=== PATIENT | male | born 1940 | race Caucasian/White ===

== ENCOUNTER 2023-11-12 11:15 | Emergency (ER) | payer OTHER, SELFPAY ==
[2023-11-12 11:17] VITALS: BMI 48.7
[2023-11-12 11:18] VITALS: BP 133/67
--- NOTE | 2023-11-12 11:45 | ED.GENMED ---
History of Present Illness
General
Chief Complaint: Fall
Source: patient
Exam Limitations: none
Time Seen by Provider: 11/12/23 11:21
Nursing documentation reviewed up to this point in time: agreed with
Travel History
Have you had any contact with someone who has COVID-19?: No
Do you have any symptoms of coronavirus? Fever > 100 degrees, chills, cough, shortness of breath, sore throat, loss of taste or smell, muscle aches, or headache?: No
History of Present Illness
History of Present Illness:
83-year-old male with past medical history of A-fib currently on Coumadin hypertension hyperlipidemia, chronic lung disease currently on chronic oxygen presenting to the emergency department after ground-level fall at home he claims that he was
dragging his air compressor around due to a longer walk than usual today tripped over this fell to the side denies any discomfort but was told to go to the ER due to him being on Coumadin. Denies any headache neck pain numbness weakness or
additional concerns. Otherwise feels normal at this point.
Past History
Past History
ED Past Medical History: Arrthythmia (Atrial fibrillation), HTN, Hypercholesterolemia, NIDDM, Renal failure, Valvular disease and Other (Morbid obesity)
ED Past Surgical History: Cardiac (Bioprosthetic aortic valve replacement) and Orthopedic
Social History
Tobacco: Non-smoker
Alcohol: None
Drug: None
Personal:
Living: with family
Employment: Retired
Review of Systems
Review of Systems
Allergies reviewed?: Yes
All Other Systems: ROS reviewed and negative except as documented in HPI and ROS
Phy Exam
Physical Exam
Physical Exam:
GENERAL: Alert , in no apparent distress
EYE: pupils equal and reactive
NECK: Supple, no significant adenopathy.
ENT: o/p clr, mmm.
CARDIAC: Regular rate and rhythm .
LUNGS: Clear breath sounds bilaterally, no acute respiratory distress, no wheezes/rales/rhonchi
ABDOMEN: Soft, without focal tenderness, no r/g, no cvat
NEUROLOGICAL: Alert and oriented, no focal neuro deficits
SKIN: Warm and dry, skin intact.
MUSCULOSKELETAL: No edema, well perfused.
PSYCH: Normal and appropriate interaction.
Course
Orders/Labs/Results
Orders:
Orders
11/12/23 11:24
CT Head W/o Iv Contrast Urgent
Comment:
Reason For Exam: dandy on coumadin
11/12/23 11:36
INR [Prothrombin Time] Urgent
Abnormal Lab Results
11/12/23
11:36
PT 27.2 H Sec
(11.4-14.6)
Vital Signs
Initial and Last Documented VS:
Initial Vital Signs
Temp Pulse Resp BP Pulse Ox
97.9 F 77 18 133/67 97
11/12/23 11:18 11/12/23 11:18 11/12/23 11:18 11/12/23 11:18 11/12/23 11:18
Last Documented Vital Signs
Temp Pulse Resp BP Pulse Ox
97.9 F 77 18 133/67 97
11/12/23 11:18 11/12/23 11:18 11/12/23 11:18 11/12/23 11:18 11/12/23 11:18
MDM/Problems Addressed
MDM/Problems Addressed:
83-year-old male presenting to the emergency department after mechanical fall occurring breast prior to arrival. Denies any significant but he does claim that he is on Coumadin and he was told to come in after any falls considering he is on a blood
thinner. No signs of head trauma no evidence of trauma from head to toe normal neurologic evaluation no neck pain. CT scan without emergent findings INR in the expected range. Stable for discharge return precautions given.
*Critical Care Note
Total Time (30-74mins, 75-104mins- exclusive of procedures): Not Applicable
ED Attending Note
-
Portions of this chart may have been created with voice recognition software.� Occasional wrong word or��sound alike� substitutions may have occurred due to the inherent limitations of voice recognition software.
Discharge Plan
Departure
Patient Disposition: Home (Routine Discharge)
Date of Disposition: 11/12/23
Time of Disposition: 13:16
Patient with high blood pressure during this ER visit?: No
Condition: Good
Covid-19: Not Applicable
Discharge Problem:
Fall
Instructions: Preventing falls in adults
Prescriptions:
No Action
ezetimibe 10 MG tablet
10 mg PO HS
furosemide 40 MG tablet
20 mg PO DAILY
amiodarone [Pacerone] 100 MG tablet
100 mg PO DAILY
cyanocobalamin (vitamin B-12) 2,500 MCG tablet
2,500 mcg PO WEEKLY
albuterol sulfate [Ventolin HFA] 90 MCG/PUFF HFA aerosol inhaler
2 puff inhalation R Q4 PRN (Reason: sob/wheezing)
coenzyme Q10 [Co Q-10] 200 MG capsule
200 mg PO DAILY
carvedilol 3.125 MG tablet
3.125 mg PO BID
warfarin [Jantoven] 2 MG tablet
4.5 mg PO HS
ascorbic acid (vitamin C) [Vitamin C] 500 MG tablet
500 mg PO DAILY
cholecalciferol (vitamin D3) 2,000 UNITS tablet
2,000 units PO DAILY
aspirin 81 MG tablet,delayed release (DR/EC)
81 mg PO DAILY Qty: 0 0RF
Rx Instructions:
Resume after Lovenox/Coumadin Bridge is complete
guaifenesin [Mucinex] 600 mg Tablet Extended Release 12hr
600 mg PO Q12 30 Days Qty: 60 0RF
atorvastatin 20 mg tablet
20 mg PO DAILY
benzonatate 200 mg capsule
200 mg PO TID PRN (Reason: cough)
insulin lispro [Humalog KwikPen Insulin] 100 unit/mL insulin pen
32 unit SC TID
Patient Comments:
10/27/2022: When asking pt if he takes humalog before meals or with meals he states 'whenever i remember'
insulin glargine [Lantus Solostar U-100 Insulin] 100 unit/mL (3 mL) insulin pen
33 unit SC HS
Trulicity 0.75 mg/0.5 mL pen injector
0.75 mg SC WEEKLY
Lagevrio (EUA) 200 mg capsule
800 mg PO Q12H
Referrals:
Ruperto Jade, DO [Family Provider] -
Activity Restrictions/Additional Instructions:
You came to the emergency department today with concerns of a fall. Here you had a normal CT scan. Return to the emergency department for any worsening, new or concerning symptoms.
Interventions
Interventions:
*Risk Screen - Suicide Last Done: 11/12/23 11:20
*General Assessment Last Done: 11/12/23 11:20
*Neglect/Abuse Screening Last Done: 11/12/23 11:20
ED- Fall Risk Assessment Last Done: 11/12/23 11:41
*ED COVID-19 Vaccine History Last Done: 11/12/23 11:20
ED-Musculoskeletal Assessment Last Done: 11/12/23 11:21
ED- Neurological Assessment Last Done: 11/12/23 11:21
ED-Skin Assessment Last Done: 11/12/23 11:21
[2023-11-12 11:55] LABS: INR 2.49; PT 27.2 Sec (11.4-14.6)
[2023-11-12 13:22] VITALS: BP 136/67
[2023-11-12 13:41] LABS: % Basophils 0.6 % (0-2); % Eosinophils 1.5 % (0-6); % Immature Granulocytes 0.5 % (0-0.5); % Lymphocytes 13.9 % (20.5-51.1); % Monocytes 8.9 % (1.7-9.3); % Neutrophils 74.6 % (42.2-75.2); Absolute Basophils 0.1 10^3/uL (0-0.2); Absolute Eosinophils 0.1 10^3/uL (0-0.7); Absolute Lymphocytes 1.1 10^3/uL (1.2-3.4); Absolute Monocytes 0.7 10^3/uL (0.1-0.6); Hematocrit 32.7 % (39.0-52.0); Hemoglobin 10.5 g/dL (13.0-18.0); Mean Corp Hgb Conc. 32.1 g/dL (33.0-37.0); Mean Corpuscular Hgb 30.3 pg (27.0-31.0); Mean Corpuscular Volume 94.2 fL (80.0-94.0); Mean Platelet Volume 11.2 fL (7.4-10.4); Nucleated Red Blood Cells % 0 % (-); Platelet Count 207 10^3/uL (130-400); Red Blood Cell Count 3.47 10^6/uL (4.70-6.10); Red Cell Dist. Width 13.4 % (11.5-14.5); White Blood Cell Count 8.1 10^3/uL (4.8-10.8)
[2023-11-12 14:10] LABS: ALT (SGPT) 14 U/L (0-50); AST (SGOT) 22 U/L (17-59); Albumin 3.3 g/dl (3.5-5.0); Alkaline Phosphatase 107 U/L (38-126); Blood Urea Nitrogen 23 mg/dl (9-20); Calcium 8.5 mg/dl (8.4-10.2); Carbon Dioxide 32 mmol/L (22-30); Chloride 100 mmol/L (98-107); Estimated Creatinine Clearance 76 ml/min; Glucose 340 mg/dl (70-99); Potassium 4.8 mmol/L (3.5-5.1); Sodium 136 mmol/L (135-145); eGFR > 60.00
[2023-11-12 15:04] VITALS: BP 135/74
== END 2023-11-12 15:14 | disposition home or self-care (01) ==
LOC: EMR 11:15
PROVIDERS: Physician Assistant; EMERGENCY PHYSICIAN Emergency Medicine; FAMILY PHYSICIAN Family Medicine
DX: Z04.3 Encounter for examination and observation following other accident (principal); W18.09XA Striking against other object with subsequent fall, initial encounter; I48.91 Unspecified atrial fibrillation; Z79.01 Long term (current) use of anticoagulants; I10 Essential (primary) hypertension; E78.00 Pure hypercholesterolemia, unspecified
CPT/HCPCS: 99284; 70450; 80053; 85025; 85610

== ENCOUNTER 2023-12-07 22:35 | Inpatient (IN) | payer OTHER, SELFPAY ==
[2023-12-07] VITALS (31 sets, daily range): BP systolic 106–195; BP diastolic 58–127; PULSE 2–80; BMI 48.9
--- NOTE | 2023-12-07 20:19 | ED.GENMED ---
History of Present Illness
General
Chief Complaint: Breathing Problem
Source: patient, records and ambulance crew
Exam Limitations: none
Time Seen by Provider: 12/07/23 20:11
Nursing documentation reviewed up to this point in time: agreed with
History of Present Illness
History of Present Illness:
83-year-old male with a past medical history of atrial fibrillation on Coumadin, hypertension, hyperlipidemia, aortic stenosis status post bioprosthetic aortic valve replacement, diabetes, CKD, chronic hypoxic respiratory failure on currently on
3.5L home oxygen who presents to the emergency room via EMS in respiratory distress. Of note patient had a recent admission 10/27 until 10/28 for acute on chronic respiratory failure with hypoxia thought to be related to COVID and viral bronchitis.
Patient reports for the past week he has had increasing shortness of breath tonight felt like 'I just could not breathe.' EMS was called by patient's . On EMS arrival per their report patient was cyanotic and severely hypoxic; placed on
additional oxygen via nasal cannula and transported to the emergency room. He did receive a DuoNeb on the way to the hospital. Here in the emergency room he continues to complain of shortness of breath. He denies any chest pain. He says he has
not had any increased edema in his legs. He denies any GI symptoms. Denies any recent fevers or chills. He says he has not been coughing very much. He denies any other complaints.
Past History
Past History
ED Past Medical History: Arrthythmia (Atrial fibrillation), HTN, Hypercholesterolemia, NIDDM, Renal failure, Valvular disease and Other (Morbid obesity)
ED Past Surgical History: Cardiac (Bioprosthetic aortic valve replacement) and Orthopedic
Social History
Tobacco: Non-smoker
Alcohol: None
Drug: None
Personal:
Living: with family
Employment: Retired
Review of Systems
Review of Systems
All Other Systems: ROS reviewed and negative except as documented in HPI and ROS
Constitutional: Denies fever or chills
Respiratory: Reports trouble breathing; Denies cough
Cardiac: Denies chest pain or palpitations
ABD/GI: Denies abdominal pain, nausea or vomiting
: Denies flank pain
Musculoskeletal: Denies edema, neck pain or back pain
Neurological: Denies headache
Phy Exam
Physical Exam
Physical Exam:
General: Awake, alert, cyanotic and patel and is in acute respiratory distress
Head: Normocephalic, atraumatic
Eyes: Conjunctiva normal
Throat: Airway intact, handling secretions
Neck: Trachea midline, supple without meningismus
Lungs: Patient is cyanotic and patel, tachypneic with rates in the 30s, hypoxic to 40% on room air, has bilateral scattered wheezing
Heart: Regular rate and rhythm, no murmurs, gallops, or rubs
Abd: Obese but soft, non distended, nontender
Neuro: No gross deficits
Skin: Cyanotic and red; chronic venous stasis changes in the lower extremities
Extremities: Trace edema in the lower extremities bilaterally; extremities are cool to touch
Scores
Heart Failure Risk
Heart Failure Risk Score: Not Applicable
Heart Score for Chest Pain Patients
STEMI patient?: Not applicable
Withdrawal Assessment of Alcohol
Withdrawal Assessment Completed?: Not applicable
Course
Orders/Labs/Results
Orders:
Orders
12/07/23 20:14
Ipratropium/Albuterol Sulfate [Duoneb] 3 ml .ROUTE .STK-MED ONE
MethylPREDNISolone PF [Solu-Medrol Pf] 125 mg .ROUTE .STK-MED ONE
12/07/23 20:18
Electrocardiogram (*1) Urgent
Reason for Study: Shortness of Breath
EKG- Treatment ONCE
CR Chest Portable - 1 View Urgent
Comment:
Reason For Exam: sob
Reason Study Needs to be Portable: Unable to Transport
Portable Chest Xray [CR Chest Portable - 1 View] Stat
Comment:
Reason For Exam: Dyspnea
Reason Study Needs to be Portable: Unable to Transport
12/07/23 20:34
ABG [Arterial Blood Gas] Urgent
%Oxygen/Room Air: 40
COVID-19 Antigen Urgent
Source: Nasal Swab
Complete Blood Count/With Diff Urgent
Comprehensive Metabolic Panel Urgent
NT-proBNP Urgent
PTT Urgent
Prothrombin Time Urgent
Troponin I Urgent
12/07/23 20:47
Ipratropium/Albuterol Sulfate [Duoneb] 3 ml INH R NOW ONE
12/07/23 20:48
MethylPREDNISolone PF [Solu-Medrol Pf] 125 mg IV NOW STA
12/07/23 21:22
Furosemide [Lasix] 40 mg IV NOW STA
Nitroglycerin 100 mg/250 ml [Nitroglycerin Premix] 100 mg in 250 ml IV NOW
Initial dose in mcg/min, then titrate:: 5
Titrate to keep:: SBP < 160 mmHg
Titrate by mcg/min:: 5 mcg/min, may increase by 10 mcg/min if dose > 20 mcg/min
Frequency of titrations (minutes):: every 3-5 minutes
Maximum dose in mcg/min:: 200
Begin to taper infusion when:: Remained at goal for 2hrs
Taper by mcg/min:: 5 mcg/min
Frequency of taper (minutes) if patient maintains goal:: 30
Taper to off?: Yes
If infusion off & no longer maintaining goal:: Contact Provider
Abnormal Lab Results
12/07/23 12/07/23
20:25 20:34
RBC 3.37 L 10^6/uL
(4.70-6.10)
Hgb 10.1 L g/dL
(13.0-18.0)
Hct 32.9 L %
(39.0-52.0)
MCV 97.6 H fL
(80.0-94.0)
MCHC 30.7 L g/dL
(33.0-37.0)
RDW 14.6 H %
(11.5-14.5)
MPV 10.8 H fL
(7.4-10.4)
Absolute Neuts (auto) 8.3 H 10^3/uL
(1.4-6.5)
Absolute Lymphs (auto) 1.1 L 10^3/uL
(1.2-3.4)
Absolute Monos (auto) 1.1 H 10^3/uL
(0.1-0.6)
Neutrophils % 77.8 H %
(42.2-75.2)
Lymphocytes % 10.7 L %
(20.5-51.1)
Monocytes % 10.1 H %
(1.7-9.3)
PT 38.0 H Sec
(11.4-14.6)
APTT 52.6 H Sec
(23.4-35.0)
pH 7.31 L
(7.35-7.45)
pCO2 82 H* mmHg
(35-48)
pO2 82 L mmHg
(83-108)
HCO3 41.3 H* mmol/L
(21-28)
ABG O2 Sat (Measured) 98.3 H %
(94-98)
POC Glucose 256 H mg/dl
(70-99)
12/07/23 20:34
Vital Signs
Initial and Last Documented VS:
Initial Vital Signs
Pulse Resp BP Pulse Ox
81 24 185/89 37
12/07/23 20:10 12/07/23 20:10 12/07/23 20:10 12/07/23 20:10
Last Documented Vital Signs
Temp Pulse Resp BP Pulse Ox
37.4 C 78 35 181/65 94
12/07/23 20:35 12/07/23 20:35 12/07/23 20:35 12/07/23 20:30 12/07/23 20:35
MDM/Problems Addressed
Differential Diagnosis Includes:
Pneumonia, bronchitis, asthma/COPD, CHF, pulmonary embolism somewhat less likely as patient is on Coumadin
MDM/Problems Addressed:
83-year-old male presents to the emergency room with acute respiratory distress that she has a history of chronic respiratory failure with hypoxia and had recent admission for COVID related pneumonia/bronchitis. He arrives in respiratory distress
speaking in one-word sentences, tachypneic, hypoxic, patel and cyanotic. He was placed on a nonrebreather with improvement in his oxygenation, given his bilateral wheezing given IV steroid and additional DuoNeb treatment. IV placed labs sent off
including a CBC and a CMP, BNP, troponin. Swab for COVID and flu. Call for stat portable chest x-ray and EKG. Will check an ABG. Monitor closely reassess after the above�anticipate admission
Chest x-ray reviewed shows significant bilateral pulmonary edema. CBC shows stable anemia, no leukocytosis. His proBNP is elevated 2740. Troponin undetectable. Plan to control blood pressure with nitroglycerin. She with IV Lasix. Patient was
transition from nonrebreather to BiPAP. His respiratory status has stabilized. Will admit for continued management of acute on chronic respiratory failure secondary to acute CHF. Discussed with hospitalist for admission.
Chronic conditions affecting care:
Chronic respiratory failure, morbid obesity
Acute Exacerbation and/or Progression of Chronic Illness:
Acute on chronic respiratory failure
*Radiology
Radiology exam reviewed: preliminary read by ED provider and radiology read reviewed
*Pulse Oximetry
Patient hypoxic: yes
*EKG
Interpreted by ED Provider?: Yes
Comparison EKG: no changes
Heart Rate: 81
Rate: normal
Rhythm: sinus
[place]: normal axis
Interval: first degree heart block
QRS Pattern: normal QRS
Ischemia: other (Inferior infarct age undetermined)
*Critical Care Note
Total Time (30-74mins, 75-104mins- exclusive of procedures): 37
comment:
Critical care statement: A total of 37 minutes of critical care time was provided for this patient. This includes management of unstable vital signs, evaluation of the patient at bedside, frequent reassessment, discussion with
consultants/hospitalist, and review of pertinent medical records. This time was separate from time utilized to perform any aforementioned documented procedures
Data Reviewed
Review of Other/Old Records Reveals: Labs, Records and Discharge Summary
Source: patient, family and ambulance crew
Patient Management
Discussion with other providers: Hospitalist (Discussed with hospitalist)
Escalation/DeEscalation of care consider admission/obs:
Admission indicated
ED Attending Note
-
Portions of this chart may have been created with voice recognition software.� Occasional wrong word or��sound alike� substitutions may have occurred due to the inherent limitations of voice recognition software.
Discharge Plan
Departure
Patient Disposition: Admit
Date of Disposition: 12/07/23
Time of Disposition: 21:29
Admit to doctor: Daphne
Presentation/result/management discussed w/ accepting MD/DO: Hospitalist
Discharge Problem:
Acute CHF, Acute on chronic hypoxic respiratory failure
Prescriptions:
No Action
ezetimibe 10 MG tablet
10 mg PO HS
amiodarone [Pacerone] 100 MG tablet
100 mg PO DAILY
cyanocobalamin (vitamin B-12) 2,500 MCG tablet
2,500 mcg PO MOTH
albuterol sulfate [Ventolin HFA] 90 MCG/PUFF HFA aerosol inhaler
2 puff inhalation R Q4 PRN (Reason: sob/wheezing)
coenzyme Q10 [Co Q-10] 200 MG capsule
200 mg PO DAILY
carvedilol 3.125 MG tablet
3.125 mg PO BID
cholecalciferol (vitamin D3) 2,000 UNITS tablet
2,000 units PO DAILY
aspirin 81 MG tablet,delayed release (DR/EC)
81 mg PO DAILY Qty: 0 0RF
Rx Instructions:
Resume after Lovenox/Coumadin Bridge is complete
atorvastatin 20 mg tablet
20 mg PO DAILY
insulin lispro [Humalog KwikPen Insulin] 100 unit/mL insulin pen
0 sliding scale dose SC MEALS
Patient Comments:
10/27/2022: When asking pt if he takes humalog before meals or with meals he states 'whenever i remember'
insulin glargine [Lantus Solostar U-100 Insulin] 100 unit/mL (3 mL) insulin pen
20 unit SC HS
zinc acetate 50 mg (zinc) Capsule
50 mg PO DAILY
magnesium 250 mg Tablet
500 mg PO DAILY
furosemide 20 mg tablet
20 mg PO DAILY
warfarin 1 mg tablet
1 mg PO QPM
Patient Comments:
12/07/2023: taken w/ 2.5mg = 3.5mg
Mounjaro 5 mg/0.5 mL pen injector
5 mg SC MOORE
warfarin 2.5 mg tablet
2.5 mg PO QPM
Patient Comments:
12/07/2023: taken w/ 1mg= 3.5mg
Referrals:
Ruperto Jade, [Family Provider] -
Interventions
Interventions:
*Risk Screen - Suicide Last Done: 12/07/23 20:10
*General Assessment Last Done: 12/07/23 20:38
*Neglect/Abuse Screening Last Done: 12/07/23 20:38
ED- Cardiac Assessment Last Done: 12/07/23 20:38
ED- Pulmonary Assessment Last Done: 12/07/23 20:38
Discharge Date and Time
Print Language: [place]
[2023-12-07 20:26] LABS: Glucose - Point of Care 256 mg/dl (70-99)
[2023-12-07 20:39] LABS: % Basophils 0.5 % (0-2); % Eosinophils 0.5 % (0-6); % Immature Granulocytes 0.4 % (0-0.5); % Lymphocytes 10.7 % (20.5-51.1); % Monocytes 10.1 % (1.7-9.3); % Neutrophils 77.8 % (42.2-75.2); Absolute Basophils 0.1 10^3/uL (0-0.2); Absolute Eosinophils 0.1 10^3/uL (0-0.7); Absolute Lymphocytes 1.1 10^3/uL (1.2-3.4); Absolute Monocytes 1.1 10^3/uL (0.1-0.6); Absolute Neutrophils 8.3 10^3/uL (1.4-6.5); Hematocrit 32.9 % (39.0-52.0); Hemoglobin 10.1 g/dL (13.0-18.0); Mean Corp Hgb Conc. 30.7 g/dL (33.0-37.0); Mean Corpuscular Volume 97.6 fL (80.0-94.0); Mean Platelet Volume 10.8 fL (7.4-10.4); Nucleated Red Blood Cells % 0 % (-); Platelet Count 279 10^3/uL (130-400); Red Blood Cell Count 3.37 10^6/uL (4.70-6.10); Red Cell Dist. Width 14.6 % (11.5-14.5); White Blood Cell Count 10.6 10^3/uL (4.8-10.8)
[2023-12-07] MEDS: DUONEB 3 ML INH (20:48)
[2023-12-07 20:49] LABS: INR 3.87
[2023-12-07] MEDS: SOLU-MEDROL PF 125 MG IV (20:49)
[2023-12-07 20:50] LABS: APTT 52.6 Sec (23.4-35.0)
[2023-12-07 20:52] LABS: B.E. 12.5 mmol/L; O2 Saturation % 98.3 % (94-98); PO2 82 mmHg (83-108); pH 7.31 (7.35-7.45)
[2023-12-07 20:54] LABS: HCO3 41.3 mmol/L (21-28); PCO2 82 mmHg (35-48)
[2023-12-07 21:02] LABS: NT-proBNP 2740 pg/ml; Troponin I < 0.012 ng/ml
--- NOTE | 2023-12-07 21:53 | HPS.HSE ---
Family Physician
-
Family Physician: Ruperto Jade
Chief Complaint
-
shortness of breath
History of Present Illness
83-year-old male past medical history of atrial fibrillation on Coumadin, aortic stenosis status post bioprosthetic aortic valve replacement, coronary artery disease, chronic hypoxic respiratory failure on 3.5 L at home, hypertension,
hyperlipidemia, diabetes, CKD, obesity, presenting for respiratory distress over the past few days. No chest pain or significant cough. No fevers or chills. No weight gain but he has been having increased lower extremity edema.
Patient states that he has been having creasing shortness of breath for the past week. Upon arrival of EMS he was noted to be cyanotic and severely hypoxic. He denies any chest pain. He denies any nausea vomiting or diarrhea. He denies any fevers
or chills. He denies a significant amount of cough.
Patient was initially placed on nonrebreather with improvement in his oxygenation and was given IV steroids and DuoNebs for wheezing on examination. He was eventually transitioned over to BiPAP after labs and chest review showed evidence of heart
failure.
No smoking or alcohol use
Medical History
Past Medical History
Past Medical History: Reports Other (atrial fibrillation on Coumadin, aortic stenosis status post bioprosthetic aortic valve replacement, coronary artery disease, chronic hypoxic respiratory failure on 3.5 L at home, hypertension, hyperlipidemia,
diabetes, CKD, obesity, )
Past Surgical History: Reports Other ( Cardiac (Bioprosthetic aortic valve replacement) and Orthopedic)
Social History
Tobacco: Non-smoker
Alcohol: None
Drug: None
Family History
Family History: Not pertinent
Allergies / Home Medications
Allergies reflects when Allergies were last updated in [employer].
Home Medications with original date entered in [employer]
Allergy/Medication List:
Allergies
Allergy/AdvReac Type Severity Reaction Status Date / Time
No Known Allergies Allergy Verified 10/27/22 12:58
Home Medications
ezetimibe 10 mg tablet 10 mg PO HS High cholesterol 03/13/11
amiodarone 100 mg tablet (Pacerone) 100 mg PO DAILY Heart disease/condition 03/18/17
albuterol sulfate 90 mcg/actuation aerosol inhaler (Ventolin HFA) 2 puff inhalation R Q4 PRN sob/wheezing 03/29/20
coenzyme Q10 200 mg capsule (Co Q-10) 200 mg PO DAILY Supplement 03/29/20
cyanocobalamin (vitamin B-12) 2,500 mcg tablet 2,500 mcg PO MOTH Supplement 03/29/20
carvedilol 3.125 mg tablet 3.125 mg PO BID Blood pressure 06/05/20
cholecalciferol (vitamin D3) 50 mcg (2,000 unit) tablet 2,000 units PO DAILY Supplement 06/05/20
aspirin 81 mg tablet,delayed release 81 mg PO DAILY Blood clot prevention/tx ##0 06/07/20
atorvastatin 20 mg tablet 20 mg PO DAILY High cholesterol 10/27/22
insulin glargine 100 unit/mL (3 mL) subcutaneous pen (Lantus Solostar U-100 Insulin) 20 unit SC HS Diabetes 10/27/22
insulin lispro 100 unit/mL subcutaneous pen (Humalog KwikPen (U-100) Insulin) 0 sliding scale dose SC MEALS Diabetes 10/27/22
furosemide 20 mg tablet 20 mg PO DAILY 12/07/23
magnesium 250 mg tablet 500 mg PO DAILY 12/07/23
tirzepatide 5 mg/0.5 mL subcutaneous pen injector (Mounjaro) 5 mg SC MOORE 12/07/23
warfarin 1 mg tablet 1 mg PO QPM 12/07/23
warfarin 2.5 mg tablet 2.5 mg PO QPM 12/07/23
zinc acetate 50 mg (zinc) capsule 50 mg PO DAILY 12/07/23
Review of Systems
-
History Source: Patient
A 12 point ROS was completed and negative except as noted: Yes
Constitutional: Reports No Symptoms
EENT: Reports No Symptoms
Respiratory: Reports See HPI
Cardiac: Reports No Symptoms
Abdomen/GI: Reports No Symptoms
: Reports No Symptoms
Musculoskeletal: Reports No Symptoms
Skin: Reports No Symptoms
Neurological: Reports No Symptoms
Endocrine: Reports No Symptoms
Hematologic/Lymphatic: Reports No Symptoms
Psych: Reports No Symptoms
Physical Exam
Vital Signs
Vital Signs
Temp Pulse Resp BP Pulse Ox
99.3 F 78 35 181/65 94
12/07/23 20:35 12/07/23 20:35 12/07/23 20:35 12/07/23 20:30 12/07/23 20:35
Physical Exam
General: Well Developed, Well Nourished and No Apparent Distress
HEENT: NormoCephalic, Moist mucous membranes and Atraumatic
Respiratory: Rales
Cardiac: S1/S2 and Regular Rhythm; No Murmur or Rub
GI: Soft, Non Tender, Non Distended and Normal Bowel Sounds; No Organomegaly
Rectal: Deferred by Provider
Musculoskeletal: No Clubbing, No Cyanosis, Edema, Left Lower Extremity, Edema, Right Lower Extremity and No Edema
Skin: No Rash
Neuro: Nonfocal/grossly intact
Laboratory Results
-
12/07/23 20:34
Laboratory Results
PT 38.0 Sec (11.4-14.6) H 12/07/23 20:34
INR 3.87 12/07/23 20:34
APTT 52.6 Sec (23.4-35.0) H 12/07/23 20:34
pH 7.31 (7.35-7.45) L 12/07/23 20:34
pCO2 82 mmHg (35-48) H* 12/07/23 20:34
pO2 82 mmHg (83-108) L 12/07/23 20:34
HCO3 41.3 mmol/L (21-28) H* 12/07/23 20:34
Troponin I < 0.012 ng/ml 12/07/23 20:34
Data Reviewed
-
Lab Data: Labs Reviewed by me
Old Records: Reviewed
Impression/Plan
-
IMPRESSION:
PLAN:
# Acute hypercarbic respiratory failure secondary to acute on chronic HFpEF exacerbation
#Chronic hypoxic respiratory failure on 3.5 L at baseline
-ABG shows pH of 7.31, pCO2 of 82
-Chest x-ray shows severe acute alveolar cardiogenic pulmonary edema, moderate cardiomegaly
-Cardiac BNP of 2700
-40 IV Lasix BID
-Nitroglycerin drip ordered
-Check I's and O's, daily weights
-Check echo
-N.p.o. while on BiPAP
-Cardiology consulted
Paroxysmal atrial fibrillation
-Continue amiodarone
-Continue Coreg
-Continue Coumadin
Aortic stenosis status post bioprosthetic aortic valve replacement
-Echo
Coronary artery disease
-Continue aspirin, statin
Essential hypertension
Hyperlipidemia
-Continue Zetia
Type 2 diabetes
-Continue Lantus 20 units
-Insulin sliding scale
CKD
-BMP pending
Obesity
DNR/DNI
DVT prophylaxis�Coumadin
N.p.o.
[2023-12-07] MEDS: LASIX 40 MG IV (21:55)
[2023-12-07] MEDS: NITROGLYCERIN PREMIX 250 IV (21:55)
[2023-12-07 21:57] LABS: ALT (SGPT) 13 U/L (0-50); AST (SGOT) 22 U/L (17-59); Albumin 3.8 g/dl (3.5-5.0); Alkaline Phosphatase 112 U/L (38-126); Blood Urea Nitrogen 30 mg/dl (9-20); Chloride 94 mmol/L (98-107); Estimated Creatinine Clearance 76 ml/min; Glucose 247 mg/dl (70-99); Potassium 5.3 mmol/L (3.5-5.1); Sodium 136 mmol/L (135-145); Total Bilirubin 1.3 mg/dl (0.2-1.3); eGFR > 60.00
[2023-12-07 22:15] LABS: Carbon Dioxide 35 mmol/L (22-30)
[2023-12-07 23:25] LABS: COVID-19 Antigen Negative (Negative)
[2023-12-08] VITALS (51 sets, daily range): BP systolic 96–173; BP diastolic 55–81; PULSE 2–80; BMI 48.1
[2023-12-08] MEDS: ZETIA PO ×2 (01:33→23:39)
--- NOTE | 2023-12-08 06:34 | W.PN.HOSP.TC ---
Addendum entered and electronically signed by Zoya Stevens MD 12/08/23 09:41:
Addendum
Hyperkalemia
recheck BMP after Lasix
Will follow
# hypercoagulopathy
Hold Coumadin tonight
INR in AM
End
Original Note:
Today's Communication/Plan
-
Give AM medications
wean off Bi pap
Assessment / Plan
Assessment / Plan
Physical Exam
General: Obese, chronically ill looking
HEENT: Normocephalic, Moist mucous membranes and Atraumatic. C pap was on
Respiratory: limited with rales
Cardiac: S1/S2
GI: Soft, Non Tender,
Rectal: No rectal bleeding
Musculoskeletal: mild edema in lower legs with thickened skin
Psych: no agitation
Neuro: awake, answered questions and followed commands.
# Acute hypoxic and hypercarbic respiratory failure secondary to acute on chronic HFpEF exacerbation
#Hx of Chronic hypoxic respiratory failure on 3.5 L at baseline
-ABG shows pH of 7.31, pCO2 of 82. PO2 81
-Chest x-ray shows severe acute alveolar cardiogenic pulmonary edema, moderate cardiomegaly
-Cardiac BNP of 2700
- Negative COVID
-40 IV Lasix BID
-Nitroglycerin drip ordered
- Daily weights
-Check echo
- wean off Bipap to nasal O2
- Appreciate cardiology input
# Paroxysmal atrial fibrillation
Rate is controlled
-Continue amiodarone
-Continue Coreg
-Continue Coumadin
#Aortic stenosis status post bioprosthetic aortic valve replacement
#AMIE (severe) on CPAP 10 cwp s O2, / Pulmonary hypertension
# Morbid obesity BMI 48
Impacting negatively his health.
#Coronary artery disease
No chest pain
Negative troponin on arrival
-Continue aspirin, statin
# Essential hypertension
No headache
Hyperlipidemia
-Continue Zetia
Type 2 diabetes
-Continue Lantus 20 units
-Insulin sliding scale
Obesity
DNR/DNI
DVT prophylaxis�Coumadin
oral diet
Total time spent to see patient, examine the patient on the floor, review data and lab results, discuss treatment plan with patient, nursing staff around 55 minutes
Anticipated Discharge: > 48 hours
Subjective/Interval History
-
Date of Service: December 08, 2023
He denies chest pain\\He feels better
AM Medications were not given yet
Objective Data
-
Labs:
Laboratory Results
12/07/23 12/08/23
20:34 06:32
WBC 10.6
Hgb 10.1 L
Hct 32.9 L
Plt Count 279
PT 38.0 H Pending
INR 3.87 Pending
APTT 52.6 H
HCO3 41.3 H*
Sodium 136
Potassium 5.3 H
Chloride 94 L
Carbon Dioxide 35 H
BUN 30 H
Creatinine 1.0
Glucose 247 H
Calcium 9.0
Total Bilirubin 1.3
AST 22
ALT 13
Alkaline Phosphatase 112
Vital Signs:
Vital Signs
Temp Pulse Resp BP Pulse Ox
99.3 F 64 21 168/77 95
12/07/23 20:35 12/08/23 06:00 12/08/23 06:00 12/08/23 06:00 12/08/23 06:00
[2023-12-08 07:17] LABS: PT 36.7 Sec (11.4-14.6)
--- NOTE | 2023-12-08 08:48 | CARDSERVLU ---
Echocardiogram with [facility] completed after protocol screening completed. Allergies verified.
Patent IV site: _RAC____
IV site flushed with 0.9% NaCl pre and post administration.
Diluted bolus method utilized to enhance visualization of ventricular wu.
Total volume given: ___6_ mL
Patient tolerated all procedures well without complications.
--- NOTE | 2023-12-08 10:23 | VNURNOTE ---
Patient is current with [facility] since 12/05 w/SN/PT/[employer], will monitor progress and plan at discharge.
[2023-12-08] MEDS: ASPIR LOW (ENTERIC COATED) 81 MG PO (11:03)
[2023-12-08] MEDS: COREG 3.125 MG PO ×2 (11:04→20:49)
[2023-12-08] MEDS: LIPITOR 20 MG PO (11:04)
[2023-12-08] MEDS: LASIX 40 MG IV ×2 (11:04→18:15)
[2023-12-08] MEDS: PACERONE 100 MG PO (11:05)
[2023-12-08] MEDS: MAGNESIUM OXIDE 500 MG PO (11:05)
[2023-12-08 11:27] LABS: Blood Urea Nitrogen 35 mg/dl (9-20); Calcium 8.6 mg/dl (8.4-10.2); Carbon Dioxide 34 mmol/L (22-30); Chloride 97 mmol/L (98-107); Estimated Creatinine Clearance 76 ml/min; Glucose 306 mg/dl (70-99); Potassium 5.1 mmol/L (3.5-5.1); Sodium 136 mmol/L (135-145); eGFR > 60.00
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
[2023-12-08] MEDS: NOVOLOG FLEXPEN-LOW RESISTANCE SC (12:02)
[2023-12-08 13:33] LABS: Glucose - Point of Care 366 mg/dl (70-99)
[2023-12-08] MEDS: NOVOLOG FLEXPEN-LOW RESISTANCE 5 UNITS SC ×2 (13:56→18:53)
--- NOTE | 2023-12-08 18:50 | PTCARENOTE ---
Received patient from ED with nitro drip infusing via right hand. Nitro drip discontinued. Patient arrived with 6L o2 via n/c. Sp02 96%. Patient short of breath with exertion and talking. VS 97.7,96/78,70,28. Blood sugar 383. Covered patient
with 5 units novolog as per sliding scale. SR with first degree block on monitor. Oriented patient to room. Call barker in reach.
[2023-12-08 19:03] LABS: Glucose - Point of Care 383 mg/dl (70-99)
[2023-12-08 22:10] LABS: Glucose - Point of Care 427 mg/dl (70-99)
[2023-12-08] MEDS: LANTUS 0.200000000000000011 UNITS SC (22:20)
[2023-12-08 22:41] LABS: Glucose 373 mg/dl (70-99)
[2023-12-09] VITALS (18 sets, daily range): BP systolic 122–169; BP diastolic 55–92; PULSE 2–67; O2SAT 90; BMI 47.9
--- NOTE | 2023-12-09 00:49 | PTCARENOTE ---
Pt's O2 sat was 88% on 6 liters NC so TT respiratory therapy to provide midflow tubing to increase o2 to 7 liters with humidification. Pt placed on Bipap and tolerated it for 3 hours and O2 sats were variable 86-99% on Bipap at 15 liters O2 Resp
therapist removed Bipap and placed pt on Midflow as pt could not wear the bipap any more. Tolerating the Midflow at 15 L, O2 sat is00%.
[2023-12-09 05:42] LABS: INR 4.16; PT 40.3 Sec (11.4-14.6)
[2023-12-09 05:58] LABS: Blood Urea Nitrogen 48 mg/dl (9-20); Calcium 8.6 mg/dl (8.4-10.2); Chloride 93 mmol/L (98-107); Estimated Creatinine Clearance 63 ml/min; Glucose 294 mg/dl (70-99); Potassium 5.3 mmol/L (3.5-5.1); Sodium 135 mmol/L (135-145); eGFR > 60.00
[2023-12-09 06:12] LABS: Carbon Dioxide 38 mmol/L (22-30)
--- NOTE | 2023-12-09 06:20 | W.PN.HOSP.TC ---
Addendum entered and electronically signed by Zoya Stevens MD 12/09/23 16:41:
Addendum
Restart Bi pap due to change in mental status
Known to Dr Romeo with non compliance, AMIE/ pulmonary HTN
End
Original Note:
Today's Communication/Plan
-
.
Assessment / Plan
Assessment / Plan
Physical Exam
General: Obese, chronically ill looking
HEENT: Normocephalic, Moist mucous membranes and Atraumatic. C pap was on
Respiratory: better than yesterday, limited with rales
Cardiac: S1/S2
GI: Soft, Non Tender,
Rectal: No rectal bleeding
Musculoskeletal: mild edema in lower legs with thickened skin
Psych: no agitation
Neuro: awake, answered questions and followed commands.
# Acute hypoxic and hypercarbic respiratory failure secondary to acute on chronic HFpEF exacerbation
#Hx of Chronic hypoxic respiratory failure on 3.5 L at baseline
-ABG shows pH of 7.31, pCO2 of 82. PO2 81
-Chest x-ray shows severe acute alveolar cardiogenic pulmonary edema, moderate cardiomegaly
-Cardiac BNP of 2700
- Negative COVID
-40 IV Lasix BID
- off Nitroglycerin drip.
- Daily weights
-Check echo
- weaned off Bipap to nasal O2 , change to Cpap at night
- Appreciate cardiology input
# Hypercoagulopathy secondary to Coumadin. Hold Coumadin. INR 4.16
# Hyperkalemia
c/w Lasix
Give one time Lokelma.
Creatinine at 1.2
# Paroxysmal atrial fibrillation
Rate is controlled
-Continue amiodarone
-Continue Coreg
-Holding Coumadin
#Aortic stenosis status post bioprosthetic aortic valve replacement
#AMIE (severe) on CPAP 10 cwp s O2, / Pulmonary hypertension
# Morbid obesity BMI 48
Impacting negatively his health.
#Coronary artery disease
No chest pain
Negative troponin on arrival
-Continue aspirin, statin
# Essential hypertension
No headache
Hyperlipidemia
-Continue Zetia
Type 2 diabetes
Uncontrolled. Upgrade insulin/scale to high-dose. Increased Lantus dose and monitor. No hypoglycemia
Appreciate pharmacy help
Obesity
DNR/DNI
DVT prophylaxis�Coumadin
oral diet
Total time spent to see patient, examine the patient on the floor, review data and lab results, discuss treatment plan with patient, nursing staff around 57 minutes
Anticipated Discharge: > 48 hours
Subjective/Interval History
-
Date of Service: December 09, 2023
he is more alert
Night team, could not keep Bipap for long time
Objective Data
-
Labs:
Laboratory Results
12/08/23 12/09/23
22:22 04:59
PT 40.3 H
INR 4.16
Sodium 135
Potassium 5.3 H
Chloride 93 L
Carbon Dioxide 38 H
BUN 48 H
Creatinine 1.2
Glucose 373 H 294 H
Calcium 8.6
Vital Signs:
Vital Signs
Temp Pulse Resp BP Pulse Ox
98.5 F 62 21 145/78 99
12/09/23 03:00 12/08/23 23:30 12/08/23 23:30 12/08/23 22:00 12/09/23 00:54
I&O
12/07/23 12/08/23 12/09/23
06:59 06:59 06:59
Intake Total 220 / 220
Output Total 1050 / 1050
Balance -830 / -830
[2023-12-09 08:13] LABS: Glucose - Point of Care 279 mg/dl (70-99)
[2023-12-09] MEDS: COREG 3.125 MG PO ×2 (08:14→19:58)
[2023-12-09] MEDS: DESENEX/MITRAZOL/ZEASORB 1 APPLIC TOPICAL ×2 (08:14→19:57)
[2023-12-09] MEDS: LIPITOR 20 MG PO (08:14)
[2023-12-09] MEDS: MAGNESIUM OXIDE 500 MG PO (08:14)
[2023-12-09] MEDS: NOVOLOG FLEXPEN-LOW RESISTANCE 3 UNITS SC (08:14)
[2023-12-09] MEDS: ASPIR LOW (ENTERIC COATED) 81 MG PO (08:14)
[2023-12-09] MEDS: LASIX 40 MG IV ×2 (08:15→16:43)
--- NOTE | 2023-12-09 08:54 | W.PN.CARDCBS ---
Today's Communication / Plan
-
Cont IV diuresis 40 mg IV BID (was on 20 mg daily as outpt). Monitor daily wts Is and Os and cr.
Discussed compliance. HF teaching. He was drinking a lot of fluid at home.
Echo noted and valvular heart disease is stable with stable EF and no change compared to prior echo.
Consider pulm eval for multifactorial dyspnea and chronic amiodarone therapy.
Coumadin held for elevated INR. INR goal is 2-3 managed by [facility]
Remains in sinus with stable QTc on amiodarone.
Impression / Plan
-
.
PCP: Dr. Jade
Cardiology: Dr. Arce
Pulmonary: Dr. Marilin Verde (initial new patient evaluation 05/21/2022)
Impression:
Acute on chronic hypoxic respiratory failure
Chronic hypoxic respiratory failure using 3.5 L NC at home
Supratherapeutic INR
Acute on chronic HF with preserved EF
Dietary noncompliance
Restrictive lung disease
Paroxysmal Afib on chronic amiodarone therapy and chronic warfarin OAC
s/p AVR bioprosthetic mean gradient 10 mmHg by echo 04/2023
Mild mitral stenosis
DM 2
Obesity, BMI 48.8
Echo 05/06/23: EF 55-60%, stage II diastolic dysfunction, mod MS with peak/mean 13/7 mmHg, well seated bioprosthetic AVR with peak/mean 16/10 mmHg and no aortic regurgitation
Echo December 08 2023: EF 55% with mild LVH, mild MS, mean grad 5 mmHg, bioAVR with mean grad 10 mmHg, mild TR with PASP 45 mmHg and no change from Apr 2023.
05/27/2023: PFT: FEV1: 1.35 (59%), FVC: 2.19 (67%), FEV1/FVC: 62%, T.45 (55%), DLCO: 48%
12/07/2023 at 20:34: ABG pH 7.3, pCO2 82, pO2 82 on room air
Plan:
Cont IV diuresis 40 mg IV BID (was on 20 mg daily as outpt). Monitor daily wts Is and Os and cr.
Discussed compliance. HF teaching. He was drinking a lot of fluid at home.
Echo noted and valvular heart disease is stable with stable EF and no change compared to prior echo.
Consider pulm eval for multifactorial dyspnea and chronic amiodarone therapy.
Coumadin held for elevated INR. INR goal is 2-3 managed by [facility]
Remains in sinus with stable QTc on amiodarone.
He has been on Mounjaro and had stated that it had caused constipation.
Discussed with nursing and family at bedside.
HPI: Patient came to [facility] last night with increased SOB and was admitted with acute on chronic hypoxic respiratory failure and acute HF so cardiology has been consulted. Patient says he has been drinking more water and eating lots of watermelon
lately because he feels like his throat is dry. He has had more bloating and GLOVER for the last week and then last night he was profoundly SOB when he tried to go to bed and his says he looked cyanotic so she called 911. Patient has a h/o chronic
hypoxic respiratory failure and uses oxygen at 3.5 L NC at home, but paramedics reported a pulse ox in the 70s and NRB was started. Upon arrival to [facility] patient was placed on BiPAP. Patient appeared to be in pulmonary edema and was started on Nitro
gtt and given Lasix 40 mg IV x1. Patient takes Lasix 20 mg PO daily as an outpatient. Patient feels dramatically symptomatically improved this AM and is using oxygen by NC again albeit at 6 L. No chest pain.
Attending addendum HPI: This is an 83-year-old gentleman with a past medical history notable for underlying restrictive lung disease and O2 dependent respiratory insufficiency for which she is chronically maintained on 3.5 L of oxygen via nasal
cannula. He was last seen by pulmonary in May 2023 and oxygen saturations were reportedly in the 90s. He has a history of paroxysmal atrial fibrillation and is chronically maintained on oral anticoagulation with warfarin. He is chronically
treated with amiodarone 100 mg tablet daily. 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 His last echocardiogram was notable for mean aortic valve gradient
of 10 mmHg. He was also noted to have moderate mitral stenosis. He now presents with hypoxia and increased shortness of breath. O2 sats were noted to be in the 70s by home pulse oximeter on multiple occasions. Upon arrival to the emergency
department he was placed on a nonrebreather and then BiPAP. The family reported that he had been drinking a lot of water because his oxygen was making his mouth dry. His proBNP was modestly elevated at 2740.
Progress Note - [employer] Consultant
Subjective
Date of Service: December 09, 2023
Pt seen and examined. He feels improved. No cp
Objective
Labs:
12/07/23 20:34
12/09/23 04:59
Labs
Hgb 10.1 g/dL (13.0-18.0) L 12/07/23 20:34
Hct 32.9 % (39.0-52.0) L 12/07/23 20:34
Plt Count 279 10^3/uL (130-400) 12/07/23 20:34
PT 40.3 Sec (11.4-14.6) H 12/09/23 04:59
INR 4.16 12/09/23 04:59
APTT 52.6 Sec (23.4-35.0) H 12/07/23 20:34
Sodium 135 mmol/L (135-145) 12/09/23 04:59
Potassium 5.3 mmol/L (3.5-5.1) H 12/09/23 04:59
BUN 48 mg/dl (9-20) H 12/09/23 04:59
Creatinine 1.2 mg/dL (0.7-1.3) 12/09/23 04:59
Glucose 294 mg/dl (70-99) H 12/09/23 04:59
Troponins
12/07/23
20:34
Troponin I < 0.012
Vital Signs and I&O:
Vital Signs
Temp Pulse Resp BP Pulse Ox
97.9 F 74 27 159/66 98
12/09/23 07:00 12/09/23 08:15 12/09/23 07:00 12/09/23 08:15 12/09/23 07:00
Vital Signs
Temp Pulse Resp BP Pulse Ox
97.9 F 74 27 159/66 98
12/09/23 07:00 12/09/23 08:15 12/09/23 07:00 12/09/23 08:15 12/09/23 07:00
Intake & Output
12/07/23 12/08/23 12/09/23 12/10/23
06:59 06:59 06:59 06:59
Intake Total 220 / 220
Output Total 1050 / 1050
Balance -830 / -830
Physical Exam
Physical Exam
General: No acute distress, AAOX3
Neck: Negative JVD
Heart: Regular, Negative S3 positive S1/S2, Negative S4, No murmur
Lungs: CTA b/l, negative wheezes/rales/rhonchi
Abd: Morbid obesity Positive BS, NT/ND, neg rebound/rigidity/guarding
Ext: Negative cyanosis/clubbing/edema
Neuro: nonfocal
[2023-12-09] MEDS: PACERONE 100 MG PO (08:59)
[2023-12-09] MEDS: LOKELMA 5 GRAM PO (11:31)
[2023-12-09 11:45] LABS: Glucose - Point of Care 331 mg/dl (70-99)
[2023-12-09] MEDS: NOVOLOG FLEXPEN-HIGH RESISTANCE 10 UNITS SC (12:15)
--- NOTE | 2023-12-09 13:23 | PN.CDI ---
Addendum entered and electronically signed by Zoya Stevens MD 12/09/23 13:29:
CKD 2 was ruled out
Original Note:
CDI
- -
CDI:
Physician Documentation Request
Admit Date: 12/07/23 22:35
Dear Doctor Hilda,
Please review the following and provide your response in the progress notes.
Clinical Indicators:
The diagnosis of CKD was documented on 12/06 H&P but is not consistently noted in subsequent documentation.
- 12/06 H&P indicates CKD
Laboratory Tests
12/07/23 12/08/23 12/09/23
20:34 10:28 04:59
Creatinine 1.0 1.0 1.2
eGFR > 60.00 > 60.00 > 60.00
Please clarify the following:
____ - CKD 2 was present on admission and is now resolved.
____ - CKD 2 was present on admission and is still being monitored, evaluated or treated
____ - CKD 2 was ruled out
____ - CKD 2 is still a likely, suspected, probable diagnosis
____ - Other
Use of terms such as suspected, likely, concern for, or probable (associated with a specific diagnosis that is being evaluated, monitored, or treated as if it exists) are acceptable and can be coded in the inpatient setting, when documented at the
time of discharge.
Thank you,
Latrell Moody RN
CDI Specialist
Please use your independent medical judgment in providing your response.
--- NOTE | 2023-12-09 16:01 | CM ---
Patient with Dx Acute hypoxic and hypercarbic respiratory failure, HF, PAF, morbid obesity. O2 6L. Receiving IV Lasix. PT & OT recommend skilled rehab.
Met with patient, Karine & grand-daughter Debbie;
the patient resides with his in a 2 story house with first floor bedroom/bath and 1 + 1 PETAR.
The patient has been assisted with ADLs by his .
He is only able to ambulate short distances using his RW to the bathroom due to weakness & SOB.
The patient sleeps in a recliner.
DME - RW, SPC, CPAP, O2 concentrator/portables through [employer]. Clarified does not have hospital bed as per CM notes from prior admissions - he has a 'sleep number bed' with some controls to raise HOB.
[facility]N - current with [facility] for SN & PT
SNF - prior [facility]
PCP - Ruperto Jade
Pharmacy - [facility]
Secondary contact: Daughter Sola [place] ph [phone].
Patient/ said that if SNF is needed for rehab that they would agree to this - left message for to call CM about SNF preferences.
Plan follow up with for SNF preferences.
--- NOTE | 2023-12-09 16:18 | WOUNDNOTE ---
WOC RN NOTE: Visited patient for sacral wound consult. Patient was lethargic/mental status change. Will follow up with patient at a later time.
[2023-12-09 16:23] LABS: Glucose - Point of Care 299 mg/dl (70-99)
--- NOTE | 2023-12-09 16:48 | PTCARENOTE ---
Patient woken up from sleep and patient slow to respond. He is very drowsy and falls back to sleep quickly if not kept engaged. Pt able to answer some questions, however, not as quickly as he did this morning. Pt's vital signs stable. Blood sugar
299. TT to . Advised to put patient on BiPAP. TT to Resp and patient placed on BiPAP. No other orders at this time.
[2023-12-09] MEDS: NOVOLOG FLEXPEN-HIGH RESISTANCE 7 UNITS SC (18:05)
[2023-12-09 18:08] LABS: Glucose - Point of Care 281 mg/dl (70-99)
--- NOTE | 2023-12-09 18:18 | PTCARENOTE ---
Patient wore BiPAP for approx 2 hours. Pt back to baseline. Pt aaox3, alert, was able to ring call barker and ask for urinal. Pt was incontinent a small amount before urinal was provided. Full linen change and pericare performed.
[2023-12-09] MEDS: COSOPT EYE DROPS 1 DROP OPHTH (19:58)
[2023-12-09] MEDS: ZETIA 10 MG PO (20:36)
--- NOTE | 2023-12-09 21:39 | PTCARENOTE ---
Received pt at change of shift awake and oriented. worried about how he was so sleepy earlier today, given reassurance. Voiding clear yellow urine since receiving his lasix earlier. Bladder scanned for 0 cc after he voided. At approx 2100 pt
complained of feeling like he could not breathe. O2 sat was 98% nd his RR was 28 and his lips wer pink. encouraged him to take deep breaths. After a few minutes his O2 sat dropped to 75and his lips wer dusky and noted that the O2 had come off the
Oxygen humidifier. So, O2 reconnected and turned up to 15 liters and a NR mask brought into his room and Pulse Ox saturation improved to 100%. Pt's lips pink and feeling better. O2 tubing connected well and will continue to monitor pt. Presently
he is asleep with music on in the room and appears comfortable.
[2023-12-09 21:51] LABS: Glucose - Point of Care 231 mg/dl (70-99)
[2023-12-09] MEDS: LANTUS 0.25 UNITS SC (22:32)
[2023-12-10] VITALS (16 sets, daily range): BP systolic 112–151; BP diastolic 57–99; PULSE 2–64; O2SAT 96–97; BMI 47.8
--- NOTE | 2023-12-10 06:03 | W.PN.HOSP.TC ---
Today's Communication/Plan
-
.
Assessment / Plan
Assessment / Plan
Physical Exam
General: Obese, chronically ill looking
HEENT: Normocephalic, Moist mucous membranes and Atraumatic. C pap was on
Respiratory: better than yesterday, limited with rales
Cardiac: S1/S2
GI: Soft, Non Tender,
Rectal: No rectal bleeding
Musculoskeletal: mild edema in lower legs with thickened skin
Psych: no agitation
Neuro: awake, answered questions and followed commands.
# Acute hypoxic and hypercarbic respiratory failure secondary to acute on chronic HFpEF exacerbation
#Hx of Chronic hypoxic respiratory failure on 3.5 L at baseline
-ABG shows pH of 7.31, pCO2 of 82. PO2 81
-Chest x-ray shows severe acute alveolar cardiogenic pulmonary edema, moderate cardiomegaly
-Cardiac BNP of 2700
- Negative COVID
-40 IV Lasix BID
- off Nitroglycerin drip.
- Daily weights
-Echocardiogram showed LVEF 55%, stage II diastolic dysfunction, mild mitral stenosis, trace mitral regurgitation, bioprosthetic aortic valve with no regurgitation, mild tricuspid regurgitation. No significant changes than echogram in April 2023
-Continue with BiPAP treatment
- Appreciate cardiology input
#AMIE (severe) on CPAP 10 cwp s O2, / Pulmonary hypertension
Primary pulmonary doctor is Dr. Walters
Continue with BiPAP therapy, continue diuretic treatment
Order chest x-ray
Appreciate pulmonary input
# Hypercoagulopathy secondary to Coumadin. Hold Coumadin. INR 4.16
# Hyperkalemia
c/w Lasix
Give one time Lokelma.
Creatinine at 1.2
# Paroxysmal atrial fibrillation
Rate is controlled
-Continue amiodarone
-Continue Coreg
-Holding Coumadin
#Aortic stenosis status post bioprosthetic aortic valve replacement
# Morbid obesity BMI 48
Impacting negatively his health.
#Coronary artery disease
No chest pain
Negative troponin on arrival
-Continue aspirin, statin
# Essential hypertension
No headache
Hyperlipidemia
-Continue Zetia
Type 2 diabetes
AM BS 152, better controlled. Upgrade insulin/scale to high-dose. Increased Lantus dose and monitor. No hypoglycemia
Obesity
DNR/DNI
DVT prophylaxis�Coumadin
oral diet
Total time spent to see patient, examine the patient on the floor, review data and lab results, discuss treatment plan with patient, nursing staff around 57 minutes
Anticipated Discharge: > 48 hours
Subjective/Interval History
-
Date of Service: December 10, 2023
No chest pain or sob
Night team, no events, kept BI pap on most of the night
Objective Data
-
Labs:
Laboratory Results
12/10/23
05:58
WBC Pending
Hgb Pending
Hct Pending
Plt Count Pending
Sodium Pending
Potassium Pending
Chloride Pending
Carbon Dioxide Pending
BUN Pending
Creatinine Pending
Glucose Pending
Calcium Pending
Vital Signs:
Vital Signs
Temp Pulse Resp BP Pulse Ox
98.6 F 65 23 122/63 97
12/10/23 03:00 12/09/23 19:58 12/09/23 18:00 12/09/23 18:00 12/09/23 18:00
I&O
12/08/23 12/09/23 12/10/23
06:59 06:59 06:59
Intake Total 220 / 220 600 / 600
Output Total 1050 / 1050 1330 / 1330
Balance -830 / -830 -730 / -730
[2023-12-10 06:12] LABS: Hematocrit 28.8 % (39.0-52.0); Hemoglobin 8.7 g/dL (13.0-18.0); Mean Corp Hgb Conc. 30.2 g/dL (33.0-37.0); Mean Corpuscular Hgb 29.8 pg (27.0-31.0); Mean Corpuscular Volume 98.6 fL (80.0-94.0); Mean Platelet Volume 11.2 fL (7.4-10.4); Platelet Count 215 10^3/uL (130-400); Red Blood Cell Count 2.92 10^6/uL (4.70-6.10); Red Cell Dist. Width 14.4 % (11.5-14.5)
--- NOTE | 2023-12-10 06:13 | PTCARENOTE ---
Pt has tolerated his bipap all night and has slept. Continues to urinate frequently and has no complaints. Had difficulty drawing his blood work this morning needing 3 people to try. Blood work was obtained. POx is 99% on bipap this morning and
has been stable all morning.
[2023-12-10 06:37] LABS: Blood Urea Nitrogen 49 mg/dl (9-20); Calcium 8.8 mg/dl (8.4-10.2); Chloride 90 mmol/L (98-107); Estimated Creatinine Clearance 68 ml/min; Glucose 141 mg/dl (70-99); Potassium 4.5 mmol/L (3.5-5.1); Sodium 139 mmol/L (135-145); eGFR > 60.00
[2023-12-10 06:57] LABS: Carbon Dioxide 43 mmol/L (22-30)
[2023-12-10 07:39] LABS: Glucose - Point of Care 152 mg/dl (70-99)
--- NOTE | 2023-12-10 08:34 | W.PN.CARDCBS ---
Today's Communication / Plan
-
Wt continues to come down. Cont IV diuresis 40 mg IV BID (was on 20 mg daily as outpt). Monitor daily wts Is and Os and cr.
Cr stable. BUN rising.
Again discussed compliance. HF teaching. He was drinking a lot of fluid at home.
Recent echo showed stable EF and bioAVR and MS and no change compared to prior echo.
Coumadin held for elevated INR. INR goal is 2-3 managed by DCA. Check INR
Remains in sinus with stable QTc by last EKG on amiodarone.
Impression / Plan
-
.
PCP: Dr. Jade
Cardiology: Dr. Arce
Pulmonary: Dr. Marilin Verde (initial new patient evaluation 05/21/2022)
Impression:
Acute on chronic hypoxic respiratory failure
Chronic hypoxic respiratory failure using 3.5 L NC at home
Supratherapeutic INR
Acute on chronic HF with preserved EF
Dietary noncompliance
Restrictive lung disease
Paroxysmal Afib on chronic amiodarone therapy and chronic warfarin OAC
s/p AVR bioprosthetic mean gradient 10 mmHg by echo 04/2023
Mild mitral stenosis
DM 2
Obesity, BMI 48.8
Echo 05/06/23: EF 55-60%, stage II diastolic dysfunction, mod MS with peak/mean 13/7 mmHg, well seated bioprosthetic AVR with peak/mean 16/10 mmHg and no aortic regurgitation
Echo December 08 2023: EF 55% with mild LVH, mild MS, mean grad 5 mmHg, bioAVR with mean grad 10 mmHg, mild TR with PASP 45 mmHg and no change from Apr 2023.
05/27/2023: PFT: FEV1: 1.35 (59%), FVC: 2.19 (67%), FEV1/FVC: 62%, T.45 (55%), DLCO: 48%
12/07/2023 at 20:34: ABG pH 7.3, pCO2 82, pO2 82 on room air
Plan:
Wt continues to come down. Cont IV diuresis 40 mg IV BID (was on 20 mg daily as outpt). Monitor daily wts Is and Os and cr.
Cr stable. BUN rising.
Again discussed compliance. HF teaching. He was drinking a lot of fluid at home.
Recent echo showed stable EF and bioAVR and MS and no change compared to prior echo.
Consider pulm eval for multifactorial dyspnea and chronic amiodarone therapy.
Coumadin held for elevated INR. INR goal is 2-3 managed by DCA. Check INR
Remains in sinus with stable QTc by last EKG on amiodarone.
HPI: Patient came to [facility] last night with increased SOB and was admitted with acute on chronic hypoxic respiratory failure and acute HF so cardiology has been consulted. Patient says he has been drinking more water and eating lots of watermelon
lately because he feels like his throat is dry. He has had more bloating and GLOVER for the last week and then last night he was profoundly SOB when he tried to go to bed and his says he looked cyanotic so she called 911. Patient has a h/o chronic
hypoxic respiratory failure and uses oxygen at 3.5 L NC at home, but paramedics reported a pulse ox in the 70s and NRB was started. Upon arrival to [facility] patient was placed on BiPAP. Patient appeared to be in pulmonary edema and was started on Nitro
gtt and given Lasix 40 mg IV x1. Patient takes Lasix 20 mg PO daily as an outpatient. Patient feels dramatically symptomatically improved this AM and is using oxygen by NC again albeit at 6 L. No chest pain.
Attending addendum HPI: This is an 83-year-old gentleman with a past medical history notable for underlying restrictive lung disease and O2 dependent respiratory insufficiency for which she is chronically maintained on 3.5 L of oxygen via nasal
cannula. He was last seen by pulmonary in May 2023 and oxygen saturations were reportedly in the 90s. He has a history of paroxysmal atrial fibrillation and is chronically maintained on oral anticoagulation with warfarin. He is chronically
treated with amiodarone 100 mg tablet daily. 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 His last echocardiogram was notable for mean aortic valve gradient
of 10 mmHg. He was also noted to have moderate mitral stenosis. He now presents with hypoxia and increased shortness of breath. O2 sats were noted to be in the 70s by home pulse oximeter on multiple occasions. Upon arrival to the emergency
department he was placed on a nonrebreather and then BiPAP. The family reported that he had been drinking a lot of water because his oxygen was making his mouth dry. His proBNP was modestly elevated at 2740.
Progress Note - [facility]
Subjective
Date of Service: December 10, 2023
Pt seen and examined. No complaints. No chest pain.
Objective
Labs:
12/10/23 05:58
12/10/23 05:58
Labs
Hgb 8.7 g/dL (13.0-18.0) L 12/10/23 05:58
Hct 28.8 % (39.0-52.0) L 12/10/23 05:58
Plt Count 215 10^3/uL (130-400) D 12/10/23 05:58
PT 40.3 Sec (11.4-14.6) H 12/09/23 04:59
INR 4.16 12/09/23 04:59
APTT 52.6 Sec (23.4-35.0) H 12/07/23 20:34
Sodium 139 mmol/L (135-145) 12/10/23 05:58
Potassium 4.5 mmol/L (3.5-5.1) 12/10/23 05:58
BUN 49 mg/dl (9-20) H 12/10/23 05:58
Creatinine 1.1 mg/dL (0.7-1.3) 12/10/23 05:58
Glucose 141 mg/dl (70-99) H 12/10/23 05:58
Troponins
12/07/23
20:34
Troponin I < 0.012
Vital Signs and I&O:
Vital Signs
Temp Pulse Resp BP Pulse Ox
98.6 F 61 20 121/63 99
12/10/23 03:00 12/10/23 06:00 12/10/23 06:00 12/10/23 06:00 12/10/23 06:00
Vital Signs
Temp Pulse Resp BP Pulse Ox
98.6 F 61 20 121/63 99
12/10/23 03:00 12/10/23 06:00 12/10/23 06:00 12/10/23 06:00 12/10/23 06:00
Intake & Output
12/08/23 12/09/23 12/10/23 12/11/23
06:59 06:59 06:59 06:59
Intake Total 220 / 220 720 / 720
Output Total 1050 / 1050 2380 / 2380 100 / 100
Balance -830 / -830 -1660 / -1660 -100 / -100
Physical Exam
Physical Exam
General: No acute distress, AAOX3
Neck: Negative JVD
Heart: Regular, Negative S3 positive S1/S2, Negative S4, No murmur
Lungs: CTA b/l, negative wheezes/rales/rhonchi
Abd: Morbid obesity Positive BS, NT/ND, neg rebound/rigidity/guarding
Ext: Negative cyanosis/clubbing/edema
Neuro: nonfocal
--- NOTE | 2023-12-10 08:49 | CON.PUL ---
Consultation
Consultation Request
Date/Time Consultation Requested: 12/09/2023 - 164
Date/Time Consultation Performed: 12/10/2023841
Requesting Provider: Dr. Stevens
Performing Provider: Dr. Kate
Reason for Consultation: Hypoxic/hypercapnic respiratory failure
Medical History
-
Chief Complaint: SOB
History of Present Illness:
83-year-old male with a past medical history of s/p AVR, A-fib on Coumadin, chronic respiratory failure on home oxygen at 3.5 L/min nasal cannula, hypertension, DM type II, AMIE on CPAP and CKD who presents with SOB for few days. Patient was
cyanotic when EMS arrived to the scene and when patient arrived to the ER here at , pulse ox was 37% while on 3 L/min nasal cannula. Patient was A&O x 4 with wheezing at the bases. Initial vitals in the ER were BP 185/89, heart rate 81,
breathing at 24 breaths/min and patient was started on BiPAP with improvement of saturation to 94%. Initial labs showed anemia to 10.1, INR 3.87, acute on chronic hypercapnic respiratory failure with pH 7.31, pCO2 82, potassium 5.3, BUN 30, serum
bicarbonate 35, glucose 247, proBNP 2740, troponin negative at <0.012, and COVID antigen was negative. CXR showed bilateral interstitial edema. Patient given Solu-Medrol, DuoNebs, Lasix and briefly required nitroglycerin infusion. Patient was
admitted to the IMU where he has been continued to be managed. He is continued on diuresis with IV Lasix, and has been wearing his BiPAP with sleep 20/10, and midflow during the day. He has been requiring the BiPAP occasionally during the day due
to acute desaturations. Pulmonary now consulted for additional recommendations/management.
When I saw the patient he was in bed on 10 L/min mid flow nasal cannula breathing comfortably. and daughter at bedside. According to , patient has been increasingly more confused for the days leading up to his current hospitalization. He
also was not using his CPAP for the last several days�weeks because he had moved to a different area to sleep and his CPAP was still at his bedside in a different room. Patient also has not been using his inhalers but is supposed to be using Breo
with prn albuterol. The last 24 hours he is net -510 cc. Currently he is saturating 97% with heart rate 62. He currently denies chest pain, headache, abdominal pain, fevers or chills.
Of note patient follows with us in the [facility] office, last seen on 05/27/2024 with KAVYA Hernandez. Patient has severe persistent asthma and he is on Breo with prn albuterol. He does have a mobility issues and this caused him to be sedentary.
At that office visit he had a 6-minute walk test which confirmed no need for oxygen. It was suggested that his dyspnea at that time was multifactorial due to obesity, restrictive lung disease, deconditioning and cardiac disease. Patient does have
a history of AMIE and was using CPAP at that time. His last full PFT was in May 2023 showing a moderate obstructive lung defect with a moderate�severe restrictive lung defect (T%/VC: 67%) and a severe gas exchange capacity defect which
corrected to normal when accounting for alveolar volume involving gas exchange (typical for asthmatics - DLco: 48%/DLco/VA: 85%).
PMHx: DM type II, s/p bioprosthetic aortic valve placement, paroxysmal A-fib on warfarin, morbid obesity, CAD, chronic respiratory failure on home oxygen (3.5 L/min), hypertension, hyperlipidemia, CKD, AMIE on CPAP
PSHx: Bioprosthetic aortic valve replacement
Past Medical History
Past Medical History: Other (Above as per HPI)
Past Surgical History: Other (Above as per HPI)
Social History
Tobacco: Non-smoker
Alcohol: None
Drug: None
Family History
Family History: Reviewed & Not Pertinent
Allergies / Home Medications
Allergies
Allergy/AdvReac Type Severity Reaction Status Date / Time
No Known Allergies Allergy Verified 10/27/22 12:58
Home Medications
�Medication �Instructions �Recorded �Confirmed �Last Taken �Type
ezetimibe 10 mg tablet 10 mg PO HS High cholesterol 03/13/11 12/07/23 12/06/23 History
amiodarone 100 mg tablet (Pacerone) 100 mg PO DAILY Heart 03/18/17 12/07/23 12/07/23 History
disease/condition
albuterol sulfate 90 mcg/actuation 2 puff inhalation R Q4 PRN 03/29/20 12/07/23 03/28/20 18:00 History
aerosol inhaler (Ventolin HFA) sob/wheezing 2 puffs
coenzyme Q10 200 mg capsule (Co 200 mg PO DAILY Supplement 03/29/20 12/07/23 06/04/20 History
Q-10)
cyanocobalamin (vitamin B-12) 2,500 mcg PO MOTH Supplement 03/29/20 12/07/23 12/07/23 History
2,500 mcg tablet
carvedilol 3.125 mg tablet 3.125 mg PO BID Blood pressure 06/05/20 12/07/23 12/07/23 History
cholecalciferol (vitamin D3) 50 2,000 units PO DAILY Supplement 06/05/20 12/07/23 12/07/23 History
mcg (2,000 unit) tablet
aspirin 81 mg tablet,delayed 81 mg PO DAILY Blood clot 06/07/20 12/07/23 12/07/23 Rx
release prevention/tx ##0
atorvastatin 20 mg tablet 20 mg PO DAILY High cholesterol 10/27/22 12/07/23 12/07/23 History
insulin glargine 100 unit/mL (3 20 unit SC HS Diabetes 10/27/22 12/07/23 12/06/23 History
mL) subcutaneous pen (Lantus
Solostar U-100 Insulin)
insulin lispro 100 unit/mL 0 sliding scale dose SC MEALS 10/27/22 12/07/23 Unknown History
subcutaneous pen (Humalog KwikPen Diabetes
(U-100) Insulin)
furosemide 20 mg tablet 20 mg PO DAILY 12/07/23 12/07/2312/06/24 History
magnesium 250 mg tablet 500 mg PO DAILY Supplement 12/07/23 12/07/23 12/07/23 History
tirzepatide 5 mg/0.5 mL 5 mg SC MOORE Diabetes 12/07/23 12/07/23 12/06/23 History
subcutaneous pen injector
(Mounjaro)
warfarin 1 mg tablet 1 mg PO QPM Blood Clot 12/07/23 12/07/23 12/06/23 History
Prevention/Tx
warfarin 2.5 mg tablet 2.5 mg PO QPM Blood Clot 12/07/23 12/07/23 12/06/23 History
Prevention/Tx
zinc acetate 50 mg (zinc) capsule 50 mg PO DAILY Supplement 12/07/23 12/07/23 Unknown History
dorzolamide 22.3 mg-timolol 6.8 1 drp BOTH EYES BID 12/09/23 12/09/23 12/09/23 History
mg/mL eye drops
Review of Systems
-
History Source: Patient
All other systems: Negative unless noted
Vitals / Labs / Diagnostic Testing
Vital Signs
Temp Pulse Resp BP Pulse Ox
98.5 F 66 25 135/64 97
12/10/23 11:52 12/10/23 09:02 12/10/23 09:00 12/10/23 09:02 12/10/23 09:45
Lab Data
12/10/23 05:58
12/10/23 09:15
Laboratory Results
12/10/23
11:59
PT 36.1 H
INR 3.55
Diagnostic Testing:
Physical Exam
-
HEENT: Normocephalic and Anicteric
Cardiovascular: S1/S2 and Peripheral Edema (+1 LE edema (R>L))
Respiratory: Wheeze (negative), Rales (bilaterally) and Non-Labored Respirations
GI: Soft, Non Tender, Normal Bowel Sounds and Other (abdominal obesity)
Neurology: Awake and Alert
Skin: Warm, Dry and Other (area of hyperpigmentation seen on medial RLE)
General: Comfortable, Chills (negative) and Sweats (negative)
Assessment
-
Assessment: 83-year-old male with a past medical history of s/p AVR, A-fib on Coumadin, chronic respiratory failure on home oxygen at 3.5 L/min nasal cannula, hypertension, DM type II and CKD who presents with SOB for few days. Patient was
cyanotic when EMS arrived to the scene and when patient arrived to the ER here at , pulse ox was 37% while on 3 L/min nasal cannula. Patient was A&O x 4 with wheezing at the bases. Initial vitals in the ER were BP 185/89, heart rate 81,
breathing at 24 breaths/min and patient was started on BiPAP with improvement of saturation to 94%. Initial labs showed anemia to 10.1, INR 3.87, acute on chronic hypercapnic respiratory failure with pH 7.31, pCO2 82, potassium 5.3, BUN 30, serum
bicarbonate 35, glucose 247, proBNP 2740, troponin negative at <0.012, and COVID antigen was negative. CXR showed bilateral interstitial edema. Patient given Solu-Medrol, DuoNebs, Lasix and briefly required nitroglycerin infusion. Patient was
admitted to the IMU where he has been continued to be managed. He is continued on diuresis with IV Lasix, and has been wearing his BiPAP with sleep 20/10, and midflow during the day. He has been requiring the BiPAP occasionally during the day due
to acute desaturations. Pulmonary now consulted for additional recommendations/management.
Chronic conditions [employer]: DM type II, s/p bioprosthetic aortic valve placement, paroxysmal A-fib on warfarin, morbid obesity, CAD, chronic respiratory failure on home oxygen (3.5 L/min), hypertension, hyperlipidemia, CKD, AMIE on CPAP
Impression:
#Acute on chronic hypercapnic and hypoxic respiratory failure likely due to ADHF in setting of CPAP non-compliance at home ; doubtful there is PNA given absent leukocytosis and pt afebrile
#Acute HFpEF exacerbation with stage II diastolic dysfunction
#History of severe persistent asthma on Breo and prn albuterol @ home
#Hyperglycemia
#AMIE non-compliant to CPAP
#Morbid obesity with suspected OHS
#Acute on chronic anemia (baseline Hb 10-13.5)
#Hypochloremia
#Hyperglycemia
Plan:
- Continue BiPAP during sleep and prn during the day
- Check VBG tomorrow AM to ensure pH and pCO2 are stable
- I reemphasized to the patient today in front of his family that he needs to resume using his CPAP again once he is discharged back home
- Titrate O2 flow rate to maintain SpO2 >90-94%
- Diurese with lasix 40mg IV BID --> would aim to make net negative 1-1.5L per day for next 24-48 hrs, then re-assess
- Considering his history of asthma and supposed to be taking Breo at home, I will start him on scheduled DuoNebs with budesonide and consider starting systemic steroids
- Incentive spirometer encouraged
- Replete electrolytes with K>4, Mg>2
- Maintain euglycemia with goal BG >100 and <180
- prn nebulized bronchodilators
- Transfuse blood products as needed to keep Hb>7g/dL
- DVT ppx
Pulmonary service will continue to follow along.
Total time spent today was 75 minutes for this encounter. Time includes reviewing laboratory test/imaging results, reviewing pertinent medical records, obtaining and reviewing medical history, performing an appropriate exam, ordering medications,
tests and procedures. Time also includes documentation of this encounter, coordinating patient care and communicating with other healthcare professionals. Total time does not include separately billed tests performed on this date of service.
Data:
CXR 12-10-2023:
Stable findings concerning for bilateral pneumonia. CHF not excluded. Clinical and laboratory correlation recommended.
Moderate cardiomegaly. Stable
CXR 12-07-2023:
1. Severe airspace disease throughout both lungs which appears new from 10/27/2022. Diagnostic possibilities are (1) SEVERE ACUTE ALVEOLAR CARDIOGENIC PULMONARY EDEMA (probably most likely given the symmetry of the airspace disease) or (2) severe
bilateral pneumonia if there are signs/symptoms of pulmonary infection.
2. Moderate cardiomegaly.
3. Previous surgical aortic valve replacement.
TTE 12-08-2023:
Normal left ventricular chamber size. Normal left ventricular systolic
function. Left ventricular ejection fraction is 55% by Hedrick's Method of
Disc. Normal regional wall motion. Mild concentric left ventricular
hypertrophy. Stage II diastolic dysfunction suggestive of abnormal relaxation
and increased filling pressures.
Thickened mitral valve leaflets. Dense Mitral annular calcification. Mild
mitral stenosis. Peak gradient 17 mmHg/Mean gradient 5 mmHg - trace mitral
regurgitation.
Bioprosthetic aortic valve with Peak gradient 15 mmHg/Mean gradient 10 mmHg -
no aortic regurgitation is seen.
Tricuspid valve opens normally. Mild tricuspid regurgitation. Estimated
pulmonary artery pressure of 45 mmHg assuming a right atrial pressure of 3
mmHg.
Since echocardiogram April 2023, there is no significant change.
Outpatient [facility] data:
6 MWT:
������ COMMENTS:�
��������6MWT 12/09/22: At rest, O2 98% on room air, HR 83. With ambulation, O2 aishwarya 96%, max HR 119. 4/10 on dyspnea scale. Ambulated 450 ft.
��������6MWT 11/12/22: Total distance ambulated 450ft. O2 baseline 98% on room air. �Baseline HR 73. O2 aishwarya 95% on room air.� No O2 was needed to maintain saturations >90%. �Dyspnea score 0.5/10. Max HR 112. Testing was terminated early due to knee
pain.
��������6mw 05/21/22- RA 98%, HR 76 bpm. ambulated 576 feet and maintained 98-100% on RA. HR increased to 128 bpm..�
PFT:
������ COMMENTS:�PFTs 12/25/22: FEV1 1.92L 83%, FVC 2.35L 71%, ratio 82.� TLC 3.41L 54%, DLCO 53% (moderately severe restriction, moderate diffusion impairment)
��������Spirometry 11/12/22: FEV1 0.98L 41%, FVC 1.85L 54%, ratio 0.53, post FEV1 0.70L 29%, no BD response (severe obstruction)
��������PFT� 05/21/22- FVC 2.43L 70%, FEV1 2.02L 83%, Ratio 83. TLC 3.78L 58%, DLCO 11.90 58% (moderately severe restriction, moderate diffusion impairment)
��������PFT 2018- FVC 2.79 or 78%, FEV1 2.34 or 91%, TLC 62, DLCO 64%. (moderate restriction, mild diffusion impairment)
��������-
��������PFT 05/27/23- FVC 2.19 or 67%, FEV1 1.35 or 59%, Ratio 62. TLC 3.45 or 55%. DLCO 10.22 or 48%.�
[2023-12-10] MEDS: NOVOLOG FLEXPEN-HIGH RESISTANCE 2 UNITS SC (09:00)
[2023-12-10] MEDS: COREG 3.125 MG PO ×2 (09:01→21:05)
[2023-12-10] MEDS: LIPITOR 20 MG PO (09:01)
[2023-12-10] MEDS: PACERONE 100 MG PO (09:01)
[2023-12-10] MEDS: MAGNESIUM OXIDE 500 MG PO (09:01)
[2023-12-10] MEDS: ASPIR LOW (ENTERIC COATED) 81 MG PO (09:01)
[2023-12-10] MEDS: DESENEX/MITRAZOL/ZEASORB 1 APPLIC TOPICAL ×2 (09:02→21:09)
[2023-12-10] MEDS: LASIX 40 MG IV ×2 (09:02→18:11)
[2023-12-10] MEDS: COSOPT EYE DROPS 1 DROP OPHTH ×2 (09:03→21:09)
[2023-12-10 11:51] LABS: Glucose - Point of Care 249 mg/dl (70-99)
[2023-12-10] MEDS: NOVOLOG FLEXPEN-HIGH RESISTANCE 4 UNITS SC (11:52)
[2023-12-10 12:22] LABS: INR 3.55; PT 36.1 Sec (11.4-14.6)
--- NOTE | 2023-12-10 14:51 | PTCARENOTE ---
Pt presents as assessed. Aox3, [place] and very pleasant. NSR on tele monitor Sating mid to high 90's on 6L NC. OOB to chair with PT. Voiding in urinal. Family at bedside, updated on plan of care. Able to make needs known, call barker within reach.
[2023-12-10] MEDS: DUONEB 3 ML INH ×2 (15:46→19:59)
--- NOTE | 2023-12-10 16:04 | WOUNDNOTE ---
WO RN note: Patient admitted with hypoxia
See H&P for complete history.
PMH: Aortic stenosis, TAVR, CAD, Chronic hypoxic respiratory failure on 3.5 L at home, HTN, diabetes, obesity
Wound Location and type/assessment: Patient admitted with: Stage 2 of right buttock, likely cause from a combination of pressure and frictions and shearing. Patient and family report that patient slides self up in chair and bed due to hypoxia.
reports they have been using Zinc ointment at home. The wound feels and appears dry, mostly scabbed with small area of pink in wound bed. Patient reports soreness at site. Staff is using air cushion in chair and repositioning for additional
off-loading. Heels intact.
Appetite: Per patient, good at home.
Pressure redistribution devices in place: Centrella Max air, heels off-loaded with pillows under calves.
Plan: Foam dressing maintained. Reviewed wound care and PI with and daughter. Recommended use of gel or air cushion in chair, reduce sliding in chair, ensure adequate protein and keep skin clean and dry. Will confirm orders with hospitalist
and update nurse.
Updated care plan and will follow as needed.
Note to case management of equipment requested for discharge:
Recommend follow up at wound care center upon discharge.
--- NOTE | 2023-12-10 16:39 | CM ---
Patient with Dx Acute hypoxic and hypercarbic respiratory failure, HF, PAF, morbid obesity. O2 8L midflow. Receiving IV Lasix. Seen by wound care nurse. PT & OT; requires assist of 2, recommend skilled rehab.
Met with patient, Karine & daughter;
the chooses [facility] as her SNF preference as he has been there previously. Other SNF choices would be [facility], [facility] or [facility].
SNF referrals placed.
Spoke with Jin Erickson Abelardo Chaudhari; she will review the referral.
The & daughter were asking how to sign up for the patient portal- provided them with phone # [phone] to call for assistance with the portal.
Plan follow up SNF referrals.
[2023-12-10] MEDS: NOVOLOG FLEXPEN-HIGH RESISTANCE 7 UNITS SC (18:20)
[2023-12-10 18:31] LABS: Glucose - Point of Care 275 mg/dl (70-99)
[2023-12-10] MEDS: PULMICORT 0.5 MG INH (19:59)
[2023-12-10 21:57] LABS: Glucose - Point of Care 213 mg/dl (70-99)
[2023-12-10] MEDS: LANTUS 0.25 UNITS SC (22:24)
[2023-12-10] MEDS: ZETIA 10 MG PO (22:25)
[2023-12-11] VITALS (17 sets, daily range): BP systolic 95–172; BP diastolic 40–104; PULSE 2–61; BMI 47.3
--- NOTE | 2023-12-11 06:34 | W.PN.HOSP.TC ---
Today's Communication/Plan
-
likely dc in 24-48 hours, possible will need BI pap
Assessment / Plan
Assessment / Plan
Physical Exam
General: Obese, chronically ill looking
HEENT: Normocephalic, Moist mucous membranes and Atraumatic. C pap was on
Respiratory: limited with rales
Cardiac: S1/S2
GI: Soft, Non Tender,
Rectal: No rectal bleeding
Musculoskeletal: mild edema in lower legs with thickened skin
Psych: no agitation
Neuro: awake, answered questions and followed commands.
# Acute hypoxic and hypercarbic respiratory failure secondary to acute on chronic HFpEF exacerbation
#Hx of Chronic hypoxic respiratory failure on 3.5 L at baseline
-ABG showed pH of 7.31, pCO2 of 82. PO2 81
He feels better, used BI pap over night with no issues
-Chest x-ray showed severe acute alveolar cardiogenic pulmonary edema, moderate cardiomegaly. repeat chest x ray concerning for PNA but clinically pt is c/w CHF and no PNA.
- Negative COVID
-40 IV Lasix BID
- off Nitroglycerin drip.
- Daily weights, he seems to loose weigth
-Echocardiogram showed LVEF 55%, stage II diastolic dysfunction, mild mitral stenosis, trace mitral regurgitation, bioprosthetic aortic valve with no regurgitation, mild tricuspid regurgitation. No significant changes than echogram in April 2023
-Continue with BiPAP treatment
- Appreciate cardiology input
#AMIE (severe) on CPAP 10 cwp s O2, / Pulmonary hypertension
Primary pulmonary doctor is Dr. Walters
Continue with BiPAP therapy, continue diuretic treatment, Nebulizer
Order chest x-ray
Appreciate pulmonary input
# Hypercoagulopathy secondary to Coumadin. Hold Coumadin. Await INR today
# Hyperkalemia
c/w Lasix
Give one time Lokelma.
Await BMP today
# Paroxysmal atrial fibrillation
Rate is controlled
-Continue amiodarone
-Continue Coreg
-Holding Coumadin, await INR today
#Aortic stenosis status post bioprosthetic aortic valve replacement
# Morbid obesity BMI 48
Impacting negatively his health.
#Coronary artery disease
No chest pain
Negative troponin on arrival
-Continue aspirin, statin
# Essential hypertension
No headache
Hyperlipidemia
-Continue Zetia
Type 2 diabetes
AM BS 152, better controlled. Upgrade insulin/scale to high-dose. Increased Lantus dose and monitor. No hypoglycemia
Obesity
DNR/DNI
DVT prophylaxis�Coumadin
oral diet
Total time spent to see patient, examine the patient on the floor, review data and lab results, discuss treatment plan with patient, nursing staff around 55 minutes
Anticipated Discharge: 24 - 48 hours
Subjective/Interval History
-
Date of Service: December 11, 2023
No chest pain
No sob
Used Bipap last night
Objective Data
-
Labs:
Laboratory Results
12/11/23
06:00
WBC Pending
Hgb Pending
Hct Pending
Plt Count Pending
PT Pending
INR Pending
Sodium Pending
Potassium Pending
Chloride Pending
Carbon Dioxide Pending
BUN Pending
Creatinine Pending
Glucose Pending
Calcium Pending
Total Bilirubin Pending
AST Pending
ALT Pending
Alkaline Phosphatase Pending
Vital Signs:
Vital Signs
Temp Pulse Resp BP Pulse Ox
98.9 F 57 19 151/99 100
12/11/23 03:48 12/10/23 23:00 12/10/23 23:00 12/10/23 22:14 12/10/23 23:40
I&O
12/09/23 12/10/23 12/11/23
06:59 06:59 06:59
Intake Total 220 / 220 720 / 720 360 / 360
Output Total 1050 / 1050 2380 / 2380 2400 / 2400
Balance -830 / -830 -1660 / -1660 -2039 / -2039
[2023-12-11] MEDS: PULMICORT 0.5 MG INH ×2 (08:00→19:53)
[2023-12-11] MEDS: DUONEB 3 ML INH ×4 (08:00→19:53)
[2023-12-11 09:38] LABS: Glucose - Point of Care 216 mg/dl (70-99)
[2023-12-11] MEDS: NOVOLOG FLEXPEN-HIGH RESISTANCE 4 UNITS SC ×2 (09:58→11:59)
[2023-12-11] MEDS: COREG 3.125 MG PO ×2 (10:01→19:51)
[2023-12-11] MEDS: ASPIR LOW (ENTERIC COATED) 81 MG PO (10:01)
[2023-12-11] MEDS: MAGNESIUM OXIDE 500 MG PO (10:01)
[2023-12-11] MEDS: LASIX 40 MG IV ×2 (10:02→16:50)
[2023-12-11] MEDS: DESENEX/MITRAZOL/ZEASORB 1 APPLIC TOPICAL ×2 (10:02→19:51)
[2023-12-11] MEDS: PACERONE 100 MG PO (10:05)
[2023-12-11] MEDS: LIPITOR 20 MG PO (10:05)
[2023-12-11] MEDS: FLUSH (NSS) 1 FLUSH IV ×2 (10:06→16:52)
--- NOTE | 2023-12-11 11:03 | W.PN.PUL3 ---
Today's Communication / Plan
-
Start systemic steroids
Check CXR given worsening cough and hypoxia today
Maintain net negative fluid balance as tolerated
BiPAP during sleep and as needed during the day
Trend blood gas
Aspiration precautions
Low threshold to start antibiotics
Assessment
-
Assessment: 83-year-old male with a past medical history of s/p AVR, A-fib on Coumadin, chronic respiratory failure on home oxygen at 3.5 L/min nasal cannula, hypertension, DM type II and CKD who presents with SOB for few days. Patient was
cyanotic when EMS arrived to the scene and when patient arrived to the ER here at , pulse ox was 37% while on 3 L/min nasal cannula. Patient was A&O x 4 with wheezing at the bases. Initial vitals in the ER were BP 185/89, heart rate 81,
breathing at 24 breaths/min and patient was started on BiPAP with improvement of saturation to 94%. Initial labs showed anemia to 10.1, INR 3.87, acute on chronic hypercapnic respiratory failure with pH 7.31, pCO2 82, potassium 5.3, BUN 30, serum
bicarbonate 35, glucose 247, proBNP 2740, troponin negative at <0.012, and COVID antigen was negative. CXR showed bilateral interstitial edema. Patient given Solu-Medrol, DuoNebs, Lasix and briefly required nitroglycerin infusion. Patient was
admitted to the IMU where he has been continued to be managed. He is continued on diuresis with IV Lasix, and has been wearing his BiPAP with sleep 20/10, and midflow during the day. He has been requiring the BiPAP occasionally during the day due
to acute desaturations. Pulmonary now consulted for additional recommendations/management.
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
Impression:
#Acute on chronic hypercapnic and hypoxic respiratory failure likely due to ADHF in setting of CPAP non-compliance at home ; doubtful there is PNA given absent leukocytosis and pt afebrile
#Acute HFpEF exacerbation with stage II diastolic dysfunction
#History of severe persistent asthma on Breo and prn albuterol @ home
#Hyperglycemia
#AMIE non-compliant to CPAP
#Morbid obesity with suspected OHS
#Acute on chronic anemia (baseline Hb 10-13.5)
#Hypochloremia
#Hyperglycemia
Plan:
- Continue BiPAP during sleep and prn during the day
- Considering patient is coughing more today with AMS and worsening hypoxia, I will recheck CXR to reassess lung parenchyma. If CXR is unrevealing, would consider CT chest
- Check VBG again tomorrow AM to ensure pH and pCO2 are stable
- I reemphasized to the patient on 12/09 in front of his family that he needs to resume using his CPAP again once he is discharged back home
- Titrate O2 flow rate to maintain SpO2 >90-94%
- Diurese with lasix 40mg IV BID --> would aim to make net negative 1-1.5L per day for next 24-48 hrs, then re-assess
- Considering his history of asthma and supposed to be taking Breo at home, continue scheduled DuoNebs with budesonide and since pt now having worsening hypoxia, I will start starting systemic steroids with Solumedrol 40mg IV q12hr --> wean as
tolerated
- Incentive spirometer encouraged
- Replete electrolytes with K>4, Mg>2
- Maintain euglycemia with goal BG >100 and <180
- prn nebulized bronchodilators
- Transfuse blood products as needed to keep Hb>7g/dL
- DVT ppx
Pulmonary service will continue to follow along.
Total time spent today was 50 minutes for this encounter. Time includes reviewing laboratory test/imaging results, reviewing pertinent medical records, obtaining and reviewing medical history, performing an appropriate exam, ordering medications,
tests and procedures. Time also includes documentation of this encounter, coordinating patient care and communicating with other healthcare professionals. Total time does not include separately billed tests performed on this date of service.
Data:
CXR 12-10-2023:
Stable findings concerning for bilateral pneumonia. CHF not excluded. Clinical and laboratory correlation recommended.
Moderate cardiomegaly. Stable
CXR 12-07-2023:
1. Severe airspace disease throughout both lungs which appears new from 10/27/2022. Diagnostic possibilities are (1) SEVERE ACUTE ALVEOLAR CARDIOGENIC PULMONARY EDEMA (probably most likely given the symmetry of the airspace disease) or (2) severe
bilateral pneumonia if there are signs/symptoms of pulmonary infection.
2. Moderate cardiomegaly.
3. Previous surgical aortic valve replacement.
TTE 12-08-2023:
Normal left ventricular chamber size. Normal left ventricular systolic
function. Left ventricular ejection fraction is 55% by Hedrick's Method of
Disc. Normal regional wall motion. Mild concentric left ventricular
hypertrophy. Stage II diastolic dysfunction suggestive of abnormal relaxation
and increased filling pressures.
Thickened mitral valve leaflets. Dense Mitral annular calcification. Mild
mitral stenosis. Peak gradient 17 mmHg/Mean gradient 5 mmHg - trace mitral
regurgitation.
Bioprosthetic aortic valve with Peak gradient 15 mmHg/Mean gradient 10 mmHg -
no aortic regurgitation is seen.
Tricuspid valve opens normally. Mild tricuspid regurgitation. Estimated
pulmonary artery pressure of 45 mmHg assuming a right atrial pressure of 3
mmHg.
Since echocardiogram April 2023, there is no significant change.
Outpatient [facility] data:
6 MWT:
������ COMMENTS:�
��������6MWT 12/09/22: At rest, O2 98% on room air, HR 83. With ambulation, O2 aishwarya 96%, max HR 119. 4/10 on dyspnea scale. Ambulated 450 ft.
��������6MWT 11/12/22: Total distance ambulated 450ft. O2 baseline 98% on room air. �Baseline HR 73. O2 aishwarya 95% on room air.� No O2 was needed to maintain saturations >90%. �Dyspnea score 0.5/10. Max HR 112. Testing was terminated early due to knee
pain.
��������6mw 05/21/22- RA 98%, HR 76 bpm. ambulated 576 feet and maintained 98-100% on RA. HR increased to 128 bpm..�
PFT:
������ COMMENTS:�PFTs 12/25/22: FEV1 1.92L 83%, FVC 2.35L 71%, ratio 82.� TLC 3.41L 54%, DLCO 53% (moderately severe restriction, moderate diffusion impairment)
��������Spirometry 11/12/22: FEV1 0.98L 41%, FVC 1.85L 54%, ratio 0.53, post FEV1 0.70L 29%, no BD response (severe obstruction)
��������PFT� 05/21/22- FVC 2.43L 70%, FEV1 2.02L 83%, Ratio 83. TLC 3.78L 58%, DLCO 11.90 58% (moderately severe restriction, moderate diffusion impairment)
��������PFT 2018- FVC 2.79 or 78%, FEV1 2.34 or 91%, TLC 62, DLCO 64%. (moderate restriction, mild diffusion impairment)
��������-
��������PFT 05/27/23- FVC 2.19 or 67%, FEV1 1.35 or 59%, Ratio 62. TLC 3.45 or 55%. DLCO 10.22 or 48%.�
Subjective Data
-
Date of Service:
Date of Service: December 11, 2023
Chief Complaint: Pulmonary Follow Up
Subjective:
Patient seen this morning. Per family, patient is more confused this morning and was placed back onto BiPAP. When I saw him he was on BiPAP 20/30jdG1S bled with 15 L/min. PIP is 20 cmH2O. He is saturating 98%, heart rate 61 and BP 129/59. He
does follow commands but he is not awakening. He is in no acute distress. Family at bedside and I answered all the questions. Pt is net (-) 1L last 24 hrs.
Review of Systems
General: Other (Negative unless mentioned above)
Objective Data
Data Reviewed
Vital Signs / I&O / Oxygen:
Vital Signs
Temp Pulse Resp BP Pulse Ox
98.9 F 63 24 151/99 97
12/11/23 03:48 12/11/23 08:01 12/11/23 08:01 12/10/23 22:14 12/11/23 08:01
Intake and Output
12/10/23 12/11/23 12/12/23
06:59 06:59 06:59
Intake Total 720 / 720 360 / 360
Output Total 2380 / 2380 2400 / 2400
Balance -1660 / -1660 -0 / -0
SaO2 97
Nasal Cannula flow liters per 10
minute
Physical Exam
General: Comfortable
HEENT: Normocephalic and Anicteric
Cardiovascular: S1-S2 and Peripheral Edema (+1 LE edema (pitting) b/l)
Respiratory: Wheeze (negative), Crackles (bilaterally), Rhonchi (negative) and Non-Labored Respirations
GI: Soft, Non Distended and Non Tender
Neurology: Lethargic
Skin: Warm and Dry
Labs/Micro/Reports
Laboratory Results
12/10/23
11:59
PT 36.1 H
INR 3.55
[2023-12-11 11:12] LABS: Hematocrit 28.2 % (39.0-52.0); Hemoglobin 8.6 g/dL (13.0-18.0); Mean Corp Hgb Conc. 30.5 g/dL (33.0-37.0); Mean Corpuscular Hgb 29.7 pg (27.0-31.0); Mean Corpuscular Volume 97.2 fL (80.0-94.0); Mean Platelet Volume 11.2 fL (7.4-10.4); Platelet Count 203 10^3/uL (130-400); Red Cell Dist. Width 14.1 % (11.5-14.5); White Blood Cell Count 7.3 10^3/uL (4.8-10.8)
[2023-12-11 11:13] LABS: Venous Blood Gas B.E. 21.1 mmol/L (-4 to +4); Venous Blood Gas HCO3 48.8 mmol/L (22-27); Venous Blood Gas O2 Sat % 87.9 %; Venous Blood Gas pH 7.41 (7.32-7.43); Venous Blood Gas pO2 51 mmHg (30-50)
[2023-12-11 11:22] LABS: Venous Blood Gas pCO2 77 mmHg (35-48)
[2023-12-11 11:23] LABS: INR 3.41; PT 34.4 Sec (11.4-14.6)
[2023-12-11] MEDS: COSOPT EYE DROPS 1 DROP OPHTH ×2 (11:58→19:52)
[2023-12-11 12:10] LABS: Glucose - Point of Care 201 mg/dl (70-99)
[2023-12-11 12:47] LABS: ALT (SGPT) 14 U/L (0-50); AST (SGOT) 23 U/L (17-59); Albumin 3.2 g/dl (3.5-5.0); Alkaline Phosphatase 86 U/L (38-126); Blood Urea Nitrogen 41 mg/dl (9-20); Calcium 8.5 mg/dl (8.4-10.2); Chloride 89 mmol/L (98-107); Estimated Creatinine Clearance 68 ml/min; Glucose 197 mg/dl (70-99); Potassium 4.2 mmol/L (3.5-5.1); Sodium 137 mmol/L (135-145); Total Bilirubin 1.5 mg/dl (0.2-1.3); Total Protein 6.1 g/dl (6.3-8.2); eGFR > 60.00
[2023-12-11 12:53] LABS: Carbon Dioxide 45 mmol/L (22-30)
--- NOTE | 2023-12-11 13:32 | W.HF.CON ---
Heart Failure
- LV Function
Left ventricular function study result: LV Ejection fraction >40%
Ejection Fraction Percentage: 55
- ARNI
Patient already on ARNI: No
Heart Failure ARNI Not Indicated: LV Ejection Fraction >/= 40%
- ACEI/ARB
Patient already on ACEI/ARB: No
Heart Failure ACEI/ARB Not Indicated: LV Ejection Fraction > 40%
- Beta Tony
Patient already on Evidence Based Beta Tony: Yes
- Mineralocorticord Receptor Antagonist
Patient already on MRA: No
Heart Failure MRA Not Indicated: LV Ejection Fraction > 40%
- SGLT-2 Inhibitor
Patient already on SGLT-2 Inhibitor: No
Heart Failure SGLT-2 Inhibitor Not Indicated: LV Ejection Fraction >40%
- Afib Anticoagulation
Patient already on Anticoagulation for Afib: Yes
- NYHA CHF Classification
NYHA CHF Classification Level: Class III - Symptoms w/ min exertion, interferes w/ nml daily activity
- ACC/AHA Stage
ACC/AHA Stage: Stage C: Symptomatic Heart Failure
[2023-12-11] MEDS: NOVOLOG FLEXPEN-HIGH RESISTANCE 2 UNITS SC (17:05)
--- NOTE | 2023-12-11 17:11 | CM ---
Patient with Dx Acute hypoxic and hypercarbic respiratory failure, HF, PAF, morbid obesity. O2 15L with BiPAP. Receiving IV Lasix. Seen by wound care nurse. PT & OT; requires assist of 2, recommend skilled rehab.
SNF referral reviewed;
S/w [facility]; can discuss bed availability 12/13
Spoke with [facility]; she will know her bed availability on 12/13
[facility]; no male beds at present, unlikely bed available Mon
declined by [facility] due to insurance.
No response [facility].
Spoke with who says she spoke with MD and is aware of patient's current status. Informed her that [facility] & [facility] may possibly have a SNF bed next week for rehab.
Plan SNF when medically ready and accepting facility found.
--- NOTE | 2023-12-11 17:17 | PTCARENOTE ---
Patient confused this afternoon. Patient on BIPAP all afternoon 20/10 with 15L
[2023-12-11 17:20] LABS: Glucose - Point of Care 186 mg/dl (70-99)
--- NOTE | 2023-12-11 17:22 | W.PN.CARDCBS ---
Addendum entered and electronically signed by Eloisa Mccord DO 12/11/23 18:37:
I saw and examined the patient.
The Tower Director's note was reviewed and I agree with the note.
Comment: Seen and examined. Chart reviewed.
GEN: No distress, awake, Ox3, obese sitting in bed eating
HEENT: supple, anicteric, mmm
LUNGS: Decreased breath sounds with crackles at bases and diffuse expiratory wheezes; on high flow oxygen
CV: Distant heart tones, reg, S1/S2, no murmur
ABD: soft, BS+, NT/ND
EXT: +2 lower extremity edema, right leg with skin discoloration from prior trauma
Plan:
Acute on chronic heart failure with preserved ejection fraction, proBNP 2740
-Continue IV diuresis
-HF teaching.
-echo this admission showed stable EF and bioAVR and MS and no change compared to prior echo.
Multifactorial dyspnea with acute on chronic hypercapnic and hypoxic respiratory failure with severe persistent asthma
-CPAP noncompliance at home
-Pulmonary consulted
-Encouraged use of BiPAP and ongoing efforts for weight loss.
-Treatment of asthma per pulmonary with scheduled DuoNebs/inhalers and IV steroids
History of paroxysmal atrial fibrillation
-Maintained on low-dose amiodarone and Coreg as outpatient
-Currently in sinus rhythm with stable QTc by last EKG on amiodarone.
-Coumadin being held for elevated INR. 3.41. INR goal is 2-3 managed by DCA.
-Repeat INR tomorrow
-Hemoglobin 8.6, was as high as 10.1 on admission. Continue to monitor and trend
Original Note:
Today's Communication / Plan
-
Coumadin remains on hold for supratherapeutic INR
Continue Amio and carvedilol
Continue IV diuresis with Lasix
Follow renal function and electrolytes closely
Consider repeat chest x-ray in morning
Impression / Plan
-
.
PCP: Dr. Jade
Cardiology: Dr. Arce
Pulmonary: Dr. Marilin Verde (initial new patient evaluation 05/21/2022)
Impression:
Presented 12/07/2023 with SOB
Acute on chronic hypoxic respiratory failure
Chronic hypoxic respiratory failure using 3.5 L NC at home
Supratherapeutic INR
Acute on chronic HF with preserved EF, proBNP 2740
Dietary noncompliance
Restrictive lung disease
Paroxysmal Afib on chronic amiodarone therapy and chronic warfarin OAC
s/p AVR bioprosthetic mean gradient 10 mmHg by echo 04/2023
Mild mitral stenosis
DM 2
Obesity, BMI 48.8
Echo 05/06/23: EF 55-60%, stage II diastolic dysfunction, mod MS with peak/mean 13/7 mmHg, well seated bioprosthetic AVR with peak/mean 16/10 mmHg and no aortic regurgitation
Echo December 08 2023: EF 55% with mild LVH, mild MS, mean grad 5 mmHg, bioAVR with mean grad 10 mmHg, mild TR with PASP 45 mmHg and no change from Apr 2023.
05/27/2023: PFT: FEV1: 1.35 (59%), FVC: 2.19 (67%), FEV1/FVC: 62%, T.45 (55%), DLCO: 48%
12/07/2023 at 20:34: ABG pH 7.3, pCO2 82, pO2 82 on room air
Plan:
Acute on chronic heart failure with preserved ejection fraction, proBNP 2740
-Wt continues to come down, he has diuresed 10 pounds since admission, current weight 301.
-Cont IV diuresis 40 mg IV BID (was on 20 mg daily as outpt). Monitor daily wts Is and Os and cr.
-Cr stable 1.1, potassium 4.2. Check mag level in am
-Reiterated compliance with taking medications, adhering to low-sodium diet and fluid restriction
-HF teaching.
-echo this admission showed stable EF and bioAVR and MS and no change compared to prior echo.
Pulm shayy reviewed and appreciated for multifactorial dyspnea and chronic amiodarone therapy
-Still requiring BiPAP after O2 stats dropped into the 80s in the early afternoon but now have improved 92 to 96%. Patient currently on high flow oxygen while eating dinner. Oxygen saturations staying in upper 80s to low 90s
-Continue nebs
-Family reports patient has been coughing, consider repeat chest x-ray in a.m.
-stressed importance of resuming CPAP upon discharge
History of paroxysmal atrial fibrillation
-Maintained on low-dose amiodarone and Coreg as outpatient
-Currently in sinus rhythm with stable QTc by last EKG on amiodarone.
-Coumadin being held for elevated INR. 3.41. INR goal is 2-3 managed by DCA.
-Hemoglobin 8.6, was as high as 10.1 on admission. Continue to monitor and trend
Family at bedside reviewed above.
HPI: Patient came to [facility] last night with increased SOB and was admitted with acute on chronic hypoxic respiratory failure and acute HF so cardiology has been consulted. Patient says he has been drinking more water and eating lots of watermelon
lately because he feels like his throat is dry. He has had more bloating and [place] for the last week and then last night he was profoundly SOB when he tried to go to bed and his says he looked cyanotic so she called 911. Patient has a h/o chronic
hypoxic respiratory failure and uses oxygen at 3.5 L NC at home, but paramedics reported a pulse ox in the 70s and NRB was started. Upon arrival to [facility] patient was placed on BiPAP. Patient appeared to be in pulmonary edema and was started on Nitro
gtt and given Lasix 40 mg IV x1. Patient takes Lasix 20 mg PO daily as an outpatient. Patient feels dramatically symptomatically improved this AM and is using oxygen by NC again albeit at 6 L. No chest pain.
Attending addendum HPI: This is an 83-year-old gentleman with a past medical history notable for underlying restrictive lung disease and O2 dependent respiratory insufficiency for which she is chronically maintained on 3.5 L of oxygen via nasal
cannula. He was last seen by pulmonary in May 2023 and oxygen saturations were reportedly in the 90s. He has a history of paroxysmal atrial fibrillation and is chronically maintained on oral anticoagulation with warfarin. He is chronically
treated with amiodarone 100 mg tablet daily. 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 His last echocardiogram was notable for mean aortic valve gradient
of 10 mmHg. He was also noted to have moderate mitral stenosis. He now presents with hypoxia and increased shortness of breath. O2 sats were noted to be in the 70s by home pulse oximeter on multiple occasions. Upon arrival to the emergency
department he was placed on a nonrebreather and then BiPAP. The family reported that he had been drinking a lot of water because his oxygen was making his mouth dry. His proBNP was modestly elevated at 2740.
Progress Note - Cutter Finisher
Subjective
Date of Service: December 11, 2023
Patient seen and examined. Family at bedside. Patient eating dinner. Family reports he is more awake now than earlier today. Patient laughing and joking but still on high flow oxygen
Objective
Labs:
12/11/23 10:58
12/11/23 10:58
Labs
Hgb 8.6 g/dL (13.0-18.0) L 12/11/23 10:58
Hct 28.2 % (39.0-52.0) L 12/11/23 10:58
Plt Count 203 10^3/uL (130-400) 12/11/23 10:58
PT 34.4 Sec (11.4-14.6) H 12/11/23 10:58
INR 3.41 12/11/23 10:58
APTT 52.6 Sec (23.4-35.0) H 12/07/23 20:34
Sodium 137 mmol/L (135-145) 12/11/23 10:58
Potassium 4.2 mmol/L (3.5-5.1) 12/11/23 10:58
BUN 41 mg/dl (9-20) H 12/11/23 10:58
Creatinine 1.1 mg/dL (0.7-1.3) 12/11/23 10:58
Glucose 197 mg/dl (70-99) H 12/11/23 10:58
Vital Signs and I&O:
Vital Signs
Temp Pulse Resp BP Pulse Ox
98.3 F 60 20 129/59 96
12/11/23 11:35 12/11/23 16:00 12/11/23 16:00 12/11/23 16:00 12/11/23 16:00
Vital Signs
Temp Pulse Resp BP Pulse Ox
98.3 F 60 20 129/59 96
12/11/23 11:35 12/11/23 16:00 12/11/23 16:00 12/11/23 16:00 12/11/23 16:00
Intake & Output
12/09/23 12/10/23 12/11/23 12/12/23
06:59 06:59 06:59 06:59
Intake Total 220 / 220 720 / 720 360 / 360
Output Total 1050 / 1050 2380 / 2380 2400 / 2400 650 / 650
Balance -830 / -830 -1660 / -1660 -2040 / -2040 -650 / -650
Physical Exam
Physical Exam
GEN: No distress, awake, Ox3, obese sitting in bed eating
HEENT: supple, anicteric, mmm
LUNGS: Decreased breath sounds with crackles at bases and diffuse expiratory wheezes; on high flow oxygen
CV: Distant heart tones, reg, S1/S2, no murmur
ABD: soft, BS+, NT/ND
EXT: +2 lower extremity edema, right leg with skin discoloration from prior trauma
NEURO: Gross non-focal, joking
SKIN: No rash, warm, dry, pink
[2023-12-11] MEDS: SOLU-MEDROL PF 40 MG IV (19:53)
[2023-12-11] MEDS: LANTUS 0.25 UNITS SC (21:41)
[2023-12-11] MEDS: ZETIA 10 MG PO (21:41)
[2023-12-11 21:45] LABS: Glucose - Point of Care 226 mg/dl (70-99)
[2023-12-12] VITALS (15 sets, daily range): BP systolic 126–157; BP diastolic 64–96; PULSE 2–72; O2SAT 94; BMI 46.4
--- NOTE | 2023-12-12 04:36 | PTCARENOTE ---
Assume care from AM RN. VSS. afebrile. AAOX3 and anxious at times, [place]. and drowsy at times. NSR w/ 1st degree block. +2 pedal and +1 BLLE edema. Lung sounds are diminished and crackles at the bases. SaO2 94% 6L MF and BIPAP 20/10 with 12L HS. Abd
round, obese. Pt uses urinal with assistance Q 2turn. Pt appears comfortable in bed and call barker within reach. .
[2023-12-12 05:11] LABS: Venous Blood Gas B.E. 22.7 mmol/L (-4 to +4); Venous Blood Gas O2 Sat % 99.7 %; Venous Blood Gas pH 7.45 (7.32-7.43); Venous Blood Gas pO2 179 mmHg (30-50)
[2023-12-12 05:13] LABS: Venous Blood Gas pCO2 72 mmHg (35-48)
[2023-12-12 05:22] LABS: INR 2.87
[2023-12-12 05:38] LABS: Blood Urea Nitrogen 44 mg/dl (9-20); Calcium 8.6 mg/dl (8.4-10.2); Chloride 89 mmol/L (98-107); Estimated Creatinine Clearance 68 ml/min; Glucose 235 mg/dl (70-99); Magnesium 2.7 mg/dl (1.6-2.3); Sodium 137 mmol/L (135-145); eGFR > 60.00
[2023-12-12 05:49] LABS: Carbon Dioxide 43 mmol/L (22-30)
--- NOTE | 2023-12-12 06:24 | W.PN.HOSP.TC ---
Today's Communication/Plan
-
.
Assessment / Plan
Assessment / Plan
Physical Exam
General: Obese, chronically ill looking
HEENT: Normocephalic, Moist mucous membranes and Atraumatic. C pap was on
Respiratory: limited with rales
Cardiac: S1/S2
GI: Soft, Non Tender,
Rectal: No rectal bleeding
Musculoskeletal: mild edema in lower legs with thickened skin
Psych: no agitation
Neuro: awake, answered questions and followed commands.
# Acute hypoxic and hypercarbic respiratory failure secondary to acute on chronic HFpEF exacerbation
#Hx of Chronic hypoxic respiratory failure on 3.5 L at baseline
-ABG showed pH of 7.31, pCO2 of 82. PO2 81
He feels better, used BI pap over night with no issues
-Chest x-ray showed severe acute alveolar cardiogenic pulmonary edema, moderate cardiomegaly. repeat chest x ray concerning for PNA but clinically pt is c/w CHF and no PNA.
- Negative COVID
-40 IV Lasix BID
- off Nitroglycerin drip.
- Daily weights, he seems to loose weight
-Echocardiogram showed LVEF 55%, stage II diastolic dysfunction, mild mitral stenosis, trace mitral regurgitation, bioprosthetic aortic valve with no regurgitation, mild tricuspid regurgitation. No significant changes than echogram in April 2023
-Continue with BiPAP treatment
- Appreciate cardiology input
#AMIE (severe) on CPAP 10 cwp s O2, / Pulmonary hypertension with acute asthma exacerbation
Primary pulmonary doctor is Dr. Walters
Continue with BiPAP therapy, continue diuretic treatment, Nebulizer
Started Steroid therapy but reduced dose due to high blood sugar.
12/10 chest x-ray: Cardiomegaly with moderate pulmonary edema and small bilateral pleural effusions
Appreciate pulmonary input
# Hypercoagulopathy secondary to Coumadin. Hold Coumadin. Await INR today
# Hyperkalemia
c/w Lasix
Give one time Lokelma.
K at 5.0
# Paroxysmal atrial fibrillation
Rate is controlled
-Continue amiodarone
-Continue Coreg
-Holding Coumadin, await INR today
#Aortic stenosis status post bioprosthetic aortic valve replacement
# Morbid obesity BMI 48
Compulsive eating habits. d/w pt, he is aware but can not control his food addiction.
d/w family.
Impacting negatively his health.
#Coronary artery disease
No chest pain
Negative troponin on arrival
-Continue aspirin, statin
# Essential hypertension
No headache
Hyperlipidemia
-Continue Zetia
Type 2 diabetes
AM BS 272
Expect uncontrolled due to steroid. Increased Lantus dose and monitor. No hypoglycemia
Obesity
DNR/DNI
DVT prophylaxis�Coumadin
oral diet
Total time spent to see patient, examine the patient on the floor, review data and lab results, discuss treatment plan with patient, family, nursing staff around 63 minutes
Anticipated Discharge: > 48 hours
Subjective/Interval History
-
Date of Service: December 12, 2023
No chest pain
Used Bipap over night
Objective Data
-
Labs:
Laboratory Results
12/12/23
05:04
PT 30.0 H
INR 2.87
Sodium 137
Potassium 5.0
Chloride 89 L
Carbon Dioxide 43 H
BUN 44 H
Creatinine 1.1
Glucose 235 H
Calcium 8.6
Vital Signs:
Vital Signs
Temp Pulse Resp BP Pulse Ox
98.0 F 60 22 157/96 95
12/12/23 02:47 12/12/23 04:00 12/12/23 04:00 12/12/23 04:00 12/12/23 04:00
I&O
12/10/23 12/11/23 12/12/23
06:59 06:59 06:59
Intake Total 720 / 720 360 / 360 1280 / 1280
Output Total 2380 / 2380 2400 / 2400 1670 / 1670
Balance -1660 / -1660 -2040 / -2040 -390 / -390
[2023-12-12 07:56] LABS: Glucose - Point of Care 272 mg/dl (70-99)
[2023-12-12] MEDS: NOVOLOG FLEXPEN-HIGH RESISTANCE 7 UNITS SC ×2 (08:09→11:05)
[2023-12-12] MEDS: DUONEB 3 ML INH ×4 (08:16→20:19)
[2023-12-12] MEDS: PULMICORT 0.5 MG INH ×2 (08:16→20:19)
[2023-12-12] MEDS: COREG 3.125 MG PO ×2 (08:44→20:15)
[2023-12-12] MEDS: COSOPT EYE DROPS 1 DROP OPHTH ×2 (08:45→20:14)
[2023-12-12] MEDS: ASPIR LOW (ENTERIC COATED) 81 MG PO (08:45)
[2023-12-12] MEDS: MAGNESIUM OXIDE 500 MG PO (08:45)
[2023-12-12] MEDS: LIPITOR 20 MG PO (08:45)
[2023-12-12] MEDS: PACERONE 100 MG PO (08:45)
[2023-12-12] MEDS: LASIX 40 MG IV ×2 (08:45→16:17)
[2023-12-12] MEDS: SOLU-MEDROL PF IV (08:46)
[2023-12-12] MEDS: DESENEX/MITRAZOL/ZEASORB 1 APPLIC TOPICAL ×2 (08:46→20:15)
[2023-12-12] MEDS: SOLU-MEDROL PF 40 MG IV (08:50)
--- NOTE | 2023-12-12 09:10 | PTCARENOTE ---
Patient received from front end loader driver. Patient resting comfortably in bed. AAO, VSS. No events noted overnight. Taken off BiPAP and placed on 6L N/C, breakfast at bedside. Able to use urinal with assistance. Call barker in reach.
[2023-12-12] MEDS: LANTUS 0.299999999999999989 UNITS SC (09:15)
[2023-12-12 11:12] LABS: Glucose - Point of Care 293 mg/dl (70-99)
--- NOTE | 2023-12-12 12:37 | W.PN.PUL3 ---
Today's Communication / Plan
-
O2
BPAP/O2 at night
Nocturnal oximetry
Diuresis
MP
BDs
Assessment
-
Assessment: 83-year-old male with a past medical history of s/p AVR, A-fib on Coumadin, chronic respiratory failure on home oxygen at 3.5 L/min nasal cannula, hypertension, DM type II and CKD who presents with SOB for few days. Patient was
cyanotic when EMS arrived to the scene and when patient arrived to the ER here at , pulse ox was 37% while on 3 L/min nasal cannula. Patient was A&O x 4 with wheezing at the bases. Initial vitals in the ER were BP 185/89, heart rate 81,
breathing at 24 breaths/min and patient was started on BiPAP with improvement of saturation to 94%. Initial labs showed anemia to 10.1, INR 3.87, acute on chronic hypercapnic respiratory failure with pH 7.31, pCO2 82, potassium 5.3, BUN 30, serum
bicarbonate 35, glucose 247, proBNP 2740, troponin negative at <0.012, and COVID antigen was negative. CXR showed bilateral interstitial edema. Patient given Solu-Medrol, DuoNebs, Lasix and briefly required nitroglycerin infusion. Patient was
admitted to the IMU where he has been continued to be managed. He is continued on diuresis with IV Lasix, and has been wearing his BiPAP with sleep 20/10, and midflow during the day. He has been requiring the BiPAP occasionally during the day due
to acute desaturations. Pulmonary now consulted for additional recommendations/management.
Chronic conditions PRESS FEEDER: DM type II, s/p bioprosthetic aortic valve placement, paroxysmal A-fib on warfarin, morbid obesity, CAD, chronic respiratory failure on home oxygen (3.5 L/min), hypertension, hyperlipidemia, CKD, AMIE on CPAP
Impression:
#Acute on chronic hypercapnic and hypoxic respiratory failure likely due to ADHF in setting of CPAP non-compliance at home ; doubtful there is PNA given absent leukocytosis and pt afebrile
#Acute HFpEF exacerbation with stage II diastolic dysfunction
#History of severe persistent asthma on Breo and prn albuterol @ home
#Hyperglycemia
#AMIE non-compliant to auto-PAP
#Morbid obesity with suspected OHS
#Acute on chronic anemia (baseline Hgb 10-13.5)
#Hypochloremia
#Hyperglycemia
Plan:
Continue BiPAP during sleep and prn during the day: 12/06 with supplemental O2 at 10LPM
Check nocturnal oximetry on above settings tonight
VBG again with some improvement in pCO2 and mildly alkalotic pH (^bicarbonate)
Needs to resume using auto-PAP again once he is discharged back home, will need to reeavalute use of APAP at office (per office records previously he was compliant to APAP with average pressure of 10.8 and AHI 1.1 back in May 2023)
- Titrate O2 flow rate to maintain SpO2 >90-94%. On home O2 at 3.5L for last 1 m
- Diuresing: lasix 40mg IV BID --> would aim to make net negative 1-1.5L
CXR 12-10, portable, underpenetrated, suspected persistent fluid overload
- Considering his history of asthma and supposed to be taking Breo at home, continue scheduled DuoNebs with budesonide and since pt now having worsening hypoxia, started systemic steroids with Solumedrol 40mg IV q12hr --> wean as tolerated
- Incentive spirometer encouraged
- Replete electrolytes with K>4, Mg>2
- Maintain euglycemia with goal BG >100 and <180
- prn nebulized bronchodilators
- Transfuse blood products as needed to keep Hb>7g/dL
PAFib, on chronic coumadin
- DVT ppx
D/w Mr and Mrs Walsh
Data:
CXR 12-10-2023:
Stable findings concerning for bilateral pneumonia. CHF not excluded. Clinical and laboratory correlation recommended.
Moderate cardiomegaly. Stable
CXR 12-07-2023:
1. Severe airspace disease throughout both lungs which appears new from 10/27/2022. Diagnostic possibilities are (1) SEVERE ACUTE ALVEOLAR CARDIOGENIC PULMONARY EDEMA (probably most likely given the symmetry of the airspace disease) or (2) severe
bilateral pneumonia if there are signs/symptoms of pulmonary infection.
2. Moderate cardiomegaly.
3. Previous surgical aortic valve replacement.
TTE 12-08-2023:
Normal left ventricular chamber size. Normal left ventricular systolic
function. Left ventricular ejection fraction is 55% by Hedrick's Method of
Disc. Normal regional wall motion. Mild concentric left ventricular
hypertrophy. Stage II diastolic dysfunction suggestive of abnormal relaxation
and increased filling pressures.
Thickened mitral valve leaflets. Dense Mitral annular calcification. Mild
mitral stenosis. Peak gradient 17 mmHg/Mean gradient 5 mmHg - trace mitral
regurgitation.
Bioprosthetic aortic valve with Peak gradient 15 mmHg/Mean gradient 10 mmHg -
no aortic regurgitation is seen.
Tricuspid valve opens normally. Mild tricuspid regurgitation. Estimated
pulmonary artery pressure of 45 mmHg assuming a right atrial pressure of 3
mmHg.
Since echocardiogram April 2023, there is no significant change.
Outpatient [facility] data:
6 MWT:
������ COMMENTS:�
��������6MWT 12/09/22: At rest, O2 98% on room air, HR 83. With ambulation, O2 aishwarya 96%, max HR 119. 4/10 on dyspnea scale. Ambulated 450 ft.
��������6MWT 11/12/22: Total distance ambulated 450ft. O2 baseline 98% on room air. �Baseline HR 73. O2 aishwarya 95% on room air.� No O2 was needed to maintain saturations >90%. �Dyspnea score 0.5/10. Max HR 112. Testing was terminated early due to knee
pain.
��������6mw 05/21/22- RA 98%, HR 76 bpm. ambulated 576 feet and maintained 98-100% on RA. HR increased to 128 bpm..�
PFT:
������ COMMENTS:�PFTs 12/25/22: FEV1 1.92L 83%, FVC 2.35L 71%, ratio 82.� TLC 3.41L 54%, DLCO 53% (moderately severe restriction, moderate diffusion impairment)
��������Spirometry 11/12/22: FEV1 0.98L 41%, FVC 1.85L 54%, ratio 0.53, post FEV1 0.70L 29%, no BD response (severe obstruction)
��������PFT� 05/21/22- FVC 2.43L 70%, FEV1 2.02L 83%, Ratio 83. TLC 3.78L 58%, DLCO 11.90 58% (moderately severe restriction, moderate diffusion impairment)
��������PFT 2018- FVC 2.79 or 78%, FEV1 2.34 or 91%, TLC 62, DLCO 64%. (moderate restriction, mild diffusion impairment)
��������-
��������PFT 05/27/23- FVC 2.19 or 67%, FEV1 1.35 or 59%, Ratio 62. TLC 3.45 or 55%. DLCO 10.22 or 48%.�
Subjective Data
-
Date of Service:
Date of Service: December 12, 2023
Chief Complaint: Pulmonary Follow Up
Subjective:
No major events reported
Respiratory hinds comfortable on O2 NC 8L, POx 92%
Tolerating BPAP well
at bedside
Review of Systems
General: Fever (n), Sweats (n), Chills (n) and Satisfactory Appetite
HEENT: Epistaxis (n)
Cardiopulmonary: Dyspnea (n at rest), Cough (n) and Wheezing (n)
GI: Abdominal Pain (n), Nausea (n) and Vomiting (n)
Neuro: Weakness
Objective Data
Data Reviewed
Vital Signs / I&O / Oxygen:
Vital Signs
Temp Pulse Resp BP Pulse Ox
98.6 F 65 18 138/67 93
12/12/23 11:44 12/12/23 11:30 12/12/23 11:30 12/12/23 08:45 12/12/23 11:30
Intake and Output
12/11/23 12/12/23 12/13/23
06:59 06:59 06:59
Intake Total 360 / 360 1400 / 1400
Output Total 2400 / 2400 1820 / 1820 800 / 800
Balance -2040 / -2040 -420 / -420 -800 / -800
SaO2 93
Nasal Cannula flow liters per 6
minute
Physical Exam
General: Comfortable
HEENT: Normocephalic, Anicteric and Moist Mucous Membranes
Cardiovascular: S1-S2, Regular Rhythm and Peripheral Edema (+1 LE edema (pitting) b/l)
Respiratory: Wheeze (negative), Crackles (bilaterally), Rhonchi (negative), Non-Labored Respirations and Stridor (n)
GI: Soft, Non Distended and Non Tender
Neurology: Awake, Oriented and No Motor Deficits
Skin: Warm and Dry
Labs/Micro/Reports
Lab Data
12/11/23 10:58
12/12/23 05:04
Laboratory Results
12/12/23
05:04
PT 30.0 H
INR 2.87
[2023-12-12] MEDS: NOVOLOG FLEXPEN-HIGH RESISTANCE 10 UNITS SC (16:18)
[2023-12-12 16:28] LABS: Glucose - Point of Care 305 mg/dl (70-99)
[2023-12-12 16:44] LABS: Hemoglobin 9.5 g/dL (13.0-18.0)
--- NOTE | 2023-12-12 17:03 | W.PN.CARDCBS ---
Today's Communication / Plan
-
Diurese
Coumadin 2 mg tonight and monitor INR
Impression / Plan
-
PCP: Dr. Jade
Cardiology: Dr. Arce
Pulmonary: Dr. Marilin Verde (initial new patient evaluation 05/21/2022)
Impression:
Presented 12/07/2023 with SOB
Acute on chronic hypoxic respiratory failure
Chronic hypoxic respiratory failure using 3.5 L NC at home
Supratherapeutic INR
Acute on chronic HF with preserved EF, proBNP 2740
Dietary noncompliance
Restrictive lung disease
Paroxysmal Afib on chronic amiodarone therapy and chronic warfarin OAC
s/p AVR bioprosthetic mean gradient 10 mmHg by echo 04/2023
Mild mitral stenosis
DM 2
Obesity, BMI 48.8
Echo 05/06/23: EF 55-60%, stage II diastolic dysfunction, mod MS with peak/mean 13/7 mmHg, well seated bioprosthetic AVR with peak/mean 16/10 mmHg and no aortic regurgitation
Echo December 08 2023: EF 55% with mild LVH, mild MS, mean grad 5 mmHg, bioAVR with mean grad 10 mmHg, mild TR with PASP 45 mmHg and no change from Apr 2023.
05/27/2023: PFT: FEV1: 1.35 (59%), FVC: 2.19 (67%), FEV1/FVC: 62%, T.45 (55%), DLCO: 48%
12/07/2023 at 20:34: ABG pH 7.3, pCO2 82, pO2 82 on room air
Plan:
Acute on chronic heart failure with preserved ejection fraction, proBNP 2740
-Slow improvement in volume status although exam is difficult; weight today is under 300 pounds at 295 pounds
-Cont IV diuresis 40 mg IV BID
-Continue I's and O's and daily weights
-Cr stable 1.1, potassium 4.2.
-Reiterated compliance with taking medications, adhering to low-sodium diet and fluid restriction, weight loss efforts and use of BiPAP
-HF teaching.
-echo this admission showed stable EF and bioAVR and MS and no change compared to prior echo.
Acute on chronic hypercapnic and hypoxic respiratory failure likely due to ADHF in setting of CPAP non-compliance at home; BMI 46
-Pulmonary consulted
-Continue BiPAP during sleep and as needed during the day with supplemental oxygen
-Continue diuretic efforts
History of paroxysmal atrial fibrillation
-Maintained on low-dose amiodarone and Coreg as outpatient
-Currently in sinus rhythm with stable QTc by last EKG on amiodarone.
-Coumadin resumed today for goal INR 2�3. Managed by DCA
Chronic normocytic anemia�hemoglobin relatively stable at 9.5
Family at bedside reviewed above.
HPI: Patient came to [facility] last night with increased SOB and was admitted with acute on chronic hypoxic respiratory failure and acute HF so cardiology has been consulted. Patient says he has been drinking more water and eating lots of watermelon
lately because he feels like his throat is dry. He has had more bloating and GLOVER for the last week and then last night he was profoundly SOB when he tried to go to bed and his says he looked cyanotic so she called 911. Patient has a h/o chronic
hypoxic respiratory failure and uses oxygen at 3.5 L NC at home, but paramedics reported a pulse ox in the 70s and NRB was started. Upon arrival to [facility] patient was placed on BiPAP. Patient appeared to be in pulmonary edema and was started on Nitro
gtt and given Lasix 40 mg IV x1. Patient takes Lasix 20 mg PO daily as an outpatient. Patient feels dramatically symptomatically improved this AM and is using oxygen by NC again albeit at 6 L. No chest pain.
Attending addendum HPI: This is an 83-year-old gentleman with a past medical history notable for underlying restrictive lung disease and O2 dependent respiratory insufficiency for which she is chronically maintained on 3.5 L of oxygen via nasal
cannula. He was last seen by pulmonary in May 2023 and oxygen saturations were reportedly in the 90s. He has a history of paroxysmal atrial fibrillation and is chronically maintained on oral anticoagulation with warfarin. He is chronically
treated with amiodarone 100 mg tablet daily. 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 His last echocardiogram was notable for mean aortic valve gradient
of 10 mmHg. He was also noted to have moderate mitral stenosis. He now presents with hypoxia and increased shortness of breath. O2 sats were noted to be in the 70s by home pulse oximeter on multiple occasions. Upon arrival to the emergency
department he was placed on a nonrebreather and then BiPAP. The family reported that he had been drinking a lot of water because his oxygen was making his mouth dry. His proBNP was modestly elevated at 2740.
Progress Note - Manager Net
Subjective
Date of Service: December 12, 2023
Seen and examined with at bedside. Out of bed to chair and reports improved shortness of breath at rest. Denies chest pain or pressure. Denies palpitations or dizziness.
Objective
Labs:
12/12/23 16:40
12/12/23 05:04
Labs
Hgb 9.5 g/dL (13.0-18.0) L 12/12/23 16:40
Hct 28.2 % (39.0-52.0) L 12/11/23 10:58
Plt Count 203 10^3/uL (130-400) 12/11/23 10:58
PT 30.0 Sec (11.4-14.6) H 12/12/23 05:04
INR 2.87 12/12/23 05:04
APTT 52.6 Sec (23.4-35.0) H 12/07/23 20:34
Sodium 137 mmol/L (135-145) 12/12/23 05:04
Potassium 5.0 mmol/L (3.5-5.1) 12/12/23 05:04
BUN 44 mg/dl (9-20) H 12/12/23 05:04
Creatinine 1.1 mg/dL (0.7-1.3) 12/12/23 05:04
Glucose 235 mg/dl (70-99) H 12/12/23 05:04
Vital Signs and I&O:
Vital Signs
Temp Pulse Resp BP Pulse Ox
98.6 F 61 18 144/70 95
12/12/23 11:44 12/12/23 16:17 12/12/23 15:18 12/12/23 16:17 12/12/23 15:18
Vital Signs
Temp Pulse Resp BP Pulse Ox
98.6 F 61 18 144/70 95
12/12/23 11:44 12/12/23 16:17 12/12/23 15:18 12/12/23 16:17 12/12/23 15:18
Intake & Output
12/10/23 12/11/23 12/12/23 12/13/23
06:59 06:59 06:59 06:59
Intake Total 720 / 720 360 / 360 1400 / 1400
Output Total 2380 / 2380 2400 / 2400 1820 / 1820 800 / 800
Balance -1660 / -1660 -2040 / -2040 -420 / -420 -800 / -800
Physical Exam
Physical Exam
GEN: No distress, awake, Ox3, obese sitting out of bed to chair
HEENT: supple, anicteric, mmm
LUNGS: Decreased breath sounds with crackles at bases and diffuse expiratory wheezes; on high flow oxygen
CV: Distant heart tones, reg, S1/S2, no murmur
ABD: soft, obese, BS+, NT/ND
EXT: +2 lower extremity edema, right leg with skin discoloration from prior trauma
--- NOTE | 2023-12-12 20:11 | PTCARENOTE ---
Received pt from brian HERNANDEZ. Pt is AAOx3, KNIK, forgetful @ times, drowsy. NSR on the monitor, generalized edema. On 5L NC O2 sat 99%, lungs diminished/crackles, GLOVER/shallow/orthopneic. Nocturnal pulse ox HS. Abd round/obese, uses the urinal with
assistance. Mouth care and hygiene provided. Pt is laying comfortable in bed with call barker in reach.
[2023-12-12] MEDS: ZETIA 10 MG PO (20:15)
[2023-12-12] MEDS: COUMADIN 2 MG PO (20:15)
[2023-12-12 21:14] LABS: Glucose - Point of Care 320 mg/dl (70-99)
[2023-12-12] MEDS: NOVOLOG FLEXPEN 10 UNITS SC (22:18)
[2023-12-13] VITALS (14 sets, daily range): BP systolic 95–150; BP diastolic 31–113; PULSE 2–53; BMI 46.2
[2023-12-13 00:52] LABS: Glucose - Point of Care 252 mg/dl (70-99)
[2023-12-13 04:46] LABS: Hematocrit 26.6 % (39.0-52.0); Hemoglobin 8.3 g/dL (13.0-18.0); Mean Corp Hgb Conc. 31.2 g/dL (33.0-37.0); Mean Corpuscular Hgb 30.1 pg (27.0-31.0); Mean Corpuscular Volume 96.4 fL (80.0-94.0); Mean Platelet Volume 11.8 fL (7.4-10.4); Platelet Count 202 10^3/uL (130-400); Red Blood Cell Count 2.76 10^6/uL (4.70-6.10); White Blood Cell Count 12.5 10^3/uL (4.8-10.8)
[2023-12-13 04:58] LABS: INR 2.27; PT 24.9 Sec (11.4-14.6)
[2023-12-13 05:13] LABS: Blood Urea Nitrogen 55 mg/dl (9-20); Calcium 8.9 mg/dl (8.4-10.2); Estimated Creatinine Clearance 67 ml/min; Glucose 193 mg/dl (70-99); eGFR > 60.00
[2023-12-13 05:22] LABS: Chloride 89 mmol/L (98-107); Potassium 5.2 mmol/L (3.5-5.1); Sodium 136 mmol/L (135-145)
[2023-12-13 05:33] LABS: Carbon Dioxide 44 mmol/L (22-30)
--- NOTE | 2023-12-13 06:11 | W.PN.HOSP.TC ---
Today's Communication/Plan
-
.
Assessment / Plan
Assessment / Plan
Physical Exam
General: Obese, chronically ill looking
HEENT: Normocephalic, Moist mucous membranes and Atraumatic. C pap was on
Respiratory: limited with rales
Cardiac: S1/S2
GI: Soft, Non Tender,
Rectal: No rectal bleeding
Musculoskeletal: mild edema in lower legs with thickened skin
Psych: no agitation
Neuro: awake, answered questions and followed commands.
# Acute hypoxic and hypercarbic respiratory failure secondary to acute on chronic HFpEF exacerbation
#Hx of Chronic hypoxic respiratory failure on 3.5 L at baseline/ morbid obesity
-ABG showed pH of 7.31, pCO2 of 82. PO2 81 on admission
He feels better, used BI pap over night with no issues
-Chest x-ray showed severe acute alveolar cardiogenic pulmonary edema, moderate cardiomegaly. repeat chest x ray concerning for PNA but clinically pt is c/w CHF and no PNA.
- Negative COVID
-40 IV Lasix BID
- off Nitroglycerin drip.
- Daily weights, he seems to loose weight
-Echocardiogram showed LVEF 55%, stage II diastolic dysfunction, mild mitral stenosis, trace mitral regurgitation, bioprosthetic aortic valve with no regurgitation, mild tricuspid regurgitation. No significant changes than echogram in April 2023
-Continue with BiPAP treatment
- Appreciate cardiology input
#AMIE (severe) on CPAP 10 cwp s O2, / Pulmonary hypertension with acute asthma exacerbation
Primary pulmonary doctor is Dr. Walters
Continue with BiPAP therapy, continue diuretic treatment, Nebulizer
Started Steroid therapy but reduced dose due to high blood sugar.
12/10 chest x-ray: Cardiomegaly with moderate pulmonary edema and small bilateral pleural effusions
Appreciate pulmonary input
# Hypercoagulopathy secondary to Coumadin. Held Coumadin. INR 2.27
# Hyperkalemia
c/w Lasix
Give one time Lokelma.
K at 5.0
# Paroxysmal atrial fibrillation
Rate is controlled
-Continue amiodarone
-Continue Coreg
- Resumed Coumadin
#Aortic stenosis status post bioprosthetic aortic valve replacement
# Anemia
His baseline HGB around 10
Now 9-8 . No rectal bleeding. Stool is non bloody. Monitor HGB since he is on Coumadin
# Morbid obesity BMI 48
Compulsive eating habits. d/w pt, he is aware but can not control his food addiction.
d/w family.
Impacting negatively his health.
#Coronary artery disease
No chest pain
Negative troponin on arrival
-Continue aspirin, statin
# Essential hypertension
No headache
Hyperlipidemia
-Continue Zetia
Type 2 diabetes
High BS
Expect uncontrolled due to steroid. Increased Lantus dose and monitor. No hypoglycemia
Obesity
DNR/DNI
DVT prophylaxis�Coumadin
oral diet
Total time spent to see patient, examine the patient on the floor, review data and lab results, discuss treatment plan with patient, family, nursing staff around 63 minutes
Anticipated Discharge: 24 - 48 hours
Subjective/Interval History
-
Date of Service: December 13, 2023
No events over night
No pain issues
No rectal bleeding
Objective Data
-
Labs:
Laboratory Results
12/13/23
04:27
WBC 12.5 H
Hgb 8.3 L
Hct 26.6 L
Plt Count 202
PT 24.9 H
INR 2.27
Sodium 136
Potassium 5.2 H
Chloride 89 L
Carbon Dioxide 44 H
BUN 55 H
Creatinine 1.1
Glucose 193 H
Calcium 8.9
Vital Signs:
Vital Signs
Temp Pulse Resp BP Pulse Ox
98.3 F 52 13 112/48 98
12/13/23 03:14 12/13/23 04:00 12/13/23 04:00 12/13/23 04:00 12/13/23 04:00
I&O
12/11/23 12/12/23 12/13/23
06:59 06:59 06:59
Intake Total 360 / 360 1400 / 1400 810 / 810
Output Total 2400 / 2400 1820 / 1820 1720 / 1720
Balance -2040 / -2040 -420 / -420 -910 / -910
[2023-12-13] MEDS: DUONEB 3 ML INH ×4 (07:17→19:55)
[2023-12-13] MEDS: PULMICORT 0.5 MG INH ×2 (07:18→19:55)
[2023-12-13] MEDS: LANTUS 0.299999999999999989 UNITS SC (09:30)
[2023-12-13] MEDS: NOVOLOG FLEXPEN-HIGH RESISTANCE 4 UNITS SC (09:30)
[2023-12-13] MEDS: ASPIR LOW (ENTERIC COATED) 81 MG PO (09:30)
[2023-12-13] MEDS: COREG 3.125 MG PO ×2 (09:30→20:23)
[2023-12-13] MEDS: SOLU-MEDROL PF 40 MG IV (09:31)
[2023-12-13] MEDS: MAGNESIUM OXIDE 500 MG PO (09:31)
[2023-12-13] MEDS: LASIX 40 MG IV ×2 (09:31→17:36)
[2023-12-13] MEDS: LIPITOR 20 MG PO (09:31)
[2023-12-13] MEDS: DESENEX/MITRAZOL/ZEASORB 1 APPLIC TOPICAL ×2 (09:31→20:23)
[2023-12-13] MEDS: PACERONE 100 MG PO (09:31)
[2023-12-13] MEDS: COSOPT EYE DROPS 1 DROP OPHTH ×2 (09:32→20:23)
[2023-12-13 09:36] LABS: Glucose - Point of Care 224 mg/dl (70-99)
[2023-12-13] MEDS: NON-FORMULARY ITEM 5 MG SC (11:28)
[2023-12-13] MEDS: NOVOLOG FLEXPEN-HIGH RESISTANCE 7 UNITS SC (11:28)
[2023-12-13 11:38] LABS: Glucose - Point of Care 289 mg/dl (70-99)
--- NOTE | 2023-12-13 13:26 | W.PN.PUL3 ---
Today's Communication / Plan
-
O2
BPAP
BDs
CS taper
Diuresis
Assessment
-
Assessment: 83-year-old male with a past medical history of s/p AVR, A-fib on Coumadin, chronic respiratory failure on home oxygen at 3.5 L/min nasal cannula, hypertension, DM type II and CKD who presents with SOB for few days. Patient was
cyanotic when EMS arrived to the scene and when patient arrived to the ER here at , pulse ox was 37% while on 3 L/min nasal cannula. Patient was A&O x 4 with wheezing at the bases. Initial vitals in the ER were BP 185/89, heart rate 81,
breathing at 24 breaths/min and patient was started on BiPAP with improvement of saturation to 94%. Initial labs showed anemia to 10.1, INR 3.87, acute on chronic hypercapnic respiratory failure with pH 7.31, pCO2 82, potassium 5.3, BUN 30, serum
bicarbonate 35, glucose 247, proBNP 2740, troponin negative at <0.012, and COVID antigen was negative. CXR showed bilateral interstitial edema. Patient given Solu-Medrol, DuoNebs, Lasix and briefly required nitroglycerin infusion. Patient was
admitted to the IMU where he has been continued to be managed. He is continued on diuresis with IV Lasix, and has been wearing his BiPAP with sleep 20/10, and midflow during the day. He has been requiring the BiPAP occasionally during the day due
to acute desaturations. Pulmonary now consulted for additional recommendations/management.
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
Impression:
#Acute on chronic hypercapnic and hypoxic respiratory failure likely due to ADHF in setting of CPAP non-compliance at home ; doubtful there is PNA given absent leukocytosis and pt afebrile
#Acute HFpEF exacerbation with stage II diastolic dysfunction
#History of severe persistent asthma on Breo and prn albuterol @ home
#Hyperglycemia
#AIME non-compliant to auto-PAP
#Morbid obesity with suspected OHS
#Acute on chronic anemia (baseline Hgb 10-13.5)
#Hypochloremia
#Hyperglycemia
Plan:
Continue BiPAP during sleep and prn during the day: 20 with supplemental O2 at 10LPM
Checked nocturnal oximetry on above settings last night: T89 44 sec
VBG again with some improvement in pCO2 and mildly alkalotic pH (^bicarbonate)
Needs to resume using auto-PAP again once he is discharged back home, will need to reevaluate use of APAP at office (per office records previously he was compliant to APAP with average pressure of 10.8 and AHI 1.1 back in May 2023). Currently
requiring BPAP due to acute exacerbation of HF and asthma, there is no evidence of pneumonia or ACS
- Titrate O2 flow rate to maintain SpO2 >90-94%. On home O2 at 3.5L for last 1 m
- Diuresing: lasix 40mg IV BID --> would aim to make net negative 1-1.5L
CXR 12-10, portable, underpenetrated, suspected persistent fluid overload
- Considering his history of asthma and supposed to be taking Breo at home, continue scheduled DuoNebs with budesonide and since pt now having worsening hypoxia, started systemic steroids with Solumedrol 40mg IV q12hr, now weaned to once daily, can
transition to prednisone taper at 40 mg qd tomorrow and further taper by 10 mg q3d to off
- Incentive spirometer encouraged
- Replete electrolytes with K>4, Mg>2
- Maintain euglycemia with goal BG >100 and <180
- prn nebulized bronchodilators
- Transfuse blood products as needed to keep Hb>7g/dL
PAFib, on chronic coumadin
- DVT ppx
D/w Mr and Mrs Walsh
Data:
CXR 12-10-2023:
Stable findings concerning for bilateral pneumonia. CHF not excluded. Clinical and laboratory correlation recommended.
Moderate cardiomegaly. Stable
CXR 12-07-2023:
1. Severe airspace disease throughout both lungs which appears new from 10/27/2022. Diagnostic possibilities are (1) SEVERE ACUTE ALVEOLAR CARDIOGENIC PULMONARY EDEMA (probably most likely given the symmetry of the airspace disease) or (2) severe
bilateral pneumonia if there are signs/symptoms of pulmonary infection.
2. Moderate cardiomegaly.
3. Previous surgical aortic valve replacement.
TTE 12-08-2023:
Normal left ventricular chamber size. Normal left ventricular systolic
function. Left ventricular ejection fraction is 55% by Hedrick's Method of
Disc. Normal regional wall motion. Mild concentric left ventricular
hypertrophy. Stage II diastolic dysfunction suggestive of abnormal relaxation
and increased filling pressures.
Thickened mitral valve leaflets. Dense Mitral annular calcification. Mild
mitral stenosis. Peak gradient 17 mmHg/Mean gradient 5 mmHg - trace mitral
regurgitation.
Bioprosthetic aortic valve with Peak gradient 15 mmHg/Mean gradient 10 mmHg -
no aortic regurgitation is seen.
Tricuspid valve opens normally. Mild tricuspid regurgitation. Estimated
pulmonary artery pressure of 45 mmHg assuming a right atrial pressure of 3
mmHg.
Since echocardiogram April 2023, there is no significant change.
Outpatient [facility] data:
6 MWT:
������ COMMENTS:�
��������6MWT 12/09/22: At rest, O2 98% on room air, HR 83. With ambulation, O2 aishwarya 96%, max HR 119. 4/10 on dyspnea scale. Ambulated 450 ft.
��������6MWT 11/12/22: Total distance ambulated 450ft. O2 baseline 98% on room air. �Baseline HR 73. O2 aishwarya 95% on room air.� No O2 was needed to maintain saturations >90%. �Dyspnea score 0.5/10. Max HR 112. Testing was terminated early due to knee
pain.
��������6mw 05/21/22- RA 98%, HR 76 bpm. ambulated 576 feet and maintained 98-100% on RA. HR increased to 128 bpm..�
PFT:
������ COMMENTS:�PFTs 12/25/22: FEV1 1.92L 83%, FVC 2.35L 71%, ratio 82.� TLC 3.41L 54%, DLCO 53% (moderately severe restriction, moderate diffusion impairment)
��������Spirometry 11/12/22: FEV1 0.98L 41%, FVC 1.85L 54%, ratio 0.53, post FEV1 0.70L 29%, no BD response (severe obstruction)
��������PFT� 05/21/22- FVC 2.43L 70%, FEV1 2.02L 83%, Ratio 83. TLC 3.78L 58%, DLCO 11.90 58% (moderately severe restriction, moderate diffusion impairment)
��������PFT 2018- FVC 2.79 or 78%, FEV1 2.34 or 91%, TLC 62, DLCO 64%. (moderate restriction, mild diffusion impairment)
��������-
��������PFT 05/27/23- FVC 2.19 or 67%, FEV1 1.35 or 59%, Ratio 62. TLC 3.45 or 55%. DLCO 10.22 or 48%.�
Subjective Data
-
Date of Service:
Date of Service: December 13, 2023
Chief Complaint: Pulmonary Follow Up
Subjective:
Compliance to nighttime BiPAP
Received overnight pulse oximetry BiPAP last night
Review of Systems
General: Fever (n)
Cardiopulmonary: Dyspnea (n), Cough (n), Wheezing and Chest Pain
GI: Abdominal Pain (n), Nausea (n) and Vomiting
Neuro: Weakness
Objective Data
Data Reviewed
Vital Signs / I&O / Oxygen:
Vital Signs
Temp Pulse Resp BP Pulse Ox
98.1 F 68 23 96/31 91
12/13/23 07:55 12/13/23 12:00 12/13/23 12:00 12/13/23 12:00 12/13/23 12:00
Intake and Output
12/12/23 12/13/2324
06:59 06:59 06:59
Intake Total 1400 / 1400 810 / 810
Output Total 1820 / 1820 1720 / 1720 200 / 200
Balance -420 / -420 -910 / -910 -200 / -200
SaO2 91
Nasal Cannula flow liters per 4
minute
Physical Exam
General: Comfortable
HEENT: Normocephalic, Anicteric and Moist Mucous Membranes
Cardiovascular: S1-S2, Regular Rhythm and Peripheral Edema (+1 LE edema (pitting) b/l)
Respiratory: Wheeze (negative), Crackles (bilaterally), Rhonchi (negative), Non-Labored Respirations and Stridor (n)
GI: Soft, Non Distended and Non Tender
Neurology: Awake, Oriented and No Motor Deficits
Skin: Warm and Dry
Labs/Micro/Reports
Lab Data
12/13/23 04:27
12/13/23 04:27
Laboratory Results
12/13/23
04:27
PT 24.9 H
INR 2.27
--- NOTE | 2023-12-13 16:56 | W.PN.CARDCBS ---
Today's Communication / Plan
-
Continue diuretic efforts
Coumadin dosed 3 mg; repeat INR in the morning
Impression / Plan
-
PCP: Dr. Jade
Cardiology: Dr. Arce
Pulmonary: Dr. Marilin Verde (initial new patient evaluation 05/21/2022)
Impression:
Presented 12/07/2023 with SOB
Acute on chronic hypoxic respiratory failure
Chronic hypoxic respiratory failure using 3.5 L NC at home
Supratherapeutic INR
Acute on chronic HF with preserved EF, proBNP 2740
Dietary noncompliance
Restrictive lung disease
Paroxysmal Afib on chronic amiodarone therapy and chronic warfarin OAC
s/p AVR bioprosthetic mean gradient 10 mmHg by echo 04/2023
Mild mitral stenosis
DM 2
Obesity, BMI 48.8
Echo 05/06/23: EF 55-60%, stage II diastolic dysfunction, mod MS with peak/mean 13/7 mmHg, well seated bioprosthetic AVR with peak/mean 16/10 mmHg and no aortic regurgitation
Echo December 08 2023: EF 55% with mild LVH, mild MS, mean grad 5 mmHg, bioAVR with mean grad 10 mmHg, mild TR with PASP 45 mmHg and no change from Apr 2023.
05/27/2023: PFT: FEV1: 1.35 (59%), FVC: 2.19 (67%), FEV1/FVC: 62%, T.45 (55%), DLCO: 48%
12/07/2023 at 20:34: ABG pH 7.3, pCO2 82, pO2 82 on room air
Plan:
Acute on chronic heart failure with preserved ejection fraction, proBNP 2740
-Slow improvement in volume status although exam is difficult; weight today is under 300 pounds at 294 pounds
-Cont IV diuresis 40 mg IV BID
-Continue I's and O's and daily weights
-Cr stable 1.1
-Reiterated compliance with taking medications, adhering to low-sodium diet and fluid restriction, weight loss efforts and use of BiPAP
-HF teaching.
-echo this admission showed stable EF and bioAVR and MS and no change compared to prior echo.
Acute on chronic hypercapnic and hypoxic respiratory failure likely due to ADHF in setting of CPAP non-compliance at home; BMI 46
-Pulmonary consulted
-Continue BiPAP during sleep and as needed during the day with supplemental oxygen
-Continue diuretic efforts
History of paroxysmal atrial fibrillation
-Maintained on low-dose amiodarone and Coreg as outpatient
-Currently in sinus rhythm with stable QTc by last EKG on amiodarone.
-Coumadin resumed 12/12/2023 for goal INR 2�3. Managed by DCA
Chronic normocytic anemia�hemoglobin relatively stable at 9.5
Family at bedside reviewed above.
HPI: Patient came to [facility] last night with increased SOB and was admitted with acute on chronic hypoxic respiratory failure and acute HF so cardiology has been consulted. Patient says he has been drinking more water and eating lots of watermelon
lately because he feels like his throat is dry. He has had more bloating and GLOVER for the last week and then last night he was profoundly SOB when he tried to go to bed and his says he looked cyanotic so she called 911. Patient has a h/o chronic
hypoxic respiratory failure and uses oxygen at 3.5 L NC at home, but paramedics reported a pulse ox in the 70s and NRB was started. Upon arrival to [facility] patient was placed on BiPAP. Patient appeared to be in pulmonary edema and was started on Nitro
gtt and given Lasix 40 mg IV x1. Patient takes Lasix 20 mg PO daily as an outpatient. Patient feels dramatically symptomatically improved this AM and is using oxygen by NC again albeit at 6 L. No chest pain.
Attending addendum HPI: This is an 83-year-old gentleman with a past medical history notable for underlying restrictive lung disease and O2 dependent respiratory insufficiency for which she is chronically maintained on 3.5 L of oxygen via nasal
cannula. He was last seen by pulmonary in May 2023 and oxygen saturations were reportedly in the 90s. He has a history of paroxysmal atrial fibrillation and is chronically maintained on oral anticoagulation with warfarin. He is chronically
treated with amiodarone 100 mg tablet daily. 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 His last echocardiogram was notable for mean aortic valve gradient
of 10 mmHg. He was also noted to have moderate mitral stenosis. He now presents with hypoxia and increased shortness of breath. O2 sats were noted to be in the 70s by home pulse oximeter on multiple occasions. Upon arrival to the emergency
department he was placed on a nonrebreather and then BiPAP. The family reported that he had been drinking a lot of water because his oxygen was making his mouth dry. His proBNP was modestly elevated at 2740.
Progress Note - Customer Success Associate
Subjective
Date of Service: December 13, 2023
Seen and examined. Out of bed to chair and offers no new complaints
Objective
Labs:
12/13/23 04:27
12/13/23 04:27
Labs
Hgb 8.3 g/dL (13.0-18.0) L 12/13/23 04:27
Hct 26.6 % (39.0-52.0) L 12/13/23 04:27
Plt Count 202 10^3/uL (130-400) 12/13/23 04:27
PT 24.9 Sec (11.4-14.6) H 12/13/23 04:27
INR 2.27 12/13/23 04:27
APTT 52.6 Sec (23.4-35.0) H 12/07/23 20:34
Sodium 136 mmol/L (135-145) 12/13/23 04:27
Potassium 5.2 mmol/L (3.5-5.1) H 12/13/23 04:27
BUN 55 mg/dl (9-20) H 12/13/23 04:27
Creatinine 1.1 mg/dL (0.7-1.3) 12/13/23 04:27
Glucose 193 mg/dl (70-99) H 12/13/23 04:27
Vital Signs and I&O:
Vital Signs
Temp Pulse Resp BP Pulse Ox
97.5 F 58 20 143/75 95
12/13/23 11:39 12/13/23 15:28 12/13/23 15:28 12/13/23 14:00 12/13/23 15:28
Vital Signs
Temp Pulse Resp BP Pulse Ox
97.5 F 58 20 143/75 95
12/13/23 11:39 12/13/23 15:28 12/13/23 15:28 12/13/23 14:00 12/13/23 15:28
Intake & Output
12/11/23 12/12/23 12/13/23 12/14/23
06:59 06:59 06:59 06:59
Intake Total 360 / 360 1400 / 1400 810 / 810
Output Total 2400 / 2400 1820 / 1820 1720 / 1720 550 / 550
Balance -2040 / -2040 -420 / -420 -910 / -910 -550 / -550
Physical Exam
Physical Exam
GEN: No distress, awake, Ox3, obese sitting out of bed to chair
HEENT: supple, anicteric, mmm
LUNGS: Decreased breath sounds with crackles at bases and diffuse expiratory wheezes; on 4 L nasal cannula
CV: Distant heart tones, reg, S1/S2, no murmur
ABD: soft, obese, BS+, NT/ND
EXT: +1 lower extremity edema, right leg with skin discoloration from prior trauma
[2023-12-13] MEDS: COUMADIN 3 MG PO (17:35)
[2023-12-13] MEDS: NOVOLOG FLEXPEN-HIGH RESISTANCE 12 UNITS SC (17:35)
[2023-12-13 17:45] LABS: Glucose - Point of Care 378 mg/dl (70-99)
[2023-12-13] MEDS: ZETIA 10 MG PO (20:22)
[2023-12-13 20:47] LABS: Glucose - Point of Care 387 mg/dl (70-99)
[2023-12-13] MEDS: NOVOLOG FLEXPEN 15 UNITS SC ×2 (20:52→23:23)
--- NOTE | 2023-12-13 22:51 | PTCARENOTE ---
Received pt at start of shift. aaox3, pleasant. NSR & afib on monitor, on 5LNC GLOVER. Bipap applied at night. Night sugar checked 387, JUNIOR HIGH SCHOOL PRINCIPAL aware ordered 15U. Will follow protocol & recheck blood sugar. VSS, Bp's running soft. No c/o pain. BA on. Will
monitor.
[2023-12-13 23:13] LABS: Glucose - Point of Care 329 mg/dl (70-99)
--- NOTE | 2023-12-13 23:27 | PTCARENOTE ---
Recheck BS 329, FERMENTATION SCIENTIST aware. ANother 15U given.
[2023-12-14] VITALS (16 sets, daily range): BP systolic 105–147; BP diastolic 51–97; PULSE 2–71; O2SAT 92; BMI 46.6
[2023-12-14 01:44] LABS: Glucose - Point of Care 260 mg/dl (70-99)
[2023-12-14 04:54] LABS: INR 1.86; PT 21.2 Sec (11.4-14.6)
[2023-12-14 07:29] LABS: Glucose - Point of Care 161 mg/dl (70-99)
[2023-12-14] MEDS: PULMICORT 0.5 MG INH ×2 (07:41→20:10)
[2023-12-14] MEDS: DUONEB 3 ML INH ×4 (07:41→20:10)
--- NOTE | 2023-12-14 08:31 | W.PN.HOSP.TC ---
Today's Communication/Plan
-
see bold
Assessment / Plan
Assessment / Plan
# Acute hypoxic and hypercarbic respiratory failure secondary to acute on chronic HFpEF exacerbation
#Hx of Chronic hypoxic respiratory failure on 3.5 L at baseline/ morbid obesity
ABG showed pH of 7.31, pCO2 of 82. PO2 81 on admission
Currently satting 98% on 3.5 L, recommend weaning down oxygen to avoid hypercapnia
Appreciate pulmonology input, continue BiPAP in the hospital, resume CPAP when at home
#Acute on chronic heart failure with preserved ejection fraction
Chest x-ray showed severe acute alveolar cardiogenic pulmonary edema, moderate cardiomegaly
Appreciate cardiology input, Echo showed LVEF 55%, stage II diastolic dysfunction, mild mitral stenosis, trace mitral regurgitation, bioprosthetic aortic valve with no regurgitation, mild tricuspid regurgitation. No significant changes than
echogram in April 2023
Status post nitroglycerin drip, continue Lasix 40 mg IV twice daily
Trend creatinine, trend daily weights
#AMIE (severe) on CPAP 10 cwp s O2, / Pulmonary hypertension with acute asthma exacerbation
Primary pulmonary doctor is Dr. Walters
Currently satting 98% on 3.5 L, recommend weaning down oxygen to avoid hypercapnia
Appreciate pulmonology input, continue BiPAP in the hospital, resume CPAP when at home
Continue prednisone taper
# Hypercoagulopathy secondary to Coumadin.
INR 1.86 today, resume Coumadin
# Hyperkalemia
c/w Lasix
Give one time Lokelma.
K at 5.0
# Paroxysmal atrial fibrillation
Rate is controlled
-Continue amiodarone
-Continue Coreg
-Resumed Coumadin
#Aortic stenosis status post bioprosthetic aortic valve replacement
# Anemia
His baseline HGB around 10
Now 8-9, suspect now diluted from CHF
Monitor hemoglobin
# Morbid obesity BMI 48
Compulsive eating habits. d/w pt, he is aware but can not control his food addiction.
D/w family. Impacting negatively his health.
#Coronary artery disease
No chest pain
Negative troponin on arrival
-Continue aspirin, statin
# Essential hypertension
No headache
#Hyperlipidemia
Continue Zetia
#Type 2 diabetes
Hyperglycemia secondary to steroids, continue Lantus, add NovoLog 5 units AC 3 times daily
SSI
DVT prophylaxis�Coumadin
DNR/DNI
Updated daughter at bedside 12/13
Total time spent to see the patient on the floor, examine the patient, review data and lab results, discuss treatment plan with patient, nursing staff around 51 minutes.
Physical Exam
General: Morbidly obese, obese, chronically ill looking
HEENT: Normocephalic, Moist mucous membranes and Atraumatic. C pap was on
Respiratory: Limited with rales
Cardiac: S1/S2
GI: Soft, Non Tender
Rectal: No rectal bleeding
Musculoskeletal: Bilateral lower extremity edema noted
Psych: no agitation
Neuro: no focal deficits
Anticipated Discharge: > 48 hours
Subjective/Interval History
-
Date of Service: December 14, 2023
Patient reports that his breathing waxes and wanes. He denies shortness of breath at this very moment. He feels better overall. No fever, no vomiting.
Objective Data
-
Labs:
Laboratory Results
12/14/23 12/14/23
04:30 06:00
WBC Pending
Hgb Pending
Hct Pending
Plt Count Pending
PT 21.2 H
INR 1.86
Sodium Pending
Potassium Pending
Chloride Pending
Carbon Dioxide Pending
BUN Pending
Creatinine Pending
Glucose Pending
Calcium Pending
Vital Signs:
Vital Signs
Temp Pulse Resp BP Pulse Ox
98.2 F 59 20 121/58 98
12/14/23 07:00 12/14/23 07:42 12/14/23 07:42 12/14/23 06:00 12/14/23 07:42
I&O
12/13/23 12/14/23 12/15/23
06:59 06:59 06:59
Intake Total 810 / 810
Output Total 1720 / 1720 1700 / 1700
Balance -910 / -910 -1700 / -1700
[2023-12-14] MEDS: LASIX 40 MG IV ×2 (08:38→16:36)
[2023-12-14] MEDS: LIPITOR 20 MG PO (08:39)
[2023-12-14] MEDS: MAGNESIUM OXIDE 500 MG PO (08:39)
[2023-12-14] MEDS: COREG 3.125 MG PO ×2 (08:39→19:50)
[2023-12-14] MEDS: COSOPT EYE DROPS 1 DROP OPHTH ×2 (08:39→19:50)
[2023-12-14] MEDS: ASPIR LOW (ENTERIC COATED) 81 MG PO (08:39)
[2023-12-14] MEDS: DELTASONE 40 MG PO (08:39)
[2023-12-14] MEDS: DESENEX/MITRAZOL/ZEASORB 1 APPLIC TOPICAL ×2 (08:39→19:50)
[2023-12-14] MEDS: PACERONE 100 MG PO (08:39)
[2023-12-14] MEDS: NOVOLOG FLEXPEN-HIGH RESISTANCE 1 UNITS SC (08:40)
[2023-12-14] MEDS: LANTUS 0.299999999999999989 UNITS SC (08:45)
--- NOTE | 2023-12-14 08:57 | W.PN.CARDCBS ---
Today's Communication / Plan
-
Cont IV diuresis.
Coumadin 4 mg PO today
Monitor INRs closely.
Impression / Plan
-
PCP: Dr. Jade
Cardiology: Dr. Arce
Pulmonary: Dr. Marilin Verde (initial new patient evaluation 05/21/2022)
Impression:
Presented 12/07/2023 with SOB
Acute on chronic hypoxic respiratory failure
Chronic hypoxic respiratory failure using 3.5 L NC at home
Supratherapeutic INR
Acute on chronic HF with preserved EF, proBNP 2740
Dietary noncompliance
Restrictive lung disease
Paroxysmal Afib on chronic amiodarone therapy and chronic warfarin OAC
s/p AVR bioprosthetic mean gradient 10 mmHg by echo 04/2023
Mild mitral stenosis
DM 2
Obesity, BMI 48.8
Echo 05/06/23: EF 55-60%, stage II diastolic dysfunction, mod MS with peak/mean 13/7 mmHg, well seated bioprosthetic AVR with peak/mean 16/10 mmHg and no aortic regurgitation
Echo December 08 2023: EF 55% with mild LVH, mild MS, mean grad 5 mmHg, bioAVR with mean grad 10 mmHg, mild TR with PASP 45 mmHg and no change from Apr 2023.
05/27/2023: PFT: FEV1: 1.35 (59%), FVC: 2.19 (67%), FEV1/FVC: 62%, T.45 (55%), DLCO: 48%
12/07/2023 at 20:34: ABG pH 7.3, pCO2 82, pO2 82 on room air
Plan:
-Acute on chronic heart failure with preserved ejection fraction, proBNP 2740
Another 1700 negative Is and Os last 24 hrs. His wt is down 15 lbs from admit.
Cont IV diuresis Lasix 40 mg IV BID
Cont to monitor daily wts Is and Os and cr
Discussed compliance given significant dietary noncompliance.
HF teaching
Echo showed stable bioAVR and preserved EF and no change from prior echo.
-Acute on chronic hypercapnic and hypoxic respiratory failure likely due to ADHF in setting of CPAP non-compliance at home; BMI 46
Cont pulm work up and eval. Cont BiPAP during sleep and as needed during the day with supplemental oxygen
-History of paroxysmal atrial fibrillation
Cont low dose Amiodarone and Coreg as outpt
QTc has been stable.
Cont Coumadin resumed 12/12/2023 for goal INR 2�3. Managed by DCA
INR 1.86 on 12/13.
Chronic normocytic anemia�hemoglobin 8.3 12/13 and primary evaluating.
Discussed with daughter at bedside
HPI: Patient came to [facility] last night with increased SOB and was admitted with acute on chronic hypoxic respiratory failure and acute HF so cardiology has been consulted. Patient says he has been drinking more water and eating lots of watermelon
lately because he feels like his throat is dry. He has had more bloating and GLOVER for the last week and then last night he was profoundly SOB when he tried to go to bed and his says he looked cyanotic so she called 911. Patient has a h/o chronic
hypoxic respiratory failure and uses oxygen at 3.5 L NC at home, but paramedics reported a pulse ox in the 70s and NRB was started. Upon arrival to [facility] patient was placed on BiPAP. Patient appeared to be in pulmonary edema and was started on Nitro
gtt and given Lasix 40 mg IV x1. Patient takes Lasix 20 mg PO daily as an outpatient. Patient feels dramatically symptomatically improved this AM and is using oxygen by NC again albeit at 6 L. No chest pain.
Attending addendum HPI: This is an 83-year-old gentleman with a past medical history notable for underlying restrictive lung disease and O2 dependent respiratory insufficiency for which she is chronically maintained on 3.5 L of oxygen via nasal
cannula. He was last seen by pulmonary in May 2023 and oxygen saturations were reportedly in the 90s. He has a history of paroxysmal atrial fibrillation and is chronically maintained on oral anticoagulation with warfarin. He is chronically
treated with amiodarone 100 mg tablet daily. 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 His last echocardiogram was notable for mean aortic valve gradient
of 10 mmHg. He was also noted to have moderate mitral stenosis. He now presents with hypoxia and increased shortness of breath. O2 sats were noted to be in the 70s by home pulse oximeter on multiple occasions. Upon arrival to the emergency
department he was placed on a nonrebreather and then BiPAP. The family reported that he had been drinking a lot of water because his oxygen was making his mouth dry. His proBNP was modestly elevated at 2740.
Progress Note - Lithographer Apprentice
Subjective
Date of Service: December 14, 2023
Pt seen and examined. No complaints. No chest pain or shortness of breath.
Objective
Labs:
Labs
Hgb 8.3 g/dL (13.0-18.0) L 12/13/23 04:27
Hct 26.6 % (39.0-52.0) L 12/13/23 04:27
Plt Count 202 10^3/uL (130-400) 12/13/23 04:27
PT 21.2 Sec (11.4-14.6) H 12/14/23 04:30
INR 1.86 12/14/23 04:30
APTT 52.6 Sec (23.4-35.0) H 12/07/23 20:34
Sodium 136 mmol/L (135-145) 12/13/23 04:27
Potassium 5.2 mmol/L (3.5-5.1) H 12/13/23 04:27
BUN 55 mg/dl (9-20) H 12/13/23 04:27
Creatinine 1.1 mg/dL (0.7-1.3) 12/13/23 04:27
Glucose 193 mg/dl (70-99) H 12/13/23 04:27
Vital Signs and I&O:
Vital Signs
Temp Pulse Resp BP Pulse Ox
98.2 F 64 20 131/55 98
12/14/23 07:00 12/14/23 08:38 12/14/23 07:42 12/14/23 08:38 12/14/23 07:42
Vital Signs
Temp Pulse Resp BP Pulse Ox
98.2 F 64 20 131/55 98
12/14/23 07:00 12/14/23 08:38 12/14/23 07:42 12/14/23 08:38 12/14/23 07:42
Intake & Output
12/12/23 12/13/23 12/14/23 12/15/23
06:59 06:59 06:59 06:59
Intake Total 1400 / 1400 810 / 810
Output Total 1820 / 1820 1720 / 1720 1700 / 1700
Balance -420 / -420 -910 / -910 -1700 / -1700
Physical Exam
Physical Exam
General: No acute distress, AAOX3
Neck: Negative JVD
Heart: Regular, Negative S3 positive S1/S2, Negative S4, No murmur
Lungs: CTA b/l, negative wheezes/rales/rhonchi
Abd: Morbid obesity. Positive BS, NT/ND, neg rebound/rigidity/guarding
Ext: Negative cyanosis/clubbing/edema
Neuro: nonfocal
--- NOTE | 2023-12-14 09:05 | PTCARENOTE ---
Patient received from mill beam fitter. Patient resting comfortably in bed, wore BiPAP overnight. AAO, VSS. No events noted overnight. No complaints of pain. Continuing to wean O2 as tolerated. Will attempt to get to chair again this afternoon.
Call barker in reach.
--- NOTE | 2023-12-14 10:29 | W.PN.PUL3 ---
Today's Communication / Plan
-
Continue nebulizers while in the hospital-upon discharge transition to inhalers.
Prednisone taper
Continue BiPAP while in the hospital. Transition to CPAP upon discharge
Continue diuresis
Wean down oxygen
Assessment
-
Assessment: 83-year-old male with a past medical history of s/p AVR, A-fib on Coumadin, chronic respiratory failure on home oxygen at 3.5 L/min nasal cannula, hypertension, DM type II and CKD who presents with SOB for few days. Patient was
cyanotic when EMS arrived to the scene and when patient arrived to the ER here at , pulse ox was 37% while on 3 L/min nasal cannula. Patient was A&O x 4 with wheezing at the bases. Initial vitals in the ER were BP 185/89, heart rate 81,
breathing at 24 breaths/min and patient was started on BiPAP with improvement of saturation to 94%. Initial labs showed anemia to 10.1, INR 3.87, acute on chronic hypercapnic respiratory failure with pH 7.31, pCO2 82, potassium 5.3, BUN 30, serum
bicarbonate 35, glucose 247, proBNP 2740, troponin negative at <0.012, and COVID antigen was negative. CXR showed bilateral interstitial edema. Patient given Solu-Medrol, DuoNebs, Lasix and briefly required nitroglycerin infusion. Patient was
admitted to the IMU where he has been continued to be managed. He is continued on diuresis with IV Lasix, and has been wearing his BiPAP with sleep 20/10, and midflow during the day. He has been requiring the BiPAP occasionally during the day due
to acute desaturations. Pulmonary now consulted for additional recommendations/management.
Chronic conditions [employer]: DM type II, s/p bioprosthetic aortic valve placement, paroxysmal A-fib on warfarin, morbid obesity, CAD, chronic respiratory failure on home oxygen (3.5 L/min), hypertension, hyperlipidemia, CKD, AMIE on CPAP
Impression:
#Acute on chronic hypercapnic and hypoxic respiratory failure likely due to ADHF in setting of CPAP non-compliance at home ; doubtful there is PNA given absent leukocytosis and pt afebrile
#Acute HFpEF exacerbation with stage II diastolic dysfunction
#History of severe persistent asthma on Breo and prn albuterol @ home
#Hyperglycemia
#AMIE non-compliant to auto-PAP
#Morbid obesity with suspected OHS
#Acute on chronic anemia (baseline Hgb 10-13.5)
#Hypochloremia
#Hyperglycemia
Plan:
Continue BiPAP during sleep and prn during the day: 12/06 with supplemental O2 at 10LPM
Needs to resume using auto-PAP again once he is discharged back home, will need to reevaluate use of APAP at office (per office records previously he was compliant to APAP with average pressure of 10.8 and AHI 1.1 back in May 2023).
Currently requiring BPAP due to acute exacerbation of HF and asthma, there is no evidence of pneumonia or ACS
CXR 12-10, portable, underpenetrated, suspected persistent fluid overload
-
Continue oxygen supplementation currently at 3.5 L. Likely baseline, patient does have oxygen at home.
Titrate O2 flow rate to maintain SpO2 >90-94%. On home O2 at 3.5L for last 1 m
-
Continue diuresis per cardiology. Weight has been trending lower since admission.
-
- Considering his history of asthma and supposed to be taking Breo at home,
continue scheduled DuoNebs with budesonide and
Prednisone taper, decrease by 10 mg every 48 hours to off.
- Incentive spirometer encouraged
- Maintain euglycemia with goal BG >100 and <180
-
PAFib, on chronic coumadin, follow INR. Monitor for bleeding.
- DVT ppx
-
Follow-up with Dr. Verde after DC.

Data:
CXR 12-10-2023:
Stable findings concerning for bilateral pneumonia. CHF not excluded. Clinical and laboratory correlation recommended.
Moderate cardiomegaly. Stable
CXR 12-07-2023:
1. Severe airspace disease throughout both lungs which appears new from 10/27/2022. Diagnostic possibilities are (1) SEVERE ACUTE ALVEOLAR CARDIOGENIC PULMONARY EDEMA (probably most likely given the symmetry of the airspace disease) or (2) severe
bilateral pneumonia if there are signs/symptoms of pulmonary infection.
2. Moderate cardiomegaly.
3. Previous surgical aortic valve replacement.
TTE 12-08-2023:
Normal left ventricular chamber size. Normal left ventricular systolic
function. Left ventricular ejection fraction is 55% by Hedrick's Method of
Disc. Normal regional wall motion. Mild concentric left ventricular
hypertrophy. Stage II diastolic dysfunction suggestive of abnormal relaxation
and increased filling pressures.
Thickened mitral valve leaflets. Dense Mitral annular calcification. Mild
mitral stenosis. Peak gradient 17 mmHg/Mean gradient 5 mmHg - trace mitral
regurgitation.
Bioprosthetic aortic valve with Peak gradient 15 mmHg/Mean gradient 10 mmHg -
no aortic regurgitation is seen.
Tricuspid valve opens normally. Mild tricuspid regurgitation. Estimated
pulmonary artery pressure of 45 mmHg assuming a right atrial pressure of 3
mmHg.
Since echocardiogram April 2023, there is no significant change.
Outpatient [facility] data:
6 MWT:
������ COMMENTS:�
��������6MWT 12/09/22: At rest, O2 98% on room air, HR 83. With ambulation, O2 aishwarya 96%, max HR 119. 4/10 on dyspnea scale. Ambulated 450 ft.
��������6MWT 11/12/22: Total distance ambulated 450ft. O2 baseline 98% on room air. �Baseline HR 73. O2 aishwarya 95% on room air.� No O2 was needed to maintain saturations >90%. �Dyspnea score 0.5/10. Max HR 112. Testing was terminated early due to knee
pain.
��������6mw 05/21/22- RA 98%, HR 76 bpm. ambulated 576 feet and maintained 98-100% on RA. HR increased to 128 bpm..�
PFT:
������ COMMENTS:�PFTs 12/25/22: FEV1 1.92L 83%, FVC 2.35L 71%, ratio 82.� TLC 3.41L 54%, DLCO 53% (moderately severe restriction, moderate diffusion impairment)
��������Spirometry 11/12/22: FEV1 0.98L 41%, FVC 1.85L 54%, ratio 0.53, post FEV1 0.70L 29%, no BD response (severe obstruction)
��������PFT� 05/21/22- FVC 2.43L 70%, FEV1 2.02L 83%, Ratio 83. TLC 3.78L 58%, DLCO 11.90 58% (moderately severe restriction, moderate diffusion impairment)
��������PFT 2018- FVC 2.79 or 78%, FEV1 2.34 or 91%, TLC 62, DLCO 64%. (moderate restriction, mild diffusion impairment)
��������-
��������PFT 05/27/23- FVC 2.19 or 67%, FEV1 1.35 or 59%, Ratio 62. TLC 3.45 or 55%. DLCO 10.22 or 48%.�
Subjective Data
-
Date of Service:
Date of Service: December 14, 2023
Chief Complaint: Pulmonary Follow Up
Objective Data
Data Reviewed
Vital Signs / I&O / Oxygen:
Vital Signs
Temp Pulse Resp BP Pulse Ox
98.2 F 64 20 131/55 98
12/14/23 07:00 12/14/23 08:38 12/14/23 07:42 12/14/23 08:38 12/14/23 07:42
Intake and Output
12/13/23 12/14/23 12/15/23
06:59 06:59 06:59
Intake Total 810 / 810
Output Total 1720 / 1720 1700 / 1700 240 / 240
Balance -910 / -910 -1700 / -1700 -240 / -240
SaO2 98
Nasal Cannula flow liters per 5
minute
Physical Exam
General: Comfortable
HEENT: Normocephalic, Anicteric and Moist Mucous Membranes
Cardiovascular: S1-S2, Regular Rhythm and Peripheral Edema (+1 LE edema (pitting) b/l)
Respiratory: Wheeze (negative), Crackles (bilaterally), Rhonchi (negative), Non-Labored Respirations and Stridor (n)
GI: Soft, Non Distended and Non Tender
Neurology: Awake, Oriented and No Motor Deficits
Skin: Warm and Dry
Labs/Micro/Reports
Laboratory Results
12/14/23
04:30
PT 21.2 H
INR 1.86
[2023-12-14 11:02] LABS: Hematocrit 27.7 % (39.0-52.0); Hemoglobin 8.8 g/dL (13.0-18.0); Mean Corp Hgb Conc. 31.8 g/dL (33.0-37.0); Mean Corpuscular Hgb 30.1 pg (27.0-31.0); Mean Corpuscular Volume 94.9 fL (80.0-94.0); Mean Platelet Volume 11.7 fL (7.4-10.4); Platelet Count 215 10^3/uL (130-400); Red Blood Cell Count 2.92 10^6/uL (4.70-6.10); Red Cell Dist. Width 14.2 % (11.5-14.5); White Blood Cell Count 13.6 10^3/uL (4.8-10.8)
[2023-12-14 11:31] LABS: Glucose - Point of Care 260 mg/dl (70-99)
[2023-12-14] MEDS: NOVOLOG FLEXPEN-HIGH RESISTANCE 7 UNITS SC ×2 (11:43→16:35)
[2023-12-14 13:24] LABS: Blood Urea Nitrogen 56 mg/dl (9-20); Calcium 8.8 mg/dl (8.4-10.2); Chloride 86 mmol/L (98-107); Estimated Creatinine Clearance 57 ml/min; Glucose 224 mg/dl (70-99); Potassium 4.5 mmol/L (3.5-5.1); Sodium 133 mmol/L (135-145); eGFR 54.51
[2023-12-14 13:33] LABS: Carbon Dioxide 43 mmol/L (22-30)
[2023-12-14 16:23] LABS: Glucose - Point of Care 284 mg/dl (70-99)
--- NOTE | 2023-12-14 16:30 | CM ---
Patient with Dx Acute hypoxic and hypercarbic respiratory failure, HF, AMIE, PAF, morbid obesity. O2 3L midflow. Seen by wound care nurse. PT & OT; requires assist of 2, recommend skilled rehab.
SNF referrals reviewed. [facility] expressed interest.
Spoke with Jin Erickson; confirmed patient is not on a bariatric bed. She will let CM know if able to accept.
Phone call to Jin Mccormick [facility]; left message requesting response to referral.
Plan continued SNF placement for rehab efforts.
[2023-12-14] MEDS: NOVOLOG FLEXPEN 5 UNITS SC (16:35)
[2023-12-14] MEDS: COUMADIN 4 MG PO (17:52)
[2023-12-14] MEDS: ZETIA 10 MG PO (19:50)
[2023-12-14 21:50] LABS: Glucose - Point of Care 341 mg/dl (70-99)
[2023-12-14] MEDS: NOVOLOG FLEXPEN 15 UNITS SC (21:50)
[2023-12-15] VITALS (18 sets, daily range): BP systolic 106–149; BP diastolic 56–97; PULSE 2–68; O2SAT 95; BMI 46.6
[2023-12-15 00:06] LABS: Glucose - Point of Care 289 mg/dl (70-99)
--- NOTE | 2023-12-15 00:41 | PTCARENOTE ---
blood sugar HS was 341- notified covering [employer]- orders entered for extra 15 units of novolog. blood sugar rechecked after 2 hours per protocol- now 289. care ongoing.
[2023-12-15 07:20] LABS: Hematocrit 29.6 % (39.0-52.0); Hemoglobin 9.2 g/dL (13.0-18.0); Mean Corp Hgb Conc. 31.1 g/dL (33.0-37.0); Mean Corpuscular Hgb 29.6 pg (27.0-31.0); Mean Corpuscular Volume 95.2 fL (80.0-94.0); Mean Platelet Volume 11.5 fL (7.4-10.4); Platelet Count 217 10^3/uL (130-400); Red Blood Cell Count 3.11 10^6/uL (4.70-6.10); Red Cell Dist. Width 14.1 % (11.5-14.5); White Blood Cell Count 10.8 10^3/uL (4.8-10.8)
[2023-12-15] MEDS: DUONEB 3 ML INH ×4 (07:21→19:47)
[2023-12-15] MEDS: PULMICORT 0.5 MG INH ×2 (07:21→19:47)
[2023-12-15 07:31] LABS: INR 2.24; PT 24.6 Sec (11.4-14.6)
[2023-12-15 07:56] LABS: Blood Urea Nitrogen 58 mg/dl (9-20); Calcium 8.9 mg/dl (8.4-10.2); Chloride 89 mmol/L (98-107); Estimated Creatinine Clearance 62 ml/min; Glucose 157 mg/dl (70-99); Potassium 4.3 mmol/L (3.5-5.1); Sodium 135 mmol/L (135-145); eGFR > 60.00
[2023-12-15] MEDS: LASIX 40 MG IV (08:14)
[2023-12-15] MEDS: MAGNESIUM OXIDE 500 MG PO (08:15)
[2023-12-15] MEDS: COREG 3.125 MG PO ×2 (08:15→21:52)
[2023-12-15] MEDS: NOVOLOG FLEXPEN 5 UNITS SC ×2 (08:15→11:35)
[2023-12-15] MEDS: NOVOLOG FLEXPEN-HIGH RESISTANCE 2 UNITS SC ×2 (08:15→11:35)
[2023-12-15] MEDS: DELTASONE 40 MG PO (08:15)
[2023-12-15] MEDS: LIPITOR 20 MG PO (08:15)
[2023-12-15] MEDS: PACERONE 100 MG PO (08:16)
[2023-12-15] MEDS: COSOPT EYE DROPS 1 DROP OPHTH ×2 (08:16→21:53)
[2023-12-15] MEDS: ASPIR LOW (ENTERIC COATED) 81 MG PO (08:16)
[2023-12-15] MEDS: DESENEX/MITRAZOL/ZEASORB 1 APPLIC TOPICAL ×2 (08:16→21:55)
[2023-12-15 08:25] LABS: Carbon Dioxide 41 mmol/L (22-30)
[2023-12-15 08:25] LABS: Glucose - Point of Care 172 mg/dl (70-99)
--- NOTE | 2023-12-15 08:34 | W.PN.HOSP.TC ---
Today's Communication/Plan
-
see bold
Assessment / Plan
Assessment / Plan
#Acute hypoxic and hypercarbic respiratory failure secondary to acute on chronic HFpEF exacerbation
#Hx of Chronic hypoxic respiratory failure on 3.5 L at baseline/ morbid obesity
ABG showed pH of 7.31, pCO2 of 82. PO2 81 on admission
Currently satting 96% on 2.5 L, continue weaning as tolerated to avoid hypercapnia. He wears 3.5 L at home
Appreciate pulmonology input, continue BiPAP in the hospital, resume CPAP when at home
Stable for telemetry
#Acute on chronic heart failure with preserved ejection fraction
Chest x-ray showed severe acute alveolar cardiogenic pulmonary edema, moderate cardiomegaly
Appreciate cardiology input, Echo showed LVEF 55%, stage II diastolic dysfunction, mild mitral stenosis, trace mitral regurgitation, bioprosthetic aortic valve with no regurgitation, mild tricuspid regurgitation. No significant changes than
echogram in April 2023
Status post nitroglycerin drip, increase Lasix to 60 mg IV twice daily
Check lower extremity Dopplers for completeness sake
Trend creatinine, trend daily weights
#AMIE (severe) on CPAP 10 cwp s O2, / Pulmonary hypertension with acute asthma exacerbation
Primary pulmonary doctor is Dr. Walters
Currently satting 96% on 2.5 L, continue weaning as tolerated to avoid hypercapnia. He wears 3.5 L at home
Appreciate pulmonology input, continue BiPAP in the hospital, resume CPAP when at home
Continue prednisone taper
# Hypercoagulopathy secondary to Coumadin.
INR therapeutic today, continue Coumadin
# Hyperkalemia
c/w Lasix
Give one time Lokelma.
K at 5.0
# Paroxysmal atrial fibrillation
Rate is controlled
-Continue amiodarone
-Continue Coreg
-Resumed Coumadin
#Aortic stenosis status post bioprosthetic aortic valve replacement
# Anemia
His baseline HGB around 10
Now 8-9, suspect now diluted from CHF
Monitor hemoglobin
# Morbid obesity BMI 48
Compulsive eating habits. d/w pt, he is aware but can not control his food addiction.
D/w family. Impacting negatively his health.
#Coronary artery disease
No chest pain
Negative troponin on arrival
-Continue aspirin, statin
# Essential hypertension
No headache
#Hyperlipidemia
Continue Zetia
#Type 2 diabetes
Hyperglycemia secondary to steroids, continue Lantus, increase NovoLog 10 units AC 3 times daily
SSI
DVT prophylaxis�Coumadin
DNR/DNI
Updated daughter at bedside 12/14
Total time spent to see the patient on the floor, examine the patient, review data and lab results, discuss treatment plan with patient, nursing staff around 51 minutes.
Physical Exam
General: Morbidly obese, obese, chronically ill looking
HEENT: Normocephalic, Moist mucous membranes and Atraumatic. C pap was on
Respiratory: Limited with rales
Cardiac: S1/S2
GI: Soft, Non Tender
Rectal: No rectal bleeding
Musculoskeletal: Bilateral lower extremity edema noted
Psych: no agitation
Neuro: no focal deficits
Anticipated Discharge: 24 - 48 hours
Subjective/Interval History
-
Date of Service: December 15, 2023
Patient has intermittent abdominal spasms with urination and getting the IV Lasix. It last for few minutes, resolves. No fever, no vomiting.
Objective Data
-
Labs:
Laboratory Results
12/15/23 12/15/23
06:57 06:58
WBC 10.8
Hgb 9.2 L
Hct 29.6 L
Plt Count 217
PT 24.6 H
INR 2.24
Sodium 135
Potassium 4.3
Chloride 89 L
Carbon Dioxide 41 H
BUN 58 H
Creatinine 1.2
Glucose 157 H
Calcium 8.9
Vital Signs:
Vital Signs
Temp Pulse Resp BP Pulse Ox
97.7 F 61 20 133/75 99
12/15/23 03:10 12/15/23 08:14 12/15/23 07:24 12/15/23 08:14 12/15/23 07:24
I&O
12/14/23 12/15/23 12/16/23
06:59 06:59 06:59
Output Total 1700 / 1700 1290 / 1290 200 / 200
Balance -1700 / -1700 -1290 / -1290 -200 / -200
[2023-12-15] MEDS: LANTUS 0.299999999999999989 UNITS SC (08:38)
--- NOTE | 2023-12-15 09:43 | W.PN.CARDCBS ---
Addendum entered and electronically signed by Paul Elmore MD 12/15/23 10:15:
Patient comfortable at rest, daughter says he is still dyspneic.
Allergies: None
Outpatient medications: Albuterol, amiodarone, aspirin 81 mg a day atorvastatin 20 mg a day, carvedilol 3.125 twice daily, ezetimibe, furosemide 20 daily, Lantus, magnesium, tirzepatide, warfarin
Current meds: Albuterol, Pulmicort, amiodarone 100 mg a day, aspirin 81 mg a day, atorvastatin 20 mg a day, carvedilol 3.125 twice daily, ezetimibe 10 mg a day magnesium, furosemide 40 IV twice daily, Cosopt eyedrops, tirzepatide, Lantus, prednisone
40 mg a day, and warfarin
PMH/PSH/SH/FH: Reviewed
ROS: Negative except as above
133/75, pulse 61, respiratory 20, sats 99%, weight is 134.8 kg, on admit was 141.4 kg, yesterday was 134.7 kg, intake and output incomplete
No distress but unable to sit up in bed, rolls over, and and neck exam unremarkable, still with some crackles lung bases, regular rate and rhythm, no obvious murmurs JVD difficult to assess, abdomen morbidly obese 1+ edema neuro nonfocal
Hemoglobin 9.2 BUN and creatinine 58 and 1.2, potassium 4.3, magnesium is 3
Impression:
Acute on chronic HF with preserved EF, proBNP 2740
Dietary noncompliance
Restrictive lung disease
Paroxysmal Afib on chronic amiodarone therapy and chronic warfarin OAC
s/p AVR bioprosthetic mean gradient 10 mmHg by echo 04/2023
Mild mitral stenosis
DM 2
Obesity, BMI 48.8
Echo 05/06/23: EF 55-60%, stage II diastolic dysfunction, mod MS with peak/mean 13/7 mmHg, well seated bioprosthetic AVR with peak/mean 16/10 mmHg and no aortic regurgitation
Echo December 08 2023: EF 55% with mild LVH, mild MS, mean grad 5 mmHg, bioAVR with mean grad 10 mmHg, mild TR with PASP 45 mmHg and no change from Apr 2023.
Plan:
He is improving, but still with evidence of volume overload. Continue IV furosemide. He could easily be 10 to 20 pounds above dry weight.
We will ask case management to fortune SGLT2 antagonist and add if affordable.
Potassium has been high, so we will hold off on spironolactone at present.
Original Note:
Today's Communication / Plan
-
Continue IV Lasix
Case management to assess cost of Jardiance
Wean supplemental oxygen as able
Check orthostatic vital signs
PT
Nutrition consult
decrease coumadin back to 3.5mg HS
Impression / Plan
-
PCP: Dr. Jade
Cardiology: Dr. Arce
Pulmonary: Dr. Marilin Verde (initial new patient evaluation 05/21/2022)
Impression:
Presented 12/07/2023 with SOB
Acute on chronic hypoxic respiratory failure, had been using 2L NC however prior to admission up to 4 L NC at home
Supratherapeutic INR
Acute on chronic HF with preserved EF, proBNP 2740
Dietary noncompliance
Restrictive lung disease
Paroxysmal Afib on chronic amiodarone therapy and chronic warfarin OAC
s/p AVR bioprosthetic mean gradient 10 mmHg by echo 04/2023
Mild mitral stenosis
DM 2
Obesity, BMI 48.8
Echo 05/06/23: EF 55-60%, stage II diastolic dysfunction, mod MS with peak/mean 13/7 mmHg, well seated bioprosthetic AVR with peak/mean 16/10 mmHg and no aortic regurgitation
Echo December 08 2023: EF 55% with mild LVH, mild MS, mean grad 5 mmHg, bioAVR with mean grad 10 mmHg, mild TR with PASP 45 mmHg and no change from Apr 2023.
05/27/2023: PFT: FEV1: 1.35 (59%), FVC: 2.19 (67%), FEV1/FVC: 62%, T.45 (55%), DLCO: 48%
12/07/2023 at 20:34: ABG pH 7.3, pCO2 82, pO2 82 on room air
Plan:
-Patient presented with acute on chronic hypoxic respiratory failure with acute on chronic diastolic heart failure exacerbation
-volume status difficult to determine by exam. Weight trending down if accurate. Continue IV Lasix 40 mg twice daily. Creatinine stable at 1.2.
-Wean supplemental oxygen as able. Pulmonary also following. Plan for BiPAP to continue while in the hospital with transition to CPAP at bedtime upon discharge
-Patient's daughter at bedside reports poorly controlled diet at home from both heart failure and diabetic standpoint. Will place nutrition/dietary consult.
-CHF education.
-Echo from 12/08/2023 reviewed with patient and daughter at bedside 12/14
-medication compliance encouraged. Was supposed to be taking Lasix 20 mg daily prior to admission
-will assess cost to patient of jardiance with CHF and suboptimally controlled diabetes. hgbA1c 8.0%
-He remains in rate controlled atrial fibrillation on review of telemetry overnight. Continue low-dose amiodarone and Coreg.
-INR therapeutic on 12/14. Received 4 mg Coumadin last night. Reportedly on 3.5 mg HS prior to admission. INRs managed by [facility] Coumadin clinic, discussed with coumadin nurse 12/14. will decrease dose back to 3.5mg HS as INRs as OP have been mostly
in range on this dose
-Noted to have drop in hemoglobin this admission. Stools were heme-negative. Hemoglobin improved to 9.2 on 12/14. Continue to follow
-He reports some dizziness with changing position at home. Possibly multifactorial from deconditioning, hypoxia, possible orthostasis. Will check orthostatic vital signs
-Encouraged PT
-Discussed with daughter at bedside
-Discussed with nursing at bedside
HPI: Patient came to [facility] last night with increased SOB and was admitted with acute on chronic hypoxic respiratory failure and acute HF so cardiology has been consulted. Patient says he has been drinking more water and eating lots of watermelon
lately because he feels like his throat is dry. He has had more bloating and GLOVER for the last week and then last night he was profoundly SOB when he tried to go to bed and his says he looked cyanotic so she called 911. Patient has a h/o chronic
hypoxic respiratory failure and uses oxygen at 3.5 L NC at home, but paramedics reported a pulse ox in the 70s and NRB was started. Upon arrival to [facility] patient was placed on BiPAP. Patient appeared to be in pulmonary edema and was started on Nitro
gtt and given Lasix 40 mg IV x1. Patient takes Lasix 20 mg PO daily as an outpatient. Patient feels dramatically symptomatically improved this AM and is using oxygen by MT again albeit at 6 L. No chest pain.
Attending addendum HPI: This is an 83-year-old gentleman with a past medical history notable for underlying restrictive lung disease and O2 dependent respiratory insufficiency for which she is chronically maintained on 3.5 L of oxygen via nasal
cannula. He was last seen by pulmonary in May 2023 and oxygen saturations were reportedly in the 90s. He has a history of paroxysmal atrial fibrillation and is chronically maintained on oral anticoagulation with warfarin. He is chronically
treated with amiodarone 100 mg tablet daily. 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 His last echocardiogram was notable for mean aortic valve gradient
of 10 mmHg. He was also noted to have moderate mitral stenosis. He now presents with hypoxia and increased shortness of breath. O2 sats were noted to be in the 70s by home pulse oximeter on multiple occasions. Upon arrival to the emergency
department he was placed on a nonrebreather and then BiPAP. The family reported that he had been drinking a lot of water because his oxygen was making his mouth dry. His proBNP was modestly elevated at 2740.
Progress Note - [employer]st
Subjective
Date of Service: December 15, 2023
Reports improvement in breathing. No chest pain
Objective
Labs:
12/15/23 06:57
12/15/23 06:57
Labs
Hgb 9.2 g/dL (13.0-18.0) L 12/15/23 06:57
Hct 29.6 % (39.0-52.0) L 12/15/23 06:57
Plt Count 217 10^3/uL (130-400) 12/15/23 06:57
PT 24.6 Sec (11.4-14.6) H 12/15/23 06:58
INR 2.24 12/15/23 06:58
APTT 52.6 Sec (23.4-35.0) H 12/07/23 20:34
Sodium 135 mmol/L (135-145) 12/15/23 06:57
Potassium 4.3 mmol/L (3.5-5.1) 12/15/23 06:57
BUN 58 mg/dl (9-20) H 12/15/23 06:57
Creatinine 1.2 mg/dL (0.7-1.3) 12/15/23 06:57
Glucose 157 mg/dl (70-99) H 12/15/23 06:57
Vital Signs and I&O:
Vital Signs
Temp Pulse Resp BP Pulse Ox
97.7 F 61 20 133/75 99
12/15/23 03:10 12/15/23 08:14 12/15/23 07:24 12/15/23 08:14 12/15/23 07:24
Vital Signs
Temp Pulse Resp BP Pulse Ox
97.7 F 61 20 133/75 99
12/15/23 03:10 12/15/23 08:14 12/15/23 07:24 12/15/23 08:14 12/15/23 07:24
Intake & Output
12/13/23 12/14/23 12/15/23 12/16/23
07:59 07:59 07:59 07:59
Intake Total 810 / 810
Output Total 1720 / 1720 1700 / 1700 1490 / 1490
Balance -910 / -910 -1700 / -1700 -1490 / -1490
Physical Exam
Physical Exam
GEN: No distress, awake, alert, oriented x3. On supplemental O2. Obese
HEENT: supple, anicteric, mmm, EOMI
LUNGS: Crackles bilateral bases, no wheezes
CV: Irreg, S1/S2, no murmur
ABD: soft, BS+, NT/ND
EXT: No cyanosis, clubbing. 1-2+ edema of bilateral lower extremity
NEURO: Gross non-focal
SKIN: Warm, pink, dry. No rash
--- NOTE | 2023-12-15 09:55 | W.PN.PUL3 ---
Today's Communication / Plan
-
Decrease prednisone
Continue nebulizer therapy
Incentive spirometry
BiPAP therapy
Diuretics
Outpatient pulmonary follow-up
Assessment
-
Assessment: 83-year-old male with a past medical history of s/p AVR, A-fib on Coumadin, chronic respiratory failure on home oxygen at 3.5 L/min nasal cannula, hypertension, DM type II and CKD who presents with SOB for few days. Patient was
cyanotic when EMS arrived to the scene and when patient arrived to the ER here at , pulse ox was 37% while on 3 L/min nasal cannula. Patient was A&O x 4 with wheezing at the bases. Initial vitals in the ER were BP 185/89, heart rate 81,
breathing at 24 breaths/min and patient was started on BiPAP with improvement of saturation to 94%. Initial labs showed anemia to 10.1, INR 3.87, acute on chronic hypercapnic respiratory failure with pH 7.31, pCO2 82, potassium 5.3, BUN 30, serum
bicarbonate 35, glucose 247, proBNP 2740, troponin negative at <0.012, and COVID antigen was negative. CXR showed bilateral interstitial edema. Patient given Solu-Medrol, DuoNebs, Lasix and briefly required nitroglycerin infusion. Patient was
admitted to the IMU where he has been continued to be managed. He is continued on diuresis with IV Lasix, and has been wearing his BiPAP with sleep 20/10, and midflow during the day. He has been requiring the BiPAP occasionally during the day due
to acute desaturations. Pulmonary now consulted for additional recommendations/management.
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
Impression:
#Acute on chronic hypercapnic and hypoxic respiratory failure likely due to ADHF in setting of CPAP non-compliance at home ; doubtful there is PNA given absent leukocytosis and pt afebrile
#Acute HFpEF exacerbation with stage II diastolic dysfunction
#History of severe persistent asthma on Breo and prn albuterol @ home
#Hyperglycemia
#AMIE non-compliant to auto-PAP
#Morbid obesity with suspected OHS
#Acute on chronic anemia (baseline Hgb 10-13.5)
#Hypochloremia
#Hyperglycemia
Plan:
Respiratory status is slowly improving.
Not bronchospastic on exam.
Currently requiring BPAP due to acute exacerbation of HF and asthma, there is no evidence of pneumonia or ACS
Tolerating BiPAP, continue settings without change.
Oxygen requirements at liters nasal cannula-baseline. Maintain pulse ox above 90%.
-
Transition to auto-PAP again once he is discharged back home, will need to reevaluate use of APAP at office (per office records previously he was compliant to APAP with average pressure of 10.8 and AHI 1.1 back in May 2023).
-
Continue diuresis per cardiology. Weight has been trending lower since admission.
Continue to monitor electrolytes and creatinine.
-
- Considering his history of asthma and supposed to be taking Breo at home,
continue scheduled DuoNebs with budesonide and transition to inhalers upon discharge.
Reduce prednisone to 30 mg 12/15/2023. Continue to reduce by 10 mg every 48 hours to off. Not significantly bronchospastic on exam.
- Incentive spirometer encouraged
- Maintain euglycemia with goal BG >100 and <180
-
PAFib, on chronic coumadin, follow INR. Monitor for bleeding.
- DVT ppx
-
Dr. Schafer updated daughter at the bedside 12/14/2023 and 12/15/2023.
-
Follow-up with Dr. Verde after DC.

Data:
CXR 12-10-2023:
Stable findings concerning for bilateral pneumonia. CHF not excluded. Clinical and laboratory correlation recommended.
Moderate cardiomegaly. Stable
CXR 12-07-2023:
1. Severe airspace disease throughout both lungs which appears new from 10/27/2022. Diagnostic possibilities are (1) SEVERE ACUTE ALVEOLAR CARDIOGENIC PULMONARY EDEMA (probably most likely given the symmetry of the airspace disease) or (2) severe
bilateral pneumonia if there are signs/symptoms of pulmonary infection.
2. Moderate cardiomegaly.
3. Previous surgical aortic valve replacement.
TTE 12-08-2023:
Normal left ventricular chamber size. Normal left ventricular systolic
function. Left ventricular ejection fraction is 55% by Hedrick's Method of
Disc. Normal regional wall motion. Mild concentric left ventricular
hypertrophy. Stage II diastolic dysfunction suggestive of abnormal relaxation
and increased filling pressures.
Thickened mitral valve leaflets. Dense Mitral annular calcification. Mild
mitral stenosis. Peak gradient 17 mmHg/Mean gradient 5 mmHg - trace mitral
regurgitation.
Bioprosthetic aortic valve with Peak gradient 15 mmHg/Mean gradient 10 mmHg -
no aortic regurgitation is seen.
Tricuspid valve opens normally. Mild tricuspid regurgitation. Estimated
pulmonary artery pressure of 45 mmHg assuming a right atrial pressure of 3
mmHg.
Since echocardiogram April 2023, there is no significant change.
Outpatient [facility] data:
6 MWT:
������ COMMENTS:�
��������6MWT 12/09/22: At rest, O2 98% on room air, HR 83. With ambulation, O2 aishwarya 96%, max HR 119. 4/10 on dyspnea scale. Ambulated 450 ft.
��������6MWT 11/12/22: Total distance ambulated 450ft. O2 baseline 98% on room air. �Baseline HR 73. O2 aishwarya 95% on room air.� No O2 was needed to maintain saturations >90%. �Dyspnea score 0.5/10. Max HR 112. Testing was terminated early due to knee
pain.
��������6mw 05/21/22- RA 98%, HR 76 bpm. ambulated 576 feet and maintained 98-100% on RA. HR increased to 128 bpm..�
PFT:
������ COMMENTS:�PFTs 12/25/22: FEV1 1.92L 83%, FVC 2.35L 71%, ratio 82.� TLC 3.41L 54%, DLCO 53% (moderately severe restriction, moderate diffusion impairment)
��������Spirometry 11/12/22: FEV1 0.98L 41%, FVC 1.85L 54%, ratio 0.53, post FEV1 0.70L 29%, no BD response (severe obstruction)
��������PFT� 05/21/22- FVC 2.43L 70%, FEV1 2.02L 83%, Ratio 83. TLC 3.78L 58%, DLCO 11.90 58% (moderately severe restriction, moderate diffusion impairment)
��������PFT 2018- FVC 2.79 or 78%, FEV1 2.34 or 91%, TLC 62, DLCO 64%. (moderate restriction, mild diffusion impairment)
��������-
��������PFT 05/27/23- FVC 2.19 or 67%, FEV1 1.35 or 59%, Ratio 62. TLC 3.45 or 55%. DLCO 10.22 or 48%.�
Subjective Data
-
Date of Service:
Date of Service: December 15, 2023
Chief Complaint: Pulmonary Follow Up
Subjective:
Denies significant coughing or phlegm production.
Tolerating BiPAP overnight
No significant wheezing.
Review of Systems
General: Fever (n)
Cardiopulmonary: Dyspnea (none at rest), Cough (n) and Edema (improved)
GI: Abdominal Pain (n) and Nausea (n)
Objective Data
Data Reviewed
Vital Signs / I&O / Oxygen:
Vital Signs
Temp Pulse Resp BP Pulse Ox
97.7 F 61 20 133/75 99
12/15/23 03:10 12/15/23 08:14 12/15/23 07:24 12/15/23 08:14 12/15/23 07:24
Intake and Output
12/14/23 12/15/2312/15/24
06:59 06:59 06:59
Output Total 1700 / 1700 1290 / 1290 200 / 200
Balance -1700 / -1700 -1290 / -1290 -200 / -200
SaO2 99
Nasal Cannula flow liters per 3
minute
Physical Exam
General: Comfortable
HEENT: Normocephalic, Anicteric and Moist Mucous Membranes
Cardiovascular: S1-S2, Regular Rhythm and Peripheral Edema (+1 LE edema (pitting) b/l)
Respiratory: Wheeze (negative), Crackles (bilaterally), Rhonchi (negative), Non-Labored Respirations and Stridor (n)
GI: Soft, Non Distended and Non Tender
Neurology: Awake, Oriented and No Motor Deficits
Skin: Warm and Dry
Labs/Micro/Reports
Lab Data
12/15/23 06:57
12/15/23 06:57
Laboratory Results
12/15/23
06:58
PT 24.6 H
INR 2.24
[2023-12-15 11:44] LABS: Glucose - Point of Care 198 mg/dl (70-99)
--- NOTE | 2023-12-15 12:43 | PTCARENOTE ---
Patient received from shift coordinator. Patient resting comfortably in bed, wore BiPAP overnight. AAO, VSS. No events noted overnight. No complaints of pain. Continuing to wean O2 as tolerated, down to 2.5L N/C. Will attempt to get to chair again
this afternoon, has been doing increasingly better each day. Possible downgrade today? Call barker in reach.
[2023-12-15] MEDS: JARDIANCE 10 MG PO (14:47)
--- NOTE | 2023-12-15 15:02 | PTCARENOTE ---
Report called to [facility]. Patient left via transport on a stretcher. All known belongings with patient. Patients accompanying patient.
--- NOTE | 2023-12-15 15:13 | CM ---
Addendum entered by Tanya Sullivan RN 12/15/23 16:33:
Met with patient and provided/explained Jardiance Free Month card.
Plan SNF auth once d/c date known.
Plan [facility] possibly Thurs - Thu once insurance approves.
Original Note:
Patient with Dx Acute hypoxic and hypercarbic respiratory failure, HF, AMIE, PAF, morbid obesity. O2 2.5L. Seen by wound care nurse. PT & OT; requires assist of 2, recommend skilled rehab.
Message from Georgina, [facility]; they are able to accept the patient on 12/16 when he is medically ready for d/c. Dr. Brewer and [facility] . Georgina is aware that the patient's will bring in his supply of
Mounjaro and his CPAP from home.
CM Consult: [facility] check Jardiance; $50/month from [facility], $125/month from [facility].
Spoke with patient's Karine; she agrees to cost of Jardiance---> Dr Hinson made aware. Informed CM can provide Jardiance coupon prior to d/c.
had concerns patient needs more diet education and worries he is eating too many carbs---> message to comedian.
Informed that patient was accepted by [facility] for , once insurance approves. will bring in his supply of Mounjaro and his CPAP from home.
Message from Dr Hinson- patient may be ready for SNF Thurs or Fri.
Plan issue Jardiance Free Month card to patient.
Plan SNF auth once d/c date known.
Plan [facility] possibly Thurs - Fri once insurance approves.
[2023-12-15 16:22] LABS: Glucose - Point of Care 235 mg/dl (70-99)
[2023-12-15] MEDS: NOVOLOG FLEXPEN-HIGH RESISTANCE 4 UNITS SC (16:47)
[2023-12-15] MEDS: NOVOLOG FLEXPEN 10 UNITS SC (16:48)
[2023-12-15] MEDS: LASIX 60 MG IV (16:49)
[2023-12-15] MEDS: COUMADIN 4 MG PO (16:50)
[2023-12-15 21:26] LABS: Glucose - Point of Care 218 mg/dl (70-99)
[2023-12-15] MEDS: ZETIA 10 MG PO (21:53)
[2023-12-16] VITALS (8 sets, daily range): BP systolic 112–124; BP diastolic 52–61; PULSE 4–72; BMI 45.8
[2023-12-16 07:04] LABS: Hematocrit 31.5 % (39.0-52.0); Hemoglobin 9.9 g/dL (13.0-18.0); Mean Corp Hgb Conc. 31.4 g/dL (33.0-37.0); Mean Corpuscular Hgb 29.5 pg (27.0-31.0); Mean Corpuscular Volume 93.8 fL (80.0-94.0); Platelet Count 249 10^3/uL (130-400); Red Blood Cell Count 3.36 10^6/uL (4.70-6.10); Red Cell Dist. Width 14.2 % (11.5-14.5); White Blood Cell Count 10.1 10^3/uL (4.8-10.8)
[2023-12-16 07:12] LABS: INR 2.39; PT 25.9 Sec (11.4-14.6)
[2023-12-16 07:36] LABS: Blood Urea Nitrogen 58 mg/dl (9-20); Calcium 8.9 mg/dl (8.4-10.2); Chloride 91 mmol/L (98-107); Estimated Creatinine Clearance 61 ml/min; Glucose 136 mg/dl (70-99); Magnesium 2.9 mg/dl (1.6-2.3); Potassium 4.4 mmol/L (3.5-5.1); Sodium 137 mmol/L (135-145); eGFR > 60.00
[2023-12-16] MEDS: PULMICORT 0.5 MG INH ×2 (07:43→20:25)
[2023-12-16] MEDS: DUONEB 3 ML INH ×4 (07:43→20:25)
[2023-12-16 07:57] LABS: Carbon Dioxide 40 mmol/L (22-30)
[2023-12-16 08:13] LABS: Glucose - Point of Care 144 mg/dl (70-99)
--- NOTE | 2023-12-16 08:15 | W.PN.HOSP.TC ---
Today's Communication/Plan
-
see bold
Assessment / Plan
Assessment / Plan
#Acute hypoxic and hypercarbic respiratory failure secondary to acute on chronic HFpEF exacerbation
#Hx of Chronic hypoxic respiratory failure on 3.5 L at baseline/ morbid obesity
ABG showed pH of 7.31, pCO2 of 82. PO2 81 on admission
Currently satting 96% on 3 L, continue weaning as tolerated to avoid hypercapnia. He wears 3.5 L at home
Appreciate pulmonology input, continue BiPAP in the hospital, resume CPAP when at home
Plan for discharge to short-term rehab on 12/17
#Acute on chronic heart failure with preserved ejection fraction
Chest x-ray showed severe acute alveolar cardiogenic pulmonary edema, moderate cardiomegaly
Appreciate cardiology input, Echo showed LVEF 55%, stage II diastolic dysfunction, mild mitral stenosis, trace mitral regurgitation, bioprosthetic aortic valve with no regurgitation, mild tricuspid regurgitation. No significant changes than
echogram in April 2023
Status post nitroglycerin drip, increase Lasix to 80 mg IV twice daily 12/15
B/l lower extremity Dopplers negative
Trend creatinine, trend daily weights
#AMIE (severe) on CPAP 10 cwp s O2, / Pulmonary hypertension with acute asthma exacerbation
Primary pulmonary doctor is Dr. Walters
Currently satting 96% on 3 L, continue weaning as tolerated to avoid hypercapnia. He wears 3.5 L at home
Appreciate pulmonology input, continue BiPAP in the hospital, resume CPAP when at home
Continue prednisone taper as per pulm
#Type 2 diabetes
Hyperglycemia secondary to steroids, currently on Lantus, NovoLog 10 units AC 3 times daily
Hyperglycemia improved, will need to wean insulin today
# Hypercoagulopathy secondary to Coumadin.
Resolved, INR therapeutic, continue Coumadin
# Hyperkalemia
Resolved status post Lokelma
# Paroxysmal atrial fibrillation
Rate is controlled
-Continue amiodarone, Coreg, Coumadin
# Aortic stenosis status post bioprosthetic aortic valve replacement
# Anemia
Hemoglobin at baseline
# Morbid obesity BMI 48
Compulsive eating habits. d/w pt, he is aware but can not control his food addiction.
D/w family. Impacting negatively his health.
#Coronary artery disease
No chest pain
Negative troponin on arrival
-Continue aspirin, statin
# Essential hypertension
No headache
#Hyperlipidemia
Continue Zetia
DVT prophylaxis�Coumadin
DNR/DNI
Updated daughter at bedside 12/14
Total time spent to see the patient on the floor, examine the patient, review data and lab results, discuss treatment plan with patient, nursing staff around 50 minutes.
Physical Exam
General: Morbidly obese, obese, chronically ill looking
HEENT: Normocephalic, Moist mucous membranes and Atraumatic. C pap was on
Respiratory: Limited with rales
Cardiac: S1/S2
GI: Soft, Non Tender
Rectal: No rectal bleeding
Musculoskeletal: Bilateral lower extremity edema noted
Psych: no agitation
Neuro: no focal deficits
Anticipated Discharge: 24 - 48 hours
Subjective/Interval History
-
Date of Service: December 16, 2023
Patient continues to improve. Breathing continues to improve. No fever, no vomiting. No chest pain.
Objective Data
-
Labs:
Laboratory Results
12/16/23
06:34
WBC 10.1
Hgb 9.9 L
Hct 31.5 L
Plt Count 249
PT 25.9 H
INR 2.39
Sodium 137
Potassium 4.4
Chloride 91 L
Carbon Dioxide 40 H
BUN 58 H
Creatinine 1.2
Glucose 136 H
Calcium 8.9
Vital Signs:
Vital Signs
Temp Pulse Resp BP Pulse Ox
98.3 F 80 18 117/53 97
12/16/23 03:00 12/16/23 07:48 12/16/23 07:48 12/16/23 03:00 12/16/23 07:48
I&O
12/15/23 12/16/23 12/17/23
06:59 06:59 06:59
Intake Total 240 / 240
Output Total 1290 / 1290 3025 / 3025
Balance -1290 / -1290 -2785 / -2785
[2023-12-16] MEDS: ASPIR LOW (ENTERIC COATED) 81 MG PO (08:30)
[2023-12-16] MEDS: JARDIANCE 10 MG PO (08:30)
[2023-12-16] MEDS: COREG 3.125 MG PO ×2 (08:30→20:46)
[2023-12-16] MEDS: LIPITOR 20 MG PO (08:30)
[2023-12-16] MEDS: PACERONE 100 MG PO (08:30)
[2023-12-16] MEDS: DELTASONE 30 MG PO (08:31)
[2023-12-16] MEDS: LANTUS 0.299999999999999989 UNITS SC (08:31)
[2023-12-16] MEDS: NOVOLOG FLEXPEN-HIGH RESISTANCE 1 UNITS SC (08:31)
[2023-12-16] MEDS: NOVOLOG FLEXPEN 10 UNITS SC ×3 (08:32→16:15)
[2023-12-16] MEDS: DESENEX/MITRAZOL/ZEASORB 1 APPLIC TOPICAL ×2 (08:33→20:45)
[2023-12-16] MEDS: COSOPT EYE DROPS 1 DROP OPHTH ×2 (08:33→20:43)
[2023-12-16] MEDS: LASIX 80 MG IV ×2 (08:36→16:20)
[2023-12-16] MEDS: LASIX IV (09:08)
[2023-12-16 11:15] LABS: Glucose - Point of Care 162 mg/dl (70-99)
[2023-12-16] MEDS: NOVOLOG FLEXPEN-HIGH RESISTANCE 2 UNITS SC ×2 (11:22→16:16)
--- NOTE | 2023-12-16 11:40 | W.PN.CARDCBS ---
Addendum entered and electronically signed by Lebron Arce MD 12/16/23 14:52:
I saw and examined the patient.
The Tobacco Shaker's note was reviewed and I agree with the note.
Comment:
GEN: No distress, awake, Ox3
HEENT: Bilateral rhonchi
CV: Reg, S1/S2, 1/6 syst LSB, no gallop
ABD: soft, BS+, NT/ND
EXT: +1 edema
NEURO: Gross non-focal
SKIN: No rash
Plan:
He continues to slowly improve. His dyspnea is multifactorial. Will continue IV Lasix and continue as much diuresis as possible. He has lost about 20 pounds.
Creatinine overall stable at 1.2. Wean oxygen if possible.
Continue prednisone, Pulmicort, and DuoNebs. Continue CPAP treatment for sleep apnea.
Aortic valve is overall stable on echo. Mean gradient is 5.
I agree with the plan for Dylan to help with weight loss.
Continue aspirin, atorvastatin and Coreg, and Zetia.
Continue amiodarone. He remains in sinus rhythm. Continue Coumadin
Original Note:
Today's Communication / Plan
-
continue IV lasix
wean supp O2
PT/OT as able
INR therapeutic
Impression / Plan
-
PCP: Dr. Jade
Cardiology: Dr. Arce
Pulmonary: Dr. Marilin Verde (initial new patient evaluation 05/21/2022)
Impression:
Presented 12/07/2023 with SOB
Acute on chronic hypoxic respiratory failure, had been using 2L NC however prior to admission up to 4 L NC at home
Supratherapeutic INR
Acute on chronic HF with preserved EF, proBNP 2740
Dietary noncompliance
Restrictive lung disease
Paroxysmal Afib on chronic amiodarone therapy and chronic warfarin OAC
s/p AVR bioprosthetic mean gradient 10 mmHg by echo 04/2023
Mild mitral stenosis
DM 2
Obesity, BMI 48.8
Echo 05/06/23: EF 55-60%, stage II diastolic dysfunction, mod MS with peak/mean 13/7 mmHg, well seated bioprosthetic AVR with peak/mean 16/10 mmHg and no aortic regurgitation
Echo December 08 2023: EF 55% with mild LVH, mild MS, mean grad 5 mmHg, bioAVR with mean grad 10 mmHg, mild TR with PASP 45 mmHg and no change from Apr 2023.
05/27/2023: PFT: FEV1: 1.35 (59%), FVC: 2.19 (67%), FEV1/FVC: 62%, T.45 (55%), DLCO: 48%
12/07/2023 at 20:34: ABG pH 7.3, pCO2 82, pO2 82 on room air
Plan:
-Patient presented with acute on chronic hypoxic respiratory failure with acute on chronic diastolic heart failure exacerbation
-volume status difficult to determine by exam. Weight trending down if accurate. Continue IV Lasix 40 mg twice daily. Creatinine stable at 1.2.
-Wean supplemental oxygen as able. Pulmonary also following. Plan for BiPAP to continue while in the hospital with transition to CPAP at bedtime upon discharge
-appreciate dietary input and CHF education.
-Echo from 12/08/2023 reviewed with patient and daughter at bedside 12/14
-medication compliance encouraged. Was supposed to be taking Lasix 20 mg daily prior to admission
-jardiance added this admission. hgbA1c 8.0%
-He remains in rate controlled atrial fibrillation with PVCs, occasional nocturnal pauses all <2.5 seconds on review of telemetry overnight. Continue low-dose amiodarone and Coreg.
-INR therapeutic on 12/15. Reportedly on 3.5 mg HS prior to admission, continue. INRs managed by [facility] Coumadin clinic, discussed with coumadin nurse 12/14.
-Noted to have drop in hemoglobin this admission. Stools were heme-negative. Hemoglobin improving to 9.9 on 12/15. Continue to follow
-He reports some dizziness with changing position at home. Possibly multifactorial from deconditioning, hypoxia, possible orthostasis. full orthos not completed however patient did have drop from lying to sitting. will follow.
-Encouraged PT
HPI: Patient came to [facility] last night with increased SOB and was admitted with acute on chronic hypoxic respiratory failure and acute HF so cardiology has been consulted. Patient says he has been drinking more water and eating lots of watermelon
lately because he feels like his throat is dry. He has had more bloating and GLOVER for the last week and then last night he was profoundly SOB when he tried to go to bed and his says he looked cyanotic so she called 911. Patient has a h/o chronic
hypoxic respiratory failure and uses oxygen at 3.5 L NC at home, but paramedics reported a pulse ox in the 70s and NRB was started. Upon arrival to [facility] patient was placed on BiPAP. Patient appeared to be in pulmonary edema and was started on Nitro
gtt and given Lasix 40 mg IV x1. Patient takes Lasix 20 mg PO daily as an outpatient. Patient feels dramatically symptomatically improved this AM and is using oxygen by NC again albeit at 6 L. No chest pain.
Attending addendum HPI: This is an 83-year-old gentleman with a past medical history notable for underlying restrictive lung disease and O2 dependent respiratory insufficiency for which she is chronically maintained on 3.5 L of oxygen via nasal
cannula. He was last seen by pulmonary in May 2023 and oxygen saturations were reportedly in the 90s. He has a history of paroxysmal atrial fibrillation and is chronically maintained on oral anticoagulation with warfarin. He is chronically
treated with amiodarone 100 mg tablet daily. 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 His last echocardiogram was notable for mean aortic valve gradient
of 10 mmHg. He was also noted to have moderate mitral stenosis. He now presents with hypoxia and increased shortness of breath. O2 sats were noted to be in the 70s by home pulse oximeter on multiple occasions. Upon arrival to the emergency
department he was placed on a nonrebreather and then BiPAP. The family reported that he had been drinking a lot of water because his oxygen was making his mouth dry. His proBNP was modestly elevated at 2740.
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
Subjective
Date of Service: December 16, 2023
No issues noted overnight. Patient with continued improvement in breathing
Objective
Labs:
12/16/23 06:34
12/16/23 06:34
Labs
Hgb 9.9 g/dL (13.0-18.0) L 12/16/23 06:34
Hct 31.5 % (39.0-52.0) L 12/16/23 06:34
Plt Count 249 10^3/uL (130-400) 12/16/23 06:34
PT 25.9 Sec (11.4-14.6) H 12/16/23 06:34
INR 2.39 12/16/23 06:34
APTT 52.6 Sec (23.4-35.0) H 12/07/23 20:34
Sodium 137 mmol/L (135-145) 12/16/23 06:34
Potassium 4.4 mmol/L (3.5-5.1) 12/16/23 06:34
BUN 58 mg/dl (9-20) H 12/16/23 06:34
Creatinine 1.2 mg/dL (0.7-1.3) 12/16/23 06:34
Glucose 136 mg/dl (70-99) H 12/16/23 06:34
Vital Signs and I&O:
Vital Signs
Temp Pulse Resp BP Pulse Ox
98.1 F 65 18 112/57 99
12/16/23 07:00 12/16/23 10:56 12/16/23 10:56 12/16/23 08:36 12/16/23 10:56
Vital Signs
Temp Pulse Resp BP Pulse Ox
98.1 F 65 18 112/57 99
12/16/23 07:00 12/16/23 10:56 12/16/23 10:56 12/16/23 08:36 12/16/23 10:56
Intake & Output
12/14/23 12/15/23 12/16/23 12/17/23
07:59 07:59 07:59 07:59
Intake Total 240 / 240
Output Total 1700 / 1700 1490 / 1490 2825 / 2825
Balance -1700 / -1700 -1490 / -1490 -2585 / -2585
--- NOTE | 2023-12-16 14:29 | W.PN.PUL3 ---
Today's Communication / Plan
-
Continue diuresis
Nebulizers while in the hospital
BiPAP while in the hospital
Weight loss recommended, discussed with the daughter in detail
Prednisone taper
Resume inhalers upon discharge
Discharge planning for 12/18/2023
Sign off
Assessment
-
Assessment: 83-year-old male with a past medical history of s/p AVR, A-fib on Coumadin, chronic respiratory failure on home oxygen at 3.5 L/min nasal cannula, hypertension, DM type II and CKD who presents with SOB for few days. Patient was
cyanotic when EMS arrived to the scene and when patient arrived to the ER here at , pulse ox was 37% while on 3 L/min nasal cannula. Patient was A&O x 4 with wheezing at the bases. Initial vitals in the ER were BP 185/89, heart rate 81,
breathing at 24 breaths/min and patient was started on BiPAP with improvement of saturation to 94%. Initial labs showed anemia to 10.1, INR 3.87, acute on chronic hypercapnic respiratory failure with pH 7.31, pCO2 82, potassium 5.3, BUN 30, serum
bicarbonate 35, glucose 247, proBNP 2740, troponin negative at <0.012, and COVID antigen was negative. CXR showed bilateral interstitial edema. Patient given Solu-Medrol, DuoNebs, Lasix and briefly required nitroglycerin infusion. Patient was
admitted to the IMU where he has been continued to be managed. He is continued on diuresis with IV Lasix, and has been wearing his BiPAP with sleep 20/10, and midflow during the day. He has been requiring the BiPAP occasionally during the day due
to acute desaturations. Pulmonary now consulted for additional recommendations/management.
Chronic conditions REVENUE LIAISON: DM type II, s/p bioprosthetic aortic valve placement, paroxysmal A-fib on warfarin, morbid obesity, CAD, chronic respiratory failure on home oxygen (3.5 L/min), hypertension, hyperlipidemia, CKD, AMIE on CPAP
Impression:
#Acute on chronic hypercapnic and hypoxic respiratory failure likely due to ADHF in setting of CPAP non-compliance at home ; doubtful there is PNA given absent leukocytosis and pt afebrile
#Acute HFpEF exacerbation with stage II diastolic dysfunction
#History of severe persistent asthma on Breo and prn albuterol @ home
#Hyperglycemia
#AMIE non-compliant to auto-PAP
#Morbid obesity with suspected OHS
#Acute on chronic anemia (baseline Hgb 10-13.5)
#Hypochloremia
#Hyperglycemia
Plan:
Continues to slowly improve on current therapy.
Oxygen supplementation close to his baseline.
Not bronchospastic on exam.
Currently requiring BPAP due to acute exacerbation of HF and asthma, there is no evidence of pneumonia or ACS
Tolerating BiPAP, continue settings without change.
-
Transition to auto-PAP again once he is discharged back home, will need to reevaluate use of APAP at office (per office records previously he was compliant to APAP with average pressure of 10.8 and AHI 1.1 back in May 2023).
-
Continue diuresis per cardiology. Weight has been trending lower since admission.
Continue to monitor electrolytes and creatinine.
-
History of asthma and supposed to be taking Breo at home,
continue scheduled DuoNebs with budesonide and transition to inhalers upon discharge.
Continue prednisone to 30 mg 12/15/2023. Continue to reduce by 10 mg every 48 hours to off. Not significantly bronchospastic on exam.
- Incentive spirometer encouraged
- Maintain euglycemia with goal BG >100 and <180
-
PAFib, on chronic coumadin, follow INR. Monitor for bleeding.
- DVT ppx
-
Dr. Schafer updated daughter at the bedside 12/14/2023 and 12/15/2023.
-
Follow-up with Dr. Verde after DC.
-
I agree with discharge planning 12/18/2023.
No additional recommendation from the pulmonary perspective
Sign off

Data:
CXR 12-10-2023:
Stable findings concerning for bilateral pneumonia. CHF not excluded. Clinical and laboratory correlation recommended.
Moderate cardiomegaly. Stable
CXR 12-07-2023:
1. Severe airspace disease throughout both lungs which appears new from 10/27/2022. Diagnostic possibilities are (1) SEVERE ACUTE ALVEOLAR CARDIOGENIC PULMONARY EDEMA (probably most likely given the symmetry of the airspace disease) or (2) severe
bilateral pneumonia if there are signs/symptoms of pulmonary infection.
2. Moderate cardiomegaly.
3. Previous surgical aortic valve replacement.
TTE 12-08-2023:
Normal left ventricular chamber size. Normal left ventricular systolic
function. Left ventricular ejection fraction is 55% by Hedrick's Method of
Disc. Normal regional wall motion. Mild concentric left ventricular
hypertrophy. Stage II diastolic dysfunction suggestive of abnormal relaxation
and increased filling pressures.
Thickened mitral valve leaflets. Dense Mitral annular calcification. Mild
mitral stenosis. Peak gradient 17 mmHg/Mean gradient 5 mmHg - trace mitral
regurgitation.
Bioprosthetic aortic valve with Peak gradient 15 mmHg/Mean gradient 10 mmHg -
no aortic regurgitation is seen.
Tricuspid valve opens normally. Mild tricuspid regurgitation. Estimated
pulmonary artery pressure of 45 mmHg assuming a right atrial pressure of 3
mmHg.
Since echocardiogram April 2023, there is no significant change.
Outpatient [facility] data:
6 MWT:
������ COMMENTS:�
��������6MWT 12/09/22: At rest, O2 98% on room air, HR 83. With ambulation, O2 aishwarya 96%, max HR 119. 4/10 on dyspnea scale. Ambulated 450 ft.
��������6MWT 11/12/22: Total distance ambulated 450ft. O2 baseline 98% on room air. �Baseline HR 73. O2 aishwarya 95% on room air.� No O2 was needed to maintain saturations >90%. �Dyspnea score 0.5/10. Max HR 112. Testing was terminated early due to knee
pain.
��������6mw 05/21/22- RA 98%, HR 76 bpm. ambulated 576 feet and maintained 98-100% on RA. HR increased to 128 bpm..�
PFT:
������ COMMENTS:�PFTs 12/25/22: FEV1 1.92L 83%, FVC 2.35L 71%, ratio 82.� TLC 3.41L 54%, DLCO 53% (moderately severe restriction, moderate diffusion impairment)
��������Spirometry 11/12/22: FEV1 0.98L 41%, FVC 1.85L 54%, ratio 0.53, post FEV1 0.70L 29%, no BD response (severe obstruction)
��������PFT� 05/21/22- FVC 2.43L 70%, FEV1 2.02L 83%, Ratio 83. TLC 3.78L 58%, DLCO 11.90 58% (moderately severe restriction, moderate diffusion impairment)
��������PFT 2018- FVC 2.79 or 78%, FEV1 2.34 or 91%, TLC 62, DLCO 64%. (moderate restriction, mild diffusion impairment)
��������-
��������PFT 05/27/23- FVC 2.19 or 67%, FEV1 1.35 or 59%, Ratio 62. TLC 3.45 or 55%. DLCO 10.22 or 48%.�
Subjective Data
-
Date of Service:
Date of Service: December 16, 2023
Chief Complaint: Pulmonary Follow Up
Subjective:
Slowly improving
Denies significant phlegm production
Tolerating BiPAP
Weight trending slower
Denies significant phlegm production or wheezing
Review of Systems
General: Fever (n)
Cardiopulmonary: Dyspnea (improved)
GI: Abdominal Pain (n), Nausea (n) and Vomiting (n)
Objective Data
Data Reviewed
Vital Signs / I&O / Oxygen:
Vital Signs
Temp Pulse Resp BP Pulse Ox
98.2 F 66 18 123/58 95
12/16/23 11:00 12/16/23 11:00 12/16/23 11:00 12/16/23 11:00 12/16/23 11:00
Intake and Output
12/15/23 12/16/23 12/17/23
06:59 06:59 06:59
Intake Total 240 / 240
Output Total 1290 / 1290 3025 / 3025
Balance -1290 / -1290 -2785 / -2785
SaO2 95
Nasal Cannula flow liters per 2
minute
Physical Exam
General: Comfortable
HEENT: Normocephalic, Anicteric and Moist Mucous Membranes
Cardiovascular: S1-S2, Regular Rhythm and Peripheral Edema (+1 LE edema (pitting) b/l)
Respiratory: Wheeze (negative), Crackles (bilaterally), Rhonchi (negative), Non-Labored Respirations and Stridor (n)
GI: Soft, Non Distended and Non Tender
Neurology: Awake, Oriented and No Motor Deficits
Skin: Warm and Dry
Labs/Micro/Reports
Lab Data
12/16/23 06:34
12/16/23 06:34
Laboratory Results
12/16/23
06:34
PT 25.9 H
INR 2.39
[2023-12-16 16:17] LABS: Glucose - Point of Care 156 mg/dl (70-99)
--- NOTE | 2023-12-16 16:55 | CM ---
Discharge Plan of Care: Accepted to [facility] for custodial and rehab services. AUTH to be initiated.
[2023-12-16] MEDS: COUMADIN 2.5 MG PO (17:17)
[2023-12-16] MEDS: COUMADIN 1 MG PO (17:17)
[2023-12-16 21:24] LABS: Glucose - Point of Care 193 mg/dl (70-99)
[2023-12-16] MEDS: ZETIA 10 MG PO (21:25)
[2023-12-17] VITALS (10 sets, daily range): BP systolic 104–130; BP diastolic 47–73; PULSE 4–71; O2SAT 97; BMI 45.4
[2023-12-17] MEDS: DUONEB 3 ML INH ×4 (07:30→20:25)
[2023-12-17] MEDS: PULMICORT 0.5 MG INH ×2 (07:30→20:30)
[2023-12-17 07:45] LABS: Hematocrit 32.8 % (39.0-52.0); Hemoglobin 10.3 g/dL (13.0-18.0); Mean Corp Hgb Conc. 31.4 g/dL (33.0-37.0); Mean Corpuscular Hgb 29.9 pg (27.0-31.0); Mean Corpuscular Volume 95.1 fL (80.0-94.0); Platelet Count 238 10^3/uL (130-400); Red Blood Cell Count 3.45 10^6/uL (4.70-6.10); Red Cell Dist. Width 14.1 % (11.5-14.5); White Blood Cell Count 10.6 10^3/uL (4.8-10.8)
[2023-12-17 07:53] LABS: Glucose - Point of Care 125 mg/dl (70-99)
[2023-12-17 07:56] LABS: INR 2.63; PT 28.5 Sec (11.4-14.6)
[2023-12-17 08:04] LABS: Blood Urea Nitrogen 54 mg/dl (9-20); Calcium 8.7 mg/dl (8.4-10.2); Chloride 90 mmol/L (98-107); Estimated Creatinine Clearance 52 ml/min; Glucose 124 mg/dl (70-99); Potassium 4.1 mmol/L (3.5-5.1); Sodium 136 mmol/L (135-145); eGFR 49.87
[2023-12-17 08:28] LABS: Carbon Dioxide 40 mmol/L (22-30)
--- NOTE | 2023-12-17 08:28 | W.PN.HOSP.TC ---
Today's Communication/Plan
-
Plan for discharge to short-term rehab tomorrow
Assessment / Plan
Assessment / Plan
#Acute hypoxic and hypercarbic respiratory failure secondary to acute on chronic HFpEF exacerbation
#Hx of Chronic hypoxic respiratory failure on 3.5 L at baseline/ morbid obesity
ABG showed pH of 7.31, pCO2 of 82. PO2 81 on admission
Currently satting 98% on 3 L, continue weaning as tolerated to avoid hypercapnia. He wears 3.5 L at home
Appreciate pulmonology input, continue BiPAP in the hospital, resume CPAP when at home
Plan for discharge to short-term rehab tomorrow on 12/17
#Acute on chronic heart failure with preserved ejection fraction
Chest x-ray showed severe acute alveolar cardiogenic pulmonary edema, moderate cardiomegaly
Appreciate cardiology input, Echo showed LVEF 55%, stage II diastolic dysfunction, mild mitral stenosis, trace mitral regurgitation, bioprosthetic aortic valve with no regurgitation, mild tricuspid regurgitation. No significant changes than
echogram in April 2023
B/l lower extremity Dopplers negative
Status post nitroglycerin drip, s/p Lasix to 80 mg IV twice daily 12/15
Changed to Lasix 80 mg p.o. daily today by cardiology
Trend creatinine, trend daily weights
#AMIE (severe) on CPAP 10 cwp s O2, / Pulmonary hypertension with acute asthma exacerbation
Primary pulmonary doctor is Dr. Walters
Currently satting 98% on 3 L, continue weaning as tolerated to avoid hypercapnia. He wears 3.5 L at home
Appreciate pulmonology input, continue BiPAP in the hospital, resume CPAP when at home
Continue prednisone taper as per pulm
#Type 2 diabetes
Hyperglycemia secondary to steroids, currently on Lantus, NovoLog 10 units AC 3 times daily
Hyperglycemia improved, will need to wean insulin today
# Hypercoagulopathy secondary to Coumadin.
Resolved, INR therapeutic, continue Coumadin
# Hyperkalemia
Resolved status post Lokelma
# Paroxysmal atrial fibrillation
Rate is controlled
-Continue amiodarone, Coreg, Coumadin
# Aortic stenosis status post bioprosthetic aortic valve replacement
# Anemia
Hemoglobin at baseline
# Morbid obesity BMI 48
Compulsive eating habits. d/w pt, he is aware but can not control his food addiction.
D/w family. Impacting negatively his health.
#Coronary artery disease
No chest pain
Negative troponin on arrival
-Continue aspirin, statin
# Essential hypertension
No headache
#Hyperlipidemia
Continue Zetia
DVT prophylaxis�Coumadin
DNR/DNI
Updated daughter at bedside 12/16
Total time spent to see the patient on the floor, examine the patient, review data and lab results, discuss treatment plan with patient, nursing staff around 51 minutes.
Physical Exam
General: Morbidly obese, obese, chronically ill looking
HEENT: Normocephalic, Moist mucous membranes and Atraumatic. C pap was on
Respiratory: Limited with rales
Cardiac: S1/S2
GI: Soft, Non Tender
Rectal: No rectal bleeding
Musculoskeletal: Bilateral lower extremity edema noted
Psych: no agitation
Neuro: no focal deficits
Anticipated Discharge: Within 24 hours
Subjective/Interval History
-
Date of Service: December 17, 2023
Patient's breathing continues to improve. No chest pain, no shortness of breath at rest. No nausea, no vomiting. No fever.
Objective Data
-
Labs:
Laboratory Results
12/17/23
06:49
WBC 10.6
Hgb 10.3 L
Hct 32.8 L
Plt Count 238
PT 28.5 H
INR 2.63
Sodium 136
Potassium 4.1
Chloride 90 L
Carbon Dioxide Pending
BUN 54 H
Creatinine 1.4 H
Glucose 124 H
Calcium 8.7
Vital Signs:
Vital Signs
Temp Pulse Resp BP Pulse Ox
97.8 F 61 20 104/47 99
12/17/23 03:00 12/17/23 07:48 12/17/23 07:48 12/17/23 07:48 12/17/23 07:48
I&O
12/16/23 12/17/23 12/18/23
06:59 06:59 06:59
Intake Total 240 / 240 1635 / 1635
Output Total 3025 / 3025 3320 / 3320
Balance -2785 / -2785 -1685 / -1685
[2023-12-17] MEDS: JARDIANCE 10 MG PO (09:04)
[2023-12-17] MEDS: LASIX 80 MG PO (09:04)
[2023-12-17] MEDS: LIPITOR 20 MG PO (09:04)
[2023-12-17] MEDS: COREG 3.125 MG PO ×2 (09:04→20:59)
[2023-12-17] MEDS: DELTASONE 30 MG PO (09:04)
[2023-12-17] MEDS: ASPIR LOW (ENTERIC COATED) 81 MG PO (09:05)
[2023-12-17] MEDS: NOVOLOG FLEXPEN-HIGH RESISTANCE 1 UNITS SC ×3 (09:06→16:53)
[2023-12-17] MEDS: NOVOLOG FLEXPEN 10 UNITS SC ×3 (09:07→16:53)
[2023-12-17] MEDS: LANTUS 0.280000000000000027 UNITS SC (09:08)
[2023-12-17] MEDS: PACERONE 100 MG PO (09:08)
[2023-12-17] MEDS: COSOPT EYE DROPS 1 DROP OPHTH ×2 (09:08→21:00)
[2023-12-17] MEDS: LASIX IV (09:09)
[2023-12-17] MEDS: DESENEX/MITRAZOL/ZEASORB 1 APPLIC TOPICAL ×2 (10:02→21:00)
--- NOTE | 2023-12-17 10:43 | W.PN.CARDCBS ---
Addendum entered and electronically signed by Eloisa Mccord DO 12/17/23 15:01:
I saw and examined the patient.
The Embossing Machine Operator Helper's note was reviewed and I agree with the note.
Comment: Patient seen and examined with daughter at bedside. Overall feels better although still reporting lightheadedness with upright position/standing. No chest pain or pressure. Per daughter, plan for discharge to rehab
GEN: AAOx3
HEENT: MMM, missing teeth
LUNGS: Wearing oxygen at 3 L NC. Coarse BS throughout without wheeze
CV: Reg, 1/6 syst LSB
ABD: soft, BS+, NT, ND
EXT: +1-2 left greater than right LE edema. No clubbing, cyanosis or lesions B/L
Plan:
Acute on chronic heart failure with preserved ejection fraction, proBNP 2740
-Weight is down 17 pounds this admission with IV Lasix. Will transition patient to Lasix 80 mg daily in anticipation for discharge tomorrow
-Follow basic metabolic profile
-Heart failure monitoring and diet
-Cont IV diuresis 40 mg IV BID
-Reiterated compliance with taking medications, adhering to low-sodium diet and fluid restriction, weight loss efforts and use of BiPAP
-HF teaching.
-echo this admission showed stable EF and bioAVR and MS and no change compared to prior echo.
Acute on chronic hypercapnic and hypoxic respiratory failure likely due to ADHF in setting of CPAP non-compliance at home; BMI 46
-Pulmonary consulted
-Continue BiPAP during sleep and as needed during the day with supplemental oxygen
-Continue weight loss efforts: Patient was recently started on Mounjaro as an outpatient and seems motivated.
Acute renal insufficiency�creatinine up to 1.4 with diuresis. Hold further IV Lasix and transition to oral Lasix tomorrow. Repeat basic metabolic profile as an outpatient
History of paroxysmal atrial fibrillation
-Maintained on low-dose amiodarone and Coreg as outpatient
-Currently in sinus rhythm with stable QTc by last EKG on amiodarone.
-Coumadin resumed today for goal INR 2�3. Managed by DCA
Chronic normocytic anemia�hemoglobin relatively stable at 10.3g/dL
Family at bedside reviewed above.
Will sign off, recall if needed
Outpatient cardiac follow-up to be arranged
Original Note:
Today's Communication / Plan
-
MARGIE today so Lasix IV stopped and patient transitioned to 80 mg PO daily
Cont warfarin 3.5 mg daily
Stable for transfer to rehab from a cardiac standpoint
Impression / Plan
-
PCP: Dr. Jade
Cardiology: Dr. Arce
Pulmonary: Dr. Marilin Verde (initial new patient evaluation 05/21/2022)
Impression:
Presented 12/07/2023 with SOB
Acute on chronic hypoxic respiratory failure, had been using 2L NC however prior to admission up to 4 L NC at home
Supratherapeutic INR
Acute on chronic HF with preserved EF, proBNP 2740
Dietary noncompliance
Restrictive lung disease
Paroxysmal Afib on chronic amiodarone therapy and chronic warfarin OAC
s/p AVR bioprosthetic mean gradient 10 mmHg by echo 04/2023
Mild mitral stenosis
DM 2
Obesity, BMI 48.8
MARGIE
Echo 05/06/23: EF 55-60%, stage II diastolic dysfunction, mod MS with peak/mean 13/7 mmHg, well seated bioprosthetic AVR with peak/mean 16/10 mmHg and no aortic regurgitation
Echo 12/08/23: EF 55% with mild LVH, mild MS, mean grad 5 mmHg, bioAVR with mean grad 10 mmHg, mild TR with PASP 45 mmHg and no change from Apr 2023.
05/27/2023: PFT: FEV1: 1.35 (59%), FVC: 2.19 (67%), FEV1/FVC: 62%, T.45 (55%), DLCO: 48%
12/07/2023 at 20:34: ABG pH 7.3, pCO2 82, pO2 82 on room air
Plan:
-Weight is down 17 lbs this admission with Lasix 40 mg IV BID diuresis. Patient was taking Lasix 20 mg PO daily prior to admission. Patient has been transitioned to Lasix 80 mg PO daily in anticipation of discharge 12/18/23
-Cre up to 1.4 on 12/17/23. Recheck BMP in AM. Lasix changed to PO as noted above.
-Pulmonology following patient as well this admission. Outpatient CPAP was changed to BiPAP this admission. Prednisone started and being weaned.
-EF preserved by echo this admission
-New to Jardiance 10 mg daily this admission
-Outpatient dose of Coreg 3.125 mg BID
-He remains in rate controlled atrial fibrillation with PVCs vs aberrancy and occasional nocturnal pauses all <2.5 seconds on review of telemetry overnight. Continue low-dose amiodarone and Coreg.
-INRs managed by [facility] and INR goal is 2-3. INRs drawn at [facility]. Cont usual dose of warfarin 3.5 mg daily.
-Hgb up and down this admission, but currently stable at 10.3 on 12/17/23.
-He says Dylan is making constipated and that he has not lost much weight, but along with diuresis he is down 20+ lbs in the last month.
HPI: Patient came to [facility] last night with increased SOB and was admitted with acute on chronic hypoxic respiratory failure and acute HF so cardiology has been consulted. Patient says he has been drinking more water and eating lots of watermelon
lately because he feels like his throat is dry. He has had more bloating and GLOVER for the last week and then last night he was profoundly SOB when he tried to go to bed and his says he looked cyanotic so she called 911. Patient has a h/o chronic
hypoxic respiratory failure and uses oxygen at 3.5 L NC at home, but paramedics reported a pulse ox in the 70s and NRB was started. Upon arrival to [facility] patient was placed on BiPAP. Patient appeared to be in pulmonary edema and was started on Nitro
gtt and given Lasix 40 mg IV x1. Patient takes Lasix 20 mg PO daily as an outpatient. Patient feels dramatically symptomatically improved this AM and is using oxygen by NM again albeit at 6 L. No chest pain.
Attending addendum HPI: This is an 83-year-old gentleman with a past medical history notable for underlying restrictive lung disease and O2 dependent respiratory insufficiency for which she is chronically maintained on 3.5 L of oxygen via nasal
cannula. He was last seen by pulmonary in May 2023 and oxygen saturations were reportedly in the 90s. He has a history of paroxysmal atrial fibrillation and is chronically maintained on oral anticoagulation with warfarin. He is chronically
treated with amiodarone 100 mg tablet daily. 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 His last echocardiogram was notable for mean aortic valve gradient
of 10 mmHg. He was also noted to have moderate mitral stenosis. He now presents with hypoxia and increased shortness of breath. O2 sats were noted to be in the 70s by home pulse oximeter on multiple occasions. Upon arrival to the emergency
department he was placed on a nonrebreather and then BiPAP. The family reported that he had been drinking a lot of water because his oxygen was making his mouth dry. His proBNP was modestly elevated at 2740.
Progress Note - Terrestrial Ecologist
Subjective
Date of Service: December 17, 2023
He feels well and is looking forward to rehab
Objective
Labs:
12/17/23 06:49
12/17/23 06:49
Labs
Hgb 10.3 g/dL (13.0-18.0) L 12/17/23 06:49
Hct 32.8 % (39.0-52.0) L 12/17/23 06:49
Plt Count 238 10^3/uL (130-400) 12/17/23 06:49
PT 28.5 Sec (11.4-14.6) H 12/17/23 06:49
INR 2.63 12/17/23 06:49
APTT 52.6 Sec (23.4-35.0) H 12/07/23 20:34
Sodium 136 mmol/L (135-145) 12/17/23 06:49
Potassium 4.1 mmol/L (3.5-5.1) 12/17/23 06:49
BUN 54 mg/dl (9-20) H 12/17/23 06:49
Creatinine 1.4 mg/dL (0.7-1.3) H 12/17/23 06:49
Glucose 124 mg/dl (70-99) H 12/17/23 06:49
Vital Signs and I&O:
Vital Signs
Temp Pulse Resp BP Pulse Ox
97.8 F 61 20 104/47 99
12/17/23 03:00 12/17/23 09:08 12/17/23 07:48 12/17/23 09:08 12/17/23 07:48
Vital Signs
Temp Pulse Resp BP Pulse Ox
97.8 F 61 20 104/47 99
12/17/23 03:00 12/17/23 09:08 12/17/23 07:48 12/17/23 09:08 12/17/23 07:48
Intake & Output
12/15/23 12/16/23 12/17/23 12/18/23
06:59 06:59 06:59 06:59
Intake Total 240 / 240 1635 / 1635
Output Total 1290 / 1290 3025 / 3025 3320 / 3320
Balance -1290 / -1290 -2785 / -2785 -1685 / -1685
Physical Exam
Physical Exam
GEN: AAOx3
HEENT: MMM, missing teeth
LUNGS: Wearing oxygen at 3 L NC. Coarse BS throughout without wheeze
CV: Reg, 1/6 syst LSB
ABD: soft, BS+, NT, ND
EXT: +1-2 left greater than right LE edema. No clubbing, cyanosis or lesions B/L
NEURO: Gross non-focal
SKIN: Warm, dry and pink. No rash
[2023-12-17 11:35] LABS: Glucose - Point of Care 130 mg/dl (70-99)
[2023-12-17 16:07] LABS: Glucose - Point of Care 138 mg/dl (70-99)
[2023-12-17] MEDS: COUMADIN 2.5 MG PO (16:52)
[2023-12-17] MEDS: COUMADIN 1 MG PO (16:53)
--- NOTE | 2023-12-17 17:32 | CM ---
Patient accepted to [facility] for custodial and rehab services. [employer] insurance auth required. Auth initiated through [employer] with reference # [id number]. All documentation faxed to [phone]. Awaiting determination.
[2023-12-17 21:04] LABS: Glucose - Point of Care 109 mg/dl (70-99)
[2023-12-17] MEDS: ZETIA 10 MG PO (21:04)
[2023-12-18] VITALS (7 sets, daily range): BP systolic 107–125; BP diastolic 51–63; PULSE 4; BMI 45.0
[2023-12-18 06:47] LABS: INR 2.87; PT 30.5 Sec (11.4-14.6)
[2023-12-18 07:11] LABS: Blood Urea Nitrogen 51 mg/dl (9-20); Calcium 8.8 mg/dl (8.4-10.2); Chloride 90 mmol/L (98-107); Estimated Creatinine Clearance 45 ml/min; Glucose 115 mg/dl (70-99); Potassium 4.3 mmol/L (3.5-5.1); Sodium 137 mmol/L (135-145); eGFR 42.49
[2023-12-18 07:25] LABS: Carbon Dioxide 39 mmol/L (22-30)
[2023-12-18] MEDS: DUONEB 3 ML INH ×4 (07:32→18:18)
[2023-12-18] MEDS: PULMICORT 0.5 MG INH ×2 (07:33→18:17)
[2023-12-18 07:34] LABS: Glucose - Point of Care 118 mg/dl (70-99)
[2023-12-18] MEDS: LASIX PO (08:45)
[2023-12-18] MEDS: ASPIR LOW (ENTERIC COATED) 81 MG PO (09:17)
[2023-12-18] MEDS: PACERONE 100 MG PO (09:17)
[2023-12-18] MEDS: LANTUS 0.25 UNITS SC (09:18)
[2023-12-18] MEDS: COSOPT EYE DROPS 1 DROP OPHTH ×2 (09:18→20:16)
[2023-12-18] MEDS: DELTASONE 30 MG PO (09:18)
[2023-12-18] MEDS: COREG 3.125 MG PO ×2 (09:18→20:15)
[2023-12-18] MEDS: JARDIANCE 10 MG PO (09:18)
[2023-12-18] MEDS: NOVOLOG FLEXPEN 6 UNITS SC ×3 (09:19→16:07)
[2023-12-18] MEDS: LIPITOR 20 MG PO (09:19)
[2023-12-18] MEDS: NOVOLOG FLEXPEN-HIGH RESISTANCE 1 UNITS SC (09:19)
[2023-12-18] MEDS: DESENEX/MITRAZOL/ZEASORB 1 APPLIC TOPICAL ×2 (09:20→20:16)
--- NOTE | 2023-12-18 10:28 | W.PN.HOSP.TC ---
Today's Communication/Plan
-
Discharge today
Assessment / Plan
Assessment / Plan
#Acute hypoxic and hypercarbic respiratory failure secondary to acute on chronic HFpEF exacerbation
#Hx of Chronic hypoxic respiratory failure on 3.5 L at baseline/ morbid obesity
ABG showed pH of 7.31, pCO2 of 82. PO2 81 on admission
Currently satting 98% on 3 L, continue weaning as tolerated to avoid hypercapnia. He wears 3.5 L at home
Appreciate pulmonology input, continue BiPAP in the hospital, resume CPAP when at home/ STR
Medically stable for discharge to short-term rehab today 12/17
#Acute on chronic heart failure with preserved ejection fraction
Chest x-ray showed severe acute alveolar cardiogenic pulmonary edema, moderate cardiomegaly
Appreciate cardiology input, Echo showed LVEF 55%, stage II diastolic dysfunction, mild mitral stenosis, trace mitral regurgitation, bioprosthetic aortic valve with no regurgitation, mild tricuspid regurgitation. No significant changes than
echogram in April 2023
B/l lower extremity Dopplers negative
Status post nitroglycerin drip, s/p Lasix to 80 mg IV twice daily 12/15
Changed to Lasix 80 mg p.o. daily 12/16 by cardiology
12/17 - skip Lasix dose today due to bumped Cr, can resume 12/18 tomorrow
Patient down 9 kg worth of fluid since admission
#Acute kidney injury
Creatinine 1.6 today, was 1.4 yesterday, was 1.2 the day prior
Hold today's Lasix, can repeat BMP on 12/20 at the nursing facility
No nephrotoxic drugs or NSAIDs
#AMIE (severe) on CPAP 10 cwp s O2, / Pulmonary hypertension with acute asthma exacerbation
Primary pulmonary doctor is Dr. Walters
Currently satting 98% on 3 L, continue weaning as tolerated to avoid hypercapnia. He wears 3.5 L at home
Appreciate pulmonology input, continue BiPAP in the hospital, resume CPAP when at home
Continue prednisone taper as per pulm
#Type 2 diabetes
Hyperglycemia secondary to steroids, currently on Lantus, NovoLog 10 units AC 3 times daily
Hyperglycemia improved, will need to wean insulin today
# Hypercoagulopathy secondary to Coumadin.
Resolved, INR therapeutic, continue Coumadin
# Hyperkalemia
Resolved status post Lokelma
# Paroxysmal atrial fibrillation
Rate is controlled
-Continue amiodarone, Coreg, Coumadin
# Aortic stenosis status post bioprosthetic aortic valve replacement
# Anemia
Hemoglobin at baseline
# Morbid obesity BMI 48
Compulsive eating habits. d/w pt, he is aware but can not control his food addiction.
D/w family. Impacting negatively his health.
#Coronary artery disease
No chest pain
Negative troponin on arrival
-Continue aspirin, statin
# Essential hypertension
No headache
#Hyperlipidemia
Continue Zetia
DVT prophylaxis�Coumadin
DNR/DNI
Updated daughter at bedside 12/16
Total time spent to see the patient on the floor, examine the patient, review data and lab results, discuss treatment plan with patient, nursing staff around 51 minutes.
Physical Exam
General: Morbidly obese, obese, chronically ill looking
HEENT: Normocephalic, Moist mucous membranes and Atraumatic. C pap was on
Respiratory: Limited with rales
Cardiac: S1/S2
GI: Soft, Non Tender
Rectal: No rectal bleeding
Musculoskeletal: Bilateral lower extremity edema noted
Psych: no agitation
Neuro: no focal deficits
Anticipated Discharge: Today
Subjective/Interval History
-
Date of Service: December 18, 2023
Patient reports feeling well today. No chest pain, no shortness of breath. No fever, no vomiting.
Objective Data
-
Labs:
Laboratory Results
12/18/23
05:30
PT 30.5 H
INR 2.87
Sodium 137
Potassium 4.3
Chloride 90 L
Carbon Dioxide 39 H
BUN 51 H
Creatinine 1.6 H
Glucose 115 H
Calcium 8.8
Vital Signs:
Vital Signs
Temp Pulse Resp BP Pulse Ox
97.9 F 66 18 117/56 99
12/18/23 06:52 12/18/23 09:18 12/18/23 07:33 12/18/23 09:18 12/18/23 07:33
I&O
12/17/23 12/18/23 12/19/23
06:59 06:59 06:59
Intake Total 1635 / 1635 1590 / 1590
Output Total 3320 / 3320 1555 / 1555 225 / 225
Balance -1685 / -1685 35 / 35 -225 / -225
[2023-12-18 11:47] LABS: Glucose - Point of Care 170 mg/dl (70-99)
[2023-12-18] MEDS: NOVOLOG FLEXPEN-HIGH RESISTANCE 2 UNITS SC ×2 (11:58→16:06)
--- NOTE | 2023-12-18 15:26 | CM ---
Addendum entered by Sergo Subramanian 12/18/23 16:33:
Called [employer]. Documentation was received. Review will be initiated. No determination as yet.
Original Note:
Patient has been accepted to [facility] for long-term and rehab services. Required insurance auth with [employer]. Auth initiated on 12/17/23 in [employer] and all required documentation was faxed on 12/17/23. Awaiting determination.
[2023-12-18 16:03] LABS: Glucose - Point of Care 172 mg/dl (70-99)
[2023-12-18] MEDS: COUMADIN 2.5 MG PO (17:20)
[2023-12-18] MEDS: COUMADIN 1 MG PO (17:20)
[2023-12-18 21:27] LABS: Glucose - Point of Care 200 mg/dl (70-99)
[2023-12-18] MEDS: ZETIA 10 MG PO (22:11)
[2023-12-19] VITALS (7 sets, daily range): BP systolic 106–121; BP diastolic 46–96; PULSE 77; O2SAT 98; BMI 44.6
[2023-12-19 07:04] LABS: Glucose - Point of Care 133 mg/dl (70-99)
[2023-12-19] MEDS: PULMICORT 0.5 MG INH ×2 (07:24→18:06)
[2023-12-19] MEDS: DUONEB 3 ML INH ×4 (07:24→18:06)
--- NOTE | 2023-12-19 07:49 | W.PN.HOSP.TC ---
Today's Communication/Plan
-
Start allergy eyedrops
Awaiting insurance authorization for rehab
Assessment / Plan
Assessment / Plan
#Acute hypoxic and hypercarbic respiratory failure secondary to acute on chronic HFpEF exacerbation
#Hx of Chronic hypoxic respiratory failure on 3.5 L at baseline/ morbid obesity
ABG showed pH of 7.31, pCO2 of 82. PO2 81 on admission
Currently satting 98% on 3 L, continue weaning as tolerated to avoid hypercapnia. He wears 3.5 L at home
Appreciate pulmonology input, continue BiPAP in the hospital, resume CPAP when at home/ STR
Medically stable for discharge to short-term rehab today, awaiting insurance authorization
#Acute on chronic heart failure with preserved ejection fraction
Chest x-ray showed severe acute alveolar cardiogenic pulmonary edema, moderate cardiomegaly
Appreciate cardiology input, Echo showed LVEF 55%, stage II diastolic dysfunction, mild mitral stenosis, trace mitral regurgitation, bioprosthetic aortic valve with no regurgitation, mild tricuspid regurgitation. No significant changes than
echogram in April 2023
B/l lower extremity Dopplers negative
Status post nitroglycerin drip, s/p Lasix 80 mg IV twice daily 12/15
Changed to Lasix 80 mg p.o. daily 12/16 by cardiology
12/17 - skipped Lasix dose due to bumped Cr, Resume lasix 80 mg po daily 12/18
Patient down 9 kg worth of fluid since admission
#Acute kidney injury
Creatinine 1.5 today, was 1.6, was 1.4 yesterday, was 1.2 the day prior
Repeat BMP on 12/20 at the nursing facility
No nephrotoxic drugs or NSAIDs
#AMIE (severe) on CPAP 10 cwp s O2, / Pulmonary hypertension with acute asthma exacerbation
Primary pulmonary doctor is Dr. Walters
Currently satting 98% on 3 L, continue weaning as tolerated to avoid hypercapnia. He wears 3.5 L at home
Appreciate pulmonology input, continue BiPAP in the hospital, resume CPAP when at home
Continue prednisone taper as per pulm
#Type 2 diabetes
Blood sugars improved, wean Lantus and NovoLog
# Hypercoagulopathy secondary to Coumadin.
Resolved, INR therapeutic, continue Coumadin
# Hyperkalemia
Resolved status post Lokelma
#Allergic rhinitis
Start allergy eyedrops 12/18
# Paroxysmal atrial fibrillation
Rate is controlled
-Continue amiodarone, Coreg, Coumadin
# Aortic stenosis status post bioprosthetic aortic valve replacement
# Anemia
Hemoglobin at baseline
# Morbid obesity BMI 48
Compulsive eating habits. d/w pt, he is aware but can not control his food addiction.
D/w family. Impacting negatively his health.
#Coronary artery disease
No chest pain
Negative troponin on arrival
-Continue aspirin, statin
# Essential hypertension
No headache
#Hyperlipidemia
Continue Zetia
DVT prophylaxis�Coumadin
DNR/DNI
Updated daughter at bedside 12/16
Physical Exam
General: Morbidly obese, obese, chronically ill looking
HEENT: Normocephalic, Moist mucous membranes and Atraumatic. C pap was on
Respiratory: Limited with rales
Cardiac: S1/S2
GI: Soft, Non Tender
Rectal: No rectal bleeding
Musculoskeletal: Bilateral lower extremity edema noted
Psych: no agitation
Neuro: no focal deficits
Anticipated Discharge: Within 24 hours
Subjective/Interval History
-
Date of Service: December 19, 2023
Patient complains of itchy, watery, burning eyes. No fever, no chills. Breathing continues to improve. No nausea, no vomiting.
Objective Data
-
Vital Signs:
Vital Signs
Temp Pulse Resp BP Pulse Ox
98.2 F 81 18 120/55 97
12/19/23 03:52 12/19/23 07:25 12/19/23 07:25 12/19/23 03:52 12/19/23 07:25
I&O
12/18/23 12/19/23 12/20/23
06:59 06:59 06:59
Intake Total 1590 / 1590 240 / 240
Output Total 1555 / 1555 1425 / 1425
Balance 35 / 35 -1185 / -1185
[2023-12-19] MEDS: ASPIR LOW (ENTERIC COATED) 81 MG PO (08:28)
[2023-12-19] MEDS: LIPITOR 20 MG PO (08:28)
[2023-12-19] MEDS: PACERONE 100 MG PO (08:28)
[2023-12-19] MEDS: JARDIANCE 10 MG PO (08:28)
[2023-12-19] MEDS: COREG 3.125 MG PO ×2 (08:28→20:29)
[2023-12-19] MEDS: DELTASONE 30 MG PO (08:28)
[2023-12-19] MEDS: NOVOLOG FLEXPEN 6 UNITS SC ×3 (08:29→16:39)
[2023-12-19] MEDS: COSOPT EYE DROPS 1 DROP OPHTH ×2 (08:29→20:33)
[2023-12-19] MEDS: NOVOLOG FLEXPEN-HIGH RESISTANCE 1 UNITS SC (08:29)
[2023-12-19] MEDS: LANTUS 0.25 UNITS SC (08:30)
[2023-12-19] MEDS: DESENEX/MITRAZOL/ZEASORB 1 APPLIC TOPICAL ×2 (08:33→20:33)
[2023-12-19 09:48] LABS: Hematocrit 31.5 % (39.0-52.0); Hemoglobin 9.9 g/dL (13.0-18.0); Mean Corp Hgb Conc. 31.4 g/dL (33.0-37.0); Mean Corpuscular Hgb 29.2 pg (27.0-31.0); Mean Corpuscular Volume 92.9 fL (80.0-94.0); Mean Platelet Volume 12.2 fL (7.4-10.4); Platelet Count 240 10^3/uL (130-400); Red Blood Cell Count 3.39 10^6/uL (4.70-6.10); Red Cell Dist. Width 14.5 % (11.5-14.5); White Blood Cell Count 12.5 10^3/uL (4.8-10.8)
[2023-12-19 10:00] LABS: Blood Urea Nitrogen 48 mg/dl (9-20); Calcium 8.9 mg/dl (8.4-10.2); Carbon Dioxide 38 mmol/L (22-30); Chloride 92 mmol/L (98-107); Estimated Creatinine Clearance 48 ml/min; Glucose 197 mg/dl (70-99); Potassium 4.1 mmol/L (3.5-5.1); Sodium 133 mmol/L (135-145); eGFR 45.91
[2023-12-19] MEDS: LANTUS SC (10:01)
[2023-12-19 11:57] LABS: Glucose - Point of Care 166 mg/dl (70-99)
[2023-12-19] MEDS: NOVOLOG FLEXPEN-HIGH RESISTANCE 2 UNITS SC (12:19)
[2023-12-19] MEDS: ZADITOR 1 DROP OPHTH ×2 (12:21→20:35)
[2023-12-19] MEDS: LASIX 80 MG PO (13:54)
[2023-12-19 16:19] LABS: Glucose - Point of Care 217 mg/dl (70-99)
[2023-12-19] MEDS: NOVOLOG FLEXPEN-HIGH RESISTANCE 4 UNITS SC (16:38)
[2023-12-19] MEDS: COUMADIN 2.5 MG PO (16:47)
[2023-12-19] MEDS: COUMADIN 1 MG PO (17:15)
[2023-12-19] MEDS: MELATONIN 10 MG PO (20:32)
[2023-12-19 21:29] LABS: Glucose - Point of Care 193 mg/dl (70-99)
[2023-12-19] MEDS: ZETIA 10 MG PO (22:08)
[2023-12-20 03:16] VITALS: BP 106/48
[2023-12-20 06:00] VITALS: BMI 44.1
[2023-12-20 07:00] VITALS: BP 108/52
[2023-12-20 07:10] LABS: Glucose - Point of Care 152 mg/dl (70-99)
[2023-12-20 07:12] LABS: Hematocrit 32.1 % (39.0-52.0); Mean Corp Hgb Conc. 31.2 g/dL (33.0-37.0); Mean Corpuscular Hgb 29.7 pg (27.0-31.0); Mean Corpuscular Volume 95.3 fL (80.0-94.0); Mean Platelet Volume 12.3 fL (7.4-10.4); Platelet Count 212 10^3/uL (130-400); Red Blood Cell Count 3.37 10^6/uL (4.70-6.10); Red Cell Dist. Width 14.4 % (11.5-14.5)
[2023-12-20 07:16] LABS: INR 2.92; PT 30.5 Sec (11.4-14.6)
[2023-12-20 07:20] LABS: Blood Urea Nitrogen 48 mg/dl (9-20); Calcium 8.7 mg/dl (8.4-10.2); Chloride 94 mmol/L (98-107); Estimated Creatinine Clearance 45 ml/min; Glucose 151 mg/dl (70-99); Potassium 4.3 mmol/L (3.5-5.1); Sodium 135 mmol/L (135-145); eGFR 42.49
[2023-12-20 07:30] LABS: Carbon Dioxide 37 mmol/L (22-30)
[2023-12-20] MEDS: NOVOLOG FLEXPEN 6 UNITS SC ×3 (08:25→17:02)
[2023-12-20] MEDS: LASIX 80 MG PO (08:25)
[2023-12-20] MEDS: NOVOLOG FLEXPEN-HIGH RESISTANCE 2 UNITS SC ×2 (08:25→11:49)
[2023-12-20] MEDS: PACERONE 100 MG PO (08:27)
[2023-12-20] MEDS: COREG 3.125 MG PO ×2 (08:27→20:58)
[2023-12-20] MEDS: DELTASONE 20 MG PO (08:27)
[2023-12-20] MEDS: LIPITOR 20 MG PO (08:27)
[2023-12-20] MEDS: ASPIR LOW (ENTERIC COATED) 81 MG PO (08:27)
[2023-12-20] MEDS: JARDIANCE 10 MG PO (08:27)
[2023-12-20] MEDS: ZADITOR 1 DROP OPHTH (08:28)
[2023-12-20] MEDS: LANTUS 0.220000000000000001 UNITS SC (08:28)
[2023-12-20] MEDS: DESENEX/MITRAZOL/ZEASORB 1 APPLIC TOPICAL ×2 (08:29→21:01)
[2023-12-20] MEDS: COSOPT EYE DROPS 1 DROP OPHTH (08:29)
[2023-12-20] MEDS: DUONEB 3 ML INH ×4 (08:38→20:32)
[2023-12-20] MEDS: PULMICORT 0.5 MG INH ×2 (08:38→20:32)
[2023-12-20 11:00] VITALS: BP 105/62
[2023-12-20 11:34] LABS: Glucose - Point of Care 171 mg/dl (70-99)
--- NOTE | 2023-12-20 13:51 | W.PN.HOSP.TC ---
Today's Communication/Plan
-
Awaiting insurance authorization for short-term rehab
Assessment / Plan
Assessment / Plan
#Acute hypoxic and hypercarbic respiratory failure secondary to acute on chronic HFpEF exacerbation
#Hx of Chronic hypoxic respiratory failure on 3.5 L at baseline/ morbid obesity
ABG showed pH of 7.31, pCO2 of 82. PO2 81 on admission
Currently satting 98% on 3 L, continue weaning as tolerated to avoid hypercapnia. He wears 3.5 L at home
Appreciate pulmonology input, continue BiPAP in the hospital, resume CPAP when at home/ STR
Medically stable for discharge to short-term rehab today, awaiting insurance authorization
#Acute on chronic heart failure with preserved ejection fraction
Chest x-ray showed severe acute alveolar cardiogenic pulmonary edema, moderate cardiomegaly
Appreciate cardiology input, Echo showed LVEF 55%, stage II diastolic dysfunction, mild mitral stenosis, trace mitral regurgitation, bioprosthetic aortic valve with no regurgitation, mild tricuspid regurgitation. No significant changes than
echogram in April 2023
B/l lower extremity Dopplers negative
Status post nitroglycerin drip, s/p Lasix 80 mg IV twice daily 12/15
Changed to Lasix 80 mg p.o. daily 12/16 by cardiology
Creatinine 1.6 today, was 1.5, was 1.6, was 1.4 yesterday, was 1.2 the day prior
Likely will need to except a higher creatinine so he can be adequately diuresed
Repeat BMP on 12/22 at the nursing facility
Patient down 10 kg worth of fluid since admission
#Acute kidney injury
Creatinine 1.6 today, was 1.5, was 1.6, was 1.4 yesterday, was 1.2 the day prior
Likely will need to except a higher creatinine so he can be adequately diuresed
Repeat BMP on 12/22 at the nursing facility
No nephrotoxic drugs or NSAIDs
#AMIE (severe) on CPAP 10 cwp s O2, / Pulmonary hypertension with acute asthma exacerbation
Primary pulmonary doctor is Dr. Walters
Currently satting 98% on 3 L, continue weaning as tolerated to avoid hypercapnia. He wears 3.5 L at home
Appreciate pulmonology input, continue BiPAP in the hospital, resume CPAP when at home
Continue prednisone taper as per pulm
#Type 2 diabetes
Blood sugars improved, wean Lantus and NovoLog
# Hypercoagulopathy secondary to Coumadin.
Resolved, INR therapeutic, continue Coumadin
# Hyperkalemia
Resolved status post Lokelma
#Allergic rhinitis
Started allergy eyedrops 12/18
# Paroxysmal atrial fibrillation
Rate is controlled
-Continue amiodarone, Coreg, Coumadin
# Aortic stenosis status post bioprosthetic aortic valve replacement
# Anemia
Due to CHF
Hemoglobin at baseline now with diuresis
# Morbid obesity BMI 48
Compulsive eating habits. d/w pt, he is aware but can not control his food addiction.
D/w family. Impacting negatively his health.
#Coronary artery disease
No chest pain
Negative troponin on arrival
-Continue aspirin, statin
# Essential hypertension
No headache
#Hyperlipidemia
Continue Zetia
DVT prophylaxis�Coumadin
DNR/DNI
Updated daughter at bedside 12/16
Physical Exam
General: Morbidly obese, obese, chronically ill looking
HEENT: Normocephalic, Moist mucous membranes and Atraumatic. C pap was on
Respiratory: Limited with rales
Cardiac: S1/S2
GI: Soft, Non Tender
Rectal: No rectal bleeding
Musculoskeletal: Bilateral lower extremity edema noted
Psych: no agitation
Neuro: no focal deficits
Anticipated Discharge: Within 24 hours
Subjective/Interval History
-
Date of Service: December 20, 2023
Patient reports eye itching and burning have improved. No chest pain, no shortness of breath. No fever, no vomiting.
Objective Data
-
Labs:
Laboratory Results
12/20/23
06:28
WBC 12.0 H
Hgb 10.0 L
Hct 32.1 L
Plt Count 212
PT 30.5 H
INR 2.92
Sodium 135
Potassium 4.3
Chloride 94 L
Carbon Dioxide 37 H
BUN 48 H
Creatinine 1.6 H
Glucose 151 H
Calcium 8.7
Vital Signs:
Vital Signs
Temp Pulse Resp BP Pulse Ox
97.6 F 72 16 105/62 99
12/20/23 11:00 12/20/23 12:01 12/20/23 12:01 12/20/23 11:00 12/20/23 11:00
I&O
12/19/23 12/20/23 12/21/23
06:59 06:59 06:59
Intake Total 240 / 240 960 / 960
Output Total 1425 / 1425 1520 / 1520
Balance -1185 / -1185 -560 / -560
--- NOTE | 2023-12-20 14:46 | CM ---
Called [employer] for precert follow-up and determination. Automated system reports that clinicals were received and records will be reviewed. No determination as yet.
[2023-12-20] MEDS: NON-FORMULARY ITEM 5 MG SC (15:43)
[2023-12-20 16:28] VITALS: BP 113/64
[2023-12-20 16:48] LABS: Glucose - Point of Care 216 mg/dl (70-99)
[2023-12-20] MEDS: COUMADIN 2.5 MG PO (17:01)
[2023-12-20] MEDS: NOVOLOG FLEXPEN-HIGH RESISTANCE 4 UNITS SC (17:01)
[2023-12-20] MEDS: COUMADIN 1 MG PO (17:01)
[2023-12-20 20:30] VITALS: BP 118/66
[2023-12-20] MEDS: MELATONIN 10 MG PO (20:59)
[2023-12-20] MEDS: COSOPT EYE DROPS 2 DROP OPHTH (21:00)
[2023-12-20] MEDS: ZADITOR OPHTH (21:04)
[2023-12-20] MEDS: ZETIA 10 MG PO (21:22)
[2023-12-20 21:38] LABS: Glucose - Point of Care 193 mg/dl (70-99)
[2023-12-20 23:31] VITALS: BP 116/85
[2023-12-21] VITALS (7 sets, daily range): BP systolic 100–132; BP diastolic 51–68; PULSE 61; O2SAT 98; BMI 44.1
[2023-12-21 05:38] LABS: INR 3.39; PT 34.3 Sec (11.4-14.6)
[2023-12-21 05:39] LABS: Blood Urea Nitrogen 48 mg/dl (9-20); Calcium 8.7 mg/dl (8.4-10.2); Chloride 93 mmol/L (98-107); Estimated Creatinine Clearance 45 ml/min; Glucose 128 mg/dl (70-99); Potassium 4.2 mmol/L (3.5-5.1); Sodium 137 mmol/L (135-145); eGFR 42.49
[2023-12-21 05:51] LABS: Carbon Dioxide 36 mmol/L (22-30)
[2023-12-21 05:53] LABS: Hematocrit 34.3 % (39.0-52.0); Hemoglobin 10.8 g/dL (13.0-18.0); Mean Corp Hgb Conc. 31.5 g/dL (33.0-37.0); Mean Corpuscular Hgb 30.2 pg (27.0-31.0); Mean Corpuscular Volume 95.8 fL (80.0-94.0); Mean Platelet Volume 12.1 fL (7.4-10.4); Platelet Count 244 10^3/uL (130-400); Red Blood Cell Count 3.58 10^6/uL (4.70-6.10); Red Cell Dist. Width 14.6 % (11.5-14.5)
[2023-12-21] MEDS: DUONEB 3 ML INH ×4 (07:18→20:02)
[2023-12-21] MEDS: PULMICORT 0.5 MG INH ×2 (07:19→20:02)
[2023-12-21 07:50] LABS: Glucose - Point of Care 137 mg/dl (70-99)
[2023-12-21] MEDS: LANTUS 0.220000000000000001 UNITS SC (07:51)
[2023-12-21] MEDS: COREG 3.125 MG PO ×2 (07:52→21:06)
[2023-12-21] MEDS: NOVOLOG FLEXPEN 6 UNITS SC ×3 (07:53→16:36)
[2023-12-21] MEDS: NOVOLOG FLEXPEN-HIGH RESISTANCE 1 UNITS SC ×2 (07:53→11:40)
[2023-12-21] MEDS: LIPITOR 20 MG PO (07:54)
[2023-12-21] MEDS: COSOPT EYE DROPS 1 DROP OPHTH ×2 (07:54→21:06)
[2023-12-21] MEDS: ASPIR LOW (ENTERIC COATED) 81 MG PO (07:54)
[2023-12-21] MEDS: DELTASONE 20 MG PO (07:54)
[2023-12-21] MEDS: JARDIANCE 10 MG PO (07:54)
[2023-12-21] MEDS: PACERONE 100 MG PO (07:54)
[2023-12-21] MEDS: ZADITOR 1 DROP OPHTH ×2 (07:55→21:08)
[2023-12-21] MEDS: DESENEX/MITRAZOL/ZEASORB 1 APPLIC TOPICAL ×2 (07:56→21:07)
--- NOTE | 2023-12-21 10:39 | W.PN.HOSP.TC ---
Today's Communication/Plan
-
dc
Assessment / Plan
Assessment / Plan
#Acute hypoxic and hypercarbic respiratory failure secondary to acute on chronic HFpEF exacerbation
#Hx of Chronic hypoxic respiratory failure on 3.5 L at baseline/ morbid obesity
ABG showed pH of 7.31, pCO2 of 82. PO2 81 on admission
Currently satting 98% on 3 L, continue weaning as tolerated to avoid hypercapnia. He wears 3.5 L at home
Appreciate pulmonology input, continue BiPAP in the hospital, resume CPAP when at home/ STR
Medically stable for discharge to short-term rehab today, awaiting insurance authorization
#Acute on chronic heart failure with preserved ejection fraction
Chest x-ray showed severe acute alveolar cardiogenic pulmonary edema, moderate cardiomegaly
Appreciate cardiology input, Echo showed LVEF 55%, stage II diastolic dysfunction, mild mitral stenosis, trace mitral regurgitation, bioprosthetic aortic valve with no regurgitation, mild tricuspid regurgitation. No significant changes than
echogram in April 2023
B/l lower extremity Dopplers negative
Status post nitroglycerin drip, s/p Lasix 80 mg IV twice daily 12/15
Changed to Lasix 80 mg p.o. daily 12/16 by cardiology
Patient down 10 kg worth of fluid since admission
#Acute kidney injury
Creatinine 1.6 today, was 1.5, was 1.6, was 1.4 yesterday, was 1.2 the day prior
Likely will need to except a higher creatinine so he can be adequately diuresed
No nephrotoxic drugs or NSAIDs
#AMIE (severe) on CPAP 10 cwp s O2, / Pulmonary hypertension with acute asthma exacerbation
Primary pulmonary doctor is Dr. Walters
Currently satting 98% on 3 L, continue weaning as tolerated to avoid hypercapnia. He wears 3.5 L at home
Appreciate pulmonology input, continue BiPAP in the hospital, resume CPAP when at home
Continue prednisone taper as per pulm
#Type 2 diabetes
Blood sugars improved, wean Lantus and NovoLog
# Hypercoagulopathy secondary to Coumadin.
Resolved, INR therapeutic, continue Coumadin
# Hyperkalemia
Resolved status post Lokelma
#Allergic rhinitis
Started allergy eyedrops 12/18
# Paroxysmal atrial fibrillation
Rate is controlled
-Continue amiodarone, Coreg, Coumadin
# Aortic stenosis status post bioprosthetic aortic valve replacement
# Anemia
Due to CHF
Hemoglobin at baseline now with diuresis
# Morbid obesity BMI 48
Compulsive eating habits. d/w pt, he is aware but can not control his food addiction.
D/w family. Impacting negatively his health.
#Coronary artery disease
No chest pain
Negative troponin on arrival
-Continue aspirin, statin
# Essential hypertension
No headache
#Hyperlipidemia
Continue Zetia
DVT prophylaxis�Coumadin
DNR/DNI
Updated daughter at bedside 12/16
Physical Exam
General: Morbidly obese, obese, chronically ill looking
HEENT: Normocephalic, Moist mucous membranes and Atraumatic. C pap was on
Respiratory: Limited with rales
Cardiac: S1/S2
GI: Soft, Non Tender
Rectal: No rectal bleeding
Musculoskeletal: Bilateral lower extremity edema noted
Psych: no agitation
Neuro: no focal deficits
Total discharge time spent to see the patient, examine the patient, review data and lab results, discuss discharge plan with patient, leather case finisher, nursing staff around 55 minutes
Anticipated Discharge: Today
Subjective/Interval History
-
Date of Service: December 21, 2023
He feels well
No chest pain
No fevers
No sob
Slept well
Objective Data
-
Labs:
Laboratory Results
12/21/23
04:46
WBC 13.0 H
Hgb 10.8 L
Hct 34.3 L
Plt Count 244
PT 34.3 H
INR 3.39
Sodium 137
Potassium 4.2
Chloride 93 L
Carbon Dioxide 36 H
BUN 48 H
Creatinine 1.6 H
Glucose 128 H
Calcium 8.7
Vital Signs:
Vital Signs
Temp Pulse Resp BP Pulse Ox
97.3 F 74 16 103/59 90
12/21/23 08:07 12/21/23 08:07 12/21/23 08:07 12/21/23 08:07 12/21/23 08:07
I&O
12/20/23 12/21/23 12/22/23
06:59 06:59 06:59
Intake Total 960 / 960 660 / 660
Output Total 1520 / 1520 840 / 840
Balance -560 / -560 -180 / -180
[2023-12-21 11:35] LABS: Glucose - Point of Care 142 mg/dl (70-99)
[2023-12-21] MEDS: COLACE 100 MG PO (14:50)
--- NOTE | 2023-12-21 16:08 | CM ---
Continue to await [employer] insurance auth determination. Called [employer] for determination. Automated system acknowledges receipt of request and documents. Also notes [employer] has a 2 week time frame for determination.
[2023-12-21 16:28] LABS: Glucose - Point of Care 157 mg/dl (70-99)
[2023-12-21] MEDS: NOVOLOG FLEXPEN-HIGH RESISTANCE 2 UNITS SC (16:36)
[2023-12-21] MEDS: COUMADIN 1 MG PO (17:01)
[2023-12-21] MEDS: MELATONIN 10 MG PO (21:07)
[2023-12-21] MEDS: ZETIA 10 MG PO (21:08)
[2023-12-21 21:24] LABS: Glucose - Point of Care 212 mg/dl (70-99)
[2023-12-22 03:00] VITALS: BP 116/65
[2023-12-22 06:00] VITALS: BMI 44.0
[2023-12-22 06:47] LABS: INR 3.75; PT 37.2 Sec (11.4-14.6)
[2023-12-22 07:02] LABS: Blood Urea Nitrogen 48 mg/dl (9-20); Calcium 8.9 mg/dl (8.4-10.2); Carbon Dioxide 32 mmol/L (22-30); Chloride 95 mmol/L (98-107); Estimated Creatinine Clearance 51 ml/min; Glucose 162 mg/dl (70-99); Potassium 4.7 mmol/L (3.5-5.1); Sodium 135 mmol/L (135-145); eGFR 49.87
[2023-12-22 07:19] LABS: Hematocrit 31.8 % (39.0-52.0); Hemoglobin 10.2 g/dL (13.0-18.0); Mean Corp Hgb Conc. 32.1 g/dL (33.0-37.0); Mean Corpuscular Volume 93.5 fL (80.0-94.0); Mean Platelet Volume 11.7 fL (7.4-10.4); Platelet Count 209 10^3/uL (130-400); Red Cell Dist. Width 14.8 % (11.5-14.5)
[2023-12-22] MEDS: DUONEB 3 ML INH ×3 (07:56→15:55)
[2023-12-22] MEDS: PULMICORT 0.5 MG INH (07:56)
[2023-12-22 07:59] LABS: Glucose - Point of Care 182 mg/dl (70-99)
[2023-12-22 08:00] VITALS: BP 136/72
[2023-12-22] MEDS: NOVOLOG FLEXPEN-HIGH RESISTANCE 2 UNITS SC ×2 (08:59→12:57)
[2023-12-22] MEDS: ASPIR LOW (ENTERIC COATED) 81 MG PO (09:01)
[2023-12-22] MEDS: COREG 3.125 MG PO (09:01)
[2023-12-22] MEDS: NOVOLOG FLEXPEN 6 UNITS SC ×2 (09:01→12:57)
[2023-12-22] MEDS: DESENEX/MITRAZOL/ZEASORB 1 APPLIC TOPICAL (09:03)
[2023-12-22] MEDS: COSOPT EYE DROPS 1 DROP OPHTH (09:03)
[2023-12-22] MEDS: DELTASONE 20 MG PO (09:03)
[2023-12-22] MEDS: LASIX 80 MG PO (09:04)
[2023-12-22] MEDS: LIPITOR 20 MG PO (09:04)
[2023-12-22] MEDS: PACERONE 100 MG PO (09:04)
[2023-12-22] MEDS: JARDIANCE 10 MG PO (09:04)
[2023-12-22] MEDS: ZADITOR 1 DROP OPHTH (09:05)
[2023-12-22] MEDS: LANTUS 0.220000000000000001 UNITS SC (09:09)
[2023-12-22 11:45] LABS: Glucose - Point of Care 173 mg/dl (70-99)
[2023-12-22 11:51] VITALS: BP 129/62
--- NOTE | 2023-12-22 12:55 | W.PN.HOSP.TC ---
Today's Communication/Plan
-
dc
Assessment / Plan
Assessment / Plan
#Acute hypoxic and hypercarbic respiratory failure secondary to acute on chronic HFpEF exacerbation
#Hx of Chronic hypoxic respiratory failure on 3.5 L at baseline/ morbid obesity
ABG showed pH of 7.31, pCO2 of 82. PO2 81 on admission
Currently satting 98% on 3 L, continue weaning as tolerated to avoid hypercapnia. He wears 3.5 L at home
Appreciate pulmonology input, continue BiPAP in the hospital, resume CPAP when at home/ STR
Medically stable for discharge to short-term rehab, awaiting insurance authorization
#Acute on chronic heart failure with preserved ejection fraction
Chest x-ray showed severe acute alveolar cardiogenic pulmonary edema, moderate cardiomegaly
Appreciate cardiology input, Echo showed LVEF 55%, stage II diastolic dysfunction, mild mitral stenosis, trace mitral regurgitation, bioprosthetic aortic valve with no regurgitation, mild tricuspid regurgitation. No significant changes than
echogram in April 2023
B/l lower extremity Dopplers negative
Status post nitroglycerin drip, s/p Lasix 80 mg IV twice daily 12/15
Changed to Lasix 80 mg p.o. daily 12/16 by cardiology
Patient down 10 kg worth of fluid since admission
#Acute kidney injury
Creatinine 1.6 today, was 1.5, was 1.6, was 1.4 yesterday, was 1.2 the day prior
Likely will need to except a higher creatinine so he can be adequately diuresed
No nephrotoxic drugs or NSAIDs
#AMIE (severe) on CPAP 10 cwp s O2, / Pulmonary hypertension with acute asthma exacerbation
Primary pulmonary doctor is Dr. Walters
Currently satting 98% on 3 L, continue weaning as tolerated to avoid hypercapnia. He wears 3.5 L at home
Appreciate pulmonology input, continue BiPAP in the hospital, resume CPAP when at home
Continue prednisone taper as per pulm
#Type 2 diabetes
Blood sugars improved, back on Lantus and NovoLog
# Hypercoagulopathy secondary to Coumadin.
Resolved, INR therapeutic, continue Coumadin
# Hyperkalemia
Resolved status post Lokelma
#Allergic rhinitis
Started allergy eyedrops 12/18, now resolved.
# Paroxysmal atrial fibrillation
Rate is controlled
-Continue amiodarone, Coreg, Coumadin
# Aortic stenosis status post bioprosthetic aortic valve replacement
# Anemia
Due to CHF
Hemoglobin at baseline now with diuresis
# Morbid obesity BMI 48
Compulsive eating habits. d/w pt, he is aware but can not control his food addiction.
D/w family. Impacting negatively his health.
#Coronary artery disease
No chest pain
Negative troponin on arrival
-Continue aspirin, statin
# Essential hypertension
No headache
#Hyperlipidemia
Continue Zetia
DVT prophylaxis�Coumadin
DNR/DNI
Await dc
Physical Exam
General: Morbidly obese, obese, chronically ill looking
HEENT: Normocephalic, Moist mucous membranes and Atraumatic. C pap was on
Respiratory: Limited with rales
Cardiac: S1/S2
GI: Soft, Non Tender
Rectal: No rectal bleeding
Musculoskeletal: Bilateral lower extremity edema noted
Psych: no agitation
Neuro: no focal deficits
Total discharge time spent to see the patient, examine the patient, review data and lab results, discuss discharge plan with patient, case advocate, nursing staff around 55 minutes
Anticipated Discharge: Today
Subjective/Interval History
-
Date of Service: December 22, 2023
No events
Objective Data
-
Labs:
Laboratory Results
12/22/23 12/22/23
05:23 07:03
WBC Cancelled 11.0 H
Hgb Cancelled 10.2 L
Hct Cancelled 31.8 L
Plt Count Cancelled 209
PT 37.2 H
INR 3.75
Sodium 135
Potassium 4.7
Chloride 95 L
Carbon Dioxide 32 H
BUN 48 H
Creatinine 1.4 H
Glucose 162 H
Calcium 8.9
Vital Signs:
Vital Signs
Temp Pulse Resp BP Pulse Ox
97.7 F 51 16 129/62 9
12/22/23 11:51 12/22/23 12:10 12/22/23 12:10 12/22/23 11:51 12/22/23 12:10
I&O
12/21/23 12/22/23 12/23/23
06:59 06:59 06:59
Intake Total 660 / 660 1500 / 1500
Output Total 840 / 840 725 / 725 200 / 200
Balance -180 / -180 775 / 775 -200 / -200
--- NOTE | 2023-12-22 14:08 | CM ---
Addendum entered by Talita Griffith 12/22/23 14:12:
IMM verbally reviewed with pt
Copy provided
Original Note:
CM reviewed chart and noted dc order
Clayton hutchins received
Bedside update to pt- notes his home cpap is now not working as of last night
Update to Georgina/[facility]- confirmed cpap will be available at SNF
Call with spouse to discuss transport per pt request
Plan for WC van- she will deliver portable O2 bedside at approx 1600
She is in agreement to fees
Clayton hutchins ref# [id number]
12/21-01/02 13 days
Discharge Disposition- [facility] via WC van 1700 pickup
Phone- [phone] Fax- [phone]
[2023-12-22 16:00] VITALS: BP 138/64
--- NOTE | 2023-12-23 13:30 | W.DCSUMMARY ---
Discharge Summary
Discharge Data
Date of Admission: 12/07/23
Date of Discharge: 12/22/23
-
Pending Results: No
Hospital Course
83 years old male came to the emergency room from home with shortness of breath and hypoxia. Patient was having progressive shortness of breath over the last weeks at home. Patient was noncompliant with his breathing treatments, diet and
noninvasive ventilatory machine ( CPAP) at home for several weeks. Patient had morbid obesity. Patient was diagnosed with acute on chronic hypoxic and hypercapnic respiratory failure secondary to combination of acute on chronic heart failure with
preserved ejection fraction/progression of hypertension/acute asthma exacerbation/undertreated obstructive sleep apnea(severe in type). Patient was seen by shield installer and skiving machine operator. He was started on BiPAP therapy and aggressive diuretic
therapy. He was started on prednisone therapy with the breathing treatments. He was noted to have high blood pressure and was started on nitroglycerin drip initially but weaned off. He had echocardiogram that showed left ventricular ejection
fraction of 55%, stage II diastolic dysfunction, mild mitral stenosis, trace mitral regurgitation, bioprosthetic aortic valve with no regurgitation, mild tricuspid regurgitation. Bilateral lower extremity Doppler did not show thrombosis. He had
acute kidney injury with creatinine between 1.5-1.4 upon discharge. He was weaned off BiPAP and was resumed on CPAP therapy. His INR was monitored and Coumadin dose was adjusted. Prednisone was tapered gradually to off. He remained on nasal
oxygen during daytime. His diabetic medications were adjusted. Patient was followed by physical therapy. Patient was counseled regarding healthy lifestyle and medications compliance. He and his family verbalized understanding. Patient had
morbid obesity with BMI around 48. Patient lost weight in the hospital with diuretic therapy. He received aggressive counseling regarding the importance of weight loss. He was continued on amiodarone, carvedilol and Lasix 80 mg daily. He did not
have active chest pain. Physical therapy recommended [facility] facility placement for short time. Patient remained hemodynamically stable and was discharged in a stable condition.
Total discharge time spent to see the patient, examine the patient, review data and lab results, discuss discharge plan with patient, patient case manager, nursing staff around 65 minutes
Discharge Plan
-
Patient Disposition: Prison/SNF
Discharge Diagnosis/Procedures: Acute on chronic hypoxic and hypercapnic respiratory failure, heart failure with a preserved ejection fraction exacerbation, obstructive sleep apnea, type 2 diabetes, paroxysmal atrial fibrillation on Coumadin, aortic
stenosis, chronic anemia, coronary artery disease, hypertension, hyperlipidemia, morbid obesity
Condition: Fair
Diet: 2 Gram Sodium and Diabetic, Carb Controlled
Activity: As tolerated
Blood Work: CBC, BMP, INR on 12/24/23
Other Services: PT and OT
Specialty Instructions: Weigh Daily- Call MD for wt gain/loss 3 lbs overnight/5 lbs in 1 week
Activity Restrictions/Additional Instructions:
Take prednisone taper as directed.
Use CPAP at night.
Please avoid all [id number] NSAID medications such as ibuprofen, naproxen, Aleve, Motrin, Advil.
These medications will worsen renal function.
Follow-up with your primary care doctor 1 week after you leave rehab, cardiology and pulmonology as directed.
Wound Care Instructions Right Buttock- Clean with normal saline or soap and water. Apply silicone border foam and change Q 48 hours and as needed if soiled.
Use air or gel cushion in chair
Avoid sliding out of chair
May use zinc or barrier cream on open areas
Change positions frequently
Keep skin clean and dry
Ensure adequate protein intake for wound healing
Instructions: *[facility] Heart Failure Instructions
Referrals:
Lebron Arce MD [Active] - 01/20/24 3:40 pm (You are scheduled to see Dr. Arce's physician surgeon's assistant, Suki, at the [place] on 01/20/24 at 3:40. Please call [phone] if you need to reschedule.)
Ruperto Jade, [Family Provider] - in one week
Drea Ayoub CRNP [Specified Professional Personl] - in two to three weeks
Prescriptions:
New
insulin aspart U-100 100 unit/mL (3 mL) Insulin Pen
5 unit SC AC Qty: 0 0RF
Jardiance 10 mg Tablet
10 mg PO DAILY Qty: 30 0RF
miconazole nitrate [Miconazorb AF] 2 % Powder
1 applic topical BID Qty: 100 0RF
furosemide 80 mg tablet
80 mg PO DAILY Qty: 30 0RF
ipratropium-albuterol 0.5 mg-3 mg(2.5 mg base)/3 mL Solution For Nebulization
3 ml inhalation R QID Qty: 0 0RF
melatonin 5 mg Tablet
10 mg PO DAILY@1999 Qty: 30 0RF
Continued
ezetimibe 10 MG tablet
10 mg PO HS
amiodarone [Pacerone] 100 MG tablet
100 mg PO DAILY
cyanocobalamin (vitamin B-12) 2,500 MCG tablet
2,500 mcg PO MOTH
albuterol sulfate [Ventolin HFA] 90 MCG/PUFF HFA aerosol inhaler
2 puff inhalation R Q4 PRN (Reason: sob/wheezing)
coenzyme Q10 [Co Q-10] 200 MG capsule
200 mg PO DAILY
carvedilol 3.125 MG tablet
3.125 mg PO BID
cholecalciferol (vitamin D3) 2,000 UNITS tablet
2,000 units PO DAILY
aspirin 81 MG tablet,delayed release (DR/EC)
81 mg PO DAILY Qty: 0 0RF
Rx Instructions:
Resume after Lovenox/Coumadin Bridge is complete
atorvastatin 20 mg tablet
20 mg PO DAILY
insulin lispro [Humalog KwikPen Insulin] 100 unit/mL insulin pen
0 sliding scale dose SC MEALS
Patient Comments:
10/27/2022: When asking pt if he takes humalog before meals or with meals he states 'whenever i remember'
magnesium 250 mg Tablet
500 mg PO DAILY
Mounjaro 5 mg/0.5 mL pen injector
5 mg SC MOORE
dorzolamide-timolol 22.3-6.8 mg/mL Drops
1 drp BOTH EYES BID
Changed
insulin glargine [Lantus Solostar U-100 Insulin] 100 unit/mL (3 mL) insulin pen
22 unit SC HS Qty: 0 0RF
Held
warfarin 1 mg tablet
1 mg PO QPM
Hold Instructions: Resume on 12/24/23.
Patient Comments:
12/07/2023: taken w/ 2.5mg = 3.5mg
Rx Instructions:
HOLD WARFARIN UNTIL INR IS 3 OR LESS. DUE TO INR ON 12/22/23 WAS 3.75. RECHECK INR ON 12/24/23 TO DETERMINE DOSE
warfarin 2.5 mg tablet
2.5 mg PO QPM
Hold Instructions: Resume on 12/25/23.
Patient Comments:
12/07/2023: taken w/ 1mg= 3.5mg
Rx Instructions:
HOLD WARFARIN UNTIL INR IS 3 OR LESS. DUE TO INR ON 12/22/23 WAS 3.75. RECHECK INR ON 12/24/23 TO DETERMINE DOSE
Discontinued
zinc acetate 50 mg (zinc) Capsule
50 mg PO DAILY
furosemide 20 mg tablet
20 mg PO DAILY
Discharge Orders:
Discharge Patient (As Directed); Ordered 12/21/23
Ordered By: Zoya Stevens
Discharge Date and Time
Discharge Date/Time: 12/22/23 17:49
Print Language: WELSH
== END 2023-12-22 17:49 | DRG 291 ==
LOC: 2 NORTH 22:35
PROVIDERS: Family Medicine; Nuclear Medicine Nuclear Cardiology; Physician Assistant Medical; ADMITTING PHYSICIAN Hospitalist; ATTENDING PHYSICIAN Internal Medicine; CONSULT PHYSICIAN Internal Medicine Critical Care Medicine; EMERGENCY PHYSICIAN Emergency Medicine; FAMILY PHYSICIAN Family Medicine; OTHER PHYSICIAN Internal Medicine Interventional Cardiology
PROC: 5A09357 Assistance with Respiratory Ventilation, Less than 24 Consecutive Hours, Continuous Positive Airway Pressure (ICD-10-PCS; 2023-12-09)
DX: I11.0 Hypertensive heart disease with heart failure (principal); I50.33 Acute on chronic diastolic (congestive) heart failure; J96.21 Acute and chronic respiratory failure with hypoxia; J96.22 Acute and chronic respiratory failure with hypercapnia; Z68.42 Body mass index [BMI] 45.0-49.9, adult; J45.51 Severe persistent asthma with (acute) exacerbation; N17.9 Acute kidney failure, unspecified; I44.0 Atrioventricular block, first degree; E78.00 Pure hypercholesterolemia, unspecified; D64.9 Anemia, unspecified; E87.8 Other disorders of electrolyte and fluid balance, not elsewhere classified; E87.5 Hyperkalemia; R23.0 Cyanosis; G47.33 Obstructive sleep apnea (adult) (pediatric); J98.4 Other disorders of lung; I48.0 Paroxysmal atrial fibrillation; I25.10 Atherosclerotic heart disease of native coronary artery without angina pectoris; E66.01 Morbid (severe) obesity due to excess calories; I08.0 Rheumatic disorders of both mitral and aortic valves; I27.20 Pulmonary hypertension, unspecified; E11.65 Type 2 diabetes mellitus with hyperglycemia; Z66 Do not resuscitate; Z95.3 Presence of xenogenic heart valve; Z11.52 Encounter for screening for COVID-19; Z79.01 Long term (current) use of anticoagulants; Z79.51 Long term (current) use of inhaled steroids; Z79.4 Long term (current) use of insulin; Z79.85 Long-term (current) use of injectable non-insulin antidiabetic drugs; Z79.82 Long term (current) use of aspirin; Z99.81 Dependence on supplemental oxygen; Z91.119 Patient's noncompliance with dietary regimen due to unspecified reason; Z91.199 Patient's noncompliance with other medical treatment and regimen due to unspecified reason
CPT/HCPCS: 71045; 80048; 80053; 82805; 82947; 82962; 83036; 83735; 83880; 84484; 85018; 85025; 85027; 85610; 85730; 87811; 93005; 93306; 93970; 94640; 94660; 94762; 96374; 97110; 97116; 97163; 97167; 97530; 97535; 99291; Q9950

== ENCOUNTER → 2023-12-24 10:29 | Outpatient (REF) | payer OTHER, SELFPAY ==
[2023-12-24 12:51] LABS: % Basophils 0.1 % (0-2); % Eosinophils 4.3 % (0-6); % Immature Granulocytes 0.8 % (0-0.5); % Lymphocytes 15.5 % (20.5-51.1); % Monocytes 9.7 % (1.7-9.3); % Neutrophils 69.6 % (42.2-75.2); Absolute Eosinophils 0.5 10^3/uL (0-0.7); Absolute Immature Granulocytes 0.1 10^3/uL (0-0.05); Absolute Lymphocytes 1.6 10^3/uL (1.2-3.4); Absolute Neutrophils 7.2 10^3/uL (1.4-6.5); Hematocrit 32.3 % (39.0-52.0); Hemoglobin 10.1 g/dL (13.0-18.0); Mean Corp Hgb Conc. 31.3 g/dL (33.0-37.0); Mean Corpuscular Hgb 29.9 pg (27.0-31.0); Mean Corpuscular Volume 95.6 fL (80.0-94.0); Mean Platelet Volume 12.4 fL (7.4-10.4); Nucleated Red Blood Cells % 0 % (-); Platelet Count 206 10^3/uL (130-400); Red Blood Cell Count 3.38 10^6/uL (4.70-6.10); Red Cell Dist. Width 15.2 % (11.5-14.5); White Blood Cell Count 10.4 10^3/uL (4.8-10.8)
[2023-12-24 13:04] LABS: Blood Urea Nitrogen 40 mg/dl (9-20); Calcium 8.6 mg/dl (8.4-10.2); Carbon Dioxide 34 mmol/L (22-30); Chloride 96 mmol/L (98-107); Glucose 118 mg/dl (70-99); Sodium 136 mmol/L (135-145); eGFR 42.49
[2023-12-24 13:23] LABS: INR 2.88; PT 30.6 Sec (11.4-14.6)
== END ==
LOC: OLABP 10:29
PROVIDERS: ATTENDING PHYSICIAN Family Medicine
DX: I36.1 Nonrheumatic tricuspid (valve) insufficiency (principal); E87.5 Hyperkalemia; G47.33 Obstructive sleep apnea (adult) (pediatric); I50.33 Acute on chronic diastolic (congestive) heart failure; J81.0 Acute pulmonary edema; J30.9 Allergic rhinitis, unspecified; D64.9 Anemia, unspecified; E78.5 Hyperlipidemia, unspecified
CPT/HCPCS: 36415; 80048; 85025; 85610

== ENCOUNTER → 2023-12-28 09:39 | Outpatient (REF) | payer OTHER, SELFPAY ==
[2023-12-28 11:14] LABS: INR 1.91; PT 21.8 Sec (11.4-14.6)
== END ==
LOC: OLABP 09:39
PROVIDERS: ATTENDING PHYSICIAN Family Medicine
DX: I36.1 Nonrheumatic tricuspid (valve) insufficiency (principal); N17.9 Acute kidney failure, unspecified; E87.5 Hyperkalemia; G47.33 Obstructive sleep apnea (adult) (pediatric); E11.9 Type 2 diabetes mellitus without complications; I50.33 Acute on chronic diastolic (congestive) heart failure; D68.9 Coagulation defect, unspecified; J81.0 Acute pulmonary edema; J30.9 Allergic rhinitis, unspecified; I05.0 Rheumatic mitral stenosis; I48.0 Paroxysmal atrial fibrillation; I34.0 Nonrheumatic mitral (valve) insufficiency; I35.0 Nonrheumatic aortic (valve) stenosis; D64.9 Anemia, unspecified; I25.10 Atherosclerotic heart disease of native coronary artery without angina pectoris; E66.01 Morbid (severe) obesity due to excess calories; I11.0 Hypertensive heart disease with heart failure
CPT/HCPCS: 36415; 85610

== ENCOUNTER → 2023-12-31 10:26 | Outpatient (REF) | payer OTHER, SELFPAY ==
[2023-12-31 12:17] LABS: INR 2.25; PT 25.1 Sec (11.4-14.6)
[2023-12-31 12:18] LABS: % Basophils 0.3 % (0-2); % Eosinophils 2.2 % (0-6); % Immature Granulocytes 0.4 % (0-0.5); % Lymphocytes 14.3 % (20.5-51.1); % Monocytes 11.5 % (1.7-9.3); % Neutrophils 71.3 % (42.2-75.2); Absolute Eosinophils 0.2 10^3/uL (0-0.7); Absolute Lymphocytes 1.1 10^3/uL (1.2-3.4); Absolute Monocytes 0.9 10^3/uL (0.1-0.6); Absolute Neutrophils 5.5 10^3/uL (1.4-6.5); Hematocrit 32.2 % (39.0-52.0); Mean Corp Hgb Conc. 31.1 g/dL (33.0-37.0); Mean Corpuscular Hgb 29.9 pg (27.0-31.0); Mean Corpuscular Volume 96.4 fL (80.0-94.0); Mean Platelet Volume 11.9 fL (7.4-10.4); Nucleated Red Blood Cells % 0 % (-); Platelet Count 156 10^3/uL (130-400); Red Blood Cell Count 3.34 10^6/uL (4.70-6.10); Red Cell Dist. Width 15.4 % (11.5-14.5); White Blood Cell Count 7.7 10^3/uL (4.8-10.8)
[2023-12-31 12:26] LABS: Blood Urea Nitrogen 23 mg/dl (9-20); Calcium 8.5 mg/dl (8.4-10.2); Carbon Dioxide 33 mmol/L (22-30); Chloride 94 mmol/L (98-107); Glucose 176 mg/dl (70-99); Potassium 4.4 mmol/L (3.5-5.1); Sodium 134 mmol/L (135-145); eGFR 36.89
== END ==
LOC: OLABP 10:26
PROVIDERS: ATTENDING PHYSICIAN Family Medicine
DX: I36.1 Nonrheumatic tricuspid (valve) insufficiency (principal); E87.5 Hyperkalemia; E11.9 Type 2 diabetes mellitus without complications; I50.33 Acute on chronic diastolic (congestive) heart failure; D68.9 Coagulation defect, unspecified; J30.9 Allergic rhinitis, unspecified; I02.0 Rheumatic chorea with heart involvement; D64.9 Anemia, unspecified; E66.01 Morbid (severe) obesity due to excess calories
CPT/HCPCS: 36415; 80048; 85025; 85610

== ENCOUNTER → 2024-01-01 10:01 | Outpatient (REF) | payer OTHER, SELFPAY ==
[2024-01-01 10:34] LABS: Hematocrit 31.1 % (39.0-52.0); Hemoglobin 9.8 g/dL (13.0-18.0); Mean Corp Hgb Conc. 31.5 g/dL (33.0-37.0); Mean Corpuscular Hgb 29.7 pg (27.0-31.0); Mean Corpuscular Volume 94.2 fL (80.0-94.0); Mean Platelet Volume 11.4 fL (7.4-10.4); Platelet Count 141 10^3/uL (130-400); Red Cell Dist. Width 15.4 % (11.5-14.5); White Blood Cell Count 6.6 10^3/uL (4.8-10.8)
[2024-01-01 10:38] LABS: PT 26.9 Sec (11.4-14.6)
[2024-01-01 12:38] LABS: Blood Urea Nitrogen 22 mg/dl (9-20); Calcium 8.6 mg/dl (8.4-10.2); Carbon Dioxide 33 mmol/L (22-30); Chloride 95 mmol/L (98-107); Glucose 137 mg/dl (70-99); Potassium 4.1 mmol/L (3.5-5.1); Sodium 134 mmol/L (135-145); eGFR 34.57
== END ==
LOC: OLABP 10:01
PROVIDERS: ATTENDING PHYSICIAN Family Medicine
DX: E87.5 Hyperkalemia (principal); E11.9 Type 2 diabetes mellitus without complications
CPT/HCPCS: 36415; 80048; 85027; 85610

== ENCOUNTER → 2024-01-04 10:38 | Outpatient (REF) | payer OTHER, SELFPAY ==
[2024-01-04 11:09] LABS: Hematocrit 35.4 % (39.0-52.0); Hemoglobin 10.7 g/dL (13.0-18.0); Mean Corp Hgb Conc. 30.2 g/dL (33.0-37.0); Mean Corpuscular Hgb 29.4 pg (27.0-31.0); Mean Corpuscular Volume 97.3 fL (80.0-94.0); Mean Platelet Volume 11.5 fL (7.4-10.4); Platelet Count 163 10^3/uL (130-400); Red Blood Cell Count 3.64 10^6/uL (4.70-6.10); Red Cell Dist. Width 15.8 % (11.5-14.5); White Blood Cell Count 7.2 10^3/uL (4.8-10.8)
[2024-01-04 11:10] LABS: INR 2.32; PT 25.4 Sec (11.4-14.6)
[2024-01-04 11:17] LABS: Blood Urea Nitrogen 18 mg/dl (9-20); Calcium 8.8 mg/dl (8.4-10.2); Carbon Dioxide 29 mmol/L (22-30); Chloride 95 mmol/L (98-107); Glucose 159 mg/dl (70-99); Potassium 4.3 mmol/L (3.5-5.1); Sodium 138 mmol/L (135-145); eGFR 39.51
== END ==
LOC: OLABP 10:38
PROVIDERS: ATTENDING PHYSICIAN Family Medicine
DX: I36.1 Nonrheumatic tricuspid (valve) insufficiency (principal); N17.9 Acute kidney failure, unspecified; E87.5 Hyperkalemia; G47.33 Obstructive sleep apnea (adult) (pediatric); E11.9 Type 2 diabetes mellitus without complications; I50.33 Acute on chronic diastolic (congestive) heart failure; D68.9 Coagulation defect, unspecified; J81.0 Acute pulmonary edema; J30.9 Allergic rhinitis, unspecified; I48.0 Paroxysmal atrial fibrillation; D64.9 Anemia, unspecified; E78.5 Hyperlipidemia, unspecified; E66.01 Morbid (severe) obesity due to excess calories; I11.0 Hypertensive heart disease with heart failure
CPT/HCPCS: 36415; 80048; 85027; 85610

== ENCOUNTER → 2024-01-07 10:08 | Outpatient (REF) | payer OTHER, SELFPAY ==
[2024-01-07 10:59] LABS: Blood Urea Nitrogen 21 mg/dl (9-20); Calcium 8.9 mg/dl (8.4-10.2); Carbon Dioxide 37 mmol/L (22-30); Chloride 91 mmol/L (98-107); Glucose 108 mg/dl (70-99); Potassium 3.3 mmol/L (3.5-5.1); Sodium 137 mmol/L (135-145); eGFR 34.57
== END ==
LOC: OLABP 10:08
PROVIDERS: ATTENDING PHYSICIAN Family Medicine
DX: I36.1 Nonrheumatic tricuspid (valve) insufficiency (principal); A17.9 Tuberculosis of nervous system, unspecified; N17.9 Acute kidney failure, unspecified; E87.5 Hyperkalemia; G47.33 Obstructive sleep apnea (adult) (pediatric); E11.9 Type 2 diabetes mellitus without complications; D68.9 Coagulation defect, unspecified; J30.9 Allergic rhinitis, unspecified; I48.0 Paroxysmal atrial fibrillation; I35.0 Nonrheumatic aortic (valve) stenosis; D64.9 Anemia, unspecified; I25.10 Atherosclerotic heart disease of native coronary artery without angina pectoris; I11.0 Hypertensive heart disease with heart failure; E78.5 Hyperlipidemia, unspecified; E66.01 Morbid (severe) obesity due to excess calories; I50.33 Acute on chronic diastolic (congestive) heart failure; J81.0 Acute pulmonary edema; I05.0 Rheumatic mitral stenosis; I34.0 Nonrheumatic mitral (valve) insufficiency
CPT/HCPCS: 36415; 80048

== ENCOUNTER 2024-01-08 17:05 | Inpatient (IN) | payer OTHER, SELFPAY ==
[2024-01-08] VITALS (9 sets, daily range): BP systolic 100–126; BP diastolic 53–87; PULSE 76; BMI 44.5; BMI 43.3
[2024-01-08 13:58] LABS: % Basophils 0.7 % (0-2); % Eosinophils 3.2 % (0-6); % Immature Granulocytes 0.4 % (0-0.5); % Lymphocytes 25.3 % (20.5-51.1); % Monocytes 16.2 % (1.7-9.3); % Neutrophils 54.2 % (42.2-75.2); Absolute Eosinophils 0.2 10^3/uL (0-0.7); Absolute Lymphocytes 1.4 10^3/uL (1.2-3.4); Absolute Monocytes 0.9 10^3/uL (0.1-0.6); Absolute Neutrophils 2.9 10^3/uL (1.4-6.5); Hematocrit 33.7 % (39.0-52.0); Hemoglobin 10.7 g/dL (13.0-18.0); Mean Corp Hgb Conc. 31.8 g/dL (33.0-37.0); Mean Corpuscular Hgb 29.6 pg (27.0-31.0); Mean Corpuscular Volume 93.1 fL (80.0-94.0); Mean Platelet Volume 10.3 fL (7.4-10.4); Nucleated Red Blood Cells % 0 % (-); Platelet Count 296 10^3/uL (130-400); Red Blood Cell Count 3.62 10^6/uL (4.70-6.10); Red Cell Dist. Width 15.7 % (11.5-14.5); White Blood Cell Count 5.4 10^3/uL (4.8-10.8)
[2024-01-08 14:09] LABS: INR 1.98; PT 22.4 Sec (11.4-14.6)
[2024-01-08 14:16] LABS: ALT (SGPT) 19 U/L (0-50); AST (SGOT) 24 U/L (17-59); Albumin 3.6 g/dl (3.5-5.0); Alkaline Phosphatase 119 U/L (38-126); Blood Urea Nitrogen 22 mg/dl (9-20); Calcium 8.9 mg/dl (8.4-10.2); Chloride 84 mmol/L (98-107); Estimated Creatinine Clearance 38 ml/min; Glucose 189 mg/dl (70-99); Potassium 2.8 mmol/L (3.5-5.1); Sodium 135 mmol/L (135-145); Total Bilirubin 1.2 mg/dl (0.2-1.3); Total Protein 6.5 g/dl (6.3-8.2); eGFR 34.57
[2024-01-08 14:31] LABS: NT-proBNP 3810 pg/ml; Troponin I 0.044 ng/ml
[2024-01-08 14:46] LABS: Carbon Dioxide 38 mmol/L (22-30)
--- NOTE | 2024-01-08 14:58 | ED.GENMED ---
History of Present Illness
General
Chief Complaint: Swelling
Source: patient, records, spouse, previous radiology exam and previous hospital records
Exam Limitations: none
Time Seen by Provider: 01/08/24 13:30
Nursing documentation reviewed up to this point in time: agreed with
Travel History
Have you had any contact with someone who has COVID-19?: No
Do you have any symptoms of coronavirus? Fever > 100 degrees, chills, cough, shortness of breath, sore throat, loss of taste or smell, muscle aches, or headache?: No
History of Present Illness
History of Present Illness:
83-year-old male referred from [facility] for admission for lower extremity edema apparently they are unable to give IV diuretics there, patient has chronic shortness of breath diabetes chronic renal insufficiency congestive heart failure has
had increased lower extremity swelling, no fevers no chest pain he has chronic shortness of breath, he takes warfarin his automatic clipper is Dr. Arce
Past History
Past History
ED Past Medical History: Arrthythmia (Atrial fibrillation), HTN, Hypercholesterolemia, NIDDM, Renal failure, Valvular disease and Other (Morbid obesity)
ED Past Surgical History: Cardiac (Bioprosthetic aortic valve replacement) and Orthopedic
Social History
Tobacco: Non-smoker
Alcohol: None
Drug: None
Personal:
Living: with family
Employment: Retired
Review of Systems
Review of Systems
All Other Systems: Not applicable
Constitutional: Denies fever, fatigue or chills
EENT: Reports no symptoms
Respiratory: Reports trouble breathing; Denies cough
ABD/GI: Reports no symptoms
: Reports no symptoms
Musculoskeletal: Reports edema
Skin: Reports no symptoms
Neurological: Reports no symptoms
Phy Exam
Physical Exam
Physical Exam:
Physical Exam
General: Chronically ill-appearing
Neck: No jaundice
Heart: Irregular
Lungs: Bibasilar
Abdomen: Nontender
Neuro: alert and oriented. no focal neurological deficits
Skin: no rash
Psychiatric: cooperative
Extremities: Bilateral lower extremity pitting edema
Scores
Heart Failure Risk
Heart Failure Risk Score: Yes
History of Stroke or TIA: No
History of intubation for respiratory distress: No
Heart rate on ED arrival >/= 110: No
SaO2 <90% on arrival on room air: Yes
HR >/=110 during 3min walk test (or too ill to perform test): Yes
ECG has acute ischemic changes: No
Urea >/=12mmol/L (BUN 33.6mg/dL): No
Serum CO2>/=35mmol/L: No
Troponin I or T elevated to NE Level (0.4mg/dL): No
NT-proBNP >/=5,000ng/L (5,000pg/ml): No
HF Risk Score: 3
Admission Status: HIGH RISK 15.9% Consider SNF treatment or admission to hospital
Course
Orders/Labs/Results
Orders:
Orders
01/08/24 13:30
EKG [Electrocardiogram (*1)] Urgent
Reason for Study: Shortness of Breath
EKG- Treatment ONCE
01/08/24 13:45
Complete Blood Count/With Diff Urgent
Comprehensive Metabolic Panel Urgent
INR [Prothrombin Time] Urgent
Magnesium Urgent
NT-proBNP Urgent
Troponin I Urgent
01/08/24 14:03
CR Chest Portable - 1 View Urgent
Comment:
Reason For Exam: sob
Reason Study Needs to be Portable: Patient Unstable
01/08/24 14:42
Add On- LAB Urgent
Tests Added?: magnesium
Furosemide [Lasix] 80 mg IV NOW STA
Potassium Chloride [KCl] 40 meq PO NOW STA
Abnormal Lab Results
01/08/24
13:45
RBC 3.62 L 10^6/uL
(4.70-6.10)
Hgb 10.7 L g/dL
(13.0-18.0)
Hct 33.7 L %
(39.0-52.0)
MCHC 31.8 L g/dL
(33.0-37.0)
RDW 15.7 H %
(11.5-14.5)
Absolute Monos (auto) 0.9 H 10^3/uL
(0.1-0.6)
Monocytes % 16.2 H %
(1.7-9.3)
PT 22.4 H Sec
(11.4-14.6)
Potassium 2.8 L mmol/L
(3.5-5.1)
Chloride 84 L mmol/L
(98-107)
Carbon Dioxide 38 H mmol/L
(22-30)
BUN 22 H mg/dl
(9-20)
Creatinine 1.9 H mg/dL
(0.7-1.3)
Glucose 189 H mg/dl
(70-99)
Magnesium 2.6 H mg/dl
(1.6-2.3)
Troponin I 0.044 H* ng/ml
01/08/24 13:45
01/08/24 13:45
Vital Signs
Initial and Last Documented VS:
Initial Vital Signs
Pulse Ox
99
01/08/24 13:39
Last Documented Vital Signs
Temp Pulse Resp BP Pulse Ox
98.0 F 78 17 113/54 99
01/08/24 13:42 01/08/24 15:05 01/08/24 15:00 01/08/24 15:05 01/08/24 13:42
MDM/Problems Addressed
Differential Diagnosis Includes:
Heart failure pneumonia venous stasis doubt PE as he is anticoagulated doubt DVT as he is anticoagulated
MDM/Problems Addressed:
Lower extremity swelling
Chronic conditions affecting care:
Heart failure A-fib diabetes
Acute Exacerbation and/or Progression of Chronic Illness:
Heart failure A-fib diabetes
*Radiology
Radiology exam reviewed: preliminary read by ED provider
*Pulse Oximetry
Patient hypoxic: no
*EKG
Interpretation: abnormal
Comparison EKG: no comparison EKG present
Heart Rate: 78
Rate: normal
Rhythm: a-fib
Ischemia: non-specific ST changes
*Chemical Laboratory Technician Interpretation
Rate: normal
Interpretation: normal
Heart Rate: 78
Rhythm: a-fib
*Critical Care Note
Total Time (30-74mins, 75-104mins- exclusive of procedures): Not Applicable
Data Reviewed
Review of Other/Old Records Reveals: Labs and Radiology Studies
Source: patient and spouse
Update Note
Update Note:
Update labs are noted, proBNP noted chest x-ray noted we will see if he tolerates any more diuretic
ED Attending Note
-
Portions of this chart may have been created with voice recognition software.� Occasional wrong word or��sound alike� substitutions may have occurred due to the inherent limitations of voice recognition software.
Discharge Plan
Departure
Patient Disposition: Admit
Date of Disposition: 01/08/24
Time of Disposition: 15:02
Admit to: Telemetry
Presentation/result/management discussed w/ accepting MD/DO: Hospitalist
Patient with high blood pressure during this ER visit?: Yes
Condition: Fair
Discharge Problem:
Acute on chronic heart failure with preserved ejection fraction (HFpEF), PAF (paroxysmal atrial fibrillation), Acute on chronic hypoxic respiratory failure, Morbid obesity with BMI of 45.0-49.9, adult
Prescriptions:
No Action
ezetimibe 10 MG tablet
10 mg PO HS
amiodarone [Pacerone] 100 MG tablet
100 mg PO DAILY
cyanocobalamin (vitamin B-12) 2,500 MCG tablet
2,500 mcg PO MOTH
albuterol sulfate [Ventolin HFA] 90 MCG/PUFF HFA aerosol inhaler
2 puff inhalation R Q4 PRN (Reason: sob/wheezing)
coenzyme Q10 [Co Q-10] 200 MG capsule
200 mg PO DAILY
carvedilol 3.125 MG tablet
3.125 mg PO BID
cholecalciferol (vitamin D3) 2,000 UNITS tablet
2,000 units PO DAILY
aspirin 81 MG tablet,delayed release (DR/EC)
81 mg PO DAILY Qty: 0 0RF
Rx Instructions:
Resume after Lovenox/Coumadin Bridge is complete
atorvastatin 20 mg tablet
20 mg PO DAILY
insulin lispro [Humalog KwikPen Insulin] 100 unit/mL insulin pen
0 sliding scale dose SC MEALS
Patient Comments:
10/27/2022: When asking pt if he takes humalog before meals or with meals he states 'whenever i remember'
magnesium 250 mg Tablet
500 mg PO DAILY
warfarin 1 mg tablet
1 mg PO QPM
Hold Instructions: Resume on 12/24/23.
Patient Comments:
12/07/2023: taken w/ 2.5mg = 3.5mg
Rx Instructions:
HOLD WARFARIN UNTIL INR IS 3 OR LESS. DUE TO INR ON 12/22/23 WAS 3.75. RECHECK INR ON 12/24/23 TO DETERMINE DOSE
Mounjaro 5 mg/0.5 mL pen injector
5 mg SC MOORE
warfarin 2.5 mg tablet
2.5 mg PO QPM
Hold Instructions: Resume on 12/25/23.
Patient Comments:
12/07/2023: taken w/ 1mg= 3.5mg
Rx Instructions:
HOLD WARFARIN UNTIL INR IS 3 OR LESS. DUE TO INR ON 12/22/23 WAS 3.75. RECHECK INR ON 12/24/23 TO DETERMINE DOSE
dorzolamide-timolol 22.3-6.8 mg/mL Drops
1 drp BOTH EYES BID
insulin aspart U-100 100 unit/mL (3 mL) Insulin Pen
5 unit SC AC Qty: 0 0RF
Jardiance 10 mg Tablet
10 mg PO DAILY Qty: 30 0RF
miconazole nitrate [Miconazorb AF] 2 % Powder
1 applic topical BID Qty: 100 0RF
furosemide 80 mg tablet
80 mg PO DAILY Qty: 30 0RF
ipratropium-albuterol 0.5 mg-3 mg(2.5 mg base)/3 mL Solution For Nebulization
3 ml inhalation R QID Qty: 0 0RF
melatonin 5 mg Tablet
10 mg PO DAILY@2000 Qty: 30 0RF
insulin glargine [Lantus Solostar U-100 Insulin] 100 unit/mL (3 mL) insulin pen
22 unit SC HS Qty: 0 0RF
Referrals:
Ruperto Jade, DO [Family Provider] -
Interventions
Interventions:
*Risk Screen - Suicide Last Done: 01/08/24 13:36
*General Assessment Last Done: 01/08/24 13:36
*Neglect/Abuse Screening Last Done: 01/08/24 13:36
ED- Fall Risk Assessment Last Done: 01/08/24 13:31
*ED COVID-19 Vaccine History Last Done: 01/08/24 13:29
ED- Cardiac Assessment Last Done: 01/08/24 13:39
ED- Pulmonary Assessment Last Done: 01/08/24 13:39
ED-Skin Assessment Last Done: 01/08/24 13:41
Discharge Date and Time
Print Language: SAMI
[2024-01-08 15:04] LABS: Magnesium 2.6 mg/dl (1.6-2.3)
[2024-01-08] MEDS: KCL 40 MEQ PO (15:04)
[2024-01-08] MEDS: LASIX 80 MG IV (15:05)
--- NOTE | 2024-01-08 15:14 | HPS.HSE ---
Family Physician
-
Family Physician: Ruperto Jade
Chief Complaint
-
lower extremity swelling
History of Present Illness
83 male morbid obesity A-fib on Coumadin aortic stenosis status post bioprosthetic replacement coronary artery disease AMIE Chronic Resp Failure 3.5L HTN HLD DM CKDIII presents with progressive leg swelling past couple of weeks. ED evaluation
concerning for Heart Failure exacerbation, CXR noted mild pulm edema small b/l pleural effusions, BNP high 3810 increased from prior values, Troponin elevation 0.044 also noted. Denies chest pain. Vitals signs otherwise stable patient at his
baseline oxygen requirement 3.5L. Denies shortness of breath. Ambulates with Walker. Bibasilar crackles noted on auscultation. B/l lower exts +2 pitting edema erythematous but nontender.
Medical History
Past Medical History
Past Medical History: Reports Other (as above)
Past Surgical History: Reports Other (as above)
Social History
Tobacco: Non-smoker
Alcohol: None
Drug: None
Personal:
Living: With Family
Employment: Retired
Family History
Family History: Not pertinent (reviewed)
Allergies / Home Medications
Allergies reflects when Allergies were last updated in [facility].
Home Medications with original date entered in [facility]
Allergy/Medication List:
Allergies
Allergy/AdvReac Type Severity Reaction Status Date / Time
No Known Allergies Allergy Verified 01/08/24 13:39
Home Medications
ezetimibe 10 mg tablet 10 mg PO HS High cholesterol 03/13/11
amiodarone 100 mg tablet (Pacerone) 100 mg PO DAILY Heart disease/condition 03/18/17
albuterol sulfate 90 mcg/actuation aerosol inhaler (Ventolin HFA) 2 puff inhalation R Q4 PRN sob/wheezing 03/29/20
coenzyme Q10 200 mg capsule (Co Q-10) 200 mg PO DAILY Supplement 03/29/20
cyanocobalamin (vitamin B-12) 2,500 mcg tablet 2,500 mcg PO MOTH Supplement 03/29/20
aspirin 81 mg tablet,delayed release 81 mg PO DAILY Blood clot prevention/tx ##0 06/07/20
atorvastatin 20 mg tablet 20 mg PO HS High cholesterol 10/27/22
insulin lispro 100 unit/mL subcutaneous pen (Humalog KwikPen (U-100) Insulin) 2 - 8 sliding scale dose SC MEALS Diabetes 10/27/22
magnesium 250 mg tablet 500 mg PO DAILY Supplement 12/07/23
tirzepatide 5 mg/0.5 mL subcutaneous pen injector (Mounjaro) 5 mg SC MOORE Diabetes 12/07/23
warfarin 2.5 mg tablet 2.5 mg PO QPM Blood Clot Prevention/Tx 12/07/23
dorzolamide 22.3 mg-timolol 6.8 mg/mL eye drops 1 drp BOTH EYES BID Eye Condition 12/09/23
ipratropium 0.5 mg-albuterol 3 mg (2.5 mg base)/3 mL nebulization soln 3 ml inhalation R QID #0 mL 12/18/23
miconazole nitrate 2 % topical powder (Miconazorb AF) 1 applic topical BID #100 grams 12/18/23
acetaminophen 325 mg tablet 650 mg PO Q4H PRN mild pain/fever>100 01/08/24
bisacodyl 10 mg rectal suppository (Dulcolax (bisacodyl)) 10 mg CO DAILY PRN if mom is ineffective/give day 5 no bm 01/08/24
cholecalciferol (vitamin D3) 50 mcg (2,000 unit) tablet (Vitamin D3) 50 mcg PO DAILY 01/08/24
empagliflozin 10 mg tablet (Jardiance) 10 mg PO HS 01/08/24
furosemide 80 mg tablet 80 mg PO BID 01/08/24
insulin glargine-yfgn 100 unit/mL (3 mL) subcutaneous pen 22 unit SC HS 01/08/24
insulin lispro 100 unit/mL subcutaneous pen 5 unit SC MEALS 01/08/24
magnesium hydroxide 400 mg/5 mL oral suspension (Milk of Magnesia) 30 ml PO DAILY PRN if no bm on day 4 01/08/24
melatonin 5 mg tablet 10 mg PO HS 01/08/24
metolazone 2.5 mg tablet 2.5 mg PO DAILY 01/08/24
sodium phosphates 19 gram-7 gram/118 mL enema (Fleet Enema) 118 ml CO DAILY PRN if dulcolax is ineffective/give on day 6 no bm 01/08/24
Review of Systems
-
A 12 point ROS was completed and negative except as noted: Yes
Constitutional: Reports Other (as below)
Physical Exam
Vital Signs
Vital Signs
Temp Pulse Resp BP Pulse Ox
98.0 F 78 17 113/54 99
01/08/24 13:42 01/08/24 15:05 01/08/24 15:00 01/08/24 15:05 01/08/24 13:42
Physical Exam
General: Other (as below)
Laboratory Results
-
01/08/24 13:45
01/08/24 13:45
Laboratory Results
PT 22.4 Sec (11.4-14.6) H 01/08/24 13:45
INR 1.98 01/08/24 13:45
Total Bilirubin 1.2 mg/dl (0.2-1.3) 01/08/24 13:45
AST 24 U/L (17-59) 01/08/24 13:45
ALT 19 U/L (0-50) 01/08/24 13:45
Alkaline Phosphatase 119 U/L (38-126) 01/08/24 13:45
Troponin I 0.044 ng/ml H* 01/08/24 13:45
Impression/Plan
-
ROS
General: Denies fever chills night sweats unexpected weight loss
Neuro: Denies seizure shaking loss of consciousness dizziness vertigo
Psych: denies depression hallucinations confusion manic episodes
Endocrine: reports polyuria denies polydipsia polyphagia heat/cold intolerance
HEENT: Denies blindness visual disturbances epistaxis
Pulmonary: denies coughing hemoptysis sneezing sob reports dyspnea on exertion
Cardiovascular: denies chest pain palpitations reports leg swelling
Hematology: denies signs symptoms of anemia easy bruising/bleeding
Gastrointestinal: denies nausea vomiting diarrhea constipation hematemesis hematochezia melena
Genito-Urinary: reports chronic dysuria
Musculoskeletal: reports lower ext swelling
Dermatology: reports erythema swelling lower ext's b/l
Physical Exam
General: No pallor, cyanosis, or jaundice.
HEENT: Throat clear. PERRLA Normocephalic atraumatic
NECK: Supple. No JVD Carotid Bruits
RESPIRATORY: bibasilar crackles
CVS: Irregularly irregular No murmur, rub or gallop.
ABDOMEN: Soft, non-tender. distended/obese bowel sounds present
EXTREMITIES: +2 pitting edema lower ext's w/ associate erythema no tenderness
SUPERVISOR EXTRUDING DEPARTMENT: AOx3.
IMPRESSION:
83 male morbid obesity A-fib on Coumadin aortic stenosis status post bioprosthetic replacement coronary artery disease AMIE Chronic Resp Failure 3.5L HTN HLD DM CKDIII presents with progressive leg swelling past couple of weeks. ED evaluation
concerning for Heart Failure exacerbation, CXR noted mild pulm edema small b/l pleural effusions, BNP high 3810 increased from prior values, Troponin elevation 0.044 also noted. Denies chest pain. Vitals signs otherwise stable patient at his
baseline oxygen requirement 3.5L. Denies shortness of breath. Ambulates with Walker. Bibasilar crackles noted on auscultation. B/l lower exts +2 pitting edema erythematous but nontender.
PLAN:
#Progressive worsening lower ext swelling
#Possible Acute on Chronic HFpEF
# Aortic stenosis status post bioprosthetic aortic valve replacement
Tele Admit
Daily weights I/O
received IV lasix 80 mg once in ED
cont IV lasix 40 mg BID
Recent 11/2023 ECHO appreciated EF 55% stage II diastolic dysfunction Bioprosthetic aortic valve
Cardio eval requested
cont home metolazone with holding parameters
#Lower ext swelling possibly d/t progressive chronic lymphedema as oppose to HF
ARAVIND compressive bandages
Elevate Lower Ext's when at rest
#CKD III
initial Cr 1.9
Baseline appears to be 1.6-1.9
monitor renal function
avoid/minimize nephrotoxic medication/agent use.
#Hx of Chronic hypoxic respiratory failure on 3.5 L at baseline/ morbid obesity
#AMIE (severe) on CPAP 10 cwp s O2
#Pulm HTN
Primary pulmonary doctor is Dr. Walters
baseline respiratory status, cont home oxygen supplementation
CPAP bedtime
#Type 2 diabetes
recent A1c 8.November
moderate dose sliding scale
Cont Jardiance Lantus 22U HS Lispro 5U AC
monitor and titrate insulin regimen as necessary
#Hypokalemia
monitor and replete as necessary
# Paroxysmal atrial fibrillation
#HTN
-Continue amiodarone, Coreg, Coumadin
-INR goal 2-3
# Morbid obesity BMI 44
#Coronary artery disease
#Mild troponin elevation, chest pain free
-Continue aspirin, statin
-initial Trop 0.044 suspect non-GA related troponin elevation, follow up repeat trop, stop trending if trending down
#Hyperlipidemia
Continue Zetia statin
DVT prophylaxis�Coumadin
DNR/DNI as per patient and patient's Karine
I spent a total of 82 minutes with the patient or on the floor. More than 50% of this time involved counseling and coordination of care.
[2024-01-08 17:18] LABS: Urine Albumin Negative (Neg - Trace); Urine Bilirubin Negative (Negative); Urine Character Clear (Clear); Urine Color Yellow; Urine Glucose 3+ (Negative); Urine Ketone Negative (Negative); Urine Leukocyte Trace (Negative); Urine Nitrite Negative (Negative); Urine Occult Blood Negative (Negative); Urine Urobilinogen Negative (Neg - 1+)
[2024-01-08 18:06] LABS: Urine White Cell 0-2 /HPF (0-5)
[2024-01-08 18:34] LABS: Glucose - Point of Care 158 mg/dl (70-99)
[2024-01-08 19:13] LABS: Troponin I 0.052 ng/ml
[2024-01-08] MEDS: COUMADIN 2.5 MG PO (20:00)
[2024-01-08] MEDS: KLOR-CON 20 MEQ PO (20:00)
[2024-01-08] MEDS: COSOPT EYE DROPS 1 DROP BOTH EYES (20:00)
[2024-01-08] MEDS: DUONEB 3 ML INH (20:25)
[2024-01-08 20:50] LABS: Glucose - Point of Care 200 mg/dl (70-99)
--- NOTE | 2024-01-08 20:53 | CON.CAR ---
Consultation
Consultation Request
Date/Time Consultation Requested: 01/08/24
Date/Time Consultation Performed: 01/08/24
Requesting Provider: Jermaine
Performing Provider: Eugene
Reason for Consultation: CHF
Medical History
-
Chief Complaint: LE edema
History of Present Illness:
Patient came to [facility] from [facility] with worsening LE edema and was admitted with acute on chronic HF so cardiology has been consulted. Recent prolonged hospitalization at from 12/07-12/22. Was discharged to [facility] rehab. Tells me that since
arriving at rehab he slowly developed worsening LE edema which is painful. Not clear to me that his chronic GLOVER is any worse, tells me he can walk 44ft. Is chronically on 3L home O2. Also not reporting PND/orthopnea.
On arrival to [facility] he was found to have elevated proBNP >3k which is higher than previously recorded. CXR with mild pulm edema. Troponin mildly elevated at 0.044, but not reporting chest pain.
PMH:
Chronic hypoxic respiratory failure using 3.5 L NC at home
Chronic HF
Preserved EF 55% by echo 11/2023
Paroxysmal Afib
Chronic amiodarone therapy
Chronic warfarin OAC
s/p AVR bioprosthetic mean gradient 10 mmHg by echo 04/2023
DM 2
Obesity, BMI 48.8
Past Medical History
Past Medical History: Other (as above)
Past Surgical History: Other (as above)
Social History
Living: [place]
Employment: Retired
Family History
Family History: Reviewed & Not Pertinent
Allergies / Home Medications
Allergy/AdvReac Type Severity Reaction Status Date / Time
No Known Allergies Allergy Verified 01/08/24 13:39
�Medication �Instructions �Recorded �Confirmed �Type
ezetimibe 10 mg tablet 10 mg PO HS High cholesterol 03/13/11 01/08/24 History
amiodarone 100 mg tablet (Pacerone) 100 mg PO DAILY Heart 03/18/17 01/08/24 History
disease/condition
albuterol sulfate 90 mcg/actuation 2 puff inhalation R Q4 PRN 03/29/20 01/08/24 History
aerosol inhaler (Ventolin HFA) sob/wheezing
coenzyme Q10 200 mg capsule (Co 200 mg PO DAILY Supplement 03/29/20 01/08/24 History
Q-10)
cyanocobalamin (vitamin B-12) 2,500 mcg PO MOTH Supplement 03/29/20 01/08/24 History
2,500 mcg tablet
aspirin 81 mg tablet,delayed 81 mg PO DAILY Blood clot 06/07/20 01/08/24 Rx
release prevention/tx ##0
atorvastatin 20 mg tablet 20 mg PO HS High cholesterol 10/27/22 01/08/24 History
insulin lispro 100 unit/mL 2 - 8 sliding scale dose SC MEALS 10/27/22 01/08/24 History
subcutaneous pen (Humalog KwikPen Diabetes
(U-100) Insulin)
magnesium 250 mg tablet 500 mg PO DAILY Supplement 12/07/23 01/08/24 History
tirzepatide 5 mg/0.5 mL 5 mg SC MOORE Diabetes 12/07/23 01/08/24 History
subcutaneous pen injector
(Mounjaro)
warfarin 2.5 mg tablet 2.5 mg PO QPM Blood Clot 12/07/23 01/08/24 History
Prevention/Tx
dorzolamide 22.3 mg-timolol 6.8 1 drp BOTH EYES BID Eye Condition 12/09/23 01/08/24 History
mg/mL eye drops
ipratropium 0.5 mg-albuterol 3 mg 3 ml inhalation R QID #0 mL 12/18/23 01/08/24 Rx
(2.5 mg base)/3 mL nebulization
soln
miconazole nitrate 2 % topical 1 applic topical BID #100 grams 12/18/23 01/08/24 Rx
powder (Miconazorb AF)
acetaminophen 325 mg tablet 650 mg PO Q4H PRN mild 01/08/24 01/08/24 History
pain/fever>100
bisacodyl 10 mg rectal suppository 10 mg NC DAILY PRN if mom is 01/08/24 01/08/24 History
(Dulcolax (bisacodyl)) ineffective/give day 5 no bm
cholecalciferol (vitamin D3) 50 50 mcg PO DAILY 01/08/24 01/08/24 History
mcg (2,000 unit) tablet (Vitamin
D3)
empagliflozin 10 mg tablet 10 mg PO HS 01/08/24 01/08/24 History
(Jardiance)
furosemide 80 mg tablet 80 mg PO BID 01/08/24 01/08/24 History
insulin glargine-yfgn 100 unit/mL 22 unit SC HS 01/08/24 01/08/24 History
(3 mL) subcutaneous pen
insulin lispro 100 unit/mL 5 unit SC MEALS 01/08/24 01/08/24 History
subcutaneous pen
magnesium hydroxide 400 mg/5 mL 30 ml PO DAILY PRN if no bm on day 01/08/24 01/08/24 History
oral suspension (Milk of Magnesia) 4
melatonin 5 mg tablet 10 mg PO HS 01/08/24 01/08/24 History
metolazone 2.5 mg tablet 2.5 mg PO DAILY 01/08/24 01/08/24 History
sodium phosphates 19 gram-7 118 ml NC DAILY PRN if dulcolax is 01/08/24 01/08/24 History
gram/118 mL enema (Fleet Enema) ineffective/give on day 6 no bm
Review of Systems
-
History Source: Patient
All other systems: Negative unless noted
Physical Exam
Vital Signs
Temp Pulse Resp BP Pulse Ox
98.2 F 86 20 122/56 94
01/08/24 19:48 01/08/24 20:25 01/08/24 20:25 01/08/24 19:48 01/08/24 20:25
Lab Results
01/08/24 13:45
01/08/24 13:45
Troponin I 0.052 ng/ml H* 01/08/24 18:31
Efs-D-Owanzaucmyq Pept 3810 pg/ml 01/08/24 13:45
Physical Exam
General: Well Developed
HEENT: Normocephalic
Respiratory: Crackles (at bases)
Cardiac: Irregular Rhythm
GI: Distended
Musculoskeletal: Edema (tense LE edema with overyling erythema)
Skin: Warm and Dry
Neuro: AO x 3
Psych: Calm
Impression / Plan
-
PCP: Dr. Jade
Cardiology: Dr. Arce
Impression:
Acute on chronic HFpEF
Non [place] troponin elevation
Chronic hypoxic respiratory failure using 3.5 L NC at home
Dietary noncompliance
Preserved EF 55% by echo 11/2023
Paroxysmal Afib
Chronic amiodarone therapy
Chronic warfarin OAC
s/p AVR bioprosthetic mean gradient 10 mmHg by echo 04/2023
DM 2
Obesity, BMI 48.8
Echo 05/06/23: EF 55-60%, stage II diastolic dysfunction, mod MS with peak/mean 13/7 mmHg, well seated bioprosthetic AVR with peak/mean 16/10 mmHg and no aortic regurgitation
Echo 12/08/23: EF 55% with mild LVH, mild MS, mean grad 5 mmHg, bioAVR with mean grad 10 mmHg, mild TR with PASP 45 mmHg and no change from Apr 2023.
Plan:
#HFpEF
-[facility] and was admitted with acute on chronic HFpEF
-BNP 3k is highest recorded and CXR with pulm edema
-Weight is lower than at prior discharge, but possible this is inaccurate
-O2 requirements at baseline
-Etiology of his HF decompensation is unclear to me - may not be tolerating AFib and could consider DCCV prior to discharge
-Was receiving 80mg PO lasix BID and 2.5mg daily metolazone based on documentation from [place] - would consider discharging on bumex or torsemide as alternative diuretics
-Agree with Lasix 80 mg IV BID while inpatient
-Consider addition of metolazone PRN
-Encouraged leg elevation and Tubigrips, low Na diets
-Follow daily weights
-Trend Cr and replete lytes, hypoK POA
#AFib
-Rate controlled
-Possible that AFib contributed to CHF decompensation, could consider DCCV
-INRs managed by [facility] and INR goal is 2-3. INRs drawn at [facility]
#Troponin elevation
-No chest pain and ECG is non-ischemic appearing
-Suspect non-[place] troponin elevation
Data Reviewed
-
EKG: Tracing Personally Visualized and interpreted
Radiology: Report Reviewed by me
Medical Tests (Nuc Med, Echo etc): Report Reviewed by me
Labs: Labs Reviewed by me
Old Records: Reviewed
[2024-01-08] MEDS: LIPITOR 20 MG PO (21:14)
[2024-01-08] MEDS: ZETIA 10 MG PO (21:14)
[2024-01-08] MEDS: MELATONIN 10 MG PO (21:14)
[2024-01-08] MEDS: JARDIANCE 10 MG PO (21:14)
[2024-01-08] MEDS: LANTUS 0.220000000000000001 UNITS SC (22:04)
[2024-01-09] VITALS (10 sets, daily range): BP systolic 120–134; BP diastolic 52–69; PULSE 60–79; O2SAT 100; BMI 43.3
[2024-01-09 05:35] LABS: Hematocrit 33.1 % (39.0-52.0); Hemoglobin 10.3 g/dL (13.0-18.0); Mean Corp Hgb Conc. 31.1 g/dL (33.0-37.0); Mean Corpuscular Hgb 29.3 pg (27.0-31.0); Mean Corpuscular Volume 94.3 fL (80.0-94.0); Mean Platelet Volume 10.4 fL (7.4-10.4); Platelet Count 293 10^3/uL (130-400); Red Blood Cell Count 3.51 10^6/uL (4.70-6.10); Red Cell Dist. Width 15.5 % (11.5-14.5); White Blood Cell Count 4.9 10^3/uL (4.8-10.8)
[2024-01-09] MEDS: NOVOLOG FLEXPEN SC (05:48)
[2024-01-09 05:58] LABS: Blood Urea Nitrogen 24 mg/dl (9-20); Calcium 9.2 mg/dl (8.4-10.2); Chloride 86 mmol/L (98-107); Estimated Creatinine Clearance 39 ml/min; Glucose 141 mg/dl (70-99); Magnesium 2.7 mg/dl (1.6-2.3); Phosphorus 4.8 mg/dl (2.5-4.5); Potassium 3.1 mmol/L (3.5-5.1); Sodium 136 mmol/L (135-145); eGFR 36.89
[2024-01-09 06:09] LABS: Carbon Dioxide 36 mmol/L (22-30)
[2024-01-09 06:30] LABS: TSH Reflex To Free T4 2.07 uIU/ml (0.47-4.68)
[2024-01-09 07:13] LABS: Glucose - Point of Care 165 mg/dl (70-99)
[2024-01-09] MEDS: DUONEB 3 ML INH ×4 (07:57→21:08)
[2024-01-09 09:30] LABS: Troponin I 0.047 ng/ml
[2024-01-09] MEDS: MAG-TAB SR 84 MG PO (09:30)
[2024-01-09] MEDS: VITAMIN D3 (cholecalciferol) 50 MCG PO (09:30)
[2024-01-09] MEDS: ASPIR LOW (ENTERIC COATED) 81 MG PO (09:30)
[2024-01-09] MEDS: PACERONE 100 MG PO (09:30)
[2024-01-09] MEDS: LASIX 80 MG IV ×2 (09:31→17:43)
[2024-01-09] MEDS: NOVOLOG FLEXPEN-MODERATE RESISTANCE 1 UNITS SC ×2 (09:32→11:48)
[2024-01-09] MEDS: COSOPT EYE DROPS 1 DROP BOTH EYES ×2 (09:32→20:15)
[2024-01-09] MEDS: NOVOLOG FLEXPEN 5 UNITS SC ×3 (09:33→17:49)
[2024-01-09] MEDS: KLOR-CON PO (09:40)
[2024-01-09] MEDS: KCL 40 MEQ PO (09:43)
--- NOTE | 2024-01-09 10:37 | W.PN.HOSP.TC ---
Today's Communication/Plan
-
diuresis as per cardio
PT/OT
glycemic control
compressive bandaging, elevate lower ext's
replete potassium
Assessment / Plan
Assessment / Plan
Physical Exam
General: No pallor, cyanosis, or jaundice.
HEENT: Throat clear. PERRLA Normocephalic atraumatic
NECK: Supple. No JVD Carotid Bruits
RESPIRATORY: bibasilar crackles
CVS: Irregularly irregular No murmur, rub or gallop.
ABDOMEN: Soft, non-tender. distended/obese bowel sounds present
EXTREMITIES: +2 pitting edema lower ext's w/ associate erythema no tenderness
CUSTOMER OPERATIONS MANAGER: AOx3.
IMPRESSION:
83 male morbid obesity A-fib on Coumadin aortic stenosis status post bioprosthetic replacement coronary artery disease AMIE Chronic Resp Failure 3.5L HTN HLD DM CKDIII presents with progressive leg swelling past couple of weeks. ED evaluation
concerning for Heart Failure exacerbation, CXR noted mild pulm edema small b/l pleural effusions, BNP high 3810 increased from prior values, Troponin elevation 0.044 also noted. Denies chest pain. Vitals signs otherwise stable patient at his
baseline oxygen requirement 3.5L. Denies shortness of breath. Ambulates with Walker. Bibasilar crackles noted on auscultation. B/l lower exts +2 pitting edema erythematous but nontender.
PLAN:
#Progressive worsening lower ext swelling
#Possible Acute on Chronic HFpEF
# Aortic stenosis status post bioprosthetic aortic valve replacement
Tele Admit
Daily weights I/O
received IV lasix 80 mg once in ED
cont IV lasix 40 mg BID
Recent 11/2023 ECHO appreciated EF 55% stage II diastolic dysfunction Bioprosthetic aortic valve
Cardio eval appreciated
#Lower ext swelling possibly d/t progressive chronic lymphedema as oppose to HF
ARAVIND compressive bandages
Elevate Lower Ext's when at rest
#CKD III
initial Cr 1.9
Baseline appears to be 1.6-1.9
monitor renal function
avoid/minimize nephrotoxic medication/agent use.
#Hx of Chronic hypoxic respiratory failure on 3.5 L at baseline/ morbid obesity
#AMIE (severe) on CPAP 10 cwp s O2
#Pulm HTN
Primary pulmonary doctor is Dr. Walters
baseline respiratory status, cont home oxygen supplementation
CPAP bedtime
#Type 2 diabetes
recent A1c 8.November
moderate dose sliding scale
Cont Jardiance Lantus 22U HS Lispro 5U AC
monitor and titrate insulin regimen as necessary
cont weekly mounjaro, bringing in medication.
#Hypokalemia
monitor and replete as necessary
# Paroxysmal atrial fibrillation
#HTN
-Continue amiodarone, Coreg, Coumadin
-INR goal 2-3
# Morbid obesity BMI 44
#Coronary artery disease
#Mild troponin elevation, chest pain free
-Continue aspirin, statin
-initial Trop 0.044 suspect non-[place] related troponin elevation, follow up repeat trop, stop trending if trending down
#Hyperlipidemia
Continue Zetia statin
DVT prophylaxis�Coumadin
DNR/DNI as per patient and patient's Karine
I spent a total of 82 minutes with the patient or on the floor. More than 50% of this time involved counseling and coordination of care.
Anticipated Discharge: 24 - 48 hours
Subjective/Interval History
-
Date of Service: January 09, 2024
Seen and examined at bedside no acute distress sitting up comfortably in chair. Reports improvement in LE swelling. Karine present during evaluation.
Objective Data
-
Labs:
Laboratory Results
01/09/24
05:01
WBC 4.9
Hgb 10.3 L
Hct 33.1 L
Plt Count 293
Sodium 136
Potassium 3.1 L
Chloride 86 L
Carbon Dioxide 36 H
BUN 24 H
Creatinine 1.8 H
Glucose 141 H
Calcium 9.2
Vital Signs:
Vital Signs
Temp Pulse Resp BP Pulse Ox
97.8 F 73 16 124/67 99
01/09/24 07:03 01/09/24 08:01 01/09/24 08:01 01/09/24 07:03 01/09/24 08:01
I&O
01/08/24 01/09/24 01/10/24
06:59 06:59 06:59
Intake Total 360 / 360
Output Total 1944
Balance -1585 / -1585
[2024-01-09 11:42] LABS: Glucose - Point of Care 185 mg/dl (70-99)
[2024-01-09] MEDS: KCL 20 MEQ PO ×2 (11:47→20:15)
--- NOTE | 2024-01-09 11:52 | W.PN.CARDCBS ---
Today's Communication / Plan
-
Continue IV diuresis
Remains rate controlled atrial fibrillation on Coumadin
Impression / Plan
-
.
PCP: Dr. Jade
Cardiology: Dr. Arce
Impression:
Acute on chronic HFpEF
Non PR troponin elevation
Chronic hypoxic respiratory failure using 3.5 L NC at home
Dietary noncompliance
Preserved EF 55% by echo 11/2023
Paroxysmal Afib
Chronic amiodarone therapy
Chronic warfarin OAC
s/p AVR bioprosthetic mean gradient 10 mmHg by echo 04/2023
DM 2
Obesity, BMI 48.8
Echo 05/06/23: EF 55-60%, stage II diastolic dysfunction, mod MS with peak/mean 13/7 mmHg, well seated bioprosthetic AVR with peak/mean 16/10 mmHg and no aortic regurgitation
Echo 12/08/23: EF 55% with mild LVH, mild MS, mean grad 5 mmHg, bioAVR with mean grad 10 mmHg, mild TR with PASP 45 mmHg and no change from Apr 2023.
Plan:
Cont lasix 80 mg IB BID diuresis.
He was receiving 80 mg Lasix twice daily and 2.5 mg metolazone at [facility].
May need to consider discharging on alternative diuretic such as Bumex
His weight is lower than at discharge. It is possible that his dry weight is not accurate. He is morbidly obese.
Continue Tubigrips, encourage leg elevation.
Monitor daily weights I's and O's and creatinine.
Currently in rate controlled atrial fibrillation.
Continue Coumadin for INR goal 2-3.
If he remains in atrial fibrillation, may need to consider rhythm control therapy inpatient versus outpatient
Check EKG
Continue medical therapy of non-PR troponin, peak 0.052.
Discussed with at bedside.
Discussed with nursing.
Progress Note - Straightening Roll Operator
Subjective
Date of Service: January 09, 2024
Pt seen and examined. No complaints. No chest pain or shortness of breath.
Objective
Labs:
01/09/24 05:01
01/09/24 05:01
Labs
Hgb 10.3 g/dL (13.0-18.0) L 01/09/24 05:01
Hct 33.1 % (39.0-52.0) L 01/09/24 05:01
Plt Count 293 10^3/uL (130-400) 01/09/24 05:01
PT 22.4 Sec (11.4-14.6) H 01/08/24 13:45
INR 1.98 01/08/24 13:45
Sodium 136 mmol/L (135-145) 01/09/24 05:01
Potassium 3.1 mmol/L (3.5-5.1) L 01/09/24 05:01
BUN 24 mg/dl (9-20) H 01/09/24 05:01
Creatinine 1.8 mg/dL (0.7-1.3) H 01/09/24 05:01
Glucose 141 mg/dl (70-99) H 01/09/24 05:01
Troponins
01/08/24 01/08/24 01/09/24
13:45 18:31 08:42
Troponin I 0.044 H* 0.052 H* 0.047 H*
Vital Signs and I&O:
Vital Signs
Temp Pulse Resp BP Pulse Ox
97.8 F 75 16 124/67 99
01/09/24 07:03 01/09/24 11:13 01/09/24 11:13 01/09/24 07:03 01/09/24 08:01
Vital Signs
Temp Pulse Resp BP Pulse Ox
97.8 F 75 16 124/67 99
01/09/24 07:03 01/09/24 11:13 01/09/24 11:13 01/09/24 07:03 01/09/24 08:01
Intake & Output
01/07/24 01/08/24 01/09/24 01/10/24
06:59 06:59 06:59 06:59
Intake Total 360 / 360
Output Total 1944
Balance -1585 / -1585
Physical Exam
Physical Exam
General: No acute distress, AAOX3
Neck: Negative JVD
Heart: Regular, Negative S3 positive S1/S2, Negative S4, No murmur
Lungs: CTA b/l, negative wheezes/rales/rhonchi
Abd: Morbid obesity positive BS, NT/ND, neg rebound/rigidity/guarding
Ext: Negative cyanosis/clubbing. Bilateral edema, legs wrapped
Neuro: nonfocal
--- NOTE | 2024-01-09 14:23 | CM ---
Patient seen bedside with spouse in room.
IA completed.
Patient lives with spouse in a 2 story home with 2 steps to enter from the back, 1 from the front.
Patient has oxygen and Nani thru [employer].
Patient has walker, cane and crutches, usually uses walker.
PT/OT recommending home with VN.
Patient recently in [facility] and has had [facility] in the past.
PCP: Yasmany
Pharmacy:[facility]
Plan: home with [facility] referral placed.
[2024-01-09 17:19] LABS: Glucose - Point of Care 207 mg/dl (70-99)
[2024-01-09] MEDS: COUMADIN 2.5 MG PO (17:43)
[2024-01-09] MEDS: NOVOLOG FLEXPEN-MODERATE RESISTANCE 3 UNITS SC (17:49)
[2024-01-09 20:37] LABS: Glucose - Point of Care 186 mg/dl (70-99)
[2024-01-09] MEDS: MELATONIN 10 MG PO (21:23)
[2024-01-09] MEDS: LANTUS 0.220000000000000001 UNITS SC (21:23)
[2024-01-09] MEDS: LIPITOR 20 MG PO (21:24)
[2024-01-09] MEDS: JARDIANCE 10 MG PO (21:24)
[2024-01-09] MEDS: ZETIA 10 MG PO (21:24)
[2024-01-10] VITALS (7 sets, daily range): BP systolic 107–143; BP diastolic 56–75; PULSE 69; BMI 43.3
--- NOTE | 2024-01-10 07:09 | W.PN.HOSP.TC ---
Today's Communication/Plan
-
diuresis as per cardio
PT/OT
glycemic control
compressive bandaging, elevate lower ext's
replete potassium
Assessment / Plan
Assessment / Plan
Physical Exam
General: No pallor, cyanosis, or jaundice.
HEENT: Throat clear. PERRLA Normocephalic atraumatic
NECK: Supple. No JVD Carotid Bruits
RESPIRATORY: bibasilar crackles
CVS: Irregularly irregular No murmur, rub or gallop.
ABDOMEN: Soft, non-tender. distended/obese bowel sounds present
EXTREMITIES: +2 pitting edema lower ext's w/ associate erythema no tenderness
CIRCULATION SUPERVISOR: AOx3.
IMPRESSION:
83 male morbid obesity A-fib on Coumadin aortic stenosis status post bioprosthetic replacement coronary artery disease AMIE Chronic Resp Failure 3.5L HTN HLD DM CKDIII presents with progressive leg swelling past couple of weeks. ED evaluation
concerning for Heart Failure exacerbation, CXR noted mild pulm edema small b/l pleural effusions, BNP high 3810 increased from prior values, Troponin elevation 0.044 also noted. Denies chest pain. Vitals signs otherwise stable patient at his
baseline oxygen requirement 3.5L. Denies shortness of breath. Ambulates with Walker. Bibasilar crackles noted on auscultation. B/l lower exts +2 pitting edema erythematous but nontender.
PLAN:
#Progressive worsening lower ext swelling
#Possible Acute on Chronic HFpEF
# Aortic stenosis status post bioprosthetic aortic valve replacement
Tele Admit
Daily weights I/O
Recent 11/2023 ECHO appreciated EF 55% stage II diastolic dysfunction Bioprosthetic aortic valve
Cardio eval appreciated cont IV lasix 80 mg BID
#Lower ext swelling possibly d/t progressive chronic lymphedema as oppose to HF
ARAVIND compressive bandages
Elevate Lower Ext's when at rest
#CKD III
initial Cr 1.9
Baseline appears to be 1.6-1.9
monitor renal function
avoid/minimize nephrotoxic medication/agent use.
#Hx of Chronic hypoxic respiratory failure on 3.5 L at baseline/ morbid obesity
#AMIE (severe) on CPAP 10 cwp s O2
#Pulm HTN
Primary pulmonary doctor is Dr. Walters
baseline respiratory status, cont home oxygen supplementation
CPAP bedtime
#Type 2 diabetes
recent A1c 8.November
moderate dose sliding scale
Cont Jardiance Lantus 22U HS Lispro 5U AC
monitor and titrate insulin regimen as necessary
#Hypokalemia
monitor and replete as necessary
# Paroxysmal atrial fibrillation
#HTN
-Continue amiodarone, Coreg, Coumadin
-INR goal 2-3
# Morbid obesity BMI 44
#Coronary artery disease
#Mild troponin elevation, chest pain free
-Continue aspirin, statin
-initial Trop 0.044 suspect non-[place] related troponin elevation, follow up repeat trop, stop trending if trending down
#Hyperlipidemia
Continue Zetia statin
PT/OT appreciated home with home services
DVT prophylaxis�Coumadin
DNR/DNI
I spent a total of 82 minutes with the patient or on the floor. More than 50% of this time involved counseling and coordination of care.
Anticipated Discharge: 24 - 48 hours
Subjective/Interval History
-
Date of Service: January 10, 2024
No acute distress comfortable reports overall feeling well. Denies new acute issues at this time.
Objective Data
-
Labs:
Laboratory Results
01/10/24
06:00
WBC Pending
Hgb Pending
Hct Pending
Plt Count Pending
PT Pending
INR Pending
Sodium Pending
Potassium Pending
Chloride Pending
Carbon Dioxide Pending
BUN Pending
Creatinine Pending
Glucose Pending
Calcium Pending
Vital Signs:
Vital Signs
Temp Pulse Resp BP Pulse Ox
98.1 F 79 14 107/75 98
01/10/24 03:00 01/10/24 03:00 01/10/24 03:00 01/10/24 03:00 01/10/24 03:00
I&O
01/09/24 01/10/24 01/11/24
06:59 06:59 06:59
Intake Total 360 / 360 1260 / 1260
Output Total 1945 / 1945 1125 / 1125
Balance -1585 / -1585 135 / 135
[2024-01-10] MEDS: DUONEB 3 ML INH ×4 (07:19→18:16)
[2024-01-10 08:13] LABS: Glucose - Point of Care 151 mg/dl (70-99)
[2024-01-10] MEDS: LASIX 80 MG IV ×2 (08:37→16:24)
[2024-01-10] MEDS: KCL 20 MEQ PO ×2 (08:38→21:47)
[2024-01-10] MEDS: NOVOLOG FLEXPEN-MODERATE RESISTANCE 1 UNITS SC ×2 (08:38→16:59)
[2024-01-10] MEDS: PACERONE 100 MG PO (08:38)
[2024-01-10] MEDS: VITAMIN D3 (cholecalciferol) 50 MCG PO (08:38)
[2024-01-10] MEDS: MAG-TAB SR 84 MG PO (08:38)
[2024-01-10] MEDS: NOVOLOG FLEXPEN 5 UNITS SC ×3 (08:38→17:00)
[2024-01-10] MEDS: ASPIR LOW (ENTERIC COATED) 81 MG PO (08:38)
[2024-01-10] MEDS: COSOPT EYE DROPS 1 DROP BOTH EYES ×2 (08:39→21:47)
[2024-01-10 08:48] LABS: Hematocrit 35.4 % (39.0-52.0); Hemoglobin 10.8 g/dL (13.0-18.0); Mean Corp Hgb Conc. 30.5 g/dL (33.0-37.0); Mean Corpuscular Hgb 29.3 pg (27.0-31.0); Mean Corpuscular Volume 96.2 fL (80.0-94.0); Mean Platelet Volume 10.3 fL (7.4-10.4); Platelet Count 359 10^3/uL (130-400); Red Blood Cell Count 3.68 10^6/uL (4.70-6.10); Red Cell Dist. Width 15.4 % (11.5-14.5); White Blood Cell Count 5.6 10^3/uL (4.8-10.8)
[2024-01-10 08:57] LABS: INR 2.15; PT 23.8 Sec (11.4-14.6)
[2024-01-10 09:06] LABS: Blood Urea Nitrogen 27 mg/dl (9-20); Calcium 9.2 mg/dl (8.4-10.2); Chloride 84 mmol/L (98-107); Estimated Creatinine Clearance 37 ml/min; Glucose 147 mg/dl (70-99); Magnesium 2.5 mg/dl (1.6-2.3); Phosphorus 4.4 mg/dl (2.5-4.5); Potassium 3.3 mmol/L (3.5-5.1); Sodium 137 mmol/L (135-145); eGFR 34.57
[2024-01-10 09:17] LABS: Carbon Dioxide 43 mmol/L (22-30)
[2024-01-10 13:00] LABS: Glucose - Point of Care 248 mg/dl (70-99)
[2024-01-10] MEDS: NOVOLOG FLEXPEN-MODERATE RESISTANCE SC (13:05)
[2024-01-10] MEDS: KCL 40 MEQ PO (13:06)
--- NOTE | 2024-01-10 14:07 | PTCARENOTE ---
patient to remain on tele as per Dr Dean request due to pt receiving Lasix 80mg IV BID
[2024-01-10 16:51] LABS: Glucose - Point of Care 150 mg/dl (70-99)
[2024-01-10] MEDS: COUMADIN 2.5 MG PO (17:04)
--- NOTE | 2024-01-10 18:48 | ED TECH ---
Patient had removed hat from toilet stating he had thought we were no longer measuring his urine. Was informed that we are still measuring his urine.
--- NOTE | 2024-01-10 19:59 | W.PN.CARDCBS ---
Today's Communication / Plan
-
Cont IV diuresis
Impression / Plan
-
.
PCP: Dr. Jade
Cardiology: Dr. Arce
Impression:
Acute on chronic HFpEF
Non [place] troponin elevation
Chronic hypoxic respiratory failure using 3.5 L NC at home
Dietary noncompliance
Preserved EF 55% by echo 11/2023
Paroxysmal Afib
Chronic amiodarone therapy
Chronic warfarin OAC
s/p AVR bioprosthetic mean gradient 10 mmHg by echo 04/2023
DM 2
Obesity, BMI 48.8
Echo 05/06/23: EF 55-60%, stage II diastolic dysfunction, mod MS with peak/mean 13/7 mmHg, well seated bioprosthetic AVR with peak/mean 16/10 mmHg and no aortic regurgitation
Echo 12/08/23: EF 55% with mild LVH, mild MS, mean grad 5 mmHg, bioAVR with mean grad 10 mmHg, mild TR with PASP 45 mmHg and no change from Apr 2023.
Plan:
Cont lasix 80 mg IV BID diuresis.
He was receiving 80 mg Lasix twice daily and 2.5 mg metolazone at [facility].
May need to consider discharging on alternative diuretic such as Bumex
His weight is lower than at discharge. It is possible that his dry weight is not accurate. He is morbidly obese.
Continue Tubigrips, encourage leg elevation.
Monitor daily weights I's and O's and creatinine.
Remains in rate controlled atrial fibrillation.
Continue Coumadin for INR goal 2-3.
If he remains in atrial fibrillation, may need to consider rhythm control therapy inpatient versus outpatient
Continue medical therapy of non-[place] troponin, peak 0.052.
Discussed with at bedside last 24 hrs.
Discussed with nursing.
Progress Note - Pastry Decorator
Subjective
Date of Service: January 10, 2024
Pt seen and examined. No complaints. No chest pain or shortness of breath.
Objective
Labs:
01/10/24 08:13
01/10/24 08:13
Labs
Hgb 10.8 g/dL (13.0-18.0) L 01/10/24 08:13
Hct 35.4 % (39.0-52.0) L 01/10/24 08:13
Plt Count 359 10^3/uL (130-400) D 01/10/24 08:13
PT 23.8 Sec (11.4-14.6) H 01/10/24 08:13
INR 2.15 01/10/24 08:13
Sodium 137 mmol/L (135-145) 01/10/24 08:13
Potassium 3.3 mmol/L (3.5-5.1) L 01/10/24 08:13
BUN 27 mg/dl (9-20) H 01/10/24 08:13
Creatinine 1.9 mg/dL (0.7-1.3) H 01/10/24 08:13
Glucose 147 mg/dl (70-99) H 01/10/24 08:13
Troponins
01/08/24 01/08/24 01/09/24
13:45 18:31 08:42
Troponin I 0.044 H* 0.052 H* 0.047 H*
Vital Signs and I&O:
Vital Signs
Temp Pulse Resp BP Pulse Ox
97.7 F 81 18 129/60 100
01/10/24 19:23 01/10/24 19:23 01/10/24 19:23 01/10/24 19:23 01/10/24 19:23
Vital Signs
Temp Pulse Resp BP Pulse Ox
97.7 F 81 18 129/60 100
01/10/24 19:23 01/10/24 19:23 01/10/24 19:23 01/10/24 19:23 01/10/24 19:23
Intake & Output
01/08/24 01/09/24 01/10/24 01/11/24
06:59 06:59 06:59 06:59
Intake Total 360 / 360 1260 / 1260 1250 / 1250
Output Total 194 / 1944 1125 / 1125 550 / 550
Balance -1585 / -1585 135 / 135 700 / 700
Physical Exam
Physical Exam
General: No acute distress, AAOX3
Neck: Negative JVD
Heart: Irregularly irregular, Negative S3 positive S1/S2, Negative S4, No murmur
Lungs: CTA b/l, negative wheezes/rales/rhonchi
Abd: Morbid obesity, Positive BS, NT/ND, neg rebound/rigidity/guarding
Ext: Negative cyanosis/clubbing/edema
Neuro: nonfocal
[2024-01-10 21:29] LABS: Glucose - Point of Care 198 mg/dl (70-99)
[2024-01-10] MEDS: LIPITOR 20 MG PO (21:47)
[2024-01-10] MEDS: ZETIA 10 MG PO (21:47)
[2024-01-10] MEDS: LANTUS 0.220000000000000001 UNITS SC (21:48)
[2024-01-10] MEDS: MELATONIN 10 MG PO (21:48)
[2024-01-10] MEDS: JARDIANCE 10 MG PO (21:48)
[2024-01-11] VITALS (7 sets, daily range): BP systolic 107–144; BP diastolic 56–67; PULSE 74; BMI 43.0
[2024-01-11 07:26] LABS: Hematocrit 31.5 % (39.0-52.0); Hemoglobin 10.3 g/dL (13.0-18.0); Mean Corp Hgb Conc. 32.7 g/dL (33.0-37.0); Mean Corpuscular Volume 91.8 fL (80.0-94.0); Mean Platelet Volume 10.6 fL (7.4-10.4); Platelet Count 335 10^3/uL (130-400); Red Blood Cell Count 3.43 10^6/uL (4.70-6.10); Red Cell Dist. Width 15.6 % (11.5-14.5); White Blood Cell Count 5.8 10^3/uL (4.8-10.8)
[2024-01-11 07:39] LABS: INR 2.46; PT 26.5 Sec (11.4-14.6)
[2024-01-11 07:47] LABS: Glucose - Point of Care 165 mg/dl (70-99)
--- NOTE | 2024-01-11 07:47 | W.PN.HOSP.TC ---
Addendum entered and electronically signed by Lori Dean MD 01/11/24 23:47:
Non-DC related troponin elevation vs Non-ischemic myocardial injury
Original Note:
Today's Communication/Plan
-
diuresis as per cardio
PT/OT
glycemic control
compressive bandaging, elevate lower ext's
NPO after midnight for cardioversion
discharge planning home with home services
Assessment / Plan
Assessment / Plan
Physical Exam
General: No pallor, cyanosis, or jaundice.
HEENT: Throat clear. PERRLA Normocephalic atraumatic
NECK: Supple. No JVD Carotid Bruits
RESPIRATORY: bibasilar crackles
CVS: Irregularly irregular No murmur, rub or gallop.
ABDOMEN: Soft, non-tender. distended/obese bowel sounds present
EXTREMITIES: +2 pitting edema lower ext's w/ associate erythema no tenderness
SNOW RANGER: AOx3.
IMPRESSION:
83 male morbid obesity A-fib on Coumadin aortic stenosis status post bioprosthetic replacement coronary artery disease AMIE Chronic Resp Failure 3.5L HTN HLD DM CKDIII presents with progressive leg swelling past couple of weeks. ED evaluation
concerning for Heart Failure exacerbation, CXR noted mild pulm edema small b/l pleural effusions, BNP high 3810 increased from prior values, Troponin elevation 0.044 also noted. Denies chest pain. Vitals signs otherwise stable patient at his
baseline oxygen requirement 3.5L. Denies shortness of breath. Ambulates with Walker. Bibasilar crackles noted on auscultation. B/l lower exts +2 pitting edema erythematous but nontender.
PLAN:
#Progressive worsening lower ext swelling
#Possible Acute on Chronic HFpEF
# Aortic stenosis status post bioprosthetic aortic valve replacement
Tele Admit
Daily weights I/O
Recent 11/2023 ECHO appreciated EF 55% stage II diastolic dysfunction Bioprosthetic aortic valve
Cardio eval appreciated IV lasix 80 mg BID transitioned to Bumex 2 mg BID, npo after midnight for cardioversion
#Lower ext swelling possibly d/t progressive chronic lymphedema as oppose to HF
ARAVIND compressive bandages
Elevate Lower Ext's when at rest
#CKD III
initial Cr 1.9
Baseline appears to be 1.6-1.9
monitor renal function
avoid/minimize nephrotoxic medication/agent use.
#Hx of Chronic hypoxic respiratory failure on 3.5 L at baseline/ morbid obesity
#AMIE (severe) on CPAP 10 cwp s O2
#Pulm HTN
Primary pulmonary doctor is Dr. Walters
baseline respiratory status, cont home oxygen supplementation
CPAP bedtime
#Type 2 diabetes
recent A1c 8.November
moderate dose sliding scale
Cont Jardiance Lantus 22U HS Lispro 5U AC
monitor and titrate insulin regimen as necessary
#Hypokalemia
monitor and replete as necessary
# Paroxysmal atrial fibrillation
#HTN
-Continue amiodarone, Coreg, Coumadin
-INR goal 2-3
# Morbid obesity BMI 44
#Coronary artery disease
#Mild troponin elevation, chest pain free
-Continue aspirin, statin
-troponin trended to peak 0.052
#Hyperlipidemia
Continue Zetia statin
PT/OT appreciated home with home services
DVT prophylaxis�Coumadin
DNR/DNI
I spent a total of 55 minutes with the patient or on the floor. More than 50% of this time involved counseling and coordination of care.
Anticipated Discharge: 24 - 48 hours
Subjective/Interval History
-
Date of Service: January 11, 2024
Reports overall feeling well. Denies new acute issues at this time.
Objective Data
-
Labs:
Laboratory Results
01/11/24
07:00
WBC 5.8
Hgb 10.3 L
Hct 31.5 L
Plt Count 335
PT Pending
INR Pending
Sodium Pending
Potassium Pending
Chloride Pending
Carbon Dioxide Pending
BUN Pending
Creatinine Pending
Glucose Pending
Calcium Pending
Vital Signs:
Vital Signs
Temp Pulse Resp BP Pulse Ox
97.8 F 84 20 118/57 98
01/11/24 03:07 01/11/24 03:07 01/11/24 03:07 01/11/24 03:07 01/11/24 03:07
I&O
01/10/24 01/11/24 01/12/24
06:59 06:59 06:59
Intake Total 1260 / 1260 1730 / 1730
Output Total 1125 / 1125 1450 / 1450
Balance 135 / 135 280 / 280
[2024-01-11 07:59] LABS: Blood Urea Nitrogen 34 mg/dl (9-20); Calcium 9.1 mg/dl (8.4-10.2); Chloride 85 mmol/L (98-107); Estimated Creatinine Clearance 42 ml/min; Glucose 149 mg/dl (70-99); Magnesium 2.5 mg/dl (1.6-2.3); Phosphorus 4.6 mg/dl (2.5-4.5); Potassium 3.8 mmol/L (3.5-5.1); Sodium 135 mmol/L (135-145); eGFR 39.51
[2024-01-11 08:10] LABS: Carbon Dioxide 43 mmol/L (22-30)
[2024-01-11] MEDS: DUONEB 3 ML INH ×4 (08:31→20:11)
[2024-01-11] MEDS: NOVOLOG FLEXPEN-MODERATE RESISTANCE 1 UNITS SC (08:40)
[2024-01-11] MEDS: NOVOLOG FLEXPEN 5 UNITS SC ×3 (08:40→17:10)
[2024-01-11] MEDS: ASPIR LOW (ENTERIC COATED) 81 MG PO (08:42)
[2024-01-11] MEDS: KCL 20 MEQ PO ×2 (08:42→21:41)
[2024-01-11] MEDS: MAG-TAB SR 84 MG PO (08:42)
[2024-01-11] MEDS: LASIX 80 MG IV (08:42)
[2024-01-11] MEDS: VITAMIN D3 (cholecalciferol) 50 MCG PO (08:42)
[2024-01-11] MEDS: PACERONE 100 MG PO (08:43)
[2024-01-11] MEDS: VITAMIN B-12 2500 MCG PO (08:44)
[2024-01-11] MEDS: COSOPT EYE DROPS 1 DROP BOTH EYES ×2 (08:45→21:41)
--- NOTE | 2024-01-11 11:23 | VNURNOTE ---
Home Health Liaison met with patient at 1030 to discuss [facility] nurse/therapy, visits, schedule and homebound status. Patient is agreeable and understands that visits at home will be 2-3 x per week to assess and teach medical management. Patient stated
that he has a scale and is able to log a daily weight when reminded by is .
[facility] contact information provided. Patient is aware that [facility] will contact him for start of care in 1-2 days after discharge from .
[facility] referral completed in [facility].
[2024-01-11 11:49] LABS: Glucose - Point of Care 200 mg/dl (70-99)
[2024-01-11] MEDS: NOVOLOG FLEXPEN-MODERATE RESISTANCE 3 UNITS SC ×2 (11:56→17:10)
--- NOTE | 2024-01-11 12:37 | W.PN.CARDCBS ---
Addendum entered and electronically signed by Cy Hurtado MD 01/11/24 13:28:
I saw and examined the patient.
The PARTNERSHIP DEVELOPMENT MANAGER or PA's note was reviewed and I agree with the note.
Comment: General: Well developed, well nourished in NAD.
Neck: Supple, no JVD, HJR, carotids +2 B/L, no bruits bilaterally.
Heart: Non displaced PMI, Irreg, no murmurs, No S3, S4, no rubs.
Lungs: Clear to auscultation bilaterally, no wheeze, rhonchi, rubs bilaterally,
normal expiratory phase.
Extremities: No clubbing, cyanosis or edema bilaterally.
Neuro: Grossly nonfocal, awake, alert and oriented x3.
He seems to be much improved and ambulating on his baseline 2 L of oxygen. Family is insisting on cardioversion and they understand the likelihood is very high for recurrence and not likely contributing to clinical status. Will do cardioversion in
a.m.
Original Note:
Today's Communication / Plan
-
Transition to oral Bumex
Replete potassium
Make n.p.o. after midnight
Likely cardioversion 01/12/2024
Impression / Plan
-
.
PCP: Dr. Jade
Cardiology: Dr. Arce
Impression:
Acute on chronic HFpEF
Non [place] troponin elevation
Chronic hypoxic respiratory failure using 3.5 L NC at home
Dietary noncompliance
Preserved EF 55% by echo 11/2023
Paroxysmal Afib
Chronic amiodarone therapy
Chronic warfarin OAC
s/p AVR bioprosthetic mean gradient 10 mmHg by echo 04/2023
DM 2
Obesity, BMI 48.8
Echo 05/06/23: EF 55-60%, stage II diastolic dysfunction, mod MS with peak/mean 13/7 mmHg, well seated bioprosthetic AVR with peak/mean 16/10 mmHg and no aortic regurgitation
Echo 12/08/23: EF 55% with mild LVH, mild MS, mean grad 5 mmHg, bioAVR with mean grad 10 mmHg, mild TR with PASP 45 mmHg and no change from Apr 2023.
Plan:
Weight down several lbs since admission and lower than previous d/c weight
Transition to oral Bumex 2 mg BID.
He was also getting metolazone at [email or web address]. Will monitor response to Bumex. May need to add back Metolazone 1-2 times a week
Creat trending down 1.9->1.7
K+ 3.8 will replete, give additional 40 meq
He is morbidly obese.
Continue Tubigrips, encourage leg elevation.
Monitor daily weights I's and O's and creatinine.
Remains in rate controlled atrial fibrillation.
Continue Coumadin for INR goal 2-3. INR 2.46
He remains in atrial fibrillation, rates reasonably controlled. Concerned that A-fib may be contributing to exacerbation of heart failure. Patient and both favor undergoing cardioversion prior to discharge. Will tentatively add on 01/12/2024
once INR is confirmed that they have been therapeutic for 4 weeks as outpatient
Continue medical therapy of non-[place] troponin, peak 0.052.
Discussed with at bedside last 24 hrs.
Discussed with nursing.
Progress Note - Pile Header
Subjective
Date of Service: January 11, 2024
Patient seen and examined. Patient sitting up in chair. Patient reports he is feeling well with improved edema and less short of breath. Still on oxygen
Objective
Labs:
01/11/24 07:00
01/11/24 07:00
Labs
Hgb 10.3 g/dL (13.0-18.0) L 01/11/24 07:00
Hct 31.5 % (39.0-52.0) L 01/11/24 07:00
Plt Count 335 10^3/uL (130-400) 01/11/24 07:00
PT 26.5 Sec (11.4-14.6) H 01/11/24 07:00
INR 2.46 01/11/24 07:00
Sodium 135 mmol/L (135-145) 01/11/24 07:00
Potassium 3.8 mmol/L (3.5-5.1) 01/11/24 07:00
BUN 34 mg/dl (9-20) H 01/11/24 07:00
Creatinine 1.7 mg/dL (0.7-1.3) H 01/11/24 07:00
Glucose 149 mg/dl (70-99) H 01/11/24 07:00
Troponins
01/08/24 01/08/24 01/09/24
13:45 18:31 08:42
Troponin I 0.044 H* 0.052 H* 0.047 H*
Vital Signs and I&O:
Vital Signs
Temp Pulse Resp BP Pulse Ox
97.4 F 92 16 122/67 97
01/11/24 11:10 01/11/24 12:03 01/11/24 12:03 01/11/24 11:10 01/11/24 12:03
Vital Signs
Temp Pulse Resp BP Pulse Ox
97.4 F 92 16 122/67 97
01/11/24 11:10 01/11/24 12:03 01/11/24 12:03 01/11/24 11:10 01/11/24 12:03
Intake & Output
01/09/24 01/10/24 01/11/24 01/12/24
06:59 06:59 06:59 06:59
Intake Total 360 / 360 1260 / 1260 1730 / 1730
Output Total 194 / 1945 1125 / 1125 1450 / 1450
Balance -1585 / -1585 135 / 135 280 / 280
Physical Exam
Physical Exam
GEN: No distress, awake, Ox3 sitting up in chair wearing oxygen
HEENT: supple, anicteric, mmm
LUNGS: Few scattered crackles at bilateral bases CTA, no wheezes/rales; wearing oxygen
CV: Irregularly irregular, S1/S2, no murmur, rub or Gallop
ABD: Morbidly obese, soft, BS+, NT/ND
EXT: +1 bilateral lower extremity edema, legs in Asad wrap's
NEURO: Gross non-focal
SKIN: No rash, warm, dry, pink
[2024-01-11] MEDS: KCL 40 MEQ PO (13:13)
--- NOTE | 2024-01-11 13:38 | PN.CDI ---
CDI
- -
CDI:
Physician Documentation Request
Admit Date: 01/08/24 17:05
Dear Doctor Jermaine,
Please review the following and provide your response in the progress notes.
Clinical Indicators:
- 01/09 PN 'Mild troponin elevation...suspect non-[place] related troponin elevation'
Laboratory Tests
01/08/24 01/08/24 01/09/24
13:45 18:31 08:42
Troponin I 0.044 H* 0.052 H* 0.047 H*
Please clarify the following regarding the documented elevated troponins:
Non-ischemic myocardial injury
Clinically insignificant abnormal lab value
Other
Use of terms such as suspected, likely, concern for, or probable (associated with a specific diagnosis that is being evaluated, monitored, or treated as if it exists) are acceptable and can be coded in the inpatient setting, when documented at the
time of discharge.
Thank you,
Latrell Moody RN
CDI Specialist
Please use your independent medical judgment in providing your response.
--- NOTE | 2024-01-11 14:25 | CM ---
Chart reviewed and patient's plan is to return to home with [facility], [facility] liaison contacted, patient lives with spouse and has home oxygen in home from [employer] at 2 liters.
Plan; Home with [facility].
[2024-01-11] MEDS: BUMEX 2 MG PO (15:05)
[2024-01-11 16:41] LABS: Glucose - Point of Care 213 mg/dl (70-99)
[2024-01-11] MEDS: COUMADIN 2.5 MG PO (17:11)
[2024-01-11 21:24] LABS: Glucose - Point of Care 199 mg/dl (70-99)
[2024-01-11] MEDS: LIPITOR 20 MG PO (21:41)
[2024-01-11] MEDS: LANTUS 0.220000000000000001 UNITS SC (21:41)
[2024-01-11] MEDS: ZETIA 10 MG PO (21:41)
[2024-01-11] MEDS: JARDIANCE 10 MG PO (21:41)
[2024-01-11] MEDS: MELATONIN 10 MG PO (21:41)
[2024-01-12] VITALS (11 sets, daily range): BP systolic 108–148; BP diastolic 59–95; PULSE 71–110; O2SAT 2–99; BMI 42.7
[2024-01-12 06:06] LABS: Glucose - Point of Care 203 mg/dl (70-99)
[2024-01-12 06:11] LABS: INR 2.79; PT 29.3 Sec (11.4-14.6)
[2024-01-12 06:27] LABS: Hematocrit 33.8 % (39.0-52.0); Hemoglobin 10.3 g/dL (13.0-18.0); Mean Corp Hgb Conc. 30.5 g/dL (33.0-37.0); Mean Corpuscular Hgb 29.8 pg (27.0-31.0); Mean Corpuscular Volume 97.7 fL (80.0-94.0); Mean Platelet Volume 10.3 fL (7.4-10.4); Platelet Count 394 10^3/uL (130-400); Red Blood Cell Count 3.46 10^6/uL (4.70-6.10); Red Cell Dist. Width 15.5 % (11.5-14.5)
[2024-01-12 07:04] LABS: Blood Urea Nitrogen 33 mg/dl (9-20); Calcium 9.5 mg/dl (8.4-10.2); Chloride 85 mmol/L (98-107); Estimated Creatinine Clearance 37 ml/min; Glucose 179 mg/dl (70-99); Magnesium 2.4 mg/dl (1.6-2.3); Phosphorus 4.3 mg/dl (2.5-4.5); Potassium 3.8 mmol/L (3.5-5.1); Sodium 137 mmol/L (135-145); eGFR 34.57
[2024-01-12 07:15] LABS: Carbon Dioxide 41 mmol/L (22-30)
[2024-01-12] MEDS: DUONEB 3 ML INH ×4 (08:04→20:32)
[2024-01-12] MEDS: BUMEX 2 MG PO ×2 (08:54→17:16)
[2024-01-12] MEDS: ASPIR LOW (ENTERIC COATED) 81 MG PO (08:54)
[2024-01-12] MEDS: PACERONE 100 MG PO (08:55)
[2024-01-12] MEDS: KCL 20 MEQ PO ×3 (08:55→20:27)
[2024-01-12] MEDS: VITAMIN D3 (cholecalciferol) 50 MCG PO (08:55)
[2024-01-12] MEDS: COSOPT EYE DROPS 1 DROP BOTH EYES ×2 (08:56→20:26)
[2024-01-12] MEDS: MAG-TAB SR 84 MG PO (08:56)
[2024-01-12] MEDS: NOVOLOG FLEXPEN-MODERATE RESISTANCE 3 UNITS SC (08:57)
[2024-01-12] MEDS: NOVOLOG FLEXPEN 5 UNITS SC ×2 (08:58→17:19)
--- NOTE | 2024-01-12 09:03 | W.PN.HOSP.TC ---
Today's Communication/Plan
-
see bold
Assessment / Plan
Assessment / Plan
IMPRESSION:
83 male morbid obesity A-fib on Coumadin aortic stenosis status post bioprosthetic replacement coronary artery disease AMIE Chronic Resp Failure 3.5L HTN HLD DM CKDIII presents with progressive leg swelling past couple of weeks. ED evaluation
concerning for Heart Failure exacerbation, CXR noted mild pulm edema small b/l pleural effusions, BNP high 3810 increased from prior values, Troponin elevation 0.044 also noted. Denies chest pain. Vitals signs otherwise stable patient at his
baseline oxygen requirement 3.5L. Denies shortness of breath. Ambulates with Walker. Bibasilar crackles noted on auscultation. B/l lower exts +2 pitting edema erythematous but nontender.
PLAN:
#Progressive worsening lower ext swelling
#Possible Acute on Chronic HFpEF
# Aortic stenosis status post bioprosthetic aortic valve replacement
Tele Admit
Daily weights I/O
Recent 11/2023 ECHO appreciated EF 55% stage II diastolic dysfunction Bioprosthetic aortic valve
Cardio eval appreciated IV lasix 80 mg BID transitioned to Bumex 2 mg BID, npo after midnight for cardioversion
#Lower ext swelling possibly d/t progressive chronic lymphedema as oppose to HF
ARAVIND compressive bandages
Elevate Lower Ext's when at rest
#Bilateral lower ankle pain
Denies trauma, no pain upon palpation
Possibly from peripheral neuropathy
Trial of gabapentin
#CKD III
initial Cr 1.9
Baseline appears to be 1.6-1.9
monitor renal function
avoid/minimize nephrotoxic medication/agent use.
#Hx of Chronic hypoxic respiratory failure on 3.5 L at baseline/ morbid obesity
#AMIE (severe) on CPAP 10 cwp s O2
#Pulm HTN
Primary pulmonary doctor is Dr. Walters
baseline respiratory status, cont home oxygen supplementation
CPAP bedtime
#Type 2 diabetes
recent A1c 8.November
moderate dose sliding scale
Cont Jardiance Lantus 22U HS Lispro 5U AC
monitor and titrate insulin regimen as necessary
#Hypokalemia
monitor and replete as necessary
# Paroxysmal atrial fibrillation
#HTN
-Continue amiodarone, Coreg, Coumadin
-INR goal 2-3
# Morbid obesity BMI 44
#Coronary artery disease
#Mild troponin elevation, chest pain free
-Continue aspirin, statin
-troponin trended to peak 0.052
#Hyperlipidemia
Continue Zetia statin
PT/OT appreciated home with home services
DVT prophylaxis�Coumadin
DNR/DNI
Physical Exam
General: Obese. No pallor, cyanosis, or jaundice.
HEENT: Throat clear. PERRLA Normocephalic atraumatic
NECK: Supple. No JVD Carotid Bruits
RESPIRATORY: bibasilar crackles
CVS: Irregularly irregular No murmur, rub or gallop.
ABDOMEN: Soft, non-tender. distended/obese bowel sounds present
EXTREMITIES: +2 pitting edema lower ext's w/ associate erythema no tenderness
VICE PRESIDENT COMPLIANCE: AOx3.
Anticipated Discharge: 24 - 48 hours
Subjective/Interval History
-
Date of Service: January 12, 2024
Patient complains of bilateral ankle pain while walking. Denies trauma. No chest pain, no shortness of breath. No fever, no vomiting.
Objective Data
-
Labs:
Laboratory Results
01/12/24
05:34
WBC 6.0
Hgb 10.3 L
Hct 33.8 L
Plt Count 394
PT 29.3 H
INR 2.79
Sodium 137
Potassium 3.8
Chloride 85 L
Carbon Dioxide 41 H
BUN 33 H
Creatinine 1.9 H
Glucose 179 H
Calcium 9.5
Vital Signs:
Vital Signs
Temp Pulse Resp BP Pulse Ox
97.9 F 63 18 148/66 99
01/12/24 07:00 01/12/24 08:07 01/12/24 08:07 01/12/24 07:00 01/12/24 08:07
I&O
01/11/24 01/12/24 01/13/24
06:59 06:59 06:59
Intake Total 1730 / 1730 600 / 600
Output Total 1450 / 1450 3200 / 3200
Balance 280 / 280 -2600 / -2600
[2024-01-12 11:53] LABS: Glucose - Point of Care 152 mg/dl (70-99)
--- NOTE | 2024-01-12 12:50 | ITS.CL.CARDI ---
[facility] - Cardioversion
Cardioversion
Procedure Report:
Procedure: Direct current electrical cardioversion
Pre-operative diagnosis: Persistent atrial fibrillation
Post-operative diagnosis: Persistent atrial fibrillation status post DC cardioversion to sinus rhythm
Anesthesia: MAC
Attending Physician: Long Knight MD
Procedure Description: The patient was brought to the electrophysiology laboratory in the fasting state. Adherence to anticoagulation regimen was confirmed. Informed consent was obtained from the patient prior to the start of the procedure.
Electrodes were placed on the patient and connected to an external defibrillator. Monitoring of blood pressure, ECG tracings, and pulse oximetry was initiated. The pads were applied to the patient in the anterior and posterior positions. The patient
was sedated by the anesthesiologist. A 200 joule biphasic synchronized shock was delivered to the patient under MAC anesthesia. Sinus rhythm was successfully restored. The patient recovered uneventfully from MAC anesthesia. There were no immediate
post-procedure complications. The patient left the lab in good condition. The attending physician was present throughout the entire procedure.
Impression: Successful direct current cardioversion with worship of sinus rhythm after one 200 joule biphasic synchronized shock.
[2024-01-12] MEDS: NOVOLOG FLEXPEN SC (13:04)
[2024-01-12] MEDS: NOVOLOG FLEXPEN-MODERATE RESISTANCE SC (13:09)
--- NOTE | 2024-01-12 13:32 | W.PN.CARDCBS ---
Addendum entered and electronically signed by Long Knight MD 01/12/24 17:42:
I saw and examined the patient.
The Detail Assembler's note was reviewed and I agree with the note.
Comment: Briefly, 83-year-old man past medical history of heart failure with preserved ejection fraction and paroxysmal atrial fibrillation presenting in decompensated heart failure
Difficult volume assessment however his weights are down significantly with IV diuresis and he has no significant peripheral edema
He has been transitioned to p.o. Bumex, would continue current dosing on discharge
Regards to his atrial fibrillation, he underwent successful cardioversion earlier today
Plan to increase amiodarone dosing to 200 mg twice daily for the next 2 weeks and then decrease down to 200 mg daily
Stable cardiac status
We will sign off, please recall as needed
Original Note:
Today's Communication / Plan
-
Successful CV today
Increase Amiodarone to 200 mg BID until 01/27/2024 then start 200 mg daily 01/28/24
Monitor INR closely with increase in Amio
Continue PO Bumex BID
Replete K+
anticipate d/c w/in next 24 hours
Impression / Plan
-
.
PCP: Dr. Jade
Cardiology: Dr. Arce
Impression:
Acute on chronic HFpEF
Non [place] troponin elevation
Chronic hypoxic respiratory failure using 3.5 L NC at home
Dietary noncompliance
Preserved EF 55% by echo 11/2023
Paroxysmal Afib
Chronic amiodarone therapy
Chronic warfarin OAC
s/p AVR bioprosthetic mean gradient 10 mmHg by echo 04/2023
DM 2
Obesity, BMI 48.8
Echo 05/06/23: EF 55-60%, stage II diastolic dysfunction, mod MS with peak/mean 13/7 mmHg, well seated bioprosthetic AVR with peak/mean 16/10 mmHg and no aortic regurgitation
Echo 12/08/23: EF 55% with mild LVH, mild MS, mean grad 5 mmHg, bioAVR with mean grad 10 mmHg, mild TR with PASP 45 mmHg and no change from Apr 2023.
Plan:
Heart failure with preserved EF
Weight down several lbs since admission and lower than previous d/c weights
Transited 01/11/2024 to oral Bumex 2 mg BID. Lost another 2 lbs overnight
He was also getting metolazone at [facility]. Will monitor response to Bumex. May need to add back Metolazone 1-2 times a week but would hold at this time given bump in creat
Creat trending up 1.9->1.7->1.9
K+ 3.8 will replete, give additional 40 meq
He is morbidly obese.
Continue Tubigrips, encourage leg elevation.
Monitor daily weights I's and O's and creatinine.
Persistent atrial fibrillation.
Underwent successful CV 200 J on 01/12/24
Has been on low dose Amio 100 mg daily.. Given high risk for recurrence of PAF would Increase Amiodarone to 200 mg BID x 2 weeks the reduce to 200 mg daily 01/28/2024.
Continue Coumadin for INR goal 2-3. INR 2.79
Continue medical therapy of non-[place] troponin, peak 0.052.
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
Subjective
Date of Service: January 12, 2024
Pt seen and examined post CV. Now in Sinus rhythm.
Objective
Labs:
01/12/24 05:34
01/12/24 05:34
Labs
Hgb 10.3 g/dL (13.0-18.0) L 01/12/24 05:34
Hct 33.8 % (39.0-52.0) L 01/12/24 05:34
Plt Count 394 10^3/uL (130-400) 01/12/24 05:34
PT 29.3 Sec (11.4-14.6) H 01/12/24 05:34
INR 2.79 01/12/24 05:34
Sodium 137 mmol/L (135-145) 01/12/24 05:34
Potassium 3.8 mmol/L (3.5-5.1) 01/12/24 05:34
BUN 33 mg/dl (9-20) H 01/12/24 05:34
Creatinine 1.9 mg/dL (0.7-1.3) H 01/12/24 05:34
Glucose 179 mg/dl (70-99) H 01/12/24 05:34
Vital Signs and I&O:
Vital Signs
Temp Pulse Resp BP Pulse Ox
97.9 F 85 16 108/68 100
01/12/24 11:00 01/12/24 12:11 01/12/24 12:11 01/12/24 11:00 01/12/24 12:11
Vital Signs
Temp Pulse Resp BP Pulse Ox
97.9 F 85 16 108/68 100
01/12/24 11:00 01/12/24 12:11 01/12/24 12:11 01/12/24 11:00 01/12/24 12:11
Intake & Output
01/10/24 01/11/24 01/12/24 01/13/24
06:59 06:59 06:59 06:59
Intake Total 1260 / 1260 1730 / 1730 600 / 600
Output Total 1125 / 1125 1450 / 1450 3200 / 3200
Balance 135 / 135 280 / 280 -2600 / -2600
Physical Exam
Physical Exam
GEN: No distress, awake, Ox3 sitting up in chair wearing oxygen
HEENT: supple, anicteric, mmm
LUNGS: Few scattered crackles at bilateral bases, no wheezes/rales; wearing oxygen
CV: Reg rate and rhythm, S1/S2, no murmur, rub or Gallop
ABD: Morbidly obese, soft, BS+, NT/ND
EXT: +1 bilateral lower extremity edema, legs in Asad wrap's
NEURO: Gross non-focal
SKIN: No rash, warm, dry, pink
[2024-01-12] MEDS: NEURONTIN 100 MG PO ×3 (13:44→20:28)
--- NOTE | 2024-01-12 14:45 | W.HF.CON ---
Heart Failure
- LV Function
Left ventricular function study result: LV Ejection fraction >40% (ECHO 12/08/23)
Ejection Fraction Percentage: 55
- ARNI
Patient already on ARNI: No
Heart Failure ARNI Not Indicated: LV Ejection Fraction >/= 40%
- ACEI/ARB
Patient already on ACEI/ARB: No
Heart Failure ACEI/ARB Not Indicated: LV Ejection Fraction > 40%
- Beta Tony
Heart Failure Evidence Based Beta Tony Not Indicated: LV Ejection Fraction > 40%
- Mineralocorticord Receptor Antagonist
Patient already on MRA: No
Heart Failure MRA Not Indicated: LV Ejection Fraction > 40%
- SGLT-2 Inhibitor
Patient already on SGLT-2 Inhibitor: Yes
- Afib Anticoagulation
Patient already on Anticoagulation for Afib: Yes
- NYHA CHF Classification
NYHA CHF Classification Level: Class III - Symptoms w/ min exertion, interferes w/ nml daily activity
- ACC/AHA Stage
ACC/AHA Stage: Stage C: Symptomatic Heart Failure
--- NOTE | 2024-01-12 14:59 | CM ---
Chart reviewed and patient's plan remains to return to home with [facility]. Patient has home oxygen from [employer].
Plan; Home with spouse and [facility].
[2024-01-12 17:07] LABS: Glucose - Point of Care 261 mg/dl (70-99)
[2024-01-12] MEDS: COUMADIN 2.5 MG PO (17:17)
[2024-01-12] MEDS: NOVOLOG FLEXPEN-MODERATE RESISTANCE 5 UNITS SC (17:18)
[2024-01-12] MEDS: MELATONIN 10 MG PO (20:27)
[2024-01-12] MEDS: PACERONE 200 MG PO (20:27)
[2024-01-12] MEDS: LIPITOR 20 MG PO (20:27)
[2024-01-12] MEDS: ZETIA 10 MG PO (20:28)
[2024-01-12] MEDS: JARDIANCE 10 MG PO (21:26)
[2024-01-12] MEDS: LANTUS 0.220000000000000001 UNITS SC (21:26)
[2024-01-12 21:33] LABS: Glucose - Point of Care 182 mg/dl (70-99)
[2024-01-13 03:05] VITALS: BP 126/67
[2024-01-13 04:56] VITALS: BMI 42.4
[2024-01-13 05:15] LABS: Hemoglobin 10.4 g/dL (13.0-18.0); Mean Corp Hgb Conc. 31.5 g/dL (33.0-37.0); Mean Corpuscular Hgb 29.7 pg (27.0-31.0); Mean Corpuscular Volume 94.3 fL (80.0-94.0); Mean Platelet Volume 10.1 fL (7.4-10.4); Platelet Count 409 10^3/uL (130-400); Red Cell Dist. Width 15.6 % (11.5-14.5); White Blood Cell Count 6.1 10^3/uL (4.8-10.8)
[2024-01-13 05:27] LABS: INR 2.97; PT 30.9 Sec (11.4-14.6)
[2024-01-13 05:44] LABS: Blood Urea Nitrogen 35 mg/dl (9-20); Calcium 9.8 mg/dl (8.4-10.2); Chloride 85 mmol/L (98-107); Estimated Creatinine Clearance 39 ml/min; Glucose 179 mg/dl (70-99); Phosphorus 4.6 mg/dl (2.5-4.5); Potassium 3.5 mmol/L (3.5-5.1); eGFR 36.89
[2024-01-13 05:54] LABS: Carbon Dioxide 39 mmol/L (22-30); Magnesium 2.5 mg/dl (1.6-2.3); Sodium 138 mmol/L (135-145)
[2024-01-13] MEDS: DUONEB 3 ML INH ×2 (07:24→11:19)
--- NOTE | 2024-01-13 07:33 | W.PN.HOSP.TC ---
Today's Communication/Plan
-
Discharge today
Assessment / Plan
Assessment / Plan
IMPRESSION:
83 male morbid obesity A-fib on Coumadin aortic stenosis status post bioprosthetic replacement coronary artery disease AMIE Chronic Resp Failure 3.5L HTN HLD DM CKDIII presents with progressive leg swelling past couple of weeks. ED evaluation
concerning for Heart Failure exacerbation, CXR noted mild pulm edema small b/l pleural effusions, BNP high 3810 increased from prior values, Troponin elevation 0.044 also noted. Denies chest pain. Vitals signs otherwise stable patient at his
baseline oxygen requirement 3.5L. Denies shortness of breath. Ambulates with Walker. Bibasilar crackles noted on auscultation. B/l lower exts +2 pitting edema erythematous but nontender.
PLAN:
#Progressive worsening lower ext swelling
#Possible Acute on Chronic HFpEF
# Aortic stenosis status post bioprosthetic aortic valve replacement
Tele Admit
Daily weights I/O
Recent 11/2023 ECHO appreciated EF 55% stage II diastolic dysfunction Bioprosthetic aortic valve
Cardio eval appreciated IV lasix 80 mg BID transitioned to Bumex 2 mg BID, decrease metalazone to 2.5 mg every thursday
S/p cardioversion 01/11, cards rec amio 200 bid x 2 weeks, then 200 daily
Cleared by cards for discharge today
#Lower ext swelling possibly d/t progressive chronic lymphedema as oppose to HF
ARAVIND compressive bandages
Elevate Lower Ext's when at rest
#CKD III
initial Cr 1.9
Baseline appears to be 1.6-1.9
monitor renal function
avoid/minimize nephrotoxic medication/agent use.
#Hx of Chronic hypoxic respiratory failure on 3.5 L at baseline/ morbid obesity
#AMIE (severe) on CPAP 10 cwp s O2
#Pulm HTN
Primary pulmonary doctor is Dr. Walters
baseline respiratory status, cont home oxygen supplementation
CPAP bedtime
#Type 2 diabetes
recent A1c 8.November
moderate dose sliding scale
Cont Jardiance Lantus 22U HS Lispro 5U AC
monitor and titrate insulin regimen as necessary
#Hypokalemia
monitor and replete as necessary
# Paroxysmal atrial fibrillation
#HTN
-Continue amiodarone, Coreg, Coumadin
-INR goal 2-3
# Morbid obesity BMI 44
#Coronary artery disease
#Mild troponin elevation, chest pain free
-Continue aspirin, statin
-troponin trended to peak 0.052
#Hyperlipidemia
Continue Zetia statin
PT/OT appreciated home with home services
DVT prophylaxis�Coumadin
DNR/DNI
Physical Exam
General: Obese. No pallor, cyanosis, or jaundice.
HEENT: Throat clear. PERRLA Normocephalic atraumatic
NECK: Supple. No JVD Carotid Bruits
RESPIRATORY: bibasilar crackles
CVS: Irregularly irregular No murmur, rub or gallop.
ABDOMEN: Soft, non-tender. distended/obese bowel sounds present
EXTREMITIES: +2 pitting edema lower ext's w/ associate erythema no tenderness
AREA SAFETY MANAGER: AOx3.
Anticipated Discharge: Today
Subjective/Interval History
-
Date of Service: January 13, 2024
Feels well, no CP/SOB. No fever, no vomiting.
Objective Data
-
Labs:
Laboratory Results
01/13/24
05:06
WBC 6.1
Hgb 10.4 L
Hct 33.0 L
Plt Count 409 H
PT 30.9 H
INR 2.97
Sodium 138
Potassium 3.5
Chloride 85 L
Carbon Dioxide 39 H
BUN 35 H
Creatinine 1.8 H
Glucose 179 H
Calcium 9.8
Vital Signs:
Vital Signs
Temp Pulse Resp BP Pulse Ox
98.2 F 83 16 126/67 100
01/13/24 03:05 01/13/24 07:27 01/13/24 07:27 01/13/24 03:05 01/13/24 07:27
I&O
01/12/24 01/13/24 01/14/24
06:59 06:59 06:59
Intake Total 600 / 600 960 / 960
Output Total 3200 / 3200
Balance -2600 / -2600 960 / 960
[2024-01-13 07:41] VITALS: BP 130/57
[2024-01-13 07:50] LABS: Glucose - Point of Care 227 mg/dl (70-99)
[2024-01-13] MEDS: NOVOLOG FLEXPEN-MODERATE RESISTANCE 3 UNITS SC (08:22)
[2024-01-13] MEDS: NOVOLOG FLEXPEN 5 UNITS SC ×2 (08:23→12:28)
[2024-01-13] MEDS: ASPIR LOW (ENTERIC COATED) 81 MG PO (08:24)
[2024-01-13] MEDS: VITAMIN D3 (cholecalciferol) 50 MCG PO (08:24)
[2024-01-13] MEDS: NEURONTIN 100 MG PO (08:24)
[2024-01-13] MEDS: COSOPT EYE DROPS 1 DROP BOTH EYES (08:25)
[2024-01-13] MEDS: KCL 20 MEQ PO (08:25)
[2024-01-13] MEDS: MAG-TAB SR 84 MG PO (08:25)
[2024-01-13] MEDS: BUMEX 2 MG PO (08:32)
[2024-01-13] MEDS: PACERONE 200 MG PO (08:32)
--- NOTE | 2024-01-13 10:53 | CM ---
Addendum entered by Anushka Perry 01/13/24 11:20:
Cost of Eliquis is $50 per month, welfare case worker will provide a free coupon for first month.
Original Note:
Cart reviewed and patient is for possible discharge today, home with [facility].
Plan; Home with [facility].
--- NOTE | 2024-01-13 10:55 | W.DCSUMMARY ---
Discharge Summary
Discharge Data
Date of Admission: 01/08/24
Date of Discharge: 01/13/24
-
Pending Results: No
Hospital Course
Discharge diagnosis:
Acute on chronic heart failure with a preserved ejection fraction
Paroxysmal atrial fibrillation status post cardioversion
Aortic stenosis status post bioprosthetic aortic valve replacement
Chronic bilateral lower extremity edema
Stage III chronic kidney disease
Chronic hypoxic and hypercapnic respiratory failure requiring 3 L at baseline
Obstructive sleep apnea
Pulmonary hypertension
Morbid obesity with a body mass index of 44
Coronary artery disease
Hyperlipidemia
Type 2 diabetes
Consults: Cardiology
Procedures:
01/12/2024 successful cardioversion to sinus rhythm
Hospital course:
83-year-old male with a past medical history of paroxysmal atrial fibrillation on Coumadin, aortic stenosis status post bioprosthetic aortic valve replacement, obstructive sleep apnea, chronic hypoxic and hypercapnic respiratory failure requiring 3
L, stage III chronic kidney disease, type 2 diabetes, hypertension, hyperlipidemia, and morbid obesity was admitted for acute on chronic heart failure exacerbation.
Patient was seen in conjunction with cardiology, and diuresed with IV Lasix. Patient did well with diuresis, and cardiology converted him to Bumex 2 mg p.o. twice daily. He is on metolazone 2.5 mg daily. This will be reduced to 2.5 mg every
Thursday.
Patient has stage III chronic kidney disease. His creatinine was monitored, and remained stable at 1.8 on the day of discharge.
Patient has paroxysmal atrial fibrillation, and is on Coumadin. He underwent successful cardioversion to normal sinus rhythm on 01/12/2024. Patient did well postprocedure. He was seen by PT, who recommended home care. He is medically stable and
cleared by cardiology for discharge. He needs to follow-up with his primary care doctor in 1 week, and his usual clerical associate in 2-3 weeks. He needs to have a repeat BMP with his PCP in 1 week.
Disposition: Home with home care
Discharge planning: Required 40 minutes
Discharge Plan
-
Patient Disposition: Home with Home Care
Discharge Diagnosis/Procedures: Atrial fibrillation status post cardioversion, congestive heart failure, diabetes
Condition: Fair
Diet: 2 Gram Sodium and Diabetic, Carb Controlled
Activity: As tolerated
Blood Work: BMP in 1 week with PCP
Specialty Instructions: Weigh Daily- Call MD for wt gain/loss 3 lbs overnight/5 lbs in 1 week
Instructions: *[facility] Heart Failure Instructions
Referrals:
Ruperto Jade, DO [Family Provider] - in one week
Additional Discharge Medication Instructions:
Cardiology recommends you taking amiodarone 200 mg twice a day for 2 weeks, followed by 200 mg daily.
Please take your with Zaroxolyn/metolazone every Thursday.
Get blood work with your primary care doctor in 1 week.
Follow-up with your primary care doctor in 1 week, cardiology in 2-3 weeks..
Prescriptions:
New
bumetanide 2 mg Tablet
2 mg PO BID AT 0800,1600 Qty: 60 0RF
amiodarone 200 mg tablet
See Rx Instructions .ROUTE .COMPLEX Qty: 120 0RF
Rx Instructions:
200 mg twice a day for 2 weeks, then 200 mg daily
potassium chloride 20 mEq Tablet,Er Particles/Crystals
20 meq PO TID Qty: 90 0RF
Continued
ezetimibe 10 MG tablet
10 mg PO HS
cyanocobalamin (vitamin B-12) 2,500 MCG tablet
2,500 mcg PO MOTH
coenzyme Q10 [Co Q-10] 200 MG capsule
200 mg PO DAILY
aspirin 81 MG tablet,delayed release (DR/EC)
81 mg PO DAILY Qty: 0 0RF
Rx Instructions:
Resume after Lovenox/Coumadin Bridge is complete
atorvastatin 20 mg tablet
20 mg PO HS
insulin lispro [Humalog KwikPen Insulin] 100 unit/mL insulin pen
2 - 8 sliding scale dose SC MEALS
Patient Comments:
01/08/2024: of 200-249= 2; 250-299= 4; 300-349= 6; 350-400= 8, >400 = Call MD
magnesium 250 mg Tablet
500 mg PO DAILY
Mounjaro 5 mg/0.5 mL pen injector
5 mg SC MOORE
warfarin 2.5 mg tablet
2.5 mg PO QPM
Hold Instructions: Resume on 12/25/23.
Patient Comments:
12/07/2023: taken w/ 1mg= 3.5mg
Rx Instructions:
HOLD WARFARIN UNTIL INR IS 3 OR LESS. DUE TO INR ON 12/22/23 WAS 3.75. RECHECK INR ON 12/24/23 TO DETERMINE DOSE
dorzolamide-timolol 22.3-6.8 mg/mL Drops
1 drp BOTH EYES BID
miconazole nitrate [Miconazorb AF] 2 % Powder
1 applic topical BID Qty: 100 0RF
acetaminophen 325 mg Tablet
650 mg PO Q4H PRN (Reason: mild pain/fever>100)
magnesium hydroxide [Milk of Magnesia] 400 mg/5 mL Suspension
30 ml PO DAILY PRN (Reason: if no bm on day 4)
bisacodyl [Dulcolax (bisacodyl)] 10 mg Suppository
10 mg NJ DAILY PRN (Reason: if mom is ineffective/give day 5 no bm)
Fleet Enema 19-7 gram/118 mL Enema
118 ml NJ DAILY PRN (Reason: if dulcolax is ineffective/give on day 6 no bm)
insulin lispro 100 unit/mL Insulin Pen
5 unit SC MEALS
cholecalciferol (vitamin D3) [Vitamin D3] 50 mcg (2,000 unit) Tablet
50 mcg PO DAILY
insulin glargine-yfgn 100 unit/mL (3 mL) Insulin Pen
22 unit SC HS
melatonin 5 mg tablet
10 mg PO HS
ipratropium-albuterol 0.5 mg-3 mg(2.5 mg base)/3 mL Solution For Nebulization
3 ml inhalation R QID Qty: 30 0RF
albuterol sulfate [Ventolin HFA] 90 MCG/PUFF HFA aerosol inhaler
2 puff inhalation R Q4 PRN (Reason: sob/wheezing) Qty: 1 0RF
Changed
metolazone 2.5 mg Tablet
2.5 mg PO MO Qty: 30 0RF
Jardiance 10 mg tablet
10 mg PO HS Qty: 30 0RF
Discontinued
amiodarone [Pacerone] 100 MG tablet
100 mg PO DAILY
furosemide 80 mg tablet
80 mg PO BID
Discharge Orders:
Discharge Patient (As Directed); Ordered 01/13/24
Ordered By: Chu Hinson
Discharge Date and Time
Discharge Date/Time: 01/13/24 14:49
Print Language: TURKISH
[2024-01-13 11:50] VITALS: BP 123/93
[2024-01-13 12:21] LABS: Glucose - Point of Care 185 mg/dl (70-99)
[2024-01-13] MEDS: NOVOLOG FLEXPEN-MODERATE RESISTANCE 1 UNITS SC (12:27)
--- NOTE | 2024-01-13 13:18 | PTCARENOTE ---
Rn flow larriman helper- Rodolfo texted Dr. Hinson concerning coumadin and eliquis.
[2024-01-13 14:49] VITALS: BP 116/57
--- NOTE | 2024-01-13 15:12 | W.PN.UPDATE ---
Update Note
Progress Note Update
Case management consulted for cost of Eliquis. Found to be $50 a month. Transition from Coumadin to Eliquis can be discussed as outpatient
--- NOTE | 2024-01-14 13:47 | PTCARENOTE ---
Rn. Flow fire extinguisher installer- Called to Mrs Walsh to confirm that her shared the amended discharge instructios with her. Confirmed that knew that patient should take Zaroxolyn on Thursday and not daily. confirmed understanding of
instructions.
== END 2024-01-13 14:49 | disposition home health service (06) | DRG 291 ==
LOC: 4 WEST ACU 17:05
PROVIDERS: ADMITTING PHYSICIAN Internal Medicine; ATTENDING PHYSICIAN Family Medicine; CONSULT PHYSICIAN Internal Medicine Cardiovascular Disease; EMERGENCY PHYSICIAN Emergency Medicine; FAMILY PHYSICIAN Family Medicine
PROC: 5A09357 Assistance with Respiratory Ventilation, Less than 24 Consecutive Hours, Continuous Positive Airway Pressure (ICD-10-PCS; 2024-01-08)
PROC: 5A2204Z Restoration of Cardiac Rhythm, Single (ICD-10-PCS; 2024-01-12)
DX: I13.0 Hypertensive heart and chronic kidney disease with heart failure and stage 1 through stage 4 chronic kidney disease, or unspecified chronic kidney disease (principal); I50.33 Acute on chronic diastolic (congestive) heart failure; I48.19 Other persistent atrial fibrillation; Z68.41 Body mass index [BMI] 40.0-44.9, adult; J96.11 Chronic respiratory failure with hypoxia; E66.01 Morbid (severe) obesity due to excess calories; I25.10 Atherosclerotic heart disease of native coronary artery without angina pectoris; G47.33 Obstructive sleep apnea (adult) (pediatric); E78.00 Pure hypercholesterolemia, unspecified; E11.22 Type 2 diabetes mellitus with diabetic chronic kidney disease; N18.30 Chronic kidney disease, stage 3 unspecified; I27.20 Pulmonary hypertension, unspecified; E87.6 Hypokalemia; Z66 Do not resuscitate; Z79.01 Long term (current) use of anticoagulants; Z79.4 Long term (current) use of insulin; Z79.82 Long term (current) use of aspirin; Z79.899 Other long term (current) drug therapy; Z91.119 Patient's noncompliance with dietary regimen due to unspecified reason; Z95.3 Presence of xenogenic heart valve
CPT/HCPCS: 71045; 80048; 80053; 81003; 81015; 82962; 83735; 83880; 84100; 84443; 84484; 85025; 85027; 85610; 92960; 93005; 94640; 94660; 96374; 97163; 97166; 97530; 97535; 99285

== ENCOUNTER 2024-01-28 23:57 | Inpatient (IN) | payer OTHER, SELFPAY ==
--- NOTE | 2024-01-28 17:35 | ED.PDOC.TRB ---
ED Provider Triage
-
Patient seen by provider in Triage?: Seen in Triage
*Initial assessment in triage to expedite workup*
83 yo male presents via EMS for eval after a fall. Was on the toilet for 'a while', when he got up his 'leg gave out' and he 'got dizzy'. Fell, did not strike head. Denies any pain at this time. Concerned for leg weakness and dizziness. Denies
CP/SOB, f/c/s, n/v/d
Recent admission for CHF. On Eliquis.
Clinically looks acutely well. Normal respiratory effort. Moves all extremities freely. Dry oral mucosa. VSS. Will obtain basic labs, EKG.
[2024-01-28 17:37] VITALS: BP 104/69
[2024-01-28 18:30] LABS: % Basophils 0.2 % (0-2); % Immature Granulocytes 0.5 % (0-0.5); % Lymphocytes 7.3 % (20.5-51.1); % Monocytes 9.2 % (1.7-9.3); % Neutrophils 82.8 % (42.2-75.2); Absolute Immature Granulocytes 0.1 10^3/uL (0-0.05); Absolute Lymphocytes 1.3 10^3/uL (1.2-3.4); Absolute Monocytes 1.6 10^3/uL (0.1-0.6); Absolute Neutrophils 14.4 10^3/uL (1.4-6.5); Hematocrit 40.3 % (39.0-52.0); Hemoglobin 13.3 g/dL (13.0-18.0); Mean Corpuscular Hgb 30.1 pg (27.0-31.0); Mean Corpuscular Volume 91.2 fL (80.0-94.0); Mean Platelet Volume 12.1 fL (7.4-10.4); Nucleated Red Blood Cells % 0 % (-); Platelet Count 253 10^3/uL (130-400); Red Blood Cell Count 4.42 10^6/uL (4.70-6.10); Red Cell Dist. Width 15.3 % (11.5-14.5); White Blood Cell Count 17.4 10^3/uL (4.8-10.8)
[2024-01-28 18:49] LABS: ALT (SGPT) 21 U/L (0-50); AST (SGOT) 41 U/L (17-59); Albumin 4.5 g/dl (3.5-5.0); Alkaline Phosphatase 117 U/L (38-126); Blood Urea Nitrogen 72 mg/dl (9-20); Calcium 9.9 mg/dl (8.4-10.2); Carbon Dioxide 30 mmol/L (22-30); Chloride 83 mmol/L (98-107); Glucose 228 mg/dl (70-99); Potassium 3.3 mmol/L (3.5-5.1); Sodium 133 mmol/L (135-145); Total Bilirubin 1.3 mg/dl (0.2-1.3); Total Protein 7.7 g/dl (6.3-8.2)
[2024-01-28 21:06] VITALS: BMI 41.2
--- NOTE | 2024-01-28 21:09 | ED.GENMED ---
History of Present Illness
General
Chief Complaint: Dizziness
Source: patient and spouse
Exam Limitations: none
Time Seen by Provider: 01/28/24 20:49
Travel History
Have you had any contact with someone who has COVID-19?: No
Do you have any symptoms of coronavirus? Fever > 100 degrees, chills, cough, shortness of breath, sore throat, loss of taste or smell, muscle aches, or headache?: No
History of Present Illness
History of Present Illness:
This is a 83 year old male that is brought in by ambulance with c/o fall. States that he was leaving he BR and going back to his chair. States that his legs just gave out and he hit the right side. States that his daughter, her and
granddaughter got him up. States that he was not able to walk. States that he was constipated and saton the toilet all night. States that at 5am he started to move his bowels. states that she went to get something and her daughter said that he
was confused and his words were mumbled. Patient states that he was dizzy and had some nausea. Denies any fever, chills, chest pain, SOB, abd pain, vomiting, diarrhea, headache, urinary burning.
Past History
Past History
ED Past Medical History: Arrthythmia (Atrial fibrillation), HTN, Hypercholesterolemia, NIDDM, OR, Renal failure, Valvular disease and Other (Morbid obesity, Numbness and Tingling arms and legs, Sleep apnea uses CPAP, Aortic stenosis, Colitis,
Cellulitis, Sepsis)
ED Past Surgical History: Cardiac (Bioprosthetic aortic valve replacement), Orthopedic (Right femur derik insertion, Patellectomy) and Other (Facial surgery)
Social History
Tobacco: Non-smoker
Alcohol: None
Drug: None
Personal:
Living: with family
Employment: Retired
Review of Systems
Review of Systems
All Other Systems: ROS reviewed and negative except as documented in HPI and ROS
Constitutional: Reports no symptoms; Denies fever or chills
EENT: Reports no symptoms
Respiratory: Reports no symptoms
Cardiac: Reports no symptoms; Denies chest pain
ABD/GI: Reports nausea; Denies abdominal pain, vomiting or diarrhea
: Reports no symptoms
Musculoskeletal: Reports no symptoms
Skin: Reports no symptoms
Neurological: Reports dizzy and weakness (Legs just gave out); Denies headache
Psychiatric: Reports no symptoms
Phy Exam
General Physical Exam
General Presentation: no apparent distress
General age: appears stated age
General Skin: warm and dry
General Habitus: elderly and obese
General Mental: alert
General Hydration: appears well hydrated
ENT Exam
ENT Exam: TM's normal, pharynx normal and neck supple
Eye Exam
Eye Exam: EOMI
Cardiovascular Exam
Cardiovascular Exam: regular rate/rhythm, no edema and normal peripheral pulses
Pulmonary Exam
Pulmonary Exam: lungs clear, no respiratory distress, no rales, chest non tender, no crackles, no rhonchi, no wheezing and no cough
Gastrointestinal Exam
Gastrointestinal Exam: normal bowel sounds, non tender, soft, no organomegaly, no pulsatile mass and non distended
Musculoskeletal Exam
Musculoskeletal Exam: full ROM and no edema
Skin Exam
Skin Exam: normal color, warm/dry and no petechia
Psychiatric Exam
Psychiatric Exam: normal mood/affect
Course
Orders/Labs/Results
Orders:
Orders
01/28/24 17:38
Electrocardiogram (*1) Urgent
Reason for Study: Vertigo / Dizzy
EKG- Treatment ONCE
01/28/24 18:08
Complete Blood Count/With Diff Urgent
Comprehensive Metabolic Panel Urgent
01/28/24 21:08
CT Head W/o Iv Contrast Urgent
Comment:
Reason For Exam: Fall on Eliquis
Urinalysis Reflex To Culture Urgent
Date Specimen was Collected: 01/29/24
Time Specimen was Collected: 00:51
CR Chest - 2 Views Urgent
Comment:
Reason For Exam: Weakness
01/28/24 21:09
0.9% Sodium Chloride 1000 ml [Nss] 1,000 ml IV BOLUS
01/28/24 21:34
Lactic Acid Urgent
NT-proBNP Urgent
Comment: ADD ON
Troponin I Urgent
Blood Culture Q30M
AARON Source: Blood/Venous
Specimen Description:
01/28/24 22:08
Blood Culture Q30M
AARON Source: Blood/Venous
Specimen Description:
01/28/24 23:12
Add On- LAB Routine
Tests Added?: BNP
01/28/24 23:31
Urine Creatinine Routine
Date Specimen was Collected: 01/29/24
Time Specimen was Collected: 00:51
Urine Sodium Routine
Date Specimen was Collected: 01/29/24
Time Specimen was Collected: 00:[address] Non Medication Order As Directed
Physician Order: please measure a post void residual and tiger text me results
Above order entered?: Yes
01/28/24 23:32
Apixaban [Eliquis] 5 mg PO NOW STA
01/28/24 23:35
EKG [Electrocardiogram (*1)] Routine
Reason for Study: Other
Other Reason for Exam: abnl EKG
Comment: please repeat
01/28/24 23:38
Admit/Transfer Patient As Directed
Co-Sign Provider:
Level of Care: Inpatient admission
Assign to:: Telemetry
Physician / Group: Bette Blanchard
Diagnosis: acute renal failure
Reason for Telemetry: Chest Pain syndromes
Date to Stop Telemetry: 01/30/24
Time to Stop Telemetry: 11:00
Reason for Hospitalization: acute renal failure
Expected length of stay greater than two midnights?: Yes
ELOS- Estimated Length of Stay in days: 3
I certify the patient meets the requirements for IP care: Yes
Potassium Chloride [KCl] 10 meq PO NOW STA
01/28/24 23:41
Code Status As Directed
Resuscitation Status: Do not resuscitate
Reached after discussion with pt or family/Healthcare POA: Yes
01/28/24 23:42
DNR Bracelet Application ONCE
01/29/24 01:14
0.9% Sodium Chloride 1000 ml [Nss] 1,000 ml IV 60 mls/hr
Acetaminophen [Tylenol] 650 mg PO Q4HPRN PRN
Albuterol [ProAIR HFA INHALER] 2 puff INH R Q4 PRN
Bisacodyl [Dulcolax] 10 mg RECTAL [id number] PRN
Dextrose 50%-Water [Dextrose 50% Syringe] 12.5 grams IV [id number] PRN
Glucagon [GlucaGen] 1 mg IM PRN PRN
Melatonin 10 mg PO HS
Timolol Maleate/Dorzolam HCl [Cosopt Eye Drops] 1 drop BOTH EYES BID
01/29/24 01:14
Consult Cardiology [CARDIOLOGY CONSULT] Routine
Consulting Provider: Eloisa Mccord
Was physician already notified: No
Reason for consult: recent admit heart failure now overdiuresis; help with diuretic regimen
Consult Notification Routine
Specialty to Notify: Cardiology
Activity As Directed
Activity Level: As Tolerated
Bedside Glucose Monitoring As Directed
Frequency: AC&HS
Additional Instructions:: Change to q6h if pt on TPN, tube feeding or not eating
Intake/ Output As Directed
Frequency: Per unit guidelines
Orthostatic Vital Signs As Directed
Orthostatic VS Frequency: Daily
Vital Signs As Directed
Frequency: Per unit guidelines
Weight As Directed
Frequency: Daily
Cpap [RESP] Routine
Patient to use own unit?: Yes
Instructions: hs
OT Consult [Ot Eval And Treat] Routine
Physical Therapy Consult [Pt Eval And Treat] Routine
Activity Level: As Tolerated
01/29/24 03:00
Lactate Level [Lactic Acid] Q6H
Troponin I Q6H
01/29/24 Breakfast
2000 calorie (17 carb) Diabetic
At Your Request: Full Participation
Diabetic Diet: Sodium, 2 Gram
Basic Metabolic Panel IN AM
Complete Blood Count/With Diff IN AM
Glycohemoglobin (HgbA1c) IN AM
Magnesium IN AM
US Renal With Bladder IN AM
Comment:
Reason For Exam: acute renal failure
01/29/24 07:30
Insulin Aspart Corrective Low [Novolog Flexpen-Low Resistance] See Protocol SC AC
01/29/24 08:00
Amiodarone [Pacerone] 200 mg PO DAILY
Apixaban [Eliquis] 5 mg PO BID
Aspirin Low Dose EC [Aspir Low (Enteric Coated)] 81 mg PO DAILY
Ipratropium/Albuterol Sulfate [Duoneb] 3 ml INH R QID
Polyethylene Glycol Powder [Miralax] 17 grams PO DAILY
01/29/24 09:00
Lactate Level [Lactic Acid] Q6H
Troponin I Q6H
01/29/24 15:00
Lactate Level [Lactic Acid] Q6H
01/29/24 22:00
Atorvastatin [Lipitor] 20 mg PO HS
Ezetimibe [Zetia] 10 mg PO HS
01/30/24 11:00
DC Protocol for Telemetry ONCE
Abnormal Lab Results
01/28/24 01/28/24
18:08 21:34
WBC 17.4 H 10^3/uL
(4.8-10.8)
RBC 4.42 L 10^6/uL
(4.70-6.10)
RDW 15.3 H %
(11.5-14.5)
MPV 12.1 H fL
(7.4-10.4)
Abs Immat Gran (auto) 0.1 H 10^3/uL
(0-0.05)
Absolute Neuts (auto) 14.4 H 10^3/uL
(1.4-6.5)
Absolute Monos (auto) 1.6 H 10^3/uL
(0.1-0.6)
Neutrophils % 82.8 H %
(42.2-75.2)
Lymphocytes % 7.3 L %
(20.5-51.1)
Sodium 133 L mmol/L
(135-145)
Potassium 3.3 L mmol/L
(3.5-5.1)
Chloride 83 L mmol/L
(98-107)
BUN 72 H mg/dl
(9-20)
Creatinine 3.4 H mg/dL
(0.7-1.3)
Glucose 228 H mg/dl
(70-99)
Lactic Acid 2.8 H mmol/L
(0.7-2.0)
Troponin I 0.102 H* ng/ml
01/28/24 18:08
01/28/24 18:08
Leukocytosis, Sodium slightly low. Hypokalemia, Chloride low. Acute renal failure, Glucose nonfasting. Urine negative for infection.
Troponin 0.102
Vital Signs
Initial and Last Documented VS:
Initial Vital Signs
Temp Pulse Resp BP Pulse Ox
97.7 F 120 20 104/69 100
01/28/24 17:37 01/28/24 17:37 01/28/24 17:37 01/28/24 17:37 01/28/24 17:37
Last Documented Vital Signs
Temp Pulse Resp BP Pulse Ox
97.7 F 82 20 126/58 97
01/28/24 17:37 01/29/24 01:00 01/29/24 01:00 01/29/24 01:00 01/29/24 01:00
MDM/Problems Addressed
Differential Diagnosis Includes:
UTI, Generalized weakness,
MDM/Problems Addressed:
This is a 83 year old male that comes in with c/o fall. States that his legs just gave out. States that he did sit on the toilet all night as he was constipated and at 5am things started to move. States that he was coming out of the bathroom and his
legs gave out.
Will check labs, IV fluids.
Back into see patient. Explained that he would be admitted as his Troponin is elevated and he has acute renal failure. This may be due to just dehydration and the Troponin may be related to his kidney function. Will admit. Hospitalist notified.
Chronic conditions affecting care:
history of Sepsis,
Chronic conditions affecting care: DM and CAD
Acute Exacerbation and/or Progression of Chronic Illness:
NA
*Radiology
Radiology exam reviewed: radiology read reviewed (CT head-There are no acute intracranial abnormalities. There is moderate diffuse cortical atrophy with nonspecific white matter changes as described above. Chest- Cardiomegaly with out associated
pulmonary edema)
*Pulse Oximetry
Patient hypoxic: no
*EKG
Interpreted by ED Provider?: Yes
Heart Rate: 114
Rate: tachycardiac
Rhythm: a-fib
[place]: normal axis
QRS Pattern: left bundle branch block
Ischemia: no ischemia
*Critical Care Note
Total Time (30-74mins, 75-104mins- exclusive of procedures): Not Applicable
ED Attending Note
-
Portions of this chart may have been created with voice recognition software.� Occasional wrong word or��sound alike� substitutions may have occurred due to the inherent limitations of voice recognition software.
Discharge Plan
Departure
Patient Disposition: Admit
Date of Disposition: 01/28/24
Time of Disposition: 22:59
Admit to: Telemetry
Presentation/result/management discussed w/ accepting MD/DO: Hospitalist
Patient with high blood pressure during this ER visit?: No
Condition: Good
Covid-19: Not Applicable
Discharge Problem:
Weakness, Elevated troponin, Acute renal failure
Interventions
Interventions:
*General Assessment Last Done: 01/28/24 21:06
ED- Fall Risk Assessment Last Done: 01/28/24 21:06
*ED COVID-19 Vaccine History Last Done: 01/28/24 21:06
ED- Neurological Assessment Last Done: 01/28/24 21:06
ED- Cardiac Assessment Last Done: 01/28/24 21:06
ED Swallowing Screen Last Done: 01/28/24 21:06
[2024-01-28 21:16] VITALS: BP 101/71
[2024-01-28] MEDS: NSS 1000 IV (21:23)
[2024-01-28 21:53] LABS: Lactic Acid 2.8 mmol/L (0.7-2.0)
[2024-01-28 22:00] VITALS: BP 124/68
[2024-01-28 22:08] LABS: Troponin I 0.102 ng/ml
[2024-01-28 23:00] VITALS: BP 140/66
--- NOTE | 2024-01-28 23:05 | HPS.HSE ---
Addendum entered and electronically signed by Bette Blanchard MD 01/29/24 06:54:
prolonged QTc - will hold BEAUTY OPERATOR APPRENTICE Amiodarone for now
Original Note:
Family Physician
-
Family Physician: Ruperto Jade
Chief Complaint
-
weakness
History of Present Illness
Mr. Charlie Walsh is a 83 yo man with hx HFpEF, chronic hypoxic and hypercapnic respiratory failure on 3L O2 at baseline, paroxysmal atrial fibrillation, s/p bioprosthetic aortic valve replacement, CKD III, essential HTN, HLD, NIDDM, CAD, morbid
obesity, AMIE on CPAP, DM 2 presents to the ER with weakness.
Patient states that he has been having issues with constipation. He was on the toilet overnight when had a BM earlier in the morning. Later in the day patient was leaving the bathroom and going back to his chair when his legs gave out on him. He
denies losing consciousness or hitting his heads, states legs decided not to work. His family tried to help get him up but he couldn't walk. He felt dizzy. Per ER note, patient appeared confused. On my exam patient is able to give me a lucid
history.
Patient denies chest pain. He denies shortness of breath and states legs are no longer swollen.
Patient was admitted to 01/07-01/13/24 for acute on chronic heart failure, atrial fibrillation s/p cardioversion. He was transitioned from lasix 80mg PO BID to Bumex 2mg PO BID and Metolazone decreased from daily dosing to every Thursday. Since
this discharge he has also cut back how much water he has been drinking. Weight on discharge 01/12 was 122kg; here in ER he is 119 kg.
Patient denies taking NSAIDs. He states he was started on Mounjaro 2 months ago.
Medical History
Past Medical History
Past Medical History: Reports Other (HFpEF, chronic hypoxic and hypercapnic respiratory failure on 3L O2 at baseline, paroxysmal atrial fibrillation, s/p bioprosthetic aortic valve replacement, CKD III, essential HTN, HLD, NIDDM, CAD, morbid
obesity, AMIE on CPAP, DM 2)
Past Surgical History: Reports Other (see above)
Social History
Tobacco: Non-smoker
Alcohol: None
Drug: None
Personal:
Living: With Family
Employment: Retired
Family History
Family History: Not pertinent (reviewed)
Allergies / Home Medications
Allergies reflects when Allergies were last updated in [employer].
Home Medications with original date entered in [employer]
Allergy/Medication List:
Allergies
Allergy/AdvReac Type Severity Reaction Status Date / Time
No Known Allergies Allergy Verified 01/28/24 17:38
Home Medications
ezetimibe 10 mg tablet 10 mg PO HS High cholesterol 03/13/11
coenzyme Q10 200 mg capsule (Co Q-10) 200 mg PO DAILY Supplement 03/29/20
cyanocobalamin (vitamin B-12) 2,500 mcg tablet 2,500 mcg PO MOTH Supplement 03/29/20
aspirin 81 mg tablet,delayed release 81 mg PO DAILY Blood clot prevention/tx ##0 06/07/20
atorvastatin 20 mg tablet 20 mg PO HS High cholesterol 10/27/22
insulin lispro 100 unit/mL subcutaneous pen (Humalog KwikPen (U-100) Insulin) 2 - 8 sliding scale dose SC MEALS Diabetes 10/27/22
magnesium 250 mg tablet 500 mg PO DAILY Supplement 12/07/23
tirzepatide 5 mg/0.5 mL subcutaneous pen injector (Mounjaro) 5 mg SC MOORE Diabetes 12/07/23
dorzolamide 22.3 mg-timolol 6.8 mg/mL eye drops 1 drp BOTH EYES BID Eye Condition 12/09/23
miconazole nitrate 2 % topical powder (Miconazorb AF) 1 applic topical BID #100 grams 12/18/23
cholecalciferol (vitamin D3) 50 mcg (2,000 unit) tablet (Vitamin D3) 50 mcg PO DAILY 01/08/24
insulin lispro 100 unit/mL subcutaneous pen 5 unit SC MEALS Diabetes 01/08/24
melatonin 5 mg tablet 10 mg PO HS Sleep 01/08/24
albuterol sulfate 90 mcg/actuation aerosol inhaler (Ventolin HFA) 2 puff inhalation R Q4 PRN sob/wheezing #1 inh 01/13/24
bumetanide 2 mg tablet 2 mg PO BID AT 0800,1600 #60 tabs 01/13/24
empagliflozin 10 mg tablet (Jardiance) 10 mg PO HS Diabetes #30 tabs 01/13/24
ipratropium 0.5 mg-albuterol 3 mg (2.5 mg base)/3 mL nebulization soln 3 ml inhalation R QID #30 ea 01/13/24
metolazone 2.5 mg tablet 2.5 mg PO MO Fluid Retention/Swelling #30 tabs 01/13/24
potassium chloride 20 mEq tablet,extended release(part/cryst) 20 meq PO TID #90 tabs 01/13/24
amiodarone 200 mg tablet 200 mg PO DAILY 01/28/24
apixaban 5 mg tablet (Eliquis) 5 mg PO BID 01/28/24
insulin glargine 100 unit/mL (3 mL) subcutaneous pen (Lantus Solostar U-100 Insulin) 20 unit SC HS 01/28/24
Review of Systems
-
History Source: Patient
A 12 point ROS was completed and negative except as noted: Yes
Physical Exam
Vital Signs
Vital Signs
Temp Pulse Resp BP Pulse Ox
97.7 F 85 14 101/71 100
01/28/24 17:37 01/28/24 21:18 01/28/24 21:18 01/28/24 21:16 01/28/24 21:18
Physical Exam
General: No Apparent Distress, Conversant and Obese
HEENT: PERRLA
Respiratory: Clear; No Wheezes
Cardiac: S1/S2; No JVD
GI: Soft and Non Tender
Musculoskeletal: Other (trace pitting edema )
Skin: Warm and Dry; No Rash
Neuro: AO x 3
Psych: Calm
Laboratory Results
-
01/28/24 18:08
01/28/24 18:08
Laboratory Results
Lactic Acid 2.8 mmol/L (0.7-2.0) H 01/28/24 21:34
Total Bilirubin 1.3 mg/dl (0.2-1.3) 01/28/24 18:08
AST 41 U/L (17-59) 01/28/24 18:08
ALT 21 U/L (0-50) 01/28/24 18:08
Alkaline Phosphatase 117 U/L (38-126) 01/28/24 18:08
Troponin I 0.102 ng/ml H* 01/28/24 21:34
Data Reviewed
-
Diagnostic Radiology: Report Reviewed by me
Lab Data: Labs Reviewed by me
Impression/Plan
-
Mr. Charlie Walsh is a 83 yo man with hx HFpEF, chronic hypoxic and hypercapnic respiratory failure on 3L O2 at baseline, paroxysmal atrial fibrillation, s/p bioprosthetic aortic valve replacement, CKD III, essential HTN, HLD, NIDDM, CAD, morbid
obesity, AMIE on CPAP, DM 2 presents tot he ER with weakness found to have acute renal failure and elevated lactate in setting of dehydration.
Triage VS: T 97.7, P 120, RR 20, BP 104/69, SpO2 100%
LABS: WBC 17.4, Hg 13.3, PLT 253, Na 133, K+ 3.3, Cl 83, BUN 72, Cr 3.4 (baseline 1.7-1.9), Glucose 228, lactate 2.8
Troponin 0.102
EKG: tachycardic to 114, LBBB (new)
CXR 01/28/24
IMPRESSION:
Cardiomegaly without associated pulmonary edema
HEAD CT 6/6/24
IMPRESSION:
There are no acute intracranial abnormalities.
There is moderate diffuse cortical atrophy with moderate nonspecific white matter changes as described above.
MAR: 1L bolus
Acute Renal Failure
Acute on chronic kidney injury
Dehydration
Lactic Acidosis 2/2 dehydration, no e/o infection
Weakness/ Ambulatory Dysfunction 2/2 Above
-baseline creatinine 1.7-1.9, patient presenting with creatinine 3.4
-patient's diuretic regimen adjusted last admission and he admits to following fluid restriction at this time. He is now with ARF likely from dehydration. He does not appear in heart failure on exam and weight is down 3 kg. s/p 1L IVF bolus in ER
-admit to telemetry
-NS @ 60 - patient instructed to be vocal if has any sx shortness of breath/swelling
-hold BEAUTY OPERATOR APPRENTICE Bumex and Metolazone
-follow up UA, urine sodium, urine creatinine
-trend lactate and bolus as needed
-F/U PVR, renal US tomorrow AM
-cardiology consult for recs on further diuretic regimen adjustment
-renal consult if creatinine fails to improve with fluids
-PT/OT
Paroxysmal Afib
-s/p cardioversion last admission
-he has not yet taken evening Eliquis - will give now
-continue BEAUTY OPERATOR APPRENTICE Eliquis, amiodarone
Hypokalemia
-replete with 10mEq
-hold daily supplementation while off diuretics and with MARGIE
Non-PA Troponin Elevation
-patient denies chest pain. EKG with new LBBB. tele without wide complex QRS, will repeat EKG now
-trend Troponin
IDDM
-home regimen: lispro 5 units with meals, lantus 20 units qhs
-will give lantus 10 units qhs here and hold short acting given MARGIE
-monitor BGL and adjust as needed
-ISS
-diabetic diet
-hold BEAUTY OPERATOR APPRENTICE Jardiance for now
Constipation
-resolved this AM per patient
-hold BEAUTY OPERATOR APPRENTICE Mounjaro, patient may need to stop this medication
-daily miralax and dulcolax supp PRN
Chronic Hypoxic and Hypercapnic Respiratory Failure
-patient is on 2-3L baseline
-continue BEAUTY OPERATOR APPRENTICE Nebulizers
AMIE on CPAP
HLD
-BEAUTY OPERATOR APPRENTICE Lipitor
DNR - confirmed on admission
DVT PPx Eliquis
76 minutes spent on patient evaluation, medical decision making, coordination of care
[2024-01-28 23:53] LABS: NT-proBNP 1610 pg/ml
[2024-01-29] VITALS (24 sets, daily range): BP systolic 100–141; BP diastolic 48–93; PULSE 64–78; O2SAT 99; BMI 41.2
[2024-01-29] MEDS: KCL 10 MEQ PO (00:29)
[2024-01-29] MEDS: ELIQUIS 5 MG PO ×2 (00:29→08:14)
[2024-01-29 01:09] LABS: Urine Albumin Negative (Neg - Trace); Urine Bilirubin 1+ (Negative); Urine Character Clear (Clear); Urine Color Yellow; Urine Glucose 3+ (Negative); Urine Ketone Trace (Negative); Urine Leukocyte 1+ (Negative); Urine Nitrite Negative (Negative); Urine Occult Blood Negative (Negative); Urine Specific Gravity 1.015 (<1.030); Urine Urobilinogen Negative (Neg - 1+)
[2024-01-29 01:23] LABS: Urine Sodium 7 mmol/L (30-90)
[2024-01-29 01:39] LABS: Urine Hyaline Cast >15 /LPF (0-2)
[2024-01-29 01:43] LABS: Urine Bacteria Moderate (Negative)
[2024-01-29 02:54] LABS: Glucose - Point of Care 207 mg/dl (70-99)
[2024-01-29] MEDS: COSOPT EYE DROPS 1 DROP BOTH EYES ×3 (02:59→21:10)
[2024-01-29] MEDS: MELATONIN PO (03:00)
[2024-01-29] MEDS: LANTUS 0.100000000000000006 UNITS SC (03:00)
[2024-01-29] MEDS: NSS 1000 IV (03:01)
[2024-01-29 03:18] LABS: Lactic Acid 1.3 mmol/L (0.7-2.0)
[2024-01-29 03:45] LABS: Troponin I 0.119 ng/ml
[2024-01-29 06:02] LABS: % Basophils 0.5 % (0-2); % Eosinophils 0.2 % (0-6); % Immature Granulocytes 0.4 % (0-0.5); % Lymphocytes 13.2 % (20.5-51.1); % Monocytes 12.5 % (1.7-9.3); % Neutrophils 73.2 % (42.2-75.2); Absolute Basophils 0.1 10^3/uL (0-0.2); Absolute Immature Granulocytes 0.1 10^3/uL (0-0.05); Absolute Lymphocytes 1.6 10^3/uL (1.2-3.4); Absolute Monocytes 1.5 10^3/uL (0.1-0.6); Absolute Neutrophils 8.9 10^3/uL (1.4-6.5); Hematocrit 34.9 % (39.0-52.0); Hemoglobin 11.1 g/dL (13.0-18.0); Mean Corp Hgb Conc. 31.8 g/dL (33.0-37.0); Mean Corpuscular Hgb 29.1 pg (27.0-31.0); Mean Corpuscular Volume 91.6 fL (80.0-94.0); Mean Platelet Volume 11.9 fL (7.4-10.4); Nucleated Red Blood Cells % 0 % (-); Platelet Count 218 10^3/uL (130-400); Red Blood Cell Count 3.81 10^6/uL (4.70-6.10); Red Cell Dist. Width 15.3 % (11.5-14.5); White Blood Cell Count 12.2 10^3/uL (4.8-10.8)
[2024-01-29 06:26] LABS: Blood Urea Nitrogen 74 mg/dl (9-20); Calcium 8.8 mg/dl (8.4-10.2); Carbon Dioxide 38 mmol/L (22-30); Chloride 89 mmol/L (98-107); Estimated Creatinine Clearance 23 ml/min; Glucose 141 mg/dl (70-99); Sodium 136 mmol/L (135-145); eGFR 19.98
[2024-01-29] MEDS: KCL 20 MEQ PO (08:13)
[2024-01-29] MEDS: MIRALAX 17 GRAMS PO (08:14)
[2024-01-29] MEDS: ASPIR LOW (ENTERIC COATED) 81 MG PO (08:14)
[2024-01-29] MEDS: DUONEB 3 ML INH ×4 (08:27→19:30)
[2024-01-29 09:12] LABS: Glucose - Point of Care 190 mg/dl (70-99)
--- NOTE | 2024-01-29 09:14 | VNURNOTE ---
Patient is current with [facility] since 11/25 w/SN/PT/OT, had a fall at home 01/27, will monitor progress and plan at discharge.
[2024-01-29] MEDS: NOVOLOG FLEXPEN-LOW RESISTANCE 300 UNITS SC (09:49)
--- NOTE | 2024-01-29 10:52 | CON.CAR ---
Addendum entered and electronically signed by Long Knight MD 01/29/24 16:21:
I saw and examined the patient.
The Screen Printing Loader Unloader's note was reviewed and I agree with the note.
Comment: Briefly, 83-year-old man past medical history of heart failure with preserved ejection fraction and chronic respiratory insufficiency on home O2 presenting with weakness and altered mental status found to have MARGIE on CKD� suspect this is
related to overdiuresis in the setting of decreased p.o. intake
Hold diuretics and SGLT2 and monitor renal function
On discharge would discontinue metolazone and consider lower dose of Bumex, currently on Bumex 2 mg twice daily at home
Dose reduced Eliquis for age and renal function
Original Note:
Consultation
Consultation Request
Date/Time Consultation Requested: 01/29/2024
Date/Time Consultation Performed: 01/29/2024
Requesting Provider: Dr. Blanchard
Performing Provider: Suki Jones PA-C for Dr. Knight
Reason for Consultation: MARGIE, history of heart failure
Medical History
-
History of Present Illness:
[facility] 01/29/2024:
Patient is an 83-year-old male with past medical history significant for heart failure with preserved ejection fraction chronic hypoxic and hypercapnic respiratory insufficiency on 3 L of oxygen at baseline at home, paroxysmal atrial fibrillation
status post cardioversion 01/12/2024, aortic valve replacement, CKD stage III, hypertension, hyperlipidemia, type 2 diabetes, obstructive sleep apnea on CPAP who presented to emergency department 01/28/2024 with weakness, fall and confusion. Patient
had been hospitalized 01/07 through 01/10/20222023 for acute hypoxic respiratory insufficiency with acute on chronic heart failure and atrial fibrillation status post cardioversion 01/12/2024. He was transitioned from Lasix 80 mg twice a day to Bumex
2 mg twice a day with metolazone once a week on Thursday. He also had been taking once a week Mounjaro with 40 pound weight loss since September 2023. He was seen in the office 01/20/2024 and was doing well. On 01/28/2024 patient admitted to having
worsening constipation and sat on the commode for 2-1/2 hours and attempt to have a bowel movement. Upon getting off commode patient was weak and had a fall. He did not injure himself but family had to help him get up. Later on in the day he was
working with occupational therapy and once once again noted to have weakness, dizziness, difficulty standing as well as confusion and occupational therapy called 911. On presentation to the emergency department patient was noted to have MARGIE with
creatinine of 3.4 with hypokalemia K3.3. ABG showed lactic acidosis. EKG showed atrial tachycardia with left bundle branch block. Chest x-ray cardiomegaly and no evidence of heart failure. Head CT no acute abnormality. Patient was provided IV
hydration, repletion of potassium with improvement of confusion. At time of this evaluation patient's sitting at bedside. Patient alert and oriented able to answer questions. Overall he reports feeling well. Notes some dry mouth and
difficulty urinating but otherwise denies chest pain, shortness of breath, dizziness, lightheadedness, palpitations, edema, orthopnea or PND.
PMH:
Chronic HFpEF
Chronic hypoxic respiratory failure on chronic oxygen at home
Preserved EF 55% by echo 11/2023
Paroxysmal Afib
s/p CV 01/12/2024
Chronic amiodarone therapy
Chronic anti-coagulation previously on warfarin, now Eliquis
s/p AVR bioprosthetic mean gradient 10 mmHg by echo 04/2023
DM 2
Obesity, BMI 41.2
Past Medical History
Past Medical History: Other (See HPI)
Past Surgical History: Cardiac (Aortic valve replacement 2008, cardioversion), Orthopedic (Right femur repair with derik) and Other (Facial reconstruction, tooth extraction, bilateral cataract extraction, skin cancer removal)
Social History
Tobacco: Non-Smoker
Alcohol: None
Drug: None
Personal:
Living: With Family
Family History
Family History: Hypertension
Allergies / Home Medications
Allergy/AdvReac Type Severity Reaction Status Date / Time
No Known Allergies Allergy Verified 01/28/24 17:38
�Medication �Instructions �Recorded �Confirmed �Type
ezetimibe 10 mg tablet 10 mg PO HS High cholesterol 03/13/11 01/28/24 History
coenzyme Q10 200 mg capsule (Co 200 mg PO DAILY Supplement 03/29/20 01/28/24 History
Q-10)
cyanocobalamin (vitamin B-12) 2,500 mcg PO MOTH Supplement 03/29/20 01/28/24 History
2,500 mcg tablet
aspirin 81 mg tablet,delayed 81 mg PO DAILY Blood clot 06/07/20 01/28/24 Rx
release prevention/tx ##0
atorvastatin 20 mg tablet 20 mg PO HS High cholesterol 10/27/22 01/28/24 History
insulin lispro 100 unit/mL 2 - 8 sliding scale dose SC MEALS 10/27/22 01/28/24 History
subcutaneous pen (Humalog KwikPen Diabetes
(U-100) Insulin)
magnesium 250 mg tablet 500 mg PO DAILY Supplement 12/07/23 01/28/24 History
tirzepatide 5 mg/0.5 mL 5 mg SC MOORE Diabetes 12/07/23 01/28/24 History
subcutaneous pen injector
(Mounjaro)
dorzolamide 22.3 mg-timolol 6.8 1 drp BOTH EYES BID Eye Condition 12/09/23 01/28/24 History
mg/mL eye drops
miconazole nitrate 2 % topical 1 applic topical BID #100 grams 12/18/23 01/28/24 Rx
powder (Miconazorb AF)
cholecalciferol (vitamin D3) 50 50 mcg PO DAILY 01/08/24 01/28/24 History
mcg (2,000 unit) tablet (Vitamin
D3)
insulin lispro 100 unit/mL 5 unit SC MEALS Diabetes 01/08/24 01/28/24 History
subcutaneous pen
melatonin 5 mg tablet 10 mg PO HS Sleep 01/08/24 01/28/24 History
albuterol sulfate 90 mcg/actuation 2 puff inhalation R Q4 PRN 01/13/24 01/28/24 Rx
aerosol inhaler (Ventolin HFA) sob/wheezing #1 inh
bumetanide 2 mg tablet 2 mg PO BID AT 0800,1600 #60 tabs 01/13/24 01/28/24 Rx
empagliflozin 10 mg tablet 10 mg PO HS Diabetes #30 tabs 01/13/24 01/28/24 Rx
(Jardiance)
ipratropium 0.5 mg-albuterol 3 mg 3 ml inhalation R QID #30 ea 01/13/24 01/28/24 Rx
(2.5 mg base)/3 mL nebulization
soln
metolazone 2.5 mg tablet 2.5 mg PO MO Fluid 01/13/24 01/28/24 Rx
Retention/Swelling #30 tabs
potassium chloride 20 mEq 20 meq PO TID #90 tabs 01/13/24 01/28/24 Rx
tablet,extended release(part/cryst)
amiodarone 200 mg tablet 200 mg PO DAILY 01/28/24 01/28/24 History
apixaban 5 mg tablet (Eliquis) 5 mg PO BID 01/28/24 01/28/24 History
insulin glargine 100 unit/mL (3 20 unit SC HS 01/28/24 01/28/24 History
mL) subcutaneous pen (Lantus
Solostar U-100 Insulin)
Review of Systems
-
History Source: Patient
All other systems: Negative unless noted
Physical Exam
Vital Signs
Temp Pulse Resp BP Pulse Ox
97.7 F 71 18 100/62 99
01/28/24 17:37 01/29/24 08:30 01/29/24 08:30 01/29/24 07:00 01/29/24 08:30
GEN: No distress, awake, Ox3, obese
HEENT: supple, anicteric, mmm
LUNGS: CTA, no wheezes/rales, wearing oxygen
CV: Reg, S1/S2, no murmur, rub or gallop
ABD: soft, BS+, NT/ND
EXT: No edema, clubbing or cyanosis, skin changes consistent w/ chronic venous stasis
NEURO: Gross non-focal
SKIN: No rash, warm, dry, pink
Lab Results
01/29/24 05:43
Troponin I Cancelled 01/29/24 09:00
Khp-[id number] Pept 1610 pg/ml 01/28/24 21:34
Impression / Plan
-
PCP: Dr. Jade
Cardiology: Dr. Arce
Impression:
Presented 01/28/2024 with dizziness, weakness, fall, confusion
MARGIE with admission creatinine 3.4
Dehydration
Lactic acidosis
Hypokalemia
Abnormal troponin, suspect nonischemic myocardial injury
Chronic HFpEF
Chronic hypoxic respiratory failure on chronic oxygen at home
Preserved EF 55% by echo 11/2023
Paroxysmal Afib
s/p CV 01/12/2024
Chronic amiodarone therapy
Chronic anti-coagulation previously on warfarin, now Eliquis
s/p AVR bioprosthetic mean gradient 10 mmHg by echo 04/2023
DM 2
Obesity, BMI 41.2
Echo 05/06/23: EF 55-60%, stage II diastolic dysfunction, mod MS with peak/mean 13/7 mmHg, well seated bioprosthetic AVR with peak/mean 16/10 mmHg and no aortic regurgitation
Echo 12/08/23: EF 55% with mild LVH, mild MS, mean grad 5 mmHg, bioAVR with mean grad 10 mmHg, mild TR with PASP 45 mmHg and no change from Apr 2023.
Plan:
Presented 01/28/2024 with dizziness, weakness, fall and confusion found to have MARGIE, lactic acidosis and hypokalemia
MARGIE with creatinine noted to be 3.4. This is in the setting of Bumex 2 mg twice a day and once a week metolazone 2.5 mg on Mondays.
-Admission weight 262 pounds which is 8 pounds lower than previous discharge weight.
-Creatinine improved to 3.0 overnight with IV hydration. Diuretics and Jardiance currently on hold
-Volume status somewhat difficult given patient's obesity. He also is on Mounjaro and has had rapid weight loss since September losing greater than 40 pounds.
-Continue to hold diuresis. Plan would be to send home on Bumex, perhaps a lower dose, dose to be determined and keep off metolazone
-Renal ultrasound 01/29/2024 negative for hydronephrosis
-Baseline creatinine seems to run 1.7-1.9
-Hypokalemia K+ 3.3->3.0. Would replete with extra 40 mEq now. Repeat potassium pending later today
-Monitor daily weights I's and O's and creatinine.
Paroxysmal atrial fibrillation status post successful CV 200 J on 01/12/24
-Transition recently to Eliquis as outpatient. Given creatinine 3.0 and age greater than 80 would recommend reducing Eliquis to 2.5 mg twice a day. If renal function improves may need to consider going back to 5 mg. Continue to monitor
-Patient on amiodarone 200 mg twice daily load as outpatient until 01/28/2024. QTc noted to be prolonged on EKG in emergency department. Amiodarone now on hold.
-EKG in office QTc was 438 on 01/20/2024 and patient previously did well on lower dose of amiodarone. Repeat EKG in AM. If QTc normalizes resume 200 mg daily given recent cardioversion
Abnormal troponin, 0.119, trend to peak. Suspect nonischemic myocardial injury secondary to MARGIE and electrolyte disturbance. Denies chest pain.
Discussed with patient and patient's who are at bedside.
HPI 01/29/2024:
Patient is an 83-year-old male with past medical history significant for heart failure with preserved ejection fraction chronic hypoxic and hypercapnic respiratory insufficiency on 3 L of oxygen at baseline at home, paroxysmal atrial fibrillation
status post cardioversion 01/12/2024, aortic valve replacement, CKD stage III, hypertension, hyperlipidemia, type 2 diabetes, obstructive sleep apnea on CPAP who presented to emergency department 01/28/2024 with weakness, fall and confusion. Patient
had been hospitalized 01/07 through 01/10/20222023 for acute hypoxic respiratory insufficiency with acute on chronic heart failure and atrial fibrillation status post cardioversion 01/12/2024. He was transitioned from Lasix 80 mg twice a day to Bumex
2 mg twice a day with metolazone once a week on Thursday. He also had been taking once a week Mounjaro with 40 pound weight loss since September 2023. He was seen in the office 01/20/2024 and was doing well. On 01/28/2024 patient admitted to having
worsening constipation and sat on the commode for 2-1/2 hours and attempt to have a bowel movement. Upon getting off commode patient was weak and had a fall. He did not injure himself but family had to help him get up. Later on in the day he was
working with occupational therapy and once once again noted to have weakness, dizziness, difficulty standing as well as confusion and occupational therapy called 911. On presentation to the emergency department patient was noted to have MARGIE with
creatinine of 3.4 with hypokalemia K3.3. ABG showed lactic acidosis. EKG showed atrial tachycardia with left bundle branch block. Chest x-ray cardiomegaly and no evidence of heart failure. Head CT no acute abnormality. Patient was provided IV
hydration, repletion of potassium with improvement of confusion. At time of this evaluation patient's sitting at bedside. Patient alert and oriented able to answer questions. Overall he reports feeling well. Notes some dry mouth and
difficulty urinating but otherwise denies chest pain, shortness of breath, dizziness, lightheadedness, palpitations, edema, orthopnea or PND.
Data Reviewed
-
EKG: Report Reviewed by me, Discussed with Physician, Discussed with Patient and Discussed with Family
Radiology: Report Reviewed by me, Discussed with Physician, Discussed with Patient and Discussed with Family
CT Scan: Report Reviewed by me, Discussed with Physician and Discussed with Family
Ultrasound: Report Reviewed by me and Discussed with Physician
Labs: Labs Reviewed by me, Discussed with Physician, Discussed with Patient and Discussed with Family
Old Records: Reviewed
--- NOTE | 2024-01-29 11:14 | W.CON.NEPH ---
Consultation
-
Date/Time Consultation Requested: 01/29/24843
Date/Time Consultation Performed: 01/29/24 0945
Requesting Provider: Ede Peters
Performing Provider: Martina Brennan
Reason for Consultation: MARGIE with CKD
Medical History
-
Chief Complaint: Gen weakness
History of Present Illness:
Mr. Charlie Walsh is a 83 yo man with hx HFpEF on bumex and metolazone, chronic hypoxic and hypercapnic respiratory failure on 3L O2 at baseline, paroxysmal atrial fibrillation on Eliquis, Amiodarone, s/p bioprosthetic aortic valve replacement,
CKD III baseline cr 1.1-1.3 however recently cr increased trend since November with diuresis and stable at 1.6-1.9 in December, essential HTN, HLD, IDDM on Mounjaro(started 2m ago), Jardiance, CAD on ASA, statin, morbid obesity, AMIE on CPAP presents to the
ER with weakness and fall.
He was recently in in November and December for SHF flare and was maintained on diuresis, last admit at 01/07-01/13/24 had cardioversion for Afib. This time he is transitioned from lasix 80mg PO BID to Bumex 2mg PO BID and Metolazone decreased from
daily dosing to every Thursday. Since this discharge he has also cut back fluid intake. Weight on discharge 01/12 was 122kg; here in ER he is 119 kg. Since at home he had issues with constipation and last night he was on commode but could not get up
with leg weakness and while leaving bathroom he fell on his right side. Denies any LOC or injuries. His family tried to help get him up but he couldn't walk. He felt dizzy. HIs cr was up at 3.4 and soft BPs. He started on NS last night with cr
improving to 3. He denies any dysuria. Constipation resolved. No abd pain. NO CP or sob.
Patient denies taking NSAIDs.
Past Medical History
HFpEF, chronic hypoxic and hypercapnic respiratory failure on 3L O2 at baseline, paroxysmal atrial fibrillation, s/p bioprosthetic aortic valve replacement, CKD III, essential HTN, HLD, NIDDM, CAD, morbid obesity, AMIE on CPAP, DM 2
Past Surgical History: Other (Face reconsruction, R femur repeair basal cell removal AVR bilat cataracts)
Social History
Tobacco: Non-Smoker
Alcohol: None
Personal:
Living: With Family
Employment: Retired
Family History
Family History: Not Pertinent
Allergies / Home Medications
Allergy/AdvReac Type Severity Reaction Status Date / Time
No Known Allergies Allergy Verified 01/28/24 17:38
�Medication �Instructions �Recorded �Confirmed �Type
ezetimibe 10 mg tablet 10 mg PO HS High cholesterol 03/13/11 01/28/24 History
coenzyme Q10 200 mg capsule (Co 200 mg PO DAILY Supplement 03/29/20 01/28/24 History
Q-10)
cyanocobalamin (vitamin B-12) 2,500 mcg PO MOTH Supplement 03/29/20 01/28/24 History
2,500 mcg tablet
aspirin 81 mg tablet,delayed 81 mg PO DAILY Blood clot 06/07/20 01/28/24 Rx
release prevention/tx ##0
atorvastatin 20 mg tablet 20 mg PO HS High cholesterol 10/27/22 01/28/24 History
insulin lispro 100 unit/mL 2 - 8 sliding scale dose SC MEALS 10/27/22 01/28/24 History
subcutaneous pen (Humalog KwikPen Diabetes
(U-100) Insulin)
magnesium 250 mg tablet 500 mg PO DAILY Supplement 12/07/23 01/28/24 History
tirzepatide 5 mg/0.5 mL 5 mg SC MOORE Diabetes 12/07/23 01/28/24 History
subcutaneous pen injector
(Mounjaro)
dorzolamide 22.3 mg-timolol 6.8 1 drp BOTH EYES BID Eye Condition 12/09/23 01/28/24 History
mg/mL eye drops
miconazole nitrate 2 % topical 1 applic topical BID #100 grams 12/18/23 01/28/24 Rx
powder (Miconazorb AF)
cholecalciferol (vitamin D3) 50 50 mcg PO DAILY 01/08/24 01/28/24 History
mcg (2,000 unit) tablet (Vitamin
D3)
insulin lispro 100 unit/mL 5 unit SC MEALS Diabetes 01/08/24 01/28/24 History
subcutaneous pen
melatonin 5 mg tablet 10 mg PO HS Sleep 01/08/24 01/28/24 History
albuterol sulfate 90 mcg/actuation 2 puff inhalation R Q4 PRN 01/13/24 01/28/24 Rx
aerosol inhaler (Ventolin HFA) sob/wheezing #1 inh
bumetanide 2 mg tablet 2 mg PO BID AT 0800,1600 #60 tabs 01/13/24 01/28/24 Rx
empagliflozin 10 mg tablet 10 mg PO HS Diabetes #30 tabs 01/13/24 01/28/24 Rx
(Jardiance)
ipratropium 0.5 mg-albuterol 3 mg 3 ml inhalation R QID #30 ea 01/13/24 01/28/24 Rx
(2.5 mg base)/3 mL nebulization
soln
metolazone 2.5 mg tablet 2.5 mg PO MO Fluid 01/13/24 01/28/24 Rx
Retention/Swelling #30 tabs
potassium chloride 20 mEq 20 meq PO TID #90 tabs 01/13/24 01/28/24 Rx
tablet,extended release(part/cryst)
amiodarone 200 mg tablet 200 mg PO DAILY 01/28/24 01/28/24 History
apixaban 5 mg tablet (Eliquis) 5 mg PO BID 01/28/24 01/28/24 History
insulin glargine 100 unit/mL (3 20 unit SC HS 01/28/24 01/28/24 History
mL) subcutaneous pen (Lantus
Solostar U-100 Insulin)
Review of Systems
-
All complete 12 point ROS have been inquired and found negative other than state din HPI
Physical Exam
Vital Signs
Vital Signs
Temp Pulse Resp BP Pulse Ox
97.7 F 71 18 100/62 99
01/28/24 17:37 01/29/24 08:30 01/29/24 08:30 01/29/24 07:00 01/29/24 08:30
Lab Results
WBC 12.2 10^3/uL (4.8-10.8) H 01/29/24 05:43
RBC 3.81 10^6/uL (4.70-6.10) L 01/29/24 05:43
Hgb 11.1 g/dL (13.0-18.0) L 01/29/24 05:43
Hct 34.9 % (39.0-52.0) L 01/29/24 05:43
Plt Count 218 10^3/uL (130-400) 01/29/24 05:43
Sodium 136 mmol/L (135-145) 01/29/24 05:43
Chloride 89 mmol/L (98-107) L 01/29/24 05:43
Carbon Dioxide 38 mmol/L (22-30) H 01/29/24 05:43
BUN 74 mg/dl (9-20) H 01/29/24 05:43
Creatinine 3.0 mg/dL (0.7-1.3) H 01/29/24 05:43
eGFR 19.98 01/29/24 05:43
Glucose 141 mg/dl (70-99) H 01/29/24 05:43
Calcium 8.8 mg/dl (8.4-10.2) 01/29/24 05:43
Vmu-E-Imdfmbidfcm Pept 1610 pg/ml 01/28/24 21:34
Albumin 4.5 g/dl (3.5-5.0) 01/28/24 18:08
Renal US:
INDICATION: Acute renal failure.
TECHNIQUE: Sonographic evaluation of the urinary bladder and the bilateral kidneys was performed. Director [employer] grayscale and color Doppler images recorded.
COMPARISON: CT abdomen and pelvis 10/23/2012.
FINDINGS: The right kidney measures 9.1 cm in length and the left kidney measures 10.3 cm in length. The bilateral kidneys show no signs of hydronephrosis, focal lesions, or calcifications. Right kidney shows some nonshadowing small echogenic foci
that are probably artifactual reflections. No perinephric collection is seen.
No bladder mass is identified. No clear abnormal wall thickening. Ureteral jets are not identified during the examination. There was a post void residual of 187 cc.
IMPRESSION:
1. Negative for hydronephrosis.
2. Post void residual of [address] head:
IMPRESSION:
There are no acute intracranial abnormalities.
There is moderate diffuse cortical atrophy with moderate nonspecific white matter changes as described above.
CXR:
IMPRESSION:
Cardiomegaly without associated pulmonary edema
11/2023 echo:
CONCLUSIONS
Normal left ventricular chamber size. Normal left ventricular systolic
function. Left ventricular ejection fraction is 55% by Hedrick's Method of
Disc. Normal regional wall motion. Mild concentric left ventricular
hypertrophy. Stage II diastolic dysfunction suggestive of abnormal relaxation
and increased filling pressures.
Thickened mitral valve leaflets. Dense Mitral annular calcification. Mild
mitral stenosis. Peak gradient 17 mmHg/Mean gradient 5 mmHg - trace mitral
regurgitation.
Bioprosthetic aortic valve with Peak gradient 15 mmHg/Mean gradient 10 mmHg -
no aortic regurgitation is seen.
Tricuspid valve opens normally. Mild tricuspid regurgitation. Estimated
pulmonary artery pressure of 45 mmHg assuming a right atrial pressure of 3
mmHg.
Since echocardiogram April 2023, there is no significant change.
Physical Exam
General: Awake, Alert, Oriented, AOx3, No Distress and Nontoxic
HEENT: EOMI and Anicteric
Respiratory: Clear, Normal Excursion and Nonlabored Respirations
Cardiac: S1/S2 and Regular Rate/Rhythm (murmur)
Breast: Deferred by me
Abdomen: Soft, Nontender and Nondistended
Musculoskeletal: Edema (chronic trace)
Skin: Other (chr skin changes in bilat legs)
Neuro: Nonfocal/Grossly Intact
Psych: Mood/afflect pleasant, Insight/judgement good and Appropriate
Data Reviewed
-
Labs: Labs Reviewed by me and Discussed with Patient
Assessment/Plan
-
IMP:
Acute on chronic kidney injury-baseline cr 1.1-1.3 in October 2023
Paroxysmal Afib -s/p cardioversion in December
Hypokalemia with contraction metabolic alkalosis
Prolonged QT
Non-DC Troponin Elevation
IDDM
Constipation
Chronic Hypoxic and Hypercapnic Respiratory Failure
AMIE on CPAP
HLD
CHr LE edema
s/p bioprosthetic AVR
PUlm HTN
CAD
PLan:
Recent d/c after treating CHF with diuresis now presents back with weakness, fall
MARGIE-best cr 1.1-1.3 before November, since then cr uptrend with diuresis for CHF flare
likely from vol depletion, hold diuresis and cont IVF today
UA with ?UTI, U na is low 7 suggest prerenal, renal US non acute
wt is lower than last d/c
would also hold JArdiance and Mounjaro(started 2m ago)
follow bladder scan, 187cc on US
BP are soft, avoid hypotension follow orthostatic vitals
replace k -total 80-120meq today
met alkalosis monitor
follow labs and wt daily
d/w pt
--- NOTE | 2024-01-29 13:14 | W.PN.HOSP.TC ---
Today's Communication/Plan
-
Monitor vital signs and see plan
Follow urine studies
Monitor renal function closely
Monitor QTc
pt/ot
Spouse updated at bedside
Assessment / Plan
Assessment / Plan
General: No Apparent Distress, Conversant and Obese
HEENT: PERRLA
Respiratory: Clear; No Wheezes
Cardiac: S1/S2; No JVD
GI: Soft and Non Tender
Musculoskeletal: Other (trace pitting edema )
Skin: Warm and Dry; No Rash
Neuro: AO x 3
Psych: Calm
Acute Renal Failure
Acute on chronic kidney injury
Dehydration
Lactic Acidosis 2/2 dehydration, no s/o infection
Weakness/ Ambulatory Dysfunction 2/2 Above
-baseline creatinine 1.1-1.3, patient presenting with creatinine 3.4
suspect 2/2 diuresis,mounjaro
-patient's diuretic regimen adjusted last admission and he admits to following fluid restriction at this time. He is now with ARF likely from dehydration. He does not appear in heart failure on exam and weight is down 3 kg. s/p 1L IVF bolus in ER
-hold CLIENT ONBOARDING ANALYST Bumex and Metolazone
-follow up UA, urine sodium, urine creatinine
lactae improved
renal US noted; neg for hydro
-cardiology folloiwng
nephro following
-PT/OT
ua noted; pending urine cx
Paroxysmal Afib
-s/p cardioversion last admission
eliquis started at lower dose 2.5mg BID given ARF
amio on hold 2/2 prolong Qtc; restartat 200mg daily per cardiology if Qtc better
-continue CLIENT ONBOARDING ANALYST Eliquis, amiodarone
Hypokalemia
replete
Non-AZ Troponin Elevation
-patient denies chest pain. EKG with new LBBB. tele without wide complex QRS
-trend Troponin
IDDM
-home regimen: lispro 5 units with meals, lantus 20 units qhs
-will give lantus 20 units qhs here and hold short acting given MARGIE; if BS continues to be elevated then will start meal time insulin
-monitor BGL and adjust as needed
-ISS
-diabetic diet
-hold CLIENT ONBOARDING ANALYST Jardiance for now
Constipation
-resolved
-hold CLIENT ONBOARDING ANALYST Mounjaro, patient may need to stop this medication
-daily miralax and dulcolax supp PRN
Chronic Hypoxic and Hypercapnic Respiratory Failure
-patient is on 2-3L baseline
-continue CLIENT ONBOARDING ANALYST Nebulizers
AMIE on CPAP
HLD
-CLIENT ONBOARDING ANALYST Lipitor
DNR - confirmed on admission
DVT PPx Eliquis
I spent a total of 52 minutes with the patient or on the floor. More than 50% of this time involved counseling and coordination of care.
Anticipated Discharge: > 48 hours
Subjective/Interval History
-
Date of Service: January 29, 2024
denies pain
Objective Data
-
Labs:
Laboratory Results
01/29/24 01/29/24
05:43 13:05
WBC 12.2 H
Hgb 11.1 L
Hct 34.9 L
Plt Count 218
Sodium 136
Potassium 3.0 L Pending
Chloride 89 L
Carbon Dioxide 38 H
BUN 74 H
Creatinine 3.0 H
Glucose 141 H
Calcium 8.8
Vital Signs:
Vital Signs
Temp Pulse Resp BP Pulse Ox
97.7 F 61 21 100/62 95
01/28/24 17:37 01/29/24 11:51 01/29/24 11:51 01/29/24 07:00 01/29/24 11:51
[2024-01-29 13:28] LABS: Potassium 3.1 mmol/L (3.5-5.1)
[2024-01-29 13:41] LABS: Troponin I 0.101 ng/ml
[2024-01-29 13:55] LABS: Glucose - Point of Care 211 mg/dl (70-99)
[2024-01-29] MEDS: KCL 40 MEQ PO ×2 (13:58→18:06)
[2024-01-29] MEDS: NOVOLOG FLEXPEN-LOW RESISTANCE 2 UNITS SC ×2 (13:58→17:50)
--- NOTE | 2024-01-29 14:30 | EDRN ---
Patient taken to room 417-1 on stretcher with NSS infusing by library acquisitions technician on O2 3LNC.
[2024-01-29 16:43] LABS: Glucose - Point of Care 226 mg/dl (70-99)
[2024-01-29 21:06] LABS: Glucose - Point of Care 161 mg/dl (70-99)
[2024-01-29] MEDS: ZETIA 10 MG PO (21:10)
[2024-01-29] MEDS: MELATONIN 10 MG PO (21:10)
[2024-01-29] MEDS: LIPITOR 20 MG PO (21:10)
[2024-01-29] MEDS: ELIQUIS 2.5 MG PO (21:10)
[2024-01-29] MEDS: LANTUS 0.200000000000000011 UNITS SC (21:11)
[2024-01-30 03:15] VITALS: BP 126/61
[2024-01-30 06:00] VITALS: BMI 41.2
[2024-01-30 07:45] LABS: Glucose - Point of Care 149 mg/dl (70-99)
[2024-01-30 07:55] VITALS: BP 105/63
[2024-01-30] MEDS: DUONEB 3 ML INH ×4 (08:02→19:43)
[2024-01-30] MEDS: NOVOLOG FLEXPEN-LOW RESISTANCE SC (08:10)
[2024-01-30] MEDS: MIRALAX 17 GRAMS PO (08:12)
[2024-01-30] MEDS: COSOPT EYE DROPS 1 DROP BOTH EYES ×2 (08:14→20:43)
[2024-01-30] MEDS: ASPIR LOW (ENTERIC COATED) 81 MG PO (08:14)
[2024-01-30] MEDS: ELIQUIS 2.5 MG PO ×2 (08:14→20:43)
[2024-01-30 08:20] LABS: % Basophils 0.7 % (0-2); % Eosinophils 2.6 % (0-6); % Immature Granulocytes 0.4 % (0-0.5); % Lymphocytes 21.1 % (20.5-51.1); % Monocytes 14.7 % (1.7-9.3); % Neutrophils 60.5 % (42.2-75.2); Absolute Basophils 0.1 10^3/uL (0-0.2); Absolute Eosinophils 0.2 10^3/uL (0-0.7); Absolute Lymphocytes 1.9 10^3/uL (1.2-3.4); Absolute Monocytes 1.3 10^3/uL (0.1-0.6); Absolute Neutrophils 5.4 10^3/uL (1.4-6.5); Hematocrit 32.5 % (39.0-52.0); Hemoglobin 10.4 g/dL (13.0-18.0); Mean Corpuscular Hgb 29.6 pg (27.0-31.0); Mean Corpuscular Volume 92.6 fL (80.0-94.0); Mean Platelet Volume 12.2 fL (7.4-10.4); Nucleated Red Blood Cells % 0 % (-); Platelet Count 197 10^3/uL (130-400); Red Blood Cell Count 3.51 10^6/uL (4.70-6.10); Red Cell Dist. Width 15.7 % (11.5-14.5); White Blood Cell Count 8.9 10^3/uL (4.8-10.8)
[2024-01-30 08:43] LABS: ALT (SGPT) 15 U/L (0-50); AST (SGOT) 39 U/L (17-59); Albumin 3.4 g/dl (3.5-5.0); Alkaline Phosphatase 91 U/L (38-126); Blood Urea Nitrogen 60 mg/dl (9-20); Calcium 8.9 mg/dl (8.4-10.2); Carbon Dioxide 33 mmol/L (22-30); Chloride 95 mmol/L (98-107); Estimated Creatinine Clearance 30 ml/min; Glucose 125 mg/dl (70-99); Potassium 3.4 mmol/L (3.5-5.1); Sodium 136 mmol/L (135-145); Total Protein 6.1 g/dl (6.3-8.2); eGFR 27.49
[2024-01-30] MEDS: KCL 40 MEQ PO ×2 (09:24→15:07)
[2024-01-30 11:15] VITALS: BP 109/63
[2024-01-30 11:29] LABS: Glucose - Point of Care 226 mg/dl (70-99)
--- NOTE | 2024-01-30 11:39 | CM ---
Patient seen bedside with spouse in room.
IA completed.
Patient lives with spouse in a 2 story home with 2 steps to enter from the back, 1 from the front.
Patient has oxygen and [employer] thru [employer].
Patient has walker, cane and crutches, usually uses walker.
PT/OT recommending home with VN.
Patient recently in [facility] and has had [facility] in the past.
PCP: Yasmany
Pharmacy:[facility]
Plan: skilled rehab, referrals placed, once bed available will need [employer].
[2024-01-30] MEDS: NOVOLOG FLEXPEN-LOW RESISTANCE 2 UNITS SC (11:54)
--- NOTE | 2024-01-30 13:12 | W.PN.HOSP.TC ---
Today's Communication/Plan
-
Monitor vital signs
see plan
Renal function slowly improving
PT/OT
Restart amiodarone
Replete potassium
Add mealtime insulin
Assessment / Plan
Assessment / Plan
General: No Apparent Distress, Conversant and Obese
HEENT: PERRLA
Respiratory: Clear; No Wheezes
Cardiac: S1/S2; No JVD
GI: Soft and Non Tender
Musculoskeletal: Other (trace pitting edema )
Skin: Warm and Dry; No Rash
Neuro: AO x 3
Psych: Calm
Acute Renal Failure
Acute on chronic kidney injury
Dehydration
Lactic Acidosis 2/2 dehydration, no s/o infection
Weakness/ Ambulatory Dysfunction 2/2 Above
-baseline creatinine 1.1-1.3, patient presenting with creatinine 3.4
suspect 2/2 diuresis,mounjaro
-patient's diuretic regimen adjusted last admission and he admits to following fluid restriction at this time. He is now with ARF likely from dehydration. He does not appear in heart failure on exam and weight is down 3 kg. s/p 1L IVF bolus in ER
-hold ARMAMENT INSTALLER Bumex and Metolazone
UA does not suggest UTI
lactae improved
renal US noted; neg for hydro
-cardiology folloiwng
nephro following
-PT/OT
Paroxysmal Afib
-s/p cardioversion last admission
eliquis started at lower dose 2.5mg BID given ARF
amio held 2/2 prolong Qtc; now QTc improved, restart amiodarone 200 mg daily per cardiology recommendation
-continue ARMAMENT INSTALLER Eliquis, amiodarone
Hypokalemia
replete
Troponin elevated
Suspect non ischemic myocardial injury
-patient denies chest pain.
IDDM
-home regimen: lispro 5 units with meals, lantus 20 units qhs
-cw insulin
-monitor BGL and adjust as needed
-ISS
-diabetic diet
-hold ARMAMENT INSTALLER Jardiance for now
Constipation
-resolved
-hold ARMAMENT INSTALLER Mounjaro, patient may need to stop this medication
-daily miralax and dulcolax supp PRN
Chronic Hypoxic and Hypercapnic Respiratory Failure
-patient is on 2-3L baseline
-continue ARMAMENT INSTALLER Nebulizers
AMIE on CPAP
HLD
-ARMAMENT INSTALLER Lipitor
DNR - confirmed on admission
DVT PPx Eliquis
I spent a total of 51 minutes with the patient or on the floor. More than 50% of this time involved counseling and coordination of care.
Anticipated Discharge: 24 - 48 hours
Subjective/Interval History
-
Date of Service: January 30, 2024
denies pain
Objective Data
-
Labs:
Laboratory Results
01/30/24
06:25
WBC 8.9
Hgb 10.4 L
Hct 32.5 L
Plt Count 197
Sodium 136
Potassium 3.4 L
Chloride 95 L
Carbon Dioxide 33 H
BUN 60 H
Creatinine 2.3 H
Glucose 125 H
Calcium 8.9
Total Bilirubin 1.0
AST 39
ALT 15
Alkaline Phosphatase 91
Vital Signs:
Vital Signs
Temp Pulse Resp BP Pulse Ox
97.9 F 78 16 109/63 95
01/30/24 11:15 01/30/24 11:15 01/30/24 11:15 01/30/24 11:15 01/30/24 11:15
I&O
01/29/24 01/30/24 01/31/24
06:59 06:59 06:59
Intake Total 1200 / 1200
Output Total 200 / 200
Balance 1000 / 1000
--- NOTE | 2024-01-30 14:01 | W.PN.CARDCBS ---
Today's Communication / Plan
-
Diuretics on hold, monitor renal function and potassium
Impression / Plan
-
PCP: Dr. Jade
Cardiology: Dr. Arce
Impression:
Presented 01/28/2024 with dizziness, weakness, fall, confusion
MARGIE with admission creatinine 3.4
Dehydration
Lactic acidosis
Hypokalemia
Abnormal troponin, suspect nonischemic myocardial injury
Chronic HFpEF
Chronic hypoxic respiratory failure on chronic oxygen at home
Preserved EF 55% by echo 11/2023
Paroxysmal Afib
s/p CV 01/12/2024
Chronic amiodarone therapy
Chronic anti-coagulation previously on warfarin, now Eliquis
s/p AVR bioprosthetic mean gradient 10 mmHg by echo 04/2023
DM 2
Obesity, BMI 41.2
Echo 05/06/23: EF 55-60%, stage II diastolic dysfunction, mod MS with peak/mean 13/7 mmHg, well seated bioprosthetic AVR with peak/mean 16/10 mmHg and no aortic regurgitation
Echo 12/08/23: EF 55% with mild LVH, mild MS, mean grad 5 mmHg, bioAVR with mean grad 10 mmHg, mild TR with PASP 45 mmHg and no change from Apr 2023.
Plan:
Presented 01/28/2024 with dizziness, weakness, fall and confusion found to have MARGIE, lactic acidosis and hypokalemia
MARGIE with creatinine noted to be 3.4 - suspect this was related to overdiuresis
Cr improving with diuretics on hold, was on Bumex 2 mg twice a day and metolazone 2.5 mg on Mondays
Baseline creatinine seems to run 1.7-1.9 which he is approaching
Consider decreasing Bumex 2mg to once daily on discharge and stopping metolazone
Paroxysmal atrial fibrillation status post successful CV 200 J on 01/12/24
Transition recently to Eliquis as outpatient. Given creatinine >1.5 and age greater than 80 would recommend reducing Eliquis to 2.5 mg twice a day. If renal function improves may need to consider going back to 5 mg. -Patient On amiodarone 200 mg
twice daily load as outpatient until 01/28/2024 -> resume amio at 200mg daily on continue at this dose on discharge
Abnormal troponin, peaked at 0.119. Suspect nonischemic myocardial injury secondary to MARGIE. Denies chest pain.
HPI 01/29/2024:
Patient is an 83-year-old male with past medical history significant for heart failure with preserved ejection fraction chronic hypoxic and hypercapnic respiratory insufficiency on 3 L of oxygen at baseline at home, paroxysmal atrial fibrillation
status post cardioversion 01/12/2024, aortic valve replacement, CKD stage III, hypertension, hyperlipidemia, type 2 diabetes, obstructive sleep apnea on CPAP who presented to emergency department 01/28/2024 with weakness, fall and confusion. Patient
had been hospitalized 01/07 through 01/10/20222023 for acute hypoxic respiratory insufficiency with acute on chronic heart failure and atrial fibrillation status post cardioversion 01/12/2024. He was transitioned from Lasix 80 mg twice a day to Bumex
2 mg twice a day with metolazone once a week on Thursday. He also had been taking once a week Mounjaro with 40 pound weight loss since September 2023. He was seen in the office 01/20/2024 and was doing well. On 01/28/2024 patient admitted to having
worsening constipation and sat on the commode for 2-1/2 hours and attempt to have a bowel movement. Upon getting off commode patient was weak and had a fall. He did not injure himself but family had to help him get up. Later on in the day he was
working with occupational therapy and once once again noted to have weakness, dizziness, difficulty standing as well as confusion and occupational therapy called 911. On presentation to the emergency department patient was noted to have MARGIE with
creatinine of 3.4 with hypokalemia K3.3. ABG showed lactic acidosis. EKG showed atrial tachycardia with left bundle branch block. Chest x-ray cardiomegaly and no evidence of heart failure. Head CT no acute abnormality. Patient was provided IV
hydration, repletion of potassium with improvement of confusion. At time of this evaluation patient's sitting at bedside. Patient alert and oriented able to answer questions. Overall he reports feeling well. Notes some dry mouth and
difficulty urinating but otherwise denies chest pain, shortness of breath, dizziness, lightheadedness, palpitations, edema, orthopnea or PND.
Progress Note - Calender Let Off Helper
Subjective
Date of Service: January 30, 2024
No acute overnight events. Resting comfortably in bed. No cardiac complaints.
Objective
Labs:
01/30/24 06:25
01/30/24 06:25
Labs
Hgb 10.4 g/dL (13.0-18.0) L 01/30/24 06:25
Hct 32.5 % (39.0-52.0) L 01/30/24 06:25
Plt Count 197 10^3/uL (130-400) 01/30/24 06:25
Sodium 136 mmol/L (135-145) 01/30/24 06:25
Potassium 3.4 mmol/L (3.5-5.1) L 01/30/24 06:25
BUN 60 mg/dl (9-20) H 01/30/24 06:25
Creatinine 2.3 mg/dL (0.7-1.3) H 01/30/24 06:25
Glucose 125 mg/dl (70-99) H 01/30/24 06:25
Troponins
01/28/24 01/29/24 01/29/24
21:34 02:57 09:00
Troponin I 0.102 H* 0.119 H* Cancelled
01/29/24
13:05
Troponin I 0.101 H*
Vital Signs and I&O:
Vital Signs
Temp Pulse Resp BP Pulse Ox
97.9 F 78 16 109/63 95
01/30/24 11:15 01/30/24 11:15 01/30/24 11:15 01/30/24 11:15 01/30/24 11:15
Vital Signs
Temp Pulse Resp BP Pulse Ox
97.9 F 78 16 109/63 95
01/30/24 11:15 01/30/24 11:15 01/30/24 11:15 01/30/24 11:15 01/30/24 11:15
Intake & Output
01/28/24 01/29/24 01/30/24 01/31/24
06:59 06:59 06:59 06:59
Intake Total 1200 / 1200
Output Total 200 / 200
Balance 1000 / 1000
Physical Exam
Physical Exam
Gen: NAD, AAOx3
HEENT: NC/AT, sclera anicteric
Neck: No JVD
CV: RRR, NL s1/s2
Lungs: CTAB 2L nasal cannula
Abd: S/obese
Ext: No LE edema, chronic venous stasis changes present
Skin: Warm, dry
Neuro: Non-focal
--- NOTE | 2024-01-30 14:48 | W.PN.NEPH.PH ---
Today's Communication / Plan
-
follow labs
Assessment/Plan
-
IMP:
Acute on chronic kidney injury-baseline cr 1.1-1.3 in October 2023
Paroxysmal Afib -s/p cardioversion in December
Hypokalemia with contraction metabolic alkalosis
Prolonged QT
Non-[place] Troponin Elevation
IDDM
Constipation
Chronic Hypoxic and Hypercapnic Respiratory Failure
AMIE on CPAP
HLD
CHr LE edema
s/p bioprosthetic AVR
PUlm HTN
CAD
PLan:
Recent d/c after treating CHF with diuresis now presents back with weakness, fall
MARGIE-best cr 1.1-1.3 before November, since then cr uptrend with diuresis for CHF flare
likely from vol depletion, holding diuresis
UA with ?UTI, U na is low 7 suggest prerenal, renal US non acute
wt is lower than last d/c -remains stable
cr improving with IVF, off currently
would cont to hold JArdiance and Mounjaro(started 2m ago)
follow bladder scan, 187cc on US
BP are soft
replace k
met alkalosis better
follow labs and wt daily
d/w pt
-
-
Date of Service: January 30, 2024
CC / HPI / ROS
-
Chief Complaint:
MARGIE with CKD
History of Present Illness:
cr better at 2.3
K better but low 3.4
BP soft
wt stable
Review of Systems:
no cp or sob
feels better
no dizziness
neg orthostatics vitals
Labs
-
Labs:
WBC 8.9 10^3/uL (4.8-10.8) 01/30/24 06:25
RBC 3.51 10^6/uL (4.70-6.10) L 01/30/24 06:25
Hgb 10.4 g/dL (13.0-18.0) L 01/30/24 06:25
Hct 32.5 % (39.0-52.0) L 01/30/24 06:25
Plt Count 197 10^3/uL (130-400) 01/30/24 06:25
Sodium 136 mmol/L (135-145) 01/30/24 06:25
Potassium 3.4 mmol/L (3.5-5.1) L 01/30/24 06:25
Chloride 95 mmol/L (98-107) L 01/30/24 06:25
Carbon Dioxide 33 mmol/L (22-30) H 01/30/24 06:25
BUN 60 mg/dl (9-20) H 01/30/24 06:25
Creatinine 2.3 mg/dL (0.7-1.3) H 01/30/24 06:25
eGFR 27.49 01/30/24 06:25
Glucose 125 mg/dl (70-99) H 01/30/24 06:25
Calcium 8.9 mg/dl (8.4-10.2) 01/30/24 06:25
Cwc-V-Fguixzlllyw Pept 1610 pg/ml 01/28/24 21:34
Albumin 3.4 g/dl (3.5-5.0) L 01/30/24 06:25
Physical Exam
-
Vital Signs:
Vital Signs
Temp Pulse Resp BP Pulse Ox
97.9 F 78 16 109/63 95
01/30/24 11:15 01/30/24 11:15 01/30/24 11:15 01/30/24 11:15 01/30/24 11:15
Cardiovascular:: Regular rate and rhythm
Respiratory:: Bilateral: CTA
Lung Excursion:: Normal
Abdomen:: Nontender and Soft
Extremity Edema:: +1: Bilateral: (chronic)
Mcclelland Catheter: No
[2024-01-30] MEDS: PACERONE 200 MG PO (15:10)
[2024-01-30 15:30] VITALS: BP 117/55
[2024-01-30 16:35] LABS: Glucose - Point of Care 186 mg/dl (70-99)
[2024-01-30] MEDS: NOVOLOG FLEXPEN 4 UNITS SC (16:48)
[2024-01-30] MEDS: NOVOLOG FLEXPEN-LOW RESISTANCE 1 UNITS SC (16:49)
[2024-01-30] MEDS: ZETIA 10 MG PO (20:43)
[2024-01-30] MEDS: MELATONIN 10 MG PO (20:43)
[2024-01-30] MEDS: LIPITOR 20 MG PO (20:43)
[2024-01-30 20:49] LABS: Glucose - Point of Care 210 mg/dl (70-99)
[2024-01-30] MEDS: LANTUS 0.200000000000000011 UNITS SC (20:56)
[2024-01-30 21:45] VITALS: PULSE 88
[2024-01-30 23:13] VITALS: BP 124/60
[2024-01-31 06:00] VITALS: BMI 41.2
[2024-01-31] MEDS: DUONEB 3 ML INH ×4 (06:29→19:38)
[2024-01-31 07:00] VITALS: BP 108/60
[2024-01-31 07:23] LABS: % Basophils 0.7 % (0-2); % Immature Granulocytes 0.5 % (0-0.5); % Lymphocytes 22.2 % (20.5-51.1); % Monocytes 12.6 % (1.7-9.3); Absolute Basophils 0.1 10^3/uL (0-0.2); Absolute Eosinophils 0.3 10^3/uL (0-0.7); Absolute Lymphocytes 1.9 10^3/uL (1.2-3.4); Absolute Monocytes 1.1 10^3/uL (0.1-0.6); Absolute Neutrophils 5.3 10^3/uL (1.4-6.5); Hematocrit 31.4 % (39.0-52.0); Hemoglobin 10.2 g/dL (13.0-18.0); Mean Corp Hgb Conc. 32.5 g/dL (33.0-37.0); Mean Corpuscular Hgb 29.8 pg (27.0-31.0); Mean Corpuscular Volume 91.8 fL (80.0-94.0); Mean Platelet Volume 11.8 fL (7.4-10.4); Nucleated Red Blood Cells % 0 % (-); Platelet Count 175 10^3/uL (130-400); Red Blood Cell Count 3.42 10^6/uL (4.70-6.10); Red Cell Dist. Width 15.4 % (11.5-14.5); White Blood Cell Count 8.7 10^3/uL (4.8-10.8)
[2024-01-31 07:42] LABS: ALT (SGPT) 15 U/L (0-50); AST (SGOT) 38 U/L (17-59); Albumin 3.1 g/dl (3.5-5.0); Alkaline Phosphatase 79 U/L (38-126); Blood Urea Nitrogen 48 mg/dl (9-20); Calcium 8.7 mg/dl (8.4-10.2); Carbon Dioxide 34 mmol/L (22-30); Chloride 98 mmol/L (98-107); Estimated Creatinine Clearance 43 ml/min; Glucose 151 mg/dl (70-99); Potassium 4.1 mmol/L (3.5-5.1); Sodium 137 mmol/L (135-145); Total Bilirubin 0.8 mg/dl (0.2-1.3); Total Protein 5.8 g/dl (6.3-8.2); eGFR 42.49
[2024-01-31 07:52] LABS: Glucose - Point of Care 167 mg/dl (70-99)
[2024-01-31] MEDS: NOVOLOG FLEXPEN-LOW RESISTANCE 1 UNITS SC ×2 (08:29→17:18)
[2024-01-31] MEDS: ASPIR LOW (ENTERIC COATED) 81 MG PO (08:30)
[2024-01-31] MEDS: ELIQUIS 2.5 MG PO ×2 (08:30→19:59)
[2024-01-31] MEDS: PACERONE 200 MG PO (08:30)
[2024-01-31] MEDS: NOVOLOG FLEXPEN 4 UNITS SC (08:30)
[2024-01-31] MEDS: COSOPT EYE DROPS 1 DROP BOTH EYES ×2 (08:31→19:59)
[2024-01-31] MEDS: MIRALAX 17 GRAMS PO (08:31)
--- NOTE | 2024-01-31 12:03 | W.PN.HOSP.TC ---
Today's Communication/Plan
-
Monitor vital signs see plan
Monitor renal function
PT/OT
Continue with amiodarone
Discussed with spouse at bedside
Assessment / Plan
Assessment / Plan
General: No Apparent Distress, Conversant and Obese
HEENT: PERRLA
Respiratory: Clear; No Wheezes
Cardiac: S1/S2; No JVD
GI: Soft and Non Tender
Musculoskeletal: Other (trace pitting edema )
Skin: Warm and Dry; No Rash
Neuro: AO x 3
Psych: Calm
Acute Renal Failure
Acute on chronic kidney injury
Dehydration
Lactic Acidosis 2/2 dehydration, no s/o infection
Weakness/ Ambulatory Dysfunction 2/2 Above
-baseline creatinine 1.1-1.3, patient presenting with creatinine 3.4
cr now 1.6
suspect 2/2 diuresis,mounjaro
-patient's diuretic regimen adjusted last admission and he admits to following fluid restriction at this time. He is now with ARF likely from dehydration. He does not appear in heart failure on exam and weight is down 3 kg. s/p 1L IVF bolus in ER
-hold MAPLE SYRUP MAKER Bumex and Metolazone; restart when okay with cardiology and nephrology
UA does not suggest UTI
lactate improved
renal US noted; neg for hydro
-cardiology following
nephro following
-PT/OT
Paroxysmal Afib
-s/p cardioversion last admission
eliquis started at lower dose 2.5mg BID given ARF
amio held 2/2 prolong Qtc; now QTc improved, restarted amiodarone 200 mg daily per cardiology recommendation
-continue MAPLE SYRUP MAKER Eliquis, amiodarone
Hypokalemia
replete
Troponin elevated
Suspect non ischemic myocardial injury
-patient denies chest pain.
IDDM
-home regimen: lispro 5 units with meals, lantus 20 units qhs
-cw insulin
-monitor BGL and adjust as needed
-ISS
-diabetic diet
-hold MAPLE SYRUP MAKER Jardiance for now
Constipation
-resolved
-hold MAPLE SYRUP MAKER Mounjaro, patient may need to stop this medication
-daily miralax and dulcolax supp PRN
Chronic Hypoxic and Hypercapnic Respiratory Failure
-patient is on 2-3L baseline
-continue MAPLE SYRUP MAKER Nebulizers
AMIE on CPAP
HLD
-MAPLE SYRUP MAKER Lipitor
DNR - confirmed on admission
DVT PPx Eliquis
I spent a total of 52 minutes with the patient or on the floor. More than 50% of this time involved counseling and coordination of care.
Anticipated Discharge: 24 - 48 hours
Subjective/Interval History
-
Date of Service: January 31, 2024
denies pain
Objective Data
-
Labs:
Laboratory Results
01/31/24
06:59
WBC 8.7
Hgb 10.2 L
Hct 31.4 L
Plt Count 175
Sodium 137
Potassium 4.1
Chloride 98
Carbon Dioxide 34 H
BUN 48 H
Creatinine 1.6 H
Glucose 151 H
Calcium 8.7
Total Bilirubin 0.8
AST 38
ALT 15
Alkaline Phosphatase 79
Vital Signs:
Vital Signs
Temp Pulse Resp BP Pulse Ox
98.1 F 68 16 108/60 97
01/31/24 07:00 01/31/24 11:27 01/31/24 11:27 01/31/24 08:30 01/31/24 11:27
I&O
01/30/24 01/31/24 02/01/24
06:59 06:59 06:59
Intake Total 1200 / 1200 1080 / 1080
Output Total 200 / 200
Balance 1000 / 1000 1080 / 1080
[2024-01-31 12:04] LABS: Glucose - Point of Care 200 mg/dl (70-99)
[2024-01-31] MEDS: NOVOLOG FLEXPEN 5 UNITS SC ×2 (12:57→17:18)
[2024-01-31] MEDS: NOVOLOG FLEXPEN-LOW RESISTANCE 2 UNITS SC (12:58)
[2024-01-31] MEDS: NOVOLOG FLEXPEN SC (13:05)
--- NOTE | 2024-01-31 14:46 | W.PN.CARDCBS ---
Today's Communication / Plan
-
Can likely resume Bumex at 2mg daily starting tomorrow, but will defer to nephrology
Stable cardiac status, we will sign off, please recall as needed
Impression / Plan
-
PCP: Dr. Jade
Cardiology: Dr. Arec
Impression:
Presented 01/28/2024 with dizziness, weakness, fall, confusion
MARGIE with admission creatinine 3.4
Dehydration
Lactic acidosis
Hypokalemia
Abnormal troponin, suspect nonischemic myocardial injury
Chronic HFpEF
Chronic hypoxic respiratory failure on chronic oxygen at home
Preserved EF 55% by echo 11/2023
Paroxysmal Afib
s/p CV 01/12/2024
Chronic amiodarone therapy
Chronic anti-coagulation previously on warfarin, now Eliquis
s/p AVR bioprosthetic mean gradient 10 mmHg by echo 04/2023
DM 2
Obesity, BMI 41.2
Echo 05/06/23: EF 55-60%, stage II diastolic dysfunction, mod MS with peak/mean 13/7 mmHg, well seated bioprosthetic AVR with peak/mean 16/10 mmHg and no aortic regurgitation
Echo 12/08/23: EF 55% with mild LVH, mild MS, mean grad 5 mmHg, bioAVR with mean grad 10 mmHg, mild TR with PASP 45 mmHg and no change from Apr 2023.
Plan:
Presented 01/28/2024 with dizziness, weakness, fall and confusion found to have MARGIE, lactic acidosis and hypokalemia
MARGIE with creatinine noted to be 3.4 - suspect this was related to overdiuresis
Cr improving with diuretics on hold, was on Bumex 2 mg twice a day and metolazone 2.5 mg on Mondays
Consider decreasing Bumex 2mg to once daily on discharge and stopping metolazone
Can likely resume Bumex at 2mg daily starting tomorrow, but will defer to nephrology
Paroxysmal atrial fibrillation status post successful CV 200 J on 01/12/24
Transition recently to Eliquis as outpatient. Given creatinine >1.5 and age greater than 80 would recommend reducing Eliquis to 2.5 mg twice a day. If renal function improves may need to consider going back to 5 mg. -Patient On amiodarone 200 mg
twice daily load as outpatient until 01/28/2024 -> resume amio at 200mg daily on continue at this dose on discharge
Abnormal troponin, peaked at 0.119. Suspect nonischemic myocardial injury secondary to MARGIE. Denies chest pain.
Stable cardiac status, we will sign off, please recall as needed
Will ask my office to reach out to schedule follow-up appointment
Discussed with patient's who was at bedside
HPI 01/29/2024:
Patient is an 83-year-old male with past medical history significant for heart failure with preserved ejection fraction chronic hypoxic and hypercapnic respiratory insufficiency on 3 L of oxygen at baseline at home, paroxysmal atrial fibrillation
status post cardioversion 01/12/2024, aortic valve replacement, CKD stage III, hypertension, hyperlipidemia, type 2 diabetes, obstructive sleep apnea on CPAP who presented to emergency department 01/28/2024 with weakness, fall and confusion. Patient
had been hospitalized 01/07 through 01/10/20222023 for acute hypoxic respiratory insufficiency with acute on chronic heart failure and atrial fibrillation status post cardioversion 01/12/2024. He was transitioned from Lasix 80 mg twice a day to Bumex
2 mg twice a day with metolazone once a week on Thursday. He also had been taking once a week Mounjaro with 40 pound weight loss since September 2023. He was seen in the office 01/20/2024 and was doing well. On 01/28/2024 patient admitted to having
worsening constipation and sat on the commode for 2-1/2 hours and attempt to have a bowel movement. Upon getting off commode patient was weak and had a fall. He did not injure himself but family had to help him get up. Later on in the day he was
working with occupational therapy and once once again noted to have weakness, dizziness, difficulty standing as well as confusion and occupational therapy called 911. On presentation to the emergency department patient was noted to have MARGIE with
creatinine of 3.4 with hypokalemia K3.3. ABG showed lactic acidosis. EKG showed atrial tachycardia with left bundle branch block. Chest x-ray cardiomegaly and no evidence of heart failure. Head CT no acute abnormality. Patient was provided IV
hydration, repletion of potassium with improvement of confusion. At time of this evaluation patient's sitting at bedside. Patient alert and oriented able to answer questions. Overall he reports feeling well. Notes some dry mouth and
difficulty urinating but otherwise denies chest pain, shortness of breath, dizziness, lightheadedness, palpitations, edema, orthopnea or PND.
Progress Note - Science Analyst
Subjective
Date of Service: January 31, 2024
No acute overnight events. Patient is resting comfortably in bed. Tells me he feels that he is weak and has not been out of bed in the last several days. Otherwise breathing is comfortable and no significant edema.
Objective
Labs:
01/31/24 06:59
01/31/24 06:59
Labs
Hgb 10.2 g/dL (13.0-18.0) L 01/31/24 06:59
Hct 31.4 % (39.0-52.0) L 01/31/24 06:59
Plt Count 175 10^3/uL (130-400) 01/31/24 06:59
Sodium 137 mmol/L (135-145) 01/31/24 06:59
Potassium 4.1 mmol/L (3.5-5.1) 01/31/24 06:59
BUN 48 mg/dl (9-20) H 01/31/24 06:59
Creatinine 1.6 mg/dL (0.7-1.3) H 01/31/24 06:59
Glucose 151 mg/dl (70-99) H 01/31/24 06:59
Troponins
01/28/24 01/29/24 01/29/24
21:34 02:57 09:00
Troponin I 0.102 H* 0.119 H* Cancelled
01/29/24
13:05
Troponin I 0.101 H*
Vital Signs and I&O:
Vital Signs
Temp Pulse Resp BP Pulse Ox
98.1 F 68 16 108/60 97
01/31/24 07:00 01/31/24 11:27 01/31/24 11:27 01/31/24 08:30 01/31/24 11:27
Vital Signs
Temp Pulse Resp BP Pulse Ox
98.1 F 68 16 108/60 97
01/31/24 07:00 01/31/24 11:27 01/31/24 11:27 01/31/24 08:30 01/31/24 11:27
Intake & Output
01/29/24 01/30/24 01/31/24 02/01/24
06:59 06:59 06:59 06:59
Intake Total 1200 / 1200 1080 / 1080
Output Total 200 / 200
Balance 1000 / 1000 1080 / 1080
Physical Exam
Physical Exam
Gen: NAD, AAOx3
HEENT: NC/AT, sclera anicteric
Neck: No JVD
CV: RRR, NL s1/s2
Lungs: CTAB on 3 L nasal cannula
Abd: S/distended
Ext: Nonpitting LE edema
Skin: Warm, dry
Neuro: Non-focal
[2024-01-31 15:00] VITALS: BP 125/64
--- NOTE | 2024-01-31 15:53 | W.PN.NEPH.PH ---
Today's Communication / Plan
-
follow labs
Assessment/Plan
-
IMP:
Acute on chronic kidney injury-baseline cr 1.1-1.3 in October 2023
Paroxysmal Afib -s/p cardioversion in December
Hypokalemia with contraction metabolic alkalosis
Prolonged QT
Non-[place] Troponin Elevation
IDDM
Constipation
Chronic Hypoxic and Hypercapnic Respiratory Failure
AMIE on CPAP
HLD
CHr LE edema
s/p bioprosthetic AVR
PUlm HTN
CAD
PLan:
Recent d/c after treating CHF with diuresis now presents back with weakness, fall
MARGIE-best cr 1.1-1.3 before November, since then cr uptrend with diuresis for CHF flare
likely from vol depletion, cr better at 1.6 from peak at 3.4
UA with ?UTI, U na is low 7 suggest prerenal, renal US non acute
wt is lower than last d/c -remains stable
would cont to hold Lanette and Dylan(started 2m ago)
follow bladder scan, 187cc on US
BP are soft
replace k
met alkalosis better
follow labs and wt daily
if cr improving resume [id number] daily suggested by cards too
d/w pt and nursing
-
-
Date of Service: January 31, 2024
CC / HPI / ROS
-
Chief Complaint:
MARGIE with CKD
History of Present Illness:
cr better at 1.6
K better 4.1
BP soft
wt stable
Review of Systems:
no cp or sob
feels better
no dizziness
Labs
-
Labs:
WBC 8.7 10^3/uL (4.8-10.8) 01/31/24 06:59
RBC 3.42 10^6/uL (4.70-6.10) L 01/31/24 06:59
Hgb 10.2 g/dL (13.0-18.0) L 01/31/24 06:59
Hct 31.4 % (39.0-52.0) L 01/31/24 06:59
Plt Count 175 10^3/uL (130-400) 01/31/24 06:59
Sodium 137 mmol/L (135-145) 01/31/24 06:59
Potassium 4.1 mmol/L (3.5-5.1) 01/31/24 06:59
Chloride 98 mmol/L (98-107) 01/31/24 06:59
Carbon Dioxide 34 mmol/L (22-30) H 01/31/24 06:59
BUN 48 mg/dl (9-20) H 01/31/24 06:59
Creatinine 1.6 mg/dL (0.7-1.3) H 01/31/24 06:59
eGFR 42.49 01/31/24 06:59
Glucose 151 mg/dl (70-99) H 01/31/24 06:59
Calcium 8.7 mg/dl (8.4-10.2) 01/31/24 06:59
Svf-K-Eofpwhmwiso Pept 1610 pg/ml 01/28/24 21:34
Albumin 3.1 g/dl (3.5-5.0) L 01/31/24 06:59
Physical Exam
-
Vital Signs:
Vital Signs
Temp Pulse Resp BP Pulse Ox
98.2 F 70 16 125/64 100
01/31/24 15:00 01/31/24 15:08 01/31/24 15:08 01/31/24 15:00 01/31/24 15:08
Cardiovascular:: Regular rate and rhythm
Respiratory:: Bilateral: Rales (rt base)
Lung Excursion:: Normal
Abdomen:: Nontender and Soft
Extremity Edema:: +1: Bilateral: (chronic)
Mcclelland Catheter: No
[2024-01-31 16:48] LABS: Glucose - Point of Care 173 mg/dl (70-99)
[2024-01-31] MEDS: LIPITOR 20 MG PO (20:00)
[2024-01-31] MEDS: MELATONIN 10 MG PO (20:00)
[2024-01-31] MEDS: ZETIA 10 MG PO (20:00)
[2024-01-31 21:25] LABS: Glucose - Point of Care 171 mg/dl (70-99)
[2024-01-31] MEDS: LANTUS 0.200000000000000011 UNITS SC (22:14)
--- NOTE | 2024-01-31 22:30 | RESPNOTE ---
PT refused CPAP as ordered at this time for the night. States that he does not want to wear it tonight, but will tomorrow, PT was placed on his 2 L nasal cannula, will continue to monitor resp status.
[ End ]
[2024-01-31 23:00] VITALS: BP 114/77
[2024-02-01 06:00] VITALS: BMI 41.5
[2024-02-01] MEDS: DUONEB 3 ML INH ×4 (06:00→20:13)
[2024-02-01 07:00] VITALS: BP 131/67
[2024-02-01 07:40] LABS: Glucose - Point of Care 155 mg/dl (70-99)
[2024-02-01] MEDS: NOVOLOG FLEXPEN-LOW RESISTANCE 1 UNITS SC ×2 (08:03→16:45)
[2024-02-01] MEDS: NOVOLOG FLEXPEN 5 UNITS SC ×3 (08:03→16:45)
[2024-02-01] MEDS: COSOPT EYE DROPS 1 DROP BOTH EYES ×2 (08:09→20:01)
[2024-02-01] MEDS: MIRALAX 17 GRAMS PO (08:09)
[2024-02-01] MEDS: DESENEX/MITRAZOL/ZEASORB 1 APPLIC TOPICAL ×2 (08:09→20:02)
[2024-02-01] MEDS: PACERONE 200 MG PO (08:10)
[2024-02-01] MEDS: ASPIR LOW (ENTERIC COATED) 81 MG PO (08:10)
[2024-02-01] MEDS: ELIQUIS 2.5 MG PO ×2 (08:10→20:02)
[2024-02-01] MEDS: BUMEX 2 MG PO (08:10)
[2024-02-01 09:41] LABS: % Basophils 0.8 % (0-2); % Immature Granulocytes 0.4 % (0-0.5); % Lymphocytes 22.2 % (20.5-51.1); % Monocytes 12.7 % (1.7-9.3); % Neutrophils 59.9 % (42.2-75.2); Absolute Basophils 0.1 10^3/uL (0-0.2); Absolute Eosinophils 0.3 10^3/uL (0-0.7); Absolute Lymphocytes 1.7 10^3/uL (1.2-3.4); Absolute Neutrophils 4.6 10^3/uL (1.4-6.5); Hemoglobin 10.6 g/dL (13.0-18.0); Mean Corp Hgb Conc. 31.2 g/dL (33.0-37.0); Mean Corpuscular Hgb 29.5 pg (27.0-31.0); Mean Corpuscular Volume 94.7 fL (80.0-94.0); Mean Platelet Volume 12.1 fL (7.4-10.4); Nucleated Red Blood Cells % 0 % (-); Platelet Count 181 10^3/uL (130-400); Red Blood Cell Count 3.59 10^6/uL (4.70-6.10); Red Cell Dist. Width 15.1 % (11.5-14.5); White Blood Cell Count 7.7 10^3/uL (4.8-10.8)
[2024-02-01 10:46] LABS: ALT (SGPT) 16 U/L (0-50); AST (SGOT) 32 U/L (17-59); Albumin 3.2 g/dl (3.5-5.0); Alkaline Phosphatase 86 U/L (38-126); Blood Urea Nitrogen 36 mg/dl (9-20); Calcium 8.8 mg/dl (8.4-10.2); Carbon Dioxide 33 mmol/L (22-30); Chloride 96 mmol/L (98-107); Estimated Creatinine Clearance 43 ml/min; Glucose 181 mg/dl (70-99); Sodium 136 mmol/L (135-145); Total Protein 5.9 g/dl (6.3-8.2); eGFR 42.49
[2024-02-01 11:00] VITALS: BP 121/59; BP 124/56; BP 93/49; PULSE 64; PULSE 67; PULSE 79
--- NOTE | 2024-02-01 11:31 | W.PN.HOSP.TC ---
Today's Communication/Plan
-
Monitor vital signs and see plan
Monitor renal function
Nephrology to see today
PT/OT
Spoke with at bedside
Assessment / Plan
Assessment / Plan
General: No Apparent Distress, Conversant and Obese
HEENT: PERRLA
Respiratory: Clear; No Wheezes
Cardiac: S1/S2; No JVD
GI: Soft and Non Tender
Musculoskeletal: Other (trace pitting edema )
Skin: Warm and Dry; No Rash
Neuro: AO x 3
Psych: Calm
Acute Renal Failure
Acute on chronic kidney injury
Dehydration
Lactic Acidosis 2/2 dehydration, no s/o infection
Weakness/ Ambulatory Dysfunction 2/2 Above
-baseline creatinine 1.1-1.3, patient presenting with creatinine 3.4
cr now 1.6
suspect 2/2 diuresis,mounjaro
-patient's diuretic regimen adjusted last admission and he admits to following fluid restriction at this time. He is now with ARF likely from dehydration. He does not appear in heart failure on exam and weight is down 3 kg. s/p 1L IVF bolus in ER
-hold CONCRETE ANALYST Bumex and Metolazone; restart when okay with cardiology and nephrology
UA does not suggest UTI
lactate improved
renal US noted; neg for hydro
-cardiology following
nephro following
-PT/OT
Paroxysmal Afib
-s/p cardioversion last admission
eliquis started at lower dose 2.5mg BID given ARF
amio held 2/2 prolong Qtc; now QTc improved, restarted amiodarone 200 mg daily per cardiology recommendation
-continue CONCRETE ANALYST Eliquis, amiodarone
Hypokalemia
replete
Troponin elevated
Suspect non ischemic myocardial injury
-patient denies chest pain.
IDDM
-home regimen: lispro 5 units with meals, lantus 20 units qhs
-cw insulin
-monitor BGL and adjust as needed
-ISS
-diabetic diet
-hold CONCRETE ANALYST Jardiance for now
Constipation
-resolved
-hold CONCRETE ANALYST Mounjaro, patient may need to stop this medication
-daily miralax and dulcolax supp PRN
Chronic Hypoxic and Hypercapnic Respiratory Failure
-patient is on 2-3L baseline
-continue CONCRETE ANALYST Nebulizers
AMIE on CPAP
HLD
-CONCRETE ANALYST Lipitor
DNR - confirmed on admission
DVT PPx Eliquis
I spent a total of 51 minutes with the patient or on the floor. More than 50% of this time involved counseling and coordination of care.
Anticipated Discharge: Within 24 hours
Subjective/Interval History
-
Date of Service: February 01, 2024
denies pain
Objective Data
-
Labs:
Laboratory Results
02/01/24
08:55
WBC 7.7
Hgb 10.6 L
Hct 34.0 L
Plt Count 181
Sodium 136
Potassium 4.0
Chloride 96 L
Carbon Dioxide 33 H
BUN 36 H
Creatinine 1.6 H
Glucose 181 H
Calcium 8.8
Total Bilirubin 1.0
AST 32
ALT 16
Alkaline Phosphatase 86
Vital Signs:
Vital Signs
Temp Pulse Resp BP Pulse Ox
98.2 F 76 20 131/67 100
02/01/24 07:00 02/01/24 07:00 02/01/24 07:00 02/01/24 07:00 02/01/24 07:00
I&O
01/31/24 02/01/24 02/02/24
06:59 06:59 06:59
Intake Total 1080 / 1080 720 / 720
Output Total 375 / 375
Balance 1080 / 1080 345 / 085
[2024-02-01 11:57] VITALS: BP 121/59; BP 124/56; BP 133/56; BP 93/49; PULSE 67; PULSE 69; O2SAT 99
[2024-02-01 11:58] VITALS: BP 121/51; BP 124/56; BP 133/56; BP 93/49; PULSE 67; PULSE 69; PULSE 79; O2SAT 100
[2024-02-01 12:15] LABS: Glucose - Point of Care 201 mg/dl (70-99)
[2024-02-01] MEDS: NOVOLOG FLEXPEN SC (12:16)
[2024-02-01] MEDS: NOVOLOG FLEXPEN-LOW RESISTANCE 2 UNITS SC (12:16)
--- NOTE | 2024-02-01 14:08 | CM ---
Patient seen in chair, discussed PT recommendation of HH vs SNF. CM awaiting to hear from [facility] if they can offer bed, awaiting to hear from [facility]. CM will continue to follow for discharge planning needs. Patient will need [employer]
auth for SNF.
Plan; SNF pending accepting facility, will require [employer] auth.
--- NOTE | 2024-02-01 14:44 | W.PN.NEPH.PH ---
Today's Communication / Plan
-
follow bmp
creatinine close to baseline
Assessment/Plan
-
IMP:
Acute on chronic kidney injury-baseline cr 1.1-1.3 in October 2023
Paroxysmal Afib -s/p cardioversion in December
Hypokalemia with contraction metabolic alkalosis
Prolonged QT
Non-[place] Troponin Elevation
IDDM
Constipation
Chronic Hypoxic and Hypercapnic Respiratory Failure
AMIE on CPAP
HLD
CHr LE edema
s/p bioprosthetic AVR
PUlm HTN
CAD
PLan:
Recent d/c after treating CHF with diuresis now presents back with weakness, fall
MARGIE-best cr 1.1-1.3 before November, since then cr uptrend with diuresis for CHF flare
likely from vol depletion, cr better at 1.6 from peak at 3.4
UA with ?UTI, U na is low 7 suggest prerenal, renal US non acute
wt is lower than last d/c -remains stable
would cont to hold Sofia(started 2m ago)
follow bladder scan, 187cc on US
hemodynamically more stable
met alkalosis better
follow labs and wt daily
patient now back on bumex 2mg po daily
d/w pt and nursing
-
-
Date of Service: February 01, 2024
CC / HPI / ROS
-
Chief Complaint:
MARGIE with CKD
History of Present Illness:
cr at 1.6
hemodynamically stable
=
Review of Systems:
no cp or sob
feels better
no dizziness
weight up
uop ~375
Labs
-
Labs:
WBC 7.7 10^3/uL (4.8-10.8) 02/01/24 08:55
RBC 3.59 10^6/uL (4.70-6.10) L 02/01/24 08:55
Hgb 10.6 g/dL (13.0-18.0) L 02/01/24 08:55
Hct 34.0 % (39.0-52.0) L 02/01/24 08:55
Plt Count 181 10^3/uL (130-400) 02/01/24 08:55
Sodium 136 mmol/L (135-145) 02/01/24 08:55
Potassium 4.0 mmol/L (3.5-5.1) 02/01/24 08:55
Chloride 96 mmol/L (98-107) L 02/01/24 08:55
Carbon Dioxide 33 mmol/L (22-30) H 02/01/24 08:55
BUN 36 mg/dl (9-20) H 02/01/24 08:55
Creatinine 1.6 mg/dL (0.7-1.3) H 02/01/24 08:55
eGFR 42.49 02/01/24 08:55
Glucose 181 mg/dl (70-99) H 02/01/24 08:55
Calcium 8.8 mg/dl (8.4-10.2) 02/01/24 08:55
Rtj-C-Ifyclwinbzc Pept 1610 pg/ml 01/28/24 21:34
Albumin 3.2 g/dl (3.5-5.0) L 02/01/24 08:55
Physical Exam
-
Vital Signs:
Vital Signs
Temp Pulse Resp BP Pulse Ox
98.2 F 63 20 131/67 100
02/01/24 07:00 02/01/24 12:05 02/01/24 12:05 02/01/24 07:00 02/01/24 12:05
Cardiovascular:: Regular rate and rhythm
Respiratory:: Bilateral: Coarse
Lung Excursion:: Normal
Abdomen:: Nontender and Soft
Bowel Sounds:: Normal
Extremity Edema:: +1: Bilateral: (trace)
[2024-02-01 15:00] VITALS: BP 126/68
[2024-02-01 16:43] LABS: Glucose - Point of Care 169 mg/dl (70-99)
[2024-02-01] MEDS: ZETIA 10 MG PO (20:02)
[2024-02-01] MEDS: MELATONIN 10 MG PO (20:02)
[2024-02-01] MEDS: LIPITOR 20 MG PO (20:03)
[2024-02-01 21:26] LABS: Glucose - Point of Care 187 mg/dl (70-99)
[2024-02-01] MEDS: LANTUS 0.200000000000000011 UNITS SC (22:30)
[2024-02-01 23:07] VITALS: BP 118/68
[2024-02-02 04:29] VITALS: BMI 41.4
[2024-02-02 06:43] LABS: % Eosinophils 3.9 % (0-6); % Immature Granulocytes 0.5 % (0-0.5); % Lymphocytes 21.8 % (20.5-51.1); % Monocytes 13.3 % (1.7-9.3); % Neutrophils 59.5 % (42.2-75.2); Absolute Basophils 0.1 10^3/uL (0-0.2); Absolute Eosinophils 0.3 10^3/uL (0-0.7); Absolute Lymphocytes 1.7 10^3/uL (1.2-3.4); Absolute Monocytes 1.1 10^3/uL (0.1-0.6); Absolute Neutrophils 4.7 10^3/uL (1.4-6.5); Hematocrit 33.1 % (39.0-52.0); Hemoglobin 10.5 g/dL (13.0-18.0); Mean Corp Hgb Conc. 31.7 g/dL (33.0-37.0); Mean Corpuscular Hgb 29.5 pg (27.0-31.0); Mean Platelet Volume 11.5 fL (7.4-10.4); Nucleated Red Blood Cells % 0 % (-); Platelet Count 175 10^3/uL (130-400); Red Blood Cell Count 3.56 10^6/uL (4.70-6.10); Red Cell Dist. Width 14.7 % (11.5-14.5)
[2024-02-02 07:03] LABS: ALT (SGPT) 15 U/L (0-50); AST (SGOT) 29 U/L (17-59); Albumin 3.2 g/dl (3.5-5.0); Alkaline Phosphatase 77 U/L (38-126); Blood Urea Nitrogen 35 mg/dl (9-20); Calcium 8.7 mg/dl (8.4-10.2); Carbon Dioxide 35 mmol/L (22-30); Chloride 96 mmol/L (98-107); Estimated Creatinine Clearance 43 ml/min; Glucose 127 mg/dl (70-99); Potassium 3.8 mmol/L (3.5-5.1); Sodium 137 mmol/L (135-145); Total Bilirubin 1.1 mg/dl (0.2-1.3); Total Protein 5.9 g/dl (6.3-8.2); eGFR 42.49
[2024-02-02 07:06] VITALS: BP 123/60
[2024-02-02] MEDS: DUONEB 3 ML INH ×4 (07:30→19:18)
[2024-02-02 07:41] LABS: Glucose - Point of Care 138 mg/dl (70-99)
[2024-02-02] MEDS: NOVOLOG FLEXPEN-LOW RESISTANCE SC (08:10)
[2024-02-02] MEDS: NOVOLOG FLEXPEN 5 UNITS SC ×3 (08:10→16:51)
[2024-02-02] MEDS: MIRALAX 17 GRAMS PO (08:19)
[2024-02-02] MEDS: BUMEX 2 MG PO (08:20)
[2024-02-02] MEDS: ASPIR LOW (ENTERIC COATED) 81 MG PO (08:20)
[2024-02-02] MEDS: PACERONE 200 MG PO (08:21)
[2024-02-02] MEDS: COSOPT EYE DROPS 1 DROP BOTH EYES ×2 (08:21→19:40)
[2024-02-02] MEDS: ELIQUIS 2.5 MG PO ×2 (08:21→19:40)
[2024-02-02] MEDS: DESENEX/MITRAZOL/ZEASORB 1 APPLIC TOPICAL ×2 (08:24→19:41)
--- NOTE | 2024-02-02 09:20 | PTCARENOTE ---
Patient is awake and alert , needs encouragement to do things for himself. Appetite good , denies any pain or discomfort at present.
--- NOTE | 2024-02-02 10:29 | W.PN.HOSP.TC ---
Today's Communication/Plan
-
monitor vitals
see plan
now on PO bumex
will hold rogelio on dc; spoke with nephrology
needs SNF; CM aware
DC planning
Assessment / Plan
Assessment / Plan
General: No Apparent Distress, Conversant and Obese
HEENT: PERRLA
Respiratory: Clear; No Wheezes
Cardiac: S1/S2; No JVD
GI: Soft and Non Tender
Musculoskeletal: Other (trace pitting edema )
Skin: Warm and Dry; No Rash
Neuro: AO x 3
Psych: Calm
Acute Renal Failure
Acute on chronic kidney injury
Dehydration
Lactic Acidosis 2/2 dehydration, no s/o infection
Weakness/ Ambulatory Dysfunction 2/2 Above
-baseline creatinine 1.1-1.3, patient presenting with creatinine 3.4
cr now 1.6
suspect 2/2 diuresis,conorunjovannyro
-patient's diuretic regimen adjusted last admission and he admits to following fluid restriction at this time. He is now with ARF likely from dehydration. He does not appear in heart failure on exam and weight is down 3 kg. s/p 1L IVF bolus in ER
-hold Metolazone; bumex restarted
UA does not suggest UTI
lactate improved
renal US noted; neg for hydro
-cardiology following
nephro following
-PT/OT
Paroxysmal Afib
-s/p cardioversion last admission
eliquis started at lower dose 2.5mg BID given ARF
amio held 2/2 prolong Qtc; now QTc improved, restarted amiodarone 200 mg daily per cardiology recommendation
-continue HAIR SAMPLE MATCHER Eliquis, amiodarone
Hypokalemia
improved
Troponin elevated
Suspect non ischemic myocardial injury
-patient denies chest pain.
IDDM
-home regimen: lispro 5 units with meals, lantus 20 units qhs
-cw insulin
-monitor BGL and adjust as needed
-ISS
-diabetic diet
-hold HAIR SAMPLE MATCHER Jardiance for now
Constipation
-resolved
-hold HAIR SAMPLE MATCHER Mounjaro, patient may need to stop this medication
-daily miralax and dulcolax supp PRN
Chronic Hypoxic and Hypercapnic Respiratory Failure
-patient is on 2-3L baseline
-continue HAIR SAMPLE MATCHER Nebulizers
AMIE on CPAP
HLD
-HAIR SAMPLE MATCHER Lipitor
DNR - confirmed on admission
DVT PPx Eliquis
Anticipated Discharge: Within 24 hours
Subjective/Interval History
-
Date of Service: February 02, 2024
denies pain
Objective Data
-
Labs:
Laboratory Results
02/02/24
06:17
WBC 8.0
Hgb 10.5 L
Hct 33.1 L
Plt Count 175
Sodium 137
Potassium 3.8
Chloride 96 L
Carbon Dioxide 35 H
BUN 35 H
Creatinine 1.6 H
Glucose 127 H
Calcium 8.7
Total Bilirubin 1.1
AST 29
ALT 15
Alkaline Phosphatase 77
Vital Signs:
Vital Signs
Temp Pulse Resp BP Pulse Ox
98.2 F 72 16 123/60 99
02/02/24 07:06 02/02/24 07:31 02/02/24 07:31 02/02/24 07:06 02/02/24 08:00
I&O
02/01/24 02/02/24 02/03/24
06:59 06:59 06:59
Intake Total 720 / 720 1860 / 1860
Output Total 375 / 375 875 / 875
Balance 345 / 345 985 / 985
[2024-02-02 11:44] LABS: Glucose - Point of Care 168 mg/dl (70-99)
[2024-02-02] MEDS: NOVOLOG FLEXPEN-LOW RESISTANCE 1 UNITS SC ×2 (12:15→16:52)
--- NOTE | 2024-02-02 13:59 | W.PN.NEPH.PH ---
Today's Communication / Plan
-
Creatinine stable and likely
Maintain current Bumex administration
Assessment/Plan
-
IMP:
Acute on chronic kidney injury-baseline cr 1.1-1.3 in October 2023
Paroxysmal Afib -s/p cardioversion in December
Hypokalemia with contraction metabolic alkalosis
Prolonged QT
Non-[place] Troponin Elevation
IDDM
Constipation
Chronic Hypoxic and Hypercapnic Respiratory Failure
AMIE on CPAP
HLD
CHr LE edema
s/p bioprosthetic AVR
PUlm HTN
CAD
PLan:
Recent d/c after treating CHF with diuresis now presents back with weakness, fall
MARGIE-best cr 1.1-1.3 before November, since then cr uptrend with diuresis for CHF flare
likely from vol depletion, cr unchanged at 1.6 from peak at 3.4, nonoliguric ~875cc, likely at baseline
UA with ?UTI, U na is low 7 suggest prerenal, renal US non acute
wt is lower than last d/c -remains stable
would cont to hold Sofia(started 2m ago)
follow bladder scan, 187cc on US
hemodynamically more stable
met alkalosis persists
follow labs and wt daily
patient now back on bumex 2mg po daily,weights stable
d/w pt and nursing
-
-
Date of Service: February 02, 2024
CC / HPI / ROS
-
Chief Complaint:
MARGIE with CKD
History of Present Illness:
cr at 1.6
hemodynamically stable
Review of Systems:
no cp or sob
feels better
no dizziness
weight up
uop ~875
Labs
-
Labs:
WBC 8.0 10^3/uL (4.8-10.8) 02/02/24 06:17
RBC 3.56 10^6/uL (4.70-6.10) L 02/02/24 06:17
Hgb 10.5 g/dL (13.0-18.0) L 02/02/24 06:17
Hct 33.1 % (39.0-52.0) L 02/02/24 06:17
Plt Count 175 10^3/uL (130-400) 02/02/24 06:17
Sodium 137 mmol/L (135-145) 02/02/24 06:17
Potassium 3.8 mmol/L (3.5-5.1) 02/02/24 06:17
Chloride 96 mmol/L (98-107) L 02/02/24 06:17
Carbon Dioxide 35 mmol/L (22-30) H 02/02/24 06:17
BUN 35 mg/dl (9-20) H 02/02/24 06:17
Creatinine 1.6 mg/dL (0.7-1.3) H 02/02/24 06:17
eGFR 42.49 02/02/24 06:17
Glucose 127 mg/dl (70-99) H 02/02/24 06:17
Calcium 8.7 mg/dl (8.4-10.2) 02/02/24 06:17
Nxx-K-Zqjrhhvivio Pept 1610 pg/ml 01/28/24 21:34
Albumin 3.2 g/dl (3.5-5.0) L 02/02/24 06:17
Physical Exam
-
Vital Signs:
Vital Signs
Temp Pulse Resp BP Pulse Ox
98.2 F 72 16 123/60 99
02/02/24 07:06 02/02/24 07:31 02/02/24 07:31 02/02/24 07:06 02/02/24 08:00
Cardiovascular:: Regular rate and rhythm
Respiratory:: Bilateral: Coarse
Lung Excursion:: Normal
Abdomen:: Soft
Bowel Sounds:: Normal
Extremity Edema:: +1: Bilateral: (trace pitting with CVS changes)
Mcclelland Catheter: No
--- NOTE | 2024-02-02 14:02 | CM ---
CM reviewed pt with Dr Mckinney- padmini for dc
Bedside meeting with pt and spouse
Info provided on palliative and hospice and associated costs per their request
They are requesting ST rehab be arranged at [facility] again
Bed confirmed with Georgina/admissions
Clayton hutchins initiated on [employer] and clinicals faxed [phone]
Auth ref# [id number] and auth pending
Discharge Disposition- [place] pending [employer] auth
[2024-02-02 14:37] VITALS: BP 119/48; PULSE 68; O2SAT 98
[2024-02-02 14:46] VITALS: BP 119/48; PULSE 68; O2SAT 98
[2024-02-02 15:59] VITALS: BP 110/57
[2024-02-02 16:46] LABS: Glucose - Point of Care 171 mg/dl (70-99)
[2024-02-02] MEDS: LIPITOR 20 MG PO (19:40)
[2024-02-02] MEDS: MELATONIN 10 MG PO (19:40)
[2024-02-02] MEDS: ZETIA 10 MG PO (19:40)
[2024-02-02 21:25] LABS: Glucose - Point of Care 215 mg/dl (70-99)
[2024-02-02] MEDS: LANTUS 0.200000000000000011 UNITS SC (22:24)
[2024-02-02 22:56] VITALS: BP 125/65
[2024-02-03 06:00] VITALS: BMI 41.2
[2024-02-03 07:00] VITALS: BP 115/61
[2024-02-03] MEDS: DUONEB 3 ML INH ×3 (07:29→15:35)
[2024-02-03 07:33] LABS: % Basophils 0.9 % (0-2); % Eosinophils 3.8 % (0-6); % Immature Granulocytes 0.6 % (0-0.5); % Lymphocytes 22.4 % (20.5-51.1); % Neutrophils 59.3 % (42.2-75.2); Absolute Basophils 0.1 10^3/uL (0-0.2); Absolute Eosinophils 0.3 10^3/uL (0-0.7); Absolute Immature Granulocytes 0.1 10^3/uL (0-0.05); Absolute Lymphocytes 1.8 10^3/uL (1.2-3.4); Absolute Monocytes 1.1 10^3/uL (0.1-0.6); Absolute Neutrophils 4.9 10^3/uL (1.4-6.5); Hematocrit 32.5 % (39.0-52.0); Hemoglobin 10.6 g/dL (13.0-18.0); Mean Corp Hgb Conc. 32.6 g/dL (33.0-37.0); Mean Corpuscular Hgb 29.9 pg (27.0-31.0); Mean Corpuscular Volume 91.8 fL (80.0-94.0); Mean Platelet Volume 11.8 fL (7.4-10.4); Nucleated Red Blood Cells % 0 % (-); Platelet Count 184 10^3/uL (130-400); Red Blood Cell Count 3.54 10^6/uL (4.70-6.10); White Blood Cell Count 8.2 10^3/uL (4.8-10.8)
[2024-02-03 07:49] LABS: ALT (SGPT) 15 U/L (0-50); AST (SGOT) 30 U/L (17-59); Albumin 3.2 g/dl (3.5-5.0); Alkaline Phosphatase 87 U/L (38-126); Blood Urea Nitrogen 30 mg/dl (9-20); Calcium 8.8 mg/dl (8.4-10.2); Carbon Dioxide 36 mmol/L (22-30); Chloride 94 mmol/L (98-107); Estimated Creatinine Clearance 41 ml/min; Glucose 135 mg/dl (70-99); Potassium 3.5 mmol/L (3.5-5.1); Sodium 138 mmol/L (135-145); Total Bilirubin 1.1 mg/dl (0.2-1.3); Total Protein 5.9 g/dl (6.3-8.2); eGFR 39.51
[2024-02-03 07:53] LABS: Glucose - Point of Care 142 mg/dl (70-99)
[2024-02-03] MEDS: ELIQUIS 2.5 MG PO (08:00)
[2024-02-03] MEDS: MIRALAX 17 GRAMS PO (08:08)
[2024-02-03] MEDS: BUMEX 2 MG PO (08:08)
[2024-02-03] MEDS: ASPIR LOW (ENTERIC COATED) 81 MG PO (08:08)
[2024-02-03] MEDS: PACERONE 200 MG PO (08:08)
[2024-02-03] MEDS: COSOPT EYE DROPS 1 DROP BOTH EYES (08:09)
[2024-02-03] MEDS: NOVOLOG FLEXPEN-LOW RESISTANCE SC (08:10)
[2024-02-03] MEDS: NOVOLOG FLEXPEN 5 UNITS SC ×2 (08:11→12:12)
[2024-02-03] MEDS: DESENEX/MITRAZOL/ZEASORB 1 APPLIC TOPICAL (08:23)
--- NOTE | 2024-02-03 11:05 | CM ---
Addendum entered by Shahla Govea 02/03/24 13:36:
updated.
Addendum entered by Shahla Govea 02/03/24 13:16:
Please call report to [phone]/fax [phone]. Patient for ambulance transfer due to inability to apply O2. CM updated refinery operator crude unit and nursing.
Original Note:
Patient seen at bedside. [id number]02[facility]. Update given to physician and admissions. CM will continue to follow for discharge planning needs.
Plan; discharge to [facility] pending physician assessment.
--- NOTE | 2024-02-03 11:47 | W.PN.HOSP.TC ---
Today's Communication/Plan
-
d/c
Assessment / Plan
Assessment / Plan
Gen: NAD, AAOx3.
Eyes: EOMI, PERRLA, no scleral icterus.
Neck: supple.
CV: RRR, +S1/S2, no m/r/g.
Resp: CTAB anteriorly, no rales, wheezes, or rhonchi.
Abd: +BS, soft, NT, ND
Skin: No rashes.
Neuro: CN 2-12 intact, non-focal.
Psych: Normal mood and affect.
Renal U/S:
1. Negative for hydronephrosis.
2. Post void residual of 187 cc.
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
-due to dehydration (had lactic acidosis due to dehydration) and Mounjaro
-pt received IVFs on admission
-bumex/Zaroxolyn were held. Bumex now restarted
-baseline CR 1.1-1.3, presented with Cr 3.4, current Cr 1.7, likely new baseline
-seen by cardiology and nephrology
-weakness/ambulatory dysfunction due to dehydration/MARGIE. For d/c to SNF.
Paroxysmal Afib:
-s/p cardioversion last admission
-cont Eliquis 2.5mg BID
-amio was held due to prolonged QTc; now QTc improved, restarted amiodarone 200 mg daily per cardiology recommendation
Other problems:
Hypokalemia
Nonischemic myocardial injury
Constipation, resolved, Mounjaro stopped, cont MiraLAX
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
AMIE on CPAP
HLD: Cont statin
DM2: Cont lantus/premeal Novolog/SSI/accuchecks
Morbid Obesity due to excess calories
DNR/Eliquis
Total time spent on d/c = 38 min. This included today's physical exam, progress note, review of laboratory and diagnostic data, preparation of discharge documents and prescriptions, and discussions about the pt's hospital course and discharge plan
with the patient and other resident medical officer involved in the patient's care.
Anticipated Discharge: Today
Subjective/Interval History
-
Date of Service: February 03, 2024
No new complaints. Denies CP/SOB.
Objective Data
-
Labs:
Laboratory Results
02/03/24
05:54
WBC 8.2
Hgb 10.6 L
Hct 32.5 L
Plt Count 184
Sodium 138
Potassium 3.5
Chloride 94 L
Carbon Dioxide 36 H
BUN 30 H
Creatinine 1.7 H
Glucose 135 H
Calcium 8.8
Total Bilirubin 1.1
AST 30
ALT 15
Alkaline Phosphatase 87
Vital Signs:
Vital Signs
Temp Pulse Resp BP Pulse Ox
98.0 F 72 16 115/71 99
02/03/24 07:00 02/03/24 11:32 02/03/24 11:32 02/03/24 08:08 02/03/24 08:10
I&O
02/02/24 02/03/24 02/04/24
06:59 06:59 06:59
Intake Total 1860 / 1860 320 / 320
Output Total 875 / 875
Balance 985 / 985 320 / 320
[2024-02-03 11:51] LABS: Glucose - Point of Care 222 mg/dl (70-99)
[2024-02-03] MEDS: NOVOLOG FLEXPEN-LOW RESISTANCE 2 UNITS SC (12:12)
--- NOTE | 2024-02-03 12:51 | W.DCSUMMARY ---
Discharge Summary
Discharge Data
Date of Admission: 01/28/24
Date of Discharge: 02/03/24
-
Pending Results: No
Hospital Course
Primary diagnoses:
Acute kidney injury on chronic kidney disease due to dehydration and Mounjaro
Lactic acidosis
Secondary diagnoses:
Ambulatory dysfunction
Paroxysmal atrial fibrillation
Hypokalemia
Nonischemic myocardial injury
Constipation
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
Obstructive sleep apnea
Hyperlipidemia
Type 2 Diabetes Mellitus
Morbid Obesity due to excess calories
Consultants:
Nephrology
Cardiology
Imaging:
Renal U/S:
1. Negative for hydronephrosis.
2. Post void residual of 187 cc.
83-year-old male who presented with a chief complaint of weakness as outlined in the H&P done on admission. Hospital course by problem list:
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 Patient received IV fluids on admission. He had lactic acidosis which resolved. His Bumex and Zaroxolyn were held. The patient's baseline Cr was 1.1-1.3, presented with Cr 3.4, and his Cr
on discharge was 1.7. This is likely his new baseline. His weakness and ambulatory dysfunction were due to dehydration and acute kidney injury. He is being discharged to SNF. His Bumex has been restarted.
Discharge Plan
-
Patient Disposition: Correction/SNF
Discharge Diagnosis/Procedures: Acute kidney injury on chronic kidney disease
Dehydration
Lactic acidosis
Ambulatory dysfunction
Diet: 2 Gram Sodium and Other diet
Additional Diets: heart healthy
Activity: As tolerated
Driving Restrictions: As prior to admission
Bathing Restrictions: None
Blood Work: BMP in 1 week, script from PCP
Specialty Instructions: Weigh Daily- Call MD for wt gain/loss 3 lbs overnight/5 lbs in 1 week
Referrals:
Ruperto Jade DO [Family Provider] - in less than 1 week
Eloisa Mccord DO [Active] -
Martina Ramsey MD [Active] -
Prescriptions:
New
miconazole nitrate [Miconazorb AF] 2 % Powder
1 applic topical BID Qty: 85 0RF
polyethylene glycol 3350 [HealthyLax] 17 gram Powder In Packet
17 g PO DAILY Qty: 0 0RF
Eliquis 2.5 mg Tablet
2.5 mg PO BID Qty: 0 0RF
Continued
ezetimibe 10 MG tablet
10 mg PO HS
cyanocobalamin (vitamin B-12) 2,500 MCG tablet
2,500 mcg PO MOTH
coenzyme Q10 [Co Q-10] 200 MG capsule
200 mg PO DAILY
aspirin 81 MG tablet,delayed release (DR/EC)
81 mg PO DAILY Qty: 0 0RF
Rx Instructions:
Resume after Lovenox/Coumadin Bridge is complete
atorvastatin 20 mg tablet
20 mg PO HS
insulin lispro [Humalog KwikPen Insulin] 100 unit/mL insulin pen
2 - 8 sliding scale dose SC MEALS
Patient Comments:
01/08/2024: of 200-249= 2; 250-299= 4; 300-349= 6; 350-400= 8, >400 = Call MD
magnesium 250 mg Tablet
500 mg PO DAILY
dorzolamide-timolol 22.3-6.8 mg/mL Drops
1 drp BOTH EYES BID
miconazole nitrate [Miconazorb AF] 2 % Powder
1 applic topical BID Qty: 100 0RF
insulin lispro 100 unit/mL Insulin Pen
5 unit SC MEALS
cholecalciferol (vitamin D3) [Vitamin D3] 50 mcg (2,000 unit) Tablet
50 mcg PO DAILY
melatonin 5 mg tablet
10 mg PO HS
bumetanide 2 mg Tablet
2 mg PO BID AT 0800,1600 Qty: 60 0RF
potassium chloride 20 mEq Tablet,Er Particles/Crystals
20 meq PO TID Qty: 90 0RF
ipratropium-albuterol 0.5 mg-3 mg(2.5 mg base)/3 mL Solution For Nebulization
3 ml inhalation R QID Qty: 30 0RF
albuterol sulfate [Ventolin HFA] 90 MCG/PUFF HFA aerosol inhaler
2 puff inhalation R Q4 PRN (Reason: sob/wheezing) Qty: 1 0RF
Jardiance 10 mg tablet
10 mg PO HS Qty: 30 0RF
amiodarone 200 mg tablet
200 mg PO DAILY
insulin glargine [Lantus Solostar U-100 Insulin] 100 unit/mL (3 mL) Insulin Pen
20 unit SC HS
Discontinued
Mounjaro 5 mg/0.5 mL pen injector
5 mg SC MOORE
metolazone 2.5 mg Tablet
2.5 mg PO MO Qty: 30 0RF
Eliquis 5 mg tablet
5 mg PO BID
Discharge Orders:
Discharge Patient (As Directed); Ordered 02/03/24
Ordered By: Travis Sanders
Discharge Date and Time
Print Language: LATVIAN
[2024-02-03 14:30] VITALS: BP 116/61
--- NOTE | 2024-02-03 14:57 | W.PN.NEPH.PH ---
Today's Communication / Plan
-
d/c plan
Assessment/Plan
-
IMP:
Acute on chronic kidney injury-baseline cr 1.1-1.3 in October 2023
Paroxysmal Afib -s/p cardioversion in December
Hypokalemia with contraction metabolic alkalosis
Prolonged QT
Non-[place] Troponin Elevation
IDDM
Constipation
Chronic Hypoxic and Hypercapnic Respiratory Failure
AMIE on CPAP
HLD
CHr LE edema
s/p bioprosthetic AVR
PUlm HTN
CAD
PLan:
Recent d/c after treating CHF with diuresis presents back with weakness, fall
MARGIE-best cr 1.1-1.3 before November, since then cr uptrend with diuresis for CHF flare
likely from vol depletion, cr stable at 1.7 from peak at 3.4, likely this is new baseline
UA with ?UTI, U na is low 7 suggest prerenal, renal US non acute
wt is lower than last d/c -remains stable
would cont to hold Lanette and Dylan(started 2m ago)
follow bladder scan, 187cc on US
hemodynamically more stable
met alkalosis persists-monitor with bumex
follow labs and wt daily
d/w pt and nursing
BMP in week after d/c
f/u with cards and PCP
nephro if needed
-
-
Date of Service: February 03, 2024
CC / HPI / ROS
-
Chief Complaint:
MARGIE with CKD
History of Present Illness:
cr at 1.7 stable
hemodynamically stable
wt no change
Review of Systems:
no cp or sob
feels better
Labs
-
Labs:
WBC 8.2 10^3/uL (4.8-10.8) 02/03/24 05:54
RBC 3.54 10^6/uL (4.70-6.10) L 02/03/24 05:54
Hgb 10.6 g/dL (13.0-18.0) L 02/03/24 05:54
Hct 32.5 % (39.0-52.0) L 02/03/24 05:54
Plt Count 184 10^3/uL (130-400) 02/03/24 05:54
Sodium 138 mmol/L (135-145) 02/03/24 05:54
Potassium 3.5 mmol/L (3.5-5.1) 02/03/24 05:54
Chloride 94 mmol/L (98-107) L 02/03/24 05:54
Carbon Dioxide 36 mmol/L (22-30) H 02/03/24 05:54
BUN 30 mg/dl (9-20) H 02/03/24 05:54
Creatinine 1.7 mg/dL (0.7-1.3) H 02/03/24 05:54
eGFR 39.51 02/03/24 05:54
Glucose 135 mg/dl (70-99) H 02/03/24 05:54
Calcium 8.8 mg/dl (8.4-10.2) 02/03/24 05:54
Ily-M-Rxulcgumavs Pept 1610 pg/ml 01/28/24 21:34
Albumin 3.2 g/dl (3.5-5.0) L 02/03/24 05:54
Physical Exam
-
Vital Signs:
Vital Signs
Temp Pulse Resp BP Pulse Ox
97.9 F 68 18 116/61 100
02/03/24 14:30 02/03/24 14:30 02/03/24 14:30 02/03/24 14:30 02/03/24 14:30
Cardiovascular:: Regular rate and rhythm
Respiratory:: Bilateral: CTA
Lung Excursion:: Normal
Abdomen:: Nontender and Soft
Extremity Edema:: +1: Bilateral: (chr)
Mcclelland Catheter: No
== END 2024-02-03 15:55 | DRG 683 ==
LOC: 4 WEST ACU 23:57
PROVIDERS: Clinical Nurse Specialist Family Health; Internal Medicine; Physician Assistant; ADMITTING PHYSICIAN Student in an Organized Health Care Education/Training Program; ATTENDING PHYSICIAN Internal Medicine; CONSULT PHYSICIAN Internal Medicine; EMERGENCY PHYSICIAN Emergency Medicine; FAMILY PHYSICIAN Family Medicine; OTHER PHYSICIAN Internal Medicine Cardiovascular Disease
PROC: 5A09357 Assistance with Respiratory Ventilation, Less than 24 Consecutive Hours, Continuous Positive Airway Pressure (ICD-10-PCS; 2024-01-29)
DX: N17.9 Acute kidney failure, unspecified (principal); E87.4 Mixed disorder of acid-base balance; I5A Non-ischemic myocardial injury (non-traumatic); J96.11 Chronic respiratory failure with hypoxia; J96.12 Chronic respiratory failure with hypercapnia; I50.32 Chronic diastolic (congestive) heart failure; I13.0 Hypertensive heart and chronic kidney disease with heart failure and stage 1 through stage 4 chronic kidney disease, or unspecified chronic kidney disease; Z68.41 Body mass index [BMI] 40.0-44.9, adult; N18.32 Chronic kidney disease, stage 3b; E86.0 Dehydration; T38.3X5A Adverse effect of insulin and oral hypoglycemic [antidiabetic] drugs, initial encounter; I48.0 Paroxysmal atrial fibrillation; E87.6 Hypokalemia; K59.00 Constipation, unspecified; G47.33 Obstructive sleep apnea (adult) (pediatric); E78.00 Pure hypercholesterolemia, unspecified; E11.22 Type 2 diabetes mellitus with diabetic chronic kidney disease; E66.01 Morbid (severe) obesity due to excess calories; I25.10 Atherosclerotic heart disease of native coronary artery without angina pectoris; Z66 Do not resuscitate; I27.20 Pulmonary hypertension, unspecified; Z99.81 Dependence on supplemental oxygen; Z95.3 Presence of xenogenic heart valve; Z79.01 Long term (current) use of anticoagulants; Z79.82 Long term (current) use of aspirin; Z79.4 Long term (current) use of insulin
CPT/HCPCS: 51798; 70450; 71046; 76770; 80048; 80053; 81003; 81015; 82570; 82962; 83036; 83605; 83735; 83880; 84132; 84300; 84484; 85025; 87040; 87086; 93005; 94640; 94660; 96360; 96361; 97110; 97116; 97163; 97530; 97535; 99285

== ENCOUNTER → 2024-02-05 10:29 | Outpatient (REF) | payer OTHER, SELFPAY ==
[2024-02-05 12:19] LABS: Hematocrit 35.7 % (39.0-52.0); Hemoglobin 11.4 g/dL (13.0-18.0); Mean Corp Hgb Conc. 31.9 g/dL (33.0-37.0); Mean Corpuscular Hgb 29.3 pg (27.0-31.0); Mean Corpuscular Volume 91.8 fL (80.0-94.0); Mean Platelet Volume 11.9 fL (7.4-10.4); Platelet Count 210 10^3/uL (130-400); Red Blood Cell Count 3.89 10^6/uL (4.70-6.10); Red Cell Dist. Width 15.2 % (11.5-14.5); White Blood Cell Count 8.3 10^3/uL (4.8-10.8)
[2024-02-05 12:46] LABS: Blood Urea Nitrogen 33 mg/dl (9-20); Calcium 9.2 mg/dl (8.4-10.2); Carbon Dioxide 31 mmol/L (22-30); Chloride 95 mmol/L (98-107); Glucose 157 mg/dl (70-99); Potassium 4.3 mmol/L (3.5-5.1); Sodium 134 mmol/L (135-145); eGFR 28.99
== END ==
LOC: OLABP 10:29
PROVIDERS: ATTENDING PHYSICIAN Family Medicine
DX: N17.9 Acute kidney failure, unspecified (principal); E87.6 Hypokalemia
CPT/HCPCS: 36415; 80048; 85027

== ENCOUNTER → 2024-02-08 12:13 | Outpatient (REF) | payer OTHER, SELFPAY ==
[2024-02-08 12:39] LABS: Blood Urea Nitrogen 24 mg/dl (9-20); Calcium 8.4 mg/dl (8.4-10.2); Carbon Dioxide 33 mmol/L (22-30); Chloride 99 mmol/L (98-107); Glucose 123 mg/dl (70-99); Potassium 4.2 mmol/L (3.5-5.1); Sodium 138 mmol/L (135-145); eGFR 34.57
== END ==
LOC: OLABP 12:13
PROVIDERS: ATTENDING PHYSICIAN Family Medicine
DX: N17.9 Acute kidney failure, unspecified (principal); E87.6 Hypokalemia; M62.81 Muscle weakness (generalized); E11.9 Type 2 diabetes mellitus without complications; D64.9 Anemia, unspecified
CPT/HCPCS: 36415; 80048

== ENCOUNTER → 2024-02-10 12:25 | Outpatient (REF) | payer OTHER, SELFPAY ==
[2024-02-10 13:43] LABS: % Basophils 0.8 % (0-2); % Eosinophils 0.7 % (0-6); % Immature Granulocytes 0.3 % (0-0.5); % Lymphocytes 19.1 % (20.5-51.1); % Monocytes 16.6 % (1.7-9.3); % Neutrophils 62.5 % (42.2-75.2); Absolute Basophils 0.1 10^3/uL (0-0.2); Absolute Lymphocytes 1.2 10^3/uL (1.2-3.4); Absolute Neutrophils 3.8 10^3/uL (1.4-6.5); Hematocrit 29.7 % (39.0-52.0); Hemoglobin 9.3 g/dL (13.0-18.0); Mean Corp Hgb Conc. 31.3 g/dL (33.0-37.0); Mean Corpuscular Hgb 29.9 pg (27.0-31.0); Mean Corpuscular Volume 95.5 fL (80.0-94.0); Mean Platelet Volume 11.6 fL (7.4-10.4); Nucleated Red Blood Cells % 0 % (-); Platelet Count 178 10^3/uL (130-400); Red Blood Cell Count 3.11 10^6/uL (4.70-6.10); Red Cell Dist. Width 15.8 % (11.5-14.5); White Blood Cell Count 6.1 10^3/uL (4.8-10.8)
[2024-02-10 13:47] LABS: Blood Urea Nitrogen 22 mg/dl (9-20); Calcium 8.3 mg/dl (8.4-10.2); Carbon Dioxide 29 mmol/L (22-30); Chloride 98 mmol/L (98-107); Glucose 87 mg/dl (70-99); Potassium 4.4 mmol/L (3.5-5.1); Sodium 134 mmol/L (135-145); eGFR 32.51
== END ==
LOC: OLABP 12:25
PROVIDERS: ATTENDING PHYSICIAN Family Medicine
DX: N17.9 Acute kidney failure, unspecified (principal); E87.6 Hypokalemia; M62.81 Muscle weakness (generalized); E11.9 Type 2 diabetes mellitus without complications; D64.9 Anemia, unspecified
CPT/HCPCS: 36415; 80048; 85025

== ENCOUNTER → 2024-02-11 09:35 | Outpatient (REF) | payer OTHER, SELFPAY ==
[2024-02-11 10:49] LABS: Hematocrit 29.1 % (39.0-52.0); Hemoglobin 9.2 g/dL (13.0-18.0); Mean Corp Hgb Conc. 31.6 g/dL (33.0-37.0); Mean Corpuscular Hgb 29.7 pg (27.0-31.0); Mean Corpuscular Volume 93.9 fL (80.0-94.0); Mean Platelet Volume 11.2 fL (7.4-10.4); Platelet Count 179 10^3/uL (130-400); Red Cell Dist. Width 15.5 % (11.5-14.5); White Blood Cell Count 6.5 10^3/uL (4.8-10.8)
[2024-02-11 11:58] LABS: ALT (SGPT) 14 U/L (0-50); AST (SGOT) 29 U/L (17-59); Albumin 2.8 g/dl (3.5-5.0); Alkaline Phosphatase 78 U/L (38-126); Blood Urea Nitrogen 24 mg/dl (9-20); Carbon Dioxide 32 mmol/L (22-30); Chloride 97 mmol/L (98-107); Glucose 84 mg/dl (70-99); Potassium 4.1 mmol/L (3.5-5.1); Sodium 135 mmol/L (135-145); Total Bilirubin 0.7 mg/dl (0.2-1.3); Total Protein 5.2 g/dl (6.3-8.2); eGFR 30.66
== END ==
LOC: OLABP 09:35
PROVIDERS: ATTENDING PHYSICIAN Family Medicine
DX: N17.9 Acute kidney failure, unspecified (principal); E87.6 Hypokalemia; M62.81 Muscle weakness (generalized); E11.9 Type 2 diabetes mellitus without complications; D64.9 Anemia, unspecified
CPT/HCPCS: 36415; 80053; 85027

== ENCOUNTER → 2024-02-12 12:43 | Outpatient (REF) | payer OTHER, MEDICARE, SELFPAY ==
[2024-02-12 13:07] LABS: % Basophils 0.6 % (0-2); % Eosinophils 3.4 % (0-6); % Immature Granulocytes 0.2 % (0-0.5); % Monocytes 16.1 % (1.7-9.3); % Neutrophils 46.7 % (42.2-75.2); Absolute Eosinophils 0.2 10^3/uL (0-0.7); Absolute Lymphocytes 2.1 10^3/uL (1.2-3.4); Absolute Neutrophils 2.9 10^3/uL (1.4-6.5); Hematocrit 30.5 % (39.0-52.0); Hemoglobin 9.4 g/dL (13.0-18.0); Mean Corp Hgb Conc. 30.8 g/dL (33.0-37.0); Mean Corpuscular Hgb 29.3 pg (27.0-31.0); Mean Platelet Volume 12.1 fL (7.4-10.4); Nucleated Red Blood Cells % 0 % (-); Platelet Count 193 10^3/uL (130-400); Red Blood Cell Count 3.21 10^6/uL (4.70-6.10); Red Cell Dist. Width 15.4 % (11.5-14.5); White Blood Cell Count 6.2 10^3/uL (4.8-10.8)
[2024-02-12 13:18] LABS: Blood Urea Nitrogen 21 mg/dl (9-20); Carbon Dioxide 33 mmol/L (22-30); Chloride 98 mmol/L (98-107); Glucose 87 mg/dl (70-99); Potassium 4.2 mmol/L (3.5-5.1); Sodium 135 mmol/L (135-145); eGFR 36.89
== END ==
LOC: OLABP 12:43
PROVIDERS: ATTENDING PHYSICIAN Family Medicine
DX: N17.9 Acute kidney failure, unspecified (principal); E87.6 Hypokalemia; M62.81 Muscle weakness (generalized); E11.9 Type 2 diabetes mellitus without complications; D64.9 Anemia, unspecified
CPT/HCPCS: 36415; 80048; 85025

== ENCOUNTER → 2024-02-16 11:26 | Outpatient (REF) | payer OTHER, MEDICARE, SELFPAY ==
[2024-02-16 13:03] LABS: Blood Urea Nitrogen 15 mg/dl (9-20); Calcium 8.3 mg/dl (8.4-10.2); Carbon Dioxide 31 mmol/L (22-30); Chloride 103 mmol/L (98-107); Glucose 103 mg/dl (70-99); Potassium 4.3 mmol/L (3.5-5.1); Sodium 138 mmol/L (135-145); eGFR 45.91
== END ==
LOC: OLABP 11:26
PROVIDERS: ATTENDING PHYSICIAN Family Medicine
DX: N17.9 Acute kidney failure, unspecified (principal); E87.6 Hypokalemia; M62.81 Muscle weakness (generalized); E11.9 Type 2 diabetes mellitus without complications; D64.9 Anemia, unspecified
CPT/HCPCS: 36415; 80048

== ENCOUNTER → 2024-02-19 10:52 | Outpatient (REF) | payer OTHER, MEDICARE, SELFPAY ==
[2024-02-19 12:12] LABS: % Basophils 0.6 % (0-2); % Eosinophils 3.4 % (0-6); % Immature Granulocytes 0.3 % (0-0.5); % Lymphocytes 30.9 % (20.5-51.1); % Monocytes 11.4 % (1.7-9.3); % Neutrophils 53.4 % (42.2-75.2); Absolute Eosinophils 0.2 10^3/uL (0-0.7); Absolute Lymphocytes 1.9 10^3/uL (1.2-3.4); Absolute Monocytes 0.7 10^3/uL (0.1-0.6); Absolute Neutrophils 3.3 10^3/uL (1.4-6.5); Hematocrit 31.5 % (39.0-52.0); Hemoglobin 9.9 g/dL (13.0-18.0); Mean Corp Hgb Conc. 31.4 g/dL (33.0-37.0); Mean Corpuscular Hgb 29.4 pg (27.0-31.0); Mean Corpuscular Volume 93.5 fL (80.0-94.0); Nucleated Red Blood Cells % 0 % (-); Platelet Count 276 10^3/uL (130-400); Red Blood Cell Count 3.37 10^6/uL (4.70-6.10); Red Cell Dist. Width 15.6 % (11.5-14.5); White Blood Cell Count 6.2 10^3/uL (4.8-10.8)
[2024-02-19 12:39] LABS: Blood Urea Nitrogen 14 mg/dl (9-20); Calcium 8.8 mg/dl (8.4-10.2); Carbon Dioxide 31 mmol/L (22-30); Chloride 100 mmol/L (98-107); Glucose 106 mg/dl (70-99); Potassium 4.5 mmol/L (3.5-5.1); Sodium 139 mmol/L (135-145); eGFR 49.87
== END ==
LOC: OLABP 10:52
PROVIDERS: ATTENDING PHYSICIAN Family Medicine
DX: N17.9 Acute kidney failure, unspecified (principal); E87.6 Hypokalemia; M62.81 Muscle weakness (generalized); E11.9 Type 2 diabetes mellitus without complications; D64.9 Anemia, unspecified
CPT/HCPCS: 36415; 80048; 85025

== ENCOUNTER 2025-07-16 15:30 | Inpatient (IN) | payer OTHER, SELFPAY ==
[2025-07-16] VITALS (34 sets, daily range): BP systolic 81–122; BP diastolic 33–79; PULSE 2–66; BMI 41.0; BMI 43.6
[2025-07-16 09:50] LABS: Glucose - Point of Care 254 mg/dl (70-99)
[2025-07-16 10:10] LABS: Hematocrit 39.0 % (39.0-52.0); Hemoglobin 12.5 g/dL (13.0-18.0); Mean Corp Hgb Conc. 32.1 g/dL (33.0-37.0); Mean Corpuscular Volume 92.0 fL (80.0-94.0); Nucleated Red Blood Cells % 0 % (-); Platelet Count 163 10^3/uL (130-400); Red Cell Dist. Width 14.6 % (11.5-14.5)
[2025-07-16 11:05] LABS: Troponin I 0.091 ng/ml
[2025-07-16 11:11] LABS: AST (SGOT) 26 U/L (17-59); Albumin 3.4 g/dl (3.5-5.0); Alkaline Phosphatase 110 U/L (38-126); Blood Urea Nitrogen 26 mg/dl (9-20); Calcium 8.5 mg/dl (8.4-10.2); Carbon Dioxide 25 mmol/L (22-30); Chloride 100 mmol/L (98-107); Estimated Creatinine Clearance 31 ml/min; Glucose 271 mg/dl (70-99); Magnesium 2.0 mg/dl (1.6-2.3); Potassium 3.8 mmol/L (3.5-5.1); Sodium 138 mmol/L (135-145); Total Protein 6.4 g/dl (6.3-8.2); eGFR 25.96
[2025-07-16 11:20] LABS: ALT (SGPT) 20 U/L (0-50)
--- NOTE | 2025-07-16 13:16 | ED.GENMED ---
Addendum entered and electronically signed by Alber Mark DO 07/16/25 16:33:
Procedure: Straight bladder catheterization performed by me due to inability for the nurse to achieve urine sampling. Patient's body habitus precluded Normal procedure. Patient was placed in slight Trendelenburg. Foreskin was unable to be fully
retracted but I was able to catheterize the bladder. Yellow urine with sediment was sampled. Procedure performed under sterile conditions
Original Note:
History of Present Illness
General
Chief Complaint: Breathing Problem
Source: patient
Time Seen by Provider: 07/16/25 09:51
History of Present Illness
History of Present Illness:
Note:
CHIEF COMPLAINT(S)
Shortness of breath.
HISTORY OF PRESENT ILLNESS
The patient is an 84-year-old male with a known history of heart and kidney issues, presenting with shortness of breath starting today. He was found to be hypoxic on two liters of oxygen, which he uses 24/7. Prior to this episode, the patient
experienced a fall the previous night but was assisted by EMS and reported no related injuries.
He reports a history of heart problems and is on amiodarone and apixaban, indicating a history of atrial fibrillation, and is also taking aspirin, coenzyme Q10, atorvastatin, bumetanide, Lantus, and Humalog. He denies any fever, chest pain, or
significant cough but does note discomfort under his arms which he describes as a pulling sensation.
Spouse states that last night and again this morning the patient had chills and was shivering. Daughter states he also recently had a rash in his crotch. It was treated with powder. Spouse also states he has been extremely weak at home. Worse
over the last few days and she has had difficult time getting him up.
PAST MEDICAL AND SURGICAL HISTORY
History of heart problems, atrial fibrillation, and kidney issues.
ALLERGIES
No known drug allergies mentioned.
IMMUNIZATION HISTORY
The patient has not received an influenza or COVID-19 vaccination this year.
SOCIAL HISTORY
The patient denies smoking, alcohol, or drug use.
MEDICATIONS
- Amiodarone
- Apixaban (Eliquis)
- Aspirin
- Coenzyme Q10
- Bumetanide
- Atorvastatin
- Insulin glargine (Lantus)
- Insulin lispro (Humalog)
REVIEW OF SYSTEMS
- Respiratory: Shortness of breath, occasional rales.
- Cardiovascular: Reports history of heart problems, rated blood sugar was elevated.
- Gastrointestinal: Minimal discomfort under the arms, not described as pain.
- General: No fever noted, history of previous falls.
PHYSICAL EXAM
General: Alert, obese, no acute distress.
Skin: Warm, dry. Chronic venous changes noted with no edema.
Head: Normocephalic, atraumatic.
Neck: Supple, trachea midline, no JVD.
Eyes, Ears, Nose, Mouth, and Throat: Oral mucosa moist.
Cardiovascular: Regular heart rhythm, no peripheral edema.
Respiratory: Rales present bilaterally at lung bases, hypoxic on two liters of O2, non-labored breathing.
Gastrointestinal: Abdomen nondistended.
Musculoskeletal: Normal range of motion, normal strength.
Neurological: Alert and oriented to person, place. No focal deficits
Psychiatric: Cooperative, appropriate mood and affect.
PLAN
1. Monitor oxygenation closely and ensure supplemental oxygen is maintained.
2. Initiate ice chips to address patients request for oral hydration.
3. Consider further evaluation with chest X-ray given respiratory findings and history of cardiac and pulmonary comorbidities.
4. Monitor blood pressure and address any hypotensive readings.
5. Check random blood glucose due to reported elevated level.
DIFFERENTIAL DIAGNOSIS
The Differential Diagnosis includes, in no particular order and is not limited to:
1. Congestive Heart Failure Exacerbation
2. Chronic Obstructive Pulmonary Disease (COPD) exacerbation
3. Pulmonary Edema
4. Pulmonary Embolism
5. Pneumonia
6. Myocardial Infarction
7. Atrial Fibrillation with Rapid Ventricular Response
8. Acute Renal Failure
9. Pleural Effusion
10. Dehydration and Hypotension
EKG
My independent EKG interpretation is:
- EKG performed in January 2024
- Rhythm: Regular
- Heart Rate: 87 bpm
- MA Interval: Not applicable (no P-Waves noted)
- QRS Duration: Widened
- Abnormality: Interventricular conduction delay
CARE-UPDATE
07/16/25 - 12:41
Blood pressure has improved to 103/58. Hold off on administering 30 cc/kg fluids for sepsis due to BNP of 7,460 and signs of interstitial edema on chest x-ray. Initiated broad-spectrum antibiotics as white count is 18,000 with 94% neutrophils.
Notably, acute kidney injury is present with creatinine elevated to 2.4 from a baseline of 1.4. Urinalysis is pending.
Disposition:
SUMMARY OF ENCOUNTER
An 84-year-old male presented with acute generalized weakness and hypoxia. The patient, who is chronically on oxygen, showed improvement with continued oxygen therapy. Chest x-ray revealed signs suggestive of pulmonary edema. The patients mean
arterial pressure (MAP) was 70, and his blood pressure was somewhat guarded at 98/56. Laboratory findings included a white blood cell count of 18,000 with 94% neutrophils, a creatinine level of 2.4 indicating acute kidney injury (baseline creatinine
is 1.4), and hyperglycemia with a blood glucose level of 271. The patient received gentle IV fluids; however, due to potential fluid overload evidenced by elevated BNP (7,460), the Sepsis bundle was deferred, and more aggressive fluid resuscitation
was withheld. Complaints of cloudy urine suggested a urinary tract infection (UTI), and broad-spectrum antibiotics were initiated after urinalysis sampling.
PLAN
Continuously monitor the patients blood pressure and oxygenation closely. Maintain gentle fluid management considering signs of pulmonary edema and elevated BNP. Prepare to initiate vasopressors if hypotension recurs. Continue antibiotics while
awaiting urinalysis results to assess for UTI.
INDEPENDENT REVIEW OF LABS AND INTERPRETATION OF TESTS
- My independent review of CBC indicates leukocytosis with a white blood cell count of 18,000 and 94% neutrophils.
- My independent review of basic metabolic panel (BMP) highlights acute kidney injury with a creatinine elevation to 2.4 from a baseline of 1.4.
- Elevated BNP indicates potential fluid overload and heart dysfunction.
- My independent interpretation of the chest x-ray suggests pulmonary edema.
MEDICAL DECISION MAKING
- Complexity of Data Reviewed: Chronic conditions affecting care, including history of heart problems, atrial fibrillation, and kidney issues. Differential diagnosis includes:
1. Congestive Heart Failure Exacerbation
2. Chronic Obstructive Pulmonary Disease (COPD) exacerbation
3. Pulmonary Edema
4. Pulmonary Embolism
5. Pneumonia
6. Myocardial Infarction
7. Atrial Fibrillation with Rapid Ventricular Response
8. Acute Renal Failure
9. Pleural Effusion
10. Dehydration and Hypotension
- Data:
Category 1
- My independent interpretation of the chest x-ray indicates possible pulmonary edema.
- Reviewed lab results including CBC, BMP, highlighting leukocytosis and acute kidney injury.
Category 3
- Management of the patients care was discussed with hospitalists regarding the approach considering patients acute kidney injury and potential infection.
-Risk: Prescription medication management is included with initiation of broad-spectrum antibiotics due to suspected UTI. Considered escalation of care given complexity and potential for severe conditions but determined patient can be managed with
close monitoring and medication adjustments.
Past History
Past History
ED Past Medical History: Arrthythmia (Atrial fibrillation), HTN, Hypercholesterolemia, NIDDM, DE, Renal failure, Valvular disease and Other (Morbid obesity, Numbness and Tingling arms and legs, Sleep apnea uses CPAP, Aortic stenosis, Colitis,
Cellulitis, Sepsis)
ED Past Surgical History: Cardiac (Bioprosthetic aortic valve replacement), Orthopedic (Right femur derik insertion, Patellectomy) and Other (Facial surgery)
Social History
Tobacco: Non-smoker
Alcohol: None
Drug: None
Personal:
Living: with family
Employment: Retired
Phy Exam
Physical Exam
Physical Exam:
.
Scores
Heart Failure Risk
Heart Failure Risk Score: Yes
History of Stroke or TIA: No
History of intubation for respiratory distress: No
Heart rate on ED arrival >/= 110: No
SaO2 <90% on arrival on room air: Yes
HR >/=110 during 3min walk test (or too ill to perform test): Yes
ECG has acute ischemic changes: No
Urea >/=12mmol/L (BUN 33.6mg/dL): No
Serum CO2>/=35mmol/L: No
Troponin I or T elevated to DE Level (0.4mg/dL): No
NT-proBNP >/=5,000ng/L (5,000pg/ml): Yes
HF Risk Score: 4
Admission Status: HIGH RISK 26.1% Consider SNF treatment or admission to hospital
Course
Orders/Labs/Results
Orders:
Orders
07/16/25 09:55
Electrocardiogram (*1) Stat
Reason for Study: Other
Other Reason for Exam: sob
Cardiac Monitoring- Treatment ONCE
EKG- Treatment ONCE
CR Chest Portable - 1 View Urgent
Comment:
Reason For Exam: sob
Reason Study Needs to be Portable: Patient Unstable
07/16/25 10:03
Complete Blood Count/With Diff Urgent
NT-proBNP Urgent
Troponin I Urgent
07/16/25 10:38
Comprehensive Metabolic Panel Urgent
Magnesium Urgent
07/16/25 10:55
Lactic Acid Q4H
Comment: CANCEL 2nd LACTIC ACID IF 1st LACTIC ACID IS LESS THAN 2
Blood Culture Q30M
AARON Source: Blood/Venous
Specimen Description:
07/16/25 10:57
Blood Culture Q30M
AAORN Source: Blood/Venous
Specimen Description:
07/16/25 11:33
Piperacillin/Tazo 4.5 Gram [Zosyn] 4.5 gram in 100 ml IV NOW
07/16/25 11:44
Urinalysis Reflex To Culture Urgent
Date Specimen was Collected: 07/16/25
Time Specimen was Collected: 11:40
Urine Microscopic Reflex Cult Urgent
Urine Culture Urgent
AARON Source: U
Specimen Description:
Date Specimen was Collected: 07/16/25
Time Specimen was Collected: 11:40
07/16/25 13:03
Lidocaine 2% [Lidocaine Uro-Jet 2%] 1 syringe .ROUTE .STK-MED ONE
07/16/25 13:15
Acetaminophen [Tylenol] 1,000 mg PO NOW STA
07/16/25 13:59
Vancomycin [Vancocin] 2,000 mg 0.9% Sodium Chloride 500 ml [Nss] 500 ml IV NOW
07/16/25 14:38
MRSA Screen Routine
AARON Source: Nose
Specimen Description:
07/16/25 14:47
NORepinephrine 4 MG/250 ML [Levophed] 4 mg in 250 ml IV NOW
Initial dose in mcg/min, then titrate:: 2
Titrate to keep:: MAP > 65 mmHg
Titrate by mcg/min:: 1-2 mcg/min
Frequency of titrations (minutes):: 5
Maximum dose in ICU in mcg/min:: 30
Maximum dose in IMU in mcg/min:: 8
Maximum dose in IVU in mcg/min:: 4
Begin to taper infusion when:: Remained at goal for 4hrs
Taper by mcg/min:: 1-2 mcg/min
Frequency of taper (minutes) if patient maintains goal:: 30
Taper to off?: Yes
If infusion off & no longer maintaining goal:: Contact Provider
07/16/25 15:00
Lactated Ringers [Lr] 1,000 ml IV 80 mls/hr
07/16/25 15:05
Admit/Transfer Patient As Directed
Co-Sign Provider:
Level of Care: Inpatient admission
Assign to:: IMU- Intermediate Care
Physician / Group: Earnest Serna
Diagnosis: sepsis, toxic metabolic encephalopathy, MARGIE on CKD, UTI
Reason for Hospitalization: sepsis, toxic metabolic encephalopathy, MARGIE on CKD, UTI
Expected length of stay greater than two midnights?: Yes
ELOS- Estimated Length of Stay in days: 3
I certify the patient meets the requirements for IP care: Yes
PRN Pain Medication Management As Directed
May give lesser potent ordered pain med per pt: Yes
preference::
Protocol:: Medication orders for pain may be administered in a
manner that supports deferring to patient preference
when the pt is:
- Requesting an ordered lesser potent pain medication.
Least to most potent pain medications are defined
as: acetaminophen < NSAID < tramadol < opioids
(morphine, oxycodone, hydromorphone).
- Requesting a lesser dose of the same medication IF
ORDERED.
- Requesting a less intrusive route of administration
if both routes are prescribed by the provider (PO <
IV).
07/16/25 15:06
Code Status As Directed
Resuscitation Status: Do not resuscitate
Reached after discussion with pt or family/Healthcare POA: Yes
Decision communicated with: patient and spouse
DNR Bracelet Application ONCE
07/16/25 15:13
Lactic Acid Q4H
Comment: CANCEL 2nd LACTIC ACID IF 1st LACTIC ACID IS LESS THAN 2
Abnormal Lab Results
07/16/25 07/16/25 07/16/25
09:49 10:03 10:38
WBC 18.0 H 10^3/uL
(4.8-10.8)
RBC 4.24 L 10^6/uL
(4.70-6.10)
Hgb 12.5 L g/dL
(13.0-18.0)
MCHC 32.1 L g/dL
(33.0-37.0)
RDW 14.6 H %
(11.5-14.5)
MPV 10.7 H fL
(7.4-10.4)
Abs Immat Gran (auto) 0.2 H 10^3/uL
(0-0.05)
Absolute Neuts (auto) 16.9 H 10^3/uL
(1.4-6.5)
Absolute Lymphs (auto) 0.4 L 10^3/uL
(1.2-3.4)
Immature Gran % 0.9 H %
(0-0.5)
Neutrophils % 94.0 H %
(42.2-75.2)
Lymphocytes % 2.4 L %
(20.5-51.1)
BUN 26 H mg/dl
(9-20)
Creatinine 2.4 H mg/dL
(0.7-1.3)
Glucose 271 H mg/dl
(70-99)
Lactic Acid
Troponin I 0.091 H* ng/ml
Albumin 3.4 L g/dl
(3.5-5.0)
Ur Occult Blood Reflex
Leukocyte Esterase Rfl
Urine RBC
Urine WBC (Reflex)
Urine Bacteria (Reflex)
Urine Glucose
Urine Albumin (Reflex)
POC Glucose 254 H mg/dl
(70-99)
07/16/25 07/16/25 07/16/25
10:55 11:44 15:13
WBC
RBC
Hgb
MCHC
RDW
MPV
Abs Immat Gran (auto)
Absolute Neuts (auto)
Absolute Lymphs (auto)
Immature Gran %
Neutrophils %
Lymphocytes %
BUN
Creatinine
Glucose
Lactic Acid 6.7 H* mmol/L 3.6 H mmol/L
(0.7-2.0) (0.7-2.0)
Troponin I
Albumin
Ur Occult Blood Reflex 4+ A
(Negative)
Leukocyte Esterase Rfl 3+ A
(Negative)
Urine RBC 3-6 A /HPF
(0-2)
Urine WBC (Reflex) 80-90 A /HPF
(0-5)
Urine Bacteria (Reflex) Moderate A
(Negative)
Urine Glucose 4+ A
(Negative)
Urine Albumin (Reflex) 3+ A
(Neg - Trace)
POC Glucose
07/16/25 10:03
07/16/25 10:38
Vital Signs
Initial and Last Documented VS:
Initial Vital Signs
Temp Pulse Resp Pulse Ox
99.4 F 87 24 93
07/16/25 09:49 07/16/25 09:49 07/16/25 09:49 07/16/25 09:49
Last Documented Vital Signs
Temp Pulse Resp BP Pulse Ox
100.7 F H 71 15 111/72 94
07/16/25 12:30 07/16/25 16:00 07/16/25 16:00 07/16/25 16:00 07/16/25 13:17
*Pulse Oximetry
SaO2: 94
Nasal Cannula flow liters per minute: 5
Patient hypoxic: yes
*Critical Care Note
Total Time (30-74mins, 75-104mins- exclusive of procedures): 45 minutes
Update Note
Update Note:
Levophed ordered but blood pressure improved. Continue to monitor closely if any signs of hypotension will initiate pressors. Hold off on aggressive fluids because of BNP that is elevated as well as volume overload on chest x-ray
ED Attending Note
-
Portions of this chart may have been created with voice recognition software.� Occasional wrong word or��sound alike� substitutions may have occurred due to the inherent limitations of voice recognition software.
Discharge Plan
Departure
Patient Disposition: Admit
Date of Disposition: 07/16/25
Time of Disposition: 13:16
Admit to: IMU
Presentation/result/management discussed w/ accepting MD/DO: Hospitalist
Discharge Problem:
Urinary tract infection, Volume overload, Acute kidney injury, Acute hyperglycemia, Septic shock
Interventions
Interventions:
*Risk Screen - Suicide Last Done: 07/16/25 11:03
*General Assessment Last Done: 07/16/25 10:11
*Neglect/Abuse Screening Last Done: 07/16/25 11:03
*ED- Fall Risk Assessment Last Done: 07/16/25 10:08
*ED COVID-19 Vaccine History Last Done: 07/16/25 10:08
*ED Influenza Vaccine History Last Done: 07/16/25 10:08
ED- Cardiac Assessment Last Done: 07/16/25 10:11
ED- Neurological Assessment Last Done: 07/16/25 10:11
ED- Pulmonary Assessment Last Done: 07/16/25 10:11
[2025-07-16 13:19] LABS: Urine Character Cloudy (Clear)
[2025-07-16] MEDS: TYLENOL 1000 MG PO (13:23)
[2025-07-16] MEDS: ZOSYN 100 IV (13:23)
[2025-07-16 13:28] LABS: Urine Squamous Cell 0-2 /LPF (Few); Urine White Cell 80-90 /HPF (0-5)
[2025-07-16] MEDS: VANCOCIN 540 MG IV (14:13)
--- NOTE | 2025-07-16 14:14 | HPS.HSE ---
Family Physician
-
Family Physician: Ruperto Jade
Chief Complaint
-
increased work of breathing
History of Present Illness
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
baseline and paroxysmal atrial fibrillation who presented to [facility] ED for evaluation of increased work of breathing and high blood glucose. It is noted that EMS was called to patients residence last evening for lift assist post fall. Today they were
called for increased work of breathing. At EMS arrival it was noted that patients Dexcom read 'high' for his current sugar. Patient was found to be hypoxic on baseline O2, currently on 6Liters via NC with SpO2 low 90s. Patient and spouse at bedside
assisted with HPI.
Medical History
Past Medical History
Past Medical History: Reports Other
Additional Past Medical History:
essential hypertension
hyperlipidemia
chronic kidney disease III
type 2 diabetes
CAD
HFpEF
asthma
chronic hypoxic and hypercapnic respiratory failure on 2-3L O2 at baseline
paroxysmal atrial fibrillation
aortic stenosis s/p bioprosthetic aortic valve replacement
morbid obesity
AMIE on CPAP
Past Surgical History: Reports Other
Additional Past Surgical History:
bioprosthetic aortic valve replacement
hysterectomy
bilateral cataract extraction
facial reconstruction
right femur repair
Social History
Tobacco: Non-smoker
Alcohol: None
Drug: None
Personal:
Living: With Family
Employment: Retired
Family History
Family History: Not pertinent (reviewed)
Allergies / Home Medications
Allergies reflects when Allergies were last updated in [facility].
Home Medications with original date entered in [facility]
Allergy/Medication List:
Allergies
Allergy/AdvReac Type Severity Reaction Status Date / Time
No Known Allergies Allergy Verified 01/28/24 17:38
Home Medications
ezetimibe 10 mg tablet 10 mg PO HS High cholesterol 03/13/11
coenzyme Q10 200 mg capsule (Co Q-10) 200 mg PO DAILY Supplement 03/29/20
aspirin 81 mg tablet,delayed release 81 mg PO DAILY Blood clot prevention/tx ##0 06/07/20
atorvastatin 20 mg tablet 20 mg PO HS High cholesterol 10/27/22
insulin lispro 100 unit/mL subcutaneous pen (Humalog KwikPen (U-100) Insulin) 2 - 8 sliding scale dose SC MEALS Diabetes 10/27/22
magnesium 250 mg tablet 240 mg PO DAILY Supplement 12/07/23
dorzolamide 22.3 mg-timolol 6.8 mg/mL eye drops 1 drp BOTH EYES BID Eye Condition 12/09/23
miconazole nitrate 2 % topical powder (Miconazorb AF) 1 applic topical BID #100 grams 12/18/23
cholecalciferol (vitamin D3) 50 mcg (2,000 unit) tablet (Vitamin D3) 50 mcg PO DAILY 01/08/24
albuterol sulfate 90 mcg/actuation aerosol inhaler (Ventolin HFA) 2 puff inhalation R Q4 PRN sob/wheezing #1 inh 01/13/24
bumetanide 2 mg tablet 2 mg PO BID AT 0800,1600 #60 tabs 01/13/24
empagliflozin 10 mg tablet (Jardiance) 10 mg PO HS Diabetes #30 tabs 01/13/24
potassium chloride 20 mEq tablet,extended release(part/cryst) 20 meq PO TID #90 tabs 01/13/24
amiodarone 200 mg tablet 200 mg PO DAILY 01/28/24
insulin glargine 100 unit/mL (3 mL) subcutaneous pen (Lantus Solostar U-100 Insulin) 18 unit SC HS 01/28/24
apixaban 2.5 mg tablet (Eliquis) 2.5 mg PO BID #0 tabs 02/03/24
Review of Systems
-
History Source: Patient
Constitutional: Reports Fever; Denies Chills
EENT: Denies Sore Throat
Respiratory: Reports Cough and Trouble Breathing (hypoxic and tachypnea ); Denies Hemoptysis
Cardiac: Denies Chest Pain, Diaphoresis, Palpitations or Syncope
Abdomen/GI: Denies Abdominal Pain, Nausea, Vomiting or Diarrhea
: Denies Dysuria, Frequency or Urgency
Musculoskeletal: Denies Joint Pain
Skin: Denies Rash
Neurological: Reports Weakness; Denies Dizzy, Headache or Numbness
Physical Exam
Vital Signs
Vital Signs
Temp Pulse Resp BP Pulse Ox
100.7 F H 80 19 104/61 94
07/16/25 12:30 07/16/25 13:30 07/16/25 13:15 07/16/25 13:30 07/16/25 13:17
Physical Exam
General: Well Developed, Well Nourished, Fever, Appears Chronically Ill and Morbidly Obese
HEENT: NormoCephalic, PERRLA, Ears Appear Normal and Hearing Impaired; No Moist mucous membranes
Respiratory: Clear, Non Labored Respirations and Decreased Breath Sounds; No Wheezes, Rales or Rhonchi
Cardiac: S1/S2, Regular Rhythm, Murmur and Peripheral Edema (trace )
GI: Soft, Non Tender, Non Distended and Normal Bowel Sounds
Musculoskeletal: No Clubbing and No Cyanosis
Skin: Warm and IV/Catheter Site
Neuro: AO x 3
Psych: Calm
Laboratory Results
-
07/16/25 10:03
07/16/25 10:38
Laboratory Results
Lactic Acid 6.7 mmol/L (0.7-2.0) H* 07/16/25 10:55
Total Bilirubin 1.1 mg/dl (0.2-1.3) 07/16/25 10:38
AST 26 U/L (17-59) 07/16/25 10:38
ALT 20 U/L (0-50) 07/16/25 10:38
Alkaline Phosphatase 110 U/L (38-126) 07/16/25 10:38
Troponin I 0.091 ng/ml H* 07/16/25 10:03
Data Reviewed
-
Diagnostic Radiology: Report Reviewed by me (CXR:Cardiomegaly with mild interstitial opacification suggestive of mild edema. Pneumonia is possible although considered less likely.)
Medical Tests (Nuc Med, Echo, EKG etc): Discussed with Physician (EKG: WIDE QRS RHYTHM NON-SPECIFIC INTRA-VENTRICULAR CONDUCTION BLOCK POSSIBLE LATERAL INFARCT , AGE UNDETERMINED)
Lab Data: Labs Reviewed by me (WBC 18.0, neut 94.0, BUN 26, Creat 2.4, Est CrCl 31, eGFR 25.96, lactic 6.7, trop 0.091)
Impression/Plan
-
IMPRESSION/PLAN:
#sepsis with hypotension vs. shock likely 2/2 UTI
#toxic metabolic encephalopathy
increased work of breathing
WBC 18.0, neut 94.0, lactic 6.7
EKG: WIDE QRS RHYTHM
NON-SPECIFIC INTRA-VENTRICULAR CONDUCTION BLOCK
POSSIBLE LATERAL INFARCT , AGE UNDETERMINED
CXR: Cardiomegaly with mild interstitial opacification suggestive of mild edema. Pneumonia is possible although considered less likely.
UA: indicative of UTI
Urine Cx: pending
Blood Cx: pending
- Admit to IMU
- IV cefepime
- IV LR 80cc/hr
- start Levophed 2mcg titrate as needed
#acute on chronic kidney disease III
BUN 26, Creat 2.4, Est CrCl 31, eGFR 25.96
baseline Cr 1.7
- hold bumex
- IVF LR 80cc/hr
- monitor BMP
- Consult nephrology
#type 2 diabetes
- AccuCheck AC & HS
- SSI
- continue Lantus
- hold Jardiance while acutely ill
#elevated troponin
trop 0.091
denies chest pain
- trend troponin to peak
#CAD
- continue aspirin
#HFpEF
- daily weights
- I & Os
- hold bumetanide in setting of MARGIE
#asthma
#chronic hypoxic and hypercapnic respiratory failure
#AMIE
on 2-3L O2 at baseline
- continue albuterol HFA
- CPAP
#paroxysmal atrial fibrillation
- continue amiodarone and apixaban
#hyperlipidemia
- continue atorvastatin and ezetimibe
#morbid obesity
- encourage balanced diet and exercise to promote weight loss
#essential hypertension
Code status: DNR
DVT prophylaxis: Eliquis
--- NOTE | 2025-07-16 14:23 | W.PN.UPDATE ---
Update Note
Progress Note Update
I could not get any information from the patient is AMS with letargy
Information gathered by chart review and speaking with spouse and the ER staff
This note serves as an addendum to the H&P by digital content coordinator Morgan Hinojosa
HPI�
84M, obese NH Res HC 2 L NC O2 dependent COPD BiB EMS
- had fall last night - EMS was called to assist
- EMS was called back due to increased work of breathing
- Hi BG on Dexcom
- EMS placed peripheral acces buy difficult access
EMS gave : NS 150 cc, IV Solumedrol 125 mg + DuoNeb
- Pox 86 on 2L on arrival
- POx become 91 on 5 L
- Noted multiple area of sores and
PHX
Ambulatory dysfunction
Paroxysmal atrial fibrillation
Hypokalemia
Nonischemic myocardial injury
Constipation
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
Obstructive sleep apnea
Hyperlipidemia
Type 2 Diabetes Mellitus
Morbid Obesity due to excess calories
Relevant VS
07/16/25
12:30 07/16/25
13:00 07/16/25
14:00
Blood pressure 91/47 94/59 95/54
Temp Pulse Resp BP Pulse Ox
100.7 F H 78 19 95/54 94
07/16/25 12:30 07/16/25 14:15 07/16/25 14:15 07/16/25 14:00 07/16/25 13:17
PE
Gen: very lethargic but arousable , non sustained wakefulness
HEENT: anicteric , symmetric face
Neck: supple
Lungs: symmetric AE, No labored breathing
Cor: RRR S1 S2
Abdomen:�soft benign
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
MS:No edema
Relevant Data�
02/19/24 02/19/24 07/16/25
06:15 10:54 10:03
WBC 18.0 H
Hgb 9.9 L 12.5 L
Potassium 4.5 3.8
Carbon Dioxide 31 H 25
BUN
Creatinine 1.4 H 2.4
eGFR 49.87 25.96
Glucose
Lactic Acid 6.7
Troponin I 0.091 H*
Peb-F-Evpmigfjesm Pept 7460
UA
07/16/25
11:44
Urine Clarity Cloudy
Urine RBC 3-6 A
Urine WBC (Reflex) 80-90 A
Urine Bacteria (Reflex) Moderate A
BCx sent
CXR:
Cardiomegaly with mild interstitial opacification suggestive of mild edema. Pneumonia is possible although considered less likely.
Last hospitalist admission: 01/28/24 - 02/03/24
Primary diagnoses:
Acute kidney injury on chronic kidney disease due to dehydration and Mounjaro
Lactic acidosis
ASSESSMENT & PLAN
Sepsis with hypotension vs shock due to UTI
In association with MARGIE and lethargic TME due to sepsis
last MAP was 68
- Last POS UCX POS enterococcus ( 2012)
- NEG MRSA screen ( )
- IVF: LR @ 80/H in place of NS
- To start NE gtt
- Empiric IV CFP in place of Zosyn and vanco
- Pending BCx
MARGIE presented with Cr 2.4 due to sepsis with hypotension vs shock
CKD3b:baseline Cr 1.7
- Hold Bumex/Zaroxolyn hypotension vs shock
- FU daily Wt
- Renal consult
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
AMIE on CPAP
Fall
Weakness/ambulatory dysfunction due to dehydration/MARGIE
- PT/OT
- fall precaution
Paroxysmal Afib HX
-s/p cardioversion last admission
-cont Eliquis 2.5mg BID
-c/w FRAME CATCHER amiodarone
Other problems:
Nonischemic myocardial injury; abn TPNI - Trend TPNI
Constipation HX : cont MiraLAX
HLD: Cont statin
DM2: Cont Lantus/premeal NovologSSI/AccuCheck
Morbid Obesity due to excess calories
DVT Px: on Eliquis
Code: DNR
IMU
[2025-07-16] MEDS: LR 1000 IV (15:44)
[2025-07-16 17:04] LABS: Glucose - Point of Care 335 mg/dl (70-99)
[2025-07-16] MEDS: KCL PO (17:45)
[2025-07-16] MEDS: MAXIPIME 1000 MG IV (17:51)
[2025-07-16] MEDS: NOVOLOG FLEXPEN-LOW RESISTANCE 4 UNITS SC (17:51)
[2025-07-16] MEDS: STERILE WATER FOR INJECTION 10 ML IV (18:00)
[2025-07-16 18:13] LABS: Troponin I 0.127 ng/ml
[2025-07-16] MEDS: TIMOPTIC 0.5% OPHTHALMIC SOLUTION 1 DROP BOTH EYES (19:42)
[2025-07-16] MEDS: TRUSOPT 2% OPHTHALMIC SOLUTION 1 DROP BOTH EYES (19:42)
--- NOTE | 2025-07-16 19:47 | PTCARENOTE ---
Received pt from ED with LR infusing at 80ml/hr as ordered, with 5lnc. Pt lethargic, but able to answer orientation questions and assist with initial turn in bed. Pt with smear of stool noted, rema care completed, chg bath completed. St cath in
ED, given mental status, skin prep and male purewick applied. Pt fell asleep shortly after arrival, placed on cpap then bipap given lethargy. Pt had been weaned to 3lnc with sats high 90s. Only c/o discomfort to open area below R breast fold.
Admission completed as charted. Did REach out to SALES ASSOCIATE CASHIER to increase iss given elevated blood glucose which was done after tx with low ssi. Otherwise please see work list.
[2025-07-16 20:11] LABS: B.E. 1.6 mmol/L; HCO3 27.7 mmol/L (21-28); O2 Saturation % 98.9 % (94-98); PCO2 49 mmHg (35-48); PO2 126 mmHg (83-108)
[2025-07-16] MEDS: ELIQUIS 2.5 MG PO (20:19)
[2025-07-16] MEDS: ZETIA 10 MG PO (21:12)
[2025-07-16] MEDS: LIPITOR 20 MG PO (21:13)
[2025-07-16] MEDS: KCL 20 MEQ PO (21:13)
--- NOTE | 2025-07-16 21:25 | PTCARENOTE ---
Discussed POC with RT who varsha ABG for pt, BiPAP removed following ABG to administer medications. Pt remains drowsy, but able to follow commands, opens eyes, takes pillls whole with water one at a time. Only complaint at this time is feeling cold,
warm blanket placed. SR-SB on CM. Call barker within reach. Bed alarm in place for pt safety. Care ongoing.
[2025-07-16 21:35] LABS: Glucose - Point of Care 329 mg/dl (70-99)
[2025-07-16] MEDS: NOVOLOG FLEXPEN 5 UNITS SC (22:06)
[2025-07-16] MEDS: LANTUS 0.18 UNITS SC (22:06)
[2025-07-16 22:48] LABS: Troponin I 0.117 ng/ml
[2025-07-17] VITALS (17 sets, daily range): BP systolic 102–135; BP diastolic 55–73; PULSE 2–70; O2SAT 96–97; BMI 43.9
[2025-07-17 00:10] LABS: Glucose - Point of Care 336 mg/dl (70-99)
[2025-07-17] MEDS: NOVOLOG FLEXPEN 7 UNITS SC ×2 (00:45→21:29)
--- NOTE | 2025-07-17 00:48 | PTCARENOTE ---
Pt with elevated bedtime blood glucose. LEATHERSMITH contacted, STAT dose insulin given. Reassessment two hours later remains elevated, LEATHERSMITH contacted, STAT dose given again. Will continue to monitor throughout shift.
[2025-07-17] MEDS: LR 1000 IV (03:34)
[2025-07-17 03:54] LABS: Hematocrit 36.2 % (39.0-52.0); Hemoglobin 11.4 g/dL (13.0-18.0); Mean Corp Hgb Conc. 31.5 g/dL (33.0-37.0); Mean Corpuscular Volume 93.3 fL (80.0-94.0); Platelet Count 151 10^3/uL (130-400); Red Cell Dist. Width 14.7 % (11.5-14.5)
[2025-07-17 04:09] LABS: Blood Urea Nitrogen 40 mg/dl (9-20); Calcium 8.5 mg/dl (8.4-10.2); Carbon Dioxide 31 mmol/L (22-30); Chloride 100 mmol/L (98-107); Estimated Creatinine Clearance 28 ml/min; Glucose 301 mg/dl (70-99); Potassium 4.8 mmol/L (3.5-5.1); Sodium 135 mmol/L (135-145); eGFR 24.72
[2025-07-17] MEDS: STERILE WATER FOR INJECTION 10 ML IV (04:36)
[2025-07-17] MEDS: MAXIPIME 1000 MG IV (04:36)
[2025-07-17 07:26] LABS: Glucose - Point of Care 328 mg/dl (70-99)
--- NOTE | 2025-07-17 08:30 | PTCARENOTE ---
Patient received from product sales representative. Patient resting comfortably in bed. AAO, VSS. No events noted overnight. No complaints of pain at this time. LR @ 100mL/hr. Accucheck continue to be >300, hospitalist made aware and will adjust dosing.
Continuing ABX. No testing scheduled at this time. Call barker in reach.
[2025-07-17] MEDS: NOVOLOG FLEXPEN-MODERATE RESISTANCE 7 UNITS SC ×2 (08:31→12:42)
[2025-07-17] MEDS: MAGNESIUM OXIDE 400 MG PO (08:32)
[2025-07-17] MEDS: ASPIR LOW (ENTERIC COATED) 81 MG PO (08:32)
[2025-07-17] MEDS: KCL 20 MEQ PO (08:32)
[2025-07-17] MEDS: ELIQUIS 2.5 MG PO ×2 (08:32→19:09)
[2025-07-17] MEDS: TIMOPTIC 0.5% OPHTHALMIC SOLUTION 1 DROP BOTH EYES ×2 (08:33→19:09)
[2025-07-17] MEDS: TRUSOPT 2% OPHTHALMIC SOLUTION 1 DROP BOTH EYES ×2 (08:33→19:09)
[2025-07-17] MEDS: PACERONE 200 MG PO (08:33)
--- NOTE | 2025-07-17 09:06 | W.PN.HOSP.TC ---
Addendum entered and electronically signed by Laly Casper MD 07/17/25 13:30:
Attending�addendum:
I saw and evaluated the patient independently. I reviewed and discussed the resident�s note and agree with findings and plan as documented in the resident�s note.� patient seen and examined at bedside, at bedside denies any chest pain or
shortness of breath, no abdominal pain, no nausea, no vomiting, no diarrhea or constipation.
More awake and oriented
Physical�exam:
GENERAL : Patient is awake, alert, oriented x3
HEENT: Nonicteric sclerae, PERRLA, EOMI. Oropharynx clear. Moist mucous membranes. Conjunctivae appear well perfused.
CHEST: Chest wall is nontender.
HEART: Regular rate and rhythm without murmurs.
LUNGS: Bilateral rales
ABDOMEN: Soft, positive bowel sounds, nontender, no organomegaly.
RECTAL: Deferred.
MUSCLES/EXTREMITIES: Lower extremity edema
NEUROLOGIC: Cranial nerves II-XII intact without motor/sensory deficit.
�
Assessment/plan:
Sepsis with acute organ dysfunction
Positive both urine and blood culture for gram-negative bacilli. E. coli
De-escalate to Rocephin
Repeat blood culture pending
Acute on chronic renal failure.
Continue normal saline.
Appreciate nephrology input
Acute on chronic hypoxemic/hypercapnic respiratory failure.
Back to [facility].
History of diabetes mellitus
Lantus/lispro
Insulin sliding scale
Diabetic diet
Hemoglobin A1c 8.2
CODE STATUS: Full code
DVT prophylaxis: Lovenox
Diet: Diabetic diet
Family communication: Discussed with at bedside
Disposition: Continue antibiotics
�
Total time spent on today�s encounter was 60 minutes which included time spent in counseling the patient/family regarding diagnosis and treatment plan as listed above, goals of care, and symptom management. Case was discussed with nursing staff,
specialists, and care coordinators/case management. All labs and imaging personally reviewed by me. Remainder the time spent in detailed review of previous records, lab data, imaging, and other medical provider documentation.
Original Note:
Today's Communication/Plan
-
Cefepime > ceftriaxone
LR > NS
Bladder scan
Hold K supplement while holding diuretics
Add standing Aspart 5 units AC
Follow LA
Assessment / Plan
Assessment / Plan
84-year-old male with past medical history of CKD 3a, type 2 diabetes, CAD, HFpEF, chronic hypoxic and hypercapnic respiratory failure on 2 to 3 L of oxygen at baseline, paroxysmal A-fib presents to the ER for increased work of breathing and high
blood sugars. He called EMS last night to assist him after he fell. He was found to be hypoxic and was placed on 6 L of oxygen. In the ED, he was found to have elevated white count of 18, lactic acid 6.8 and a UTI. He was admitted to IMU,
cultures sent, started on Zosyn and Vanco switched to cefepime and started on pressors. Pressors were ultimately not started as patient's blood pressure stabilized. Troponin was noted to be 0.091. EKG was nonischemic and he denied any chest pain.
Troponin were trended until peak.
Sepsis with hypotension versus shock likely secondary to UTI
With associated toxic metabolic encephalopathy and MARGIE
-- WBC 18.0, lactic acid 6.7 on admission, UTI positive, blood cultures E.coli, urine cultures E.coli
-- WBC uptrending 18.0 -> 27.8
-- LA downtrending 6.7 >> 2.4
-- zosyn and vanco -> cefepime -> ceftriaxone
-- LR 80 cc/hr
Acute on chronic CKDIIIa exacerbated by sepsis with hypotension vs shock
-- Baseline Cr 1.7, gfr 49.87
-- On admission cr 2.4, gft 25.96
-- Cr uptrending 2.4 -> 2.5
-- LR -> NS per nephrology
-- Hold bumex and metolazone in setting of acute MARGIE
-- Hold K supplement as holding diuretics
-- Bladder scan
-- If elevated, consider renal US per nephro
-- Appreciate nephrology
Chronic hypoxemic and hypercapnic respiratory failure - on 2 to 3 L nasal cannula baseline
AMIE on CPAP
Asthma
-- Weaned to 2 L overnight
-- Continue CPAP, albuterol
Non-ischemic troponin elevation
-- 0.091 > 01.27 > 0.117 > 0.086
-- EKG non-ischemic, denies any chest pain
-- Likely septic myocardium
DM2
-- Glargine 18, lispro 2-8 SSI, Jardiance at home
-- Hga1c 8.2
-- BG in the 300s
-- Continue glargine 18, start aspart 5 AC
HFpEF - not in exacerbation
-- Last echo EF 55%, stage II diastolic dysfunction, mild MR, mild TR, pulmonary artery pressure 45 mmHg
-- BNP 7460, x-ray mild interstitial opacifications suggestive of mild edema, pneumonia less likely
-- Currently on baseline O2 at 2L
-- Bumex, metolazone and Jardiance on hold in setting of acute MARGIE. Hold K supplement as well
-- Follow daily weights, I&Os
Paroxysmal atrial fibrillation
-- Status post cardioversion on last admission
-- Continue Eliquis 2.5 twice daily (for cr and age)
-- Continue rhythm control with amiodarone 200 daily
Fall
Weakness, ambulatory dysfunction due to dehydration/MARGIE/sepsis
-- PT/OT
-- Fall precautions
CAD
-- Continue Asa, zetia and atorvastatin
HLD
-- Continue zetia and atorvastatin 20
HTN
-- Diuretics on hold in setting of acute MARGIE, not on any other hypertensive medications
-- Monitor BP
Morbid obesity - BMI 43.8
Aortic stenosis s/p bioprosthetic aortic valve replacement
DVT - eliquis 2.5 BID
DNR
Anticipated Discharge: > 48 hours
Subjective/Interval History
-
Date of Service: July 17, 2025
No complaints overnight. Burning with urination has gone away. Does endorse some chronic shoulder pain that has been exacerbated by being moved in the bed. Happy to be able to eat breakfast.
Objective Data
-
Labs:
Laboratory Results
07/17/25
03:36
WBC 27.8 H
Hgb 11.4 L
Hct 36.2 L
Plt Count 151
Sodium 135
Potassium 4.8 D
Chloride 100
Carbon Dioxide 31 H
BUN 40 H
Creatinine 2.5 H
Glucose 301 H
Calcium 8.5
Vital Signs:
Vital Signs
Temp Pulse Resp BP Pulse Ox
97.9 F 61 17 114/68 98
07/17/25 07:44 07/17/25 08:33 07/17/25 06:00 07/17/25 08:33 07/17/25 06:00
I&O
07/16/25 07/17/25 07/18/25
06:59 06:59 06:59
Intake Total 80 / 80 180 / 180
Output Total 450 / 450
Balance -370 / -370 180 / 180
Review of Systems
-
History Source: Patient
Constitutional: Reports No Symptoms
EENT: Reports No Symptoms Reported
Respiratory: Reports No Symptoms
Cardiac: Reports No Symptoms
Abdomen/GI: Reports Nausea
Genitourinary: Reports No Symptoms
Skin: Reports No Symptoms
Neuro: Reports No Symptoms
Endocrine: Reports No Symptoms
Physical Exam
-
General: No Apparent Distress and Comfortable
HEENT: Normocephalic
Respiratory: Clear to Auscultation
Cardiac: Regular Rhythm and S1/S2
GI: Soft, Nontender, Nondistended and Normal Bowel Sounds
Musculoskeletal: No Edema
Skin: Warm and Dry
Neuro: AO x 3
Psych: Calm
[2025-07-17 09:46] LABS: Glycohemoglobin (HgbA1c) 8.2 % (4.0-5.9)
--- NOTE | 2025-07-17 10:22 | W.CON.NEPH ---
Consultation
-
Date/Time Consultation Requested: 07/17/2025 7 AM
Date/Time Consultation Performed: 07/17/2025 10 AM
Requesting Provider: Dr. Serna
Performing Provider: Dr. Hawley
Reason for Consultation: MARGIE
Medical History
-
Chief Complaint: Gen weakness
History of Present Illness:
This is an 84-year-old gentleman with HFpEF 55% on bumex and compensated, chronic hypoxic and hypercapnic respiratory failure on 3L O2 at baseline, paroxysmal atrial fibrillation on Eliquis, Amiodarone for rate control, sp bioprosthetic aortic
valve replacement, CKD III baseline cr 1.5. He also has diabetes mellitus type 2 treated with insulin and Jardiance. EMS had come to the house because of a fall and noticed increased work of breathing and hyperglycemia. Given that he was somewhat
more lethargic and confused he was brought to the emergency room. Here his blood pressure was low and he was noted to have MARGIE with a creatinine of 2.4. Is now 2.5 today. His lactic acid was elevated and blood cultures have grown E. coli. We are
asked to assist in management of the MARGIE. An external catheter is placed with good urine output.
Past Medical History
HFpEF, chronic hypoxic and hypercapnic respiratory failure on 3L O2 at baseline, paroxysmal atrial fibrillation, s/p bioprosthetic aortic valve replacement, CKD III, essential HTN, HLD, NIDDM, CAD, morbid obesity, AMIE on CPAP, DM 2
Past Surgical History: Other (Face reconsruction, R femur repeair basal cell removal AVR bilat cataracts)
Social History
Tobacco: Non-Smoker
Alcohol: None
Personal:
Living: With Family
Employment: Retired
Family History
Family History: Not Pertinent
Allergies / Home Medications
Allergy/AdvReac Type Severity Reaction Status Date / Time
No Known Allergies Allergy Verified 01/28/24 17:38
�Medication �Instructions �Recorded �Confirmed �Type
ezetimibe 10 mg tablet 10 mg PO HS High cholesterol 03/13/11 07/16/25 History
coenzyme Q10 200 mg capsule (Co 200 mg PO DAILY Supplement 03/29/20 07/16/25 History
Q-10)
aspirin 81 mg tablet,delayed 81 mg PO DAILY Blood clot 06/07/20 07/16/25 Rx
release prevention/tx ##0
atorvastatin 20 mg tablet 20 mg PO HS High cholesterol 10/27/22 07/16/25 History
insulin lispro 100 unit/mL 2 - 8 sliding scale dose SC MEALS 10/27/22 07/16/25 History
subcutaneous pen (Humalog KwikPen Diabetes
(U-100) Insulin)
magnesium 250 mg tablet 240 mg PO DAILY Supplement 12/07/23 07/16/25 History
dorzolamide 22.3 mg-timolol 6.8 1 drp BOTH EYES BID Eye Condition 12/09/23 07/16/25 History
mg/mL eye drops
miconazole nitrate 2 % topical 1 applic topical BID #100 grams 12/18/23 07/16/25 Rx
powder (Miconazorb AF)
cholecalciferol (vitamin D3) 50 50 mcg PO DAILY Supplement 01/08/24 07/16/25 History
mcg (2,000 unit) tablet (Vitamin
D3)
albuterol sulfate 90 mcg/actuation 2 puff inhalation R Q4 PRN 01/13/24 07/16/25 Rx
aerosol inhaler (Ventolin HFA) sob/wheezing #1 inh
bumetanide 2 mg tablet 2 mg PO BID AT 0800,1600 #60 tabs 01/13/24 07/16/25 Rx
empagliflozin 10 mg tablet 10 mg PO HS Diabetes #30 tabs 01/13/24 07/16/25 Rx
(Jardiance)
potassium chloride 20 mEq 20 meq PO TID #90 tabs 01/13/24 07/16/25 Rx
tablet,extended release(part/cryst)
amiodarone 200 mg tablet 200 mg PO DAILY Arrhythmia 01/28/24 07/16/25 History
insulin glargine 100 unit/mL (3 18 unit SC HS Diabetes 01/28/24 07/16/25 History
mL) subcutaneous pen (Lantus
Solostar U-100 Insulin)
apixaban 2.5 mg tablet (Eliquis) 2.5 mg PO BID #0 tabs 02/03/24 07/16/25 Rx
Review of Systems
-
No chest pain or shortness of breath.
All other systems: Negative unless noted
Physical Exam
Vital Signs
Vital Signs
Temp Pulse Resp BP Pulse Ox
97.9 F 61 17 114/68 98
07/17/25 07:44 07/17/25 08:33 07/17/25 06:00 07/17/25 08:33 07/17/25 06:00
Lab Results
WBC 27.8 10^3/uL (4.8-10.8) H 07/17/25 03:36
RBC 3.88 10^6/uL (4.70-6.10) L 07/17/25 03:36
Hgb 11.4 g/dL (13.0-18.0) L 07/17/25 03:36
Hct 36.2 % (39.0-52.0) L 07/17/25 03:36
Plt Count 151 10^3/uL (130-400) 07/17/25 03:36
Sodium 135 mmol/L (135-145) 07/17/25 03:36
Potassium 4.8 mmol/L (3.5-5.1) D 07/17/25 03:36
Chloride 100 mmol/L (98-107) 07/17/25 03:36
Carbon Dioxide 31 mmol/L (22-30) H 07/17/25 03:36
BUN 40 mg/dl (9-20) H 07/17/25 03:36
Creatinine 2.5 mg/dL (0.7-1.3) H 07/17/25 03:36
eGFR 24.72 07/17/25 03:36
Glucose 301 mg/dl (70-99) H 07/17/25 03:36
Calcium 8.5 mg/dl (8.4-10.2) 07/17/25 03:36
Syy-Z-Ykguuvjdcnr Pept 7460 pg/ml 07/16/25 10:03
Albumin 3.4 g/dl (3.5-5.0) L 07/16/25 10:38
February 27, 2025 creatinine 1.5
07/16/25 10:55 Blood Culture - Preliminary
Blood/Venous Gram Stain - Final
Escherichia coli
Physical Exam
Patient is awake alert oriented and in no distress. Mood and affect were pleasant, insight and judgment were good. Pupils are equal round and reactive to light, extraocular movements are intact, sclera were anicteric. Hearing was normal, ears and
nose are intact. Oropharynx was clear. Neck was supple with trachea midline and no thyromegaly. Heart was regular rate and rhythm without rubs. Lower extremities without edema. Lungs were clear to auscultation bilaterally and with normal
excursion. Abdomen was soft, nontender, with normal active bowel sounds, and no hepatosplenomegaly. Skin was without rash and with normal turgor. Multiple areas of skin scabs from picking
Data Reviewed
-
Radiology: Image Personally Visualized and interpreted (Chest x-ray 07/16/2025 by my reading cardiomegaly, vascular prominence)
Medical Tests (Nuc Med, Echo etc): Image Personally Visualized and interpreted (EKG 07/16/2025 by my reading wide QRS rhythm nonspecific interventricular conduction block)
Labs: Labs Reviewed by me
Old Records: Reviewed
Assessment/Plan
-
IMP:
MARGIE
CKD 3A/B 1.5
Paroxysmal Afib
Diabetes mellitus type 2
Chronic Hypoxic and Hypercapnic Respiratory Failure, chronic O2 at home
AMIE on CPAP
s/p bioprosthetic AVR
Pulm HTN
CAD
E. coli sepsis
Plan:
Empiric antibiotics per primary team
Continue IV fluids, switch to saline
Follow lactic acid
Hold potassium given that we are holding Bumex
Check bladder scan
If creatinine remains elevated will check renal ultrasound
Discussed with who believes his mental status has improved significantly
--- NOTE | 2025-07-17 10:38 | WOUNDNOTE ---
R ARM (UPPER LATERAL)
--- NOTE | 2025-07-17 10:38 | WOUNDNOTE ---
SACRAL/COCCYX CREASE
--- NOTE | 2025-07-17 10:40 | WOUNDNOTE ---
SCROTUM (R ANTERIOR SIDE)
--- NOTE | 2025-07-17 10:40 | WOUNDNOTE ---
R CHEST FOLD (LATERAL)
--- NOTE | 2025-07-17 10:43 | WOUNDNOTE ---
WO RN note: Patient admitted with sepsis, toxic metabolic encephalopathy. Patient fell [employer]. Patient lives with spouse.
See H&P for complete history. Patient has a sleep number bed at home.
PMH: HTN, CKD3, DM, CAD, HF, asthma, respiratory failure, a fib (Eliquis), aortic stenosis, s/p bioprosthetic aortic valve replacement, morbid obesity, AMIE on CPAP, facial reconstruction, R femur repair.
Wound Location and type/assessment: Patient admitted with: Sacral/coccyx crease linear dermal ulcer pink with yellow fibrin, suspect stage 2 along with MASD. Skin dull dark red around linear opening. Arm/shoulder, abdominal scattered small scabs
from patient skin picking. R anterior scrotum linear small skin tears. Scrotum red. Patient has male Purwick in place. Abdominal/groin/ R lower chest skin fold MASD.
Appetite: on 1800 calorie diet.
Pressure redistribution devices in place: Bike HUDlla LaunchTrack air bed. Patient needs assist of 2 to turn in bed.
Plan: Sacral shaped silicone border foam applied to sacrum. Patient turned to L semi side lying position with help from DAVID Corona. Regular and bariatric air chair cushions given. PT Maggie and OT in to see patient and are planning to get patient out of
bed to wide recliner chair. Bariatric air cushion on recliner chair.
Will confirm orders with Dr. Cordero and discussed with DAVID Corona.
Care plan to be updated and will follow as needed.
Note to case management requested for discharge: VN if goes home. Air mattress if goes to SNF.
Recommend follow up at wound care center upon discharge if needed.
--- NOTE | 2025-07-17 11:05 | WOUNDNOTE ---
WOC RN note: Patient sleep in a recliner chair at home. Instructed to take bariatric air chair cushion and foam turning wedge when patient discharged. given pressure injury prevention tip sheet.
--- NOTE | 2025-07-17 11:14 | CM ---
Addendum entered by [place] 07/17/25 11:18:
Patient also has a chair lift.
Original Note:
I.A: Completed By VIJAYA Pate.
Home: Patient lives with his in a 2 [address], but patient is on 1 level, 0 PETAR, 12 STI.
DME: Patient uses a rolling walker usually, has a wheelchair, has a Hospital Bed/ electric, uses a CPAP and on Oxygen at 2 liters continuously.
Services: Patient used [facility] for Outpatient and was at [facility], BUT DOES NOT WANT TO RETURN if he needs SNF
PCP: Dr. Ruperto Jade
Pharmacy: [facility] on [address]
Transport: Patient has this via his when he is ready. PLAN: Home No Needs vs. SNF.
[2025-07-17 11:19] LABS: Troponin I 0.086 ng/ml
[2025-07-17 11:21] LABS: Glucose - Point of Care 345 mg/dl (70-99)
[2025-07-17] MEDS: NSS 1000 IV (12:32)
[2025-07-17] MEDS: NOVOLOG FLEXPEN 5 UNITS SC ×2 (12:43→17:55)
[2025-07-17] MEDS: ROCEPHIN 2000 MG IV (13:38)
[2025-07-17] MEDS: STERILE WATER FOR INJECTION 20 ML IV (13:38)
--- NOTE | 2025-07-17 15:40 | WOUNDNOTE ---
WOC RN note: Dejuan Mills re: patient has a stage 2 sacral/coccyx pressure injury. Recommend VN if he goes home and an air mattress at SNF.
[2025-07-17 17:04] LABS: Glucose - Point of Care 294 mg/dl (70-99)
[2025-07-17] MEDS: NOVOLOG FLEXPEN-MODERATE RESISTANCE 5 UNITS SC (17:54)
[2025-07-17] MEDS: DESENEX/MITRAZOL/ZEASORB 1 APPLIC TOPICAL (19:08)
[2025-07-17] MEDS: ZETIA 10 MG PO (21:00)
[2025-07-17] MEDS: LIPITOR 20 MG PO (21:00)
[2025-07-17] MEDS: LANTUS 0.18 UNITS SC (21:01)
[2025-07-17 21:13] LABS: Glucose - Point of Care 324 mg/dl (70-99)
[2025-07-18] VITALS (14 sets, daily range): BP systolic 108–147; BP diastolic 55–91; PULSE 2–56; BMI 43.9
[2025-07-18] MEDS: NSS 1000 IV ×3 (00:32→21:42)
--- NOTE | 2025-07-18 03:05 | PTCARENOTE ---
Pt drowsy, but arousable and cooperative. Agreeable to wearing CPAP HS. Denies complaints. IVF maintained, care ongoing.
[2025-07-18 05:01] LABS: Hematocrit 36.0 % (39.0-52.0); Hemoglobin 11.8 g/dL (13.0-18.0); Mean Corp Hgb Conc. 32.8 g/dL (33.0-37.0); Mean Corpuscular Volume 92.8 fL (80.0-94.0); Nucleated Red Blood Cells % 0 % (-); Platelet Count 155 10^3/uL (130-400); Red Cell Dist. Width 14.4 % (11.5-14.5)
[2025-07-18 05:17] LABS: Blood Urea Nitrogen 52 mg/dl (9-20); Calcium 8.5 mg/dl (8.4-10.2); Carbon Dioxide 29 mmol/L (22-30); Chloride 101 mmol/L (98-107); Estimated Creatinine Clearance 32 ml/min; Glucose 288 mg/dl (70-99); Potassium 5.1 mmol/L (3.5-5.1); Sodium 135 mmol/L (135-145); eGFR 28.81
--- NOTE | 2025-07-18 07:43 | W.PN.HOSP.TC ---
Addendum entered and electronically signed by Laly Casper MD 07/18/25 13:10:
Attending�addendum:
I saw and evaluated the patient independently. I reviewed and discussed the resident�s note and agree with findings and plan as documented in the resident�s note.� patient seen and examined at bedside, at bedside denies any chest pain or
shortness of breath, no abdominal pain, no nausea, no vomiting, no diarrhea or constipation.
More awake and oriented
Physical�exam:
GENERAL : Patient is awake, alert, oriented x3
HEENT: Nonicteric sclerae, PERRLA, EOMI. Oropharynx clear. Moist mucous membranes. Conjunctivae appear well perfused.
CHEST: Chest wall is nontender.
HEART: Regular rate and rhythm without murmurs.
LUNGS: Bilateral rales
ABDOMEN: Soft, positive bowel sounds, nontender, no organomegaly.
RECTAL: Deferred.
MUSCLES/EXTREMITIES: Lower extremity edema
NEUROLOGIC: Cranial nerves II-XII intact without motor/sensory deficit.
�
Assessment/plan:
Sepsis with acute organ dysfunction
Positive both urine and blood culture for gram-negative bacilli. E. coli
De-escalate to Rocephin
Repeat blood culture pending
Acute on chronic renal failure.
Continue normal saline.
Appreciate nephrology input
Acute on chronic hypoxemic/hypercapnic respiratory failure.
[facility] to [facility].
History of diabetes mellitus
Lantus/lispro
Insulin sliding scale
Diabetic diet
Hemoglobin A1c 8.2
CODE STATUS: Full code
DVT prophylaxis: Lovenox
Diet: Diabetic diet
Family communication: Discussed with at bedside
Disposition: Continue antibiotics, downgrade to telemetry
�
Total time spent on today�s encounter was 55 minutes which included time spent in counseling the patient/family regarding diagnosis and treatment plan as listed above, goals of care, and symptom management. Case was discussed with nursing staff,
specialists, and care coordinators/case management. All labs and imaging personally reviewed by me. Remainder the time spent in detailed review of previous records, lab data, imaging, and other medical provider documentation.
Original Note:
Today's Communication/Plan
-
Continue ceftriaxone
Await cultures
Downgrade to telemetry
Increase glargine to 24 and aspart 8 AC
Assessment / Plan
Assessment / Plan
84-year-old male with past medical history of CKD 3a, type 2 diabetes, CAD, HFpEF, chronic hypoxic and hypercapnic respiratory failure on 2 to 3 L of oxygen at baseline, paroxysmal A-fib presents to the ER for increased work of breathing and high
blood sugars. He called EMS last night to assist him after he fell. He was found to be hypoxic and was placed on 6 L of oxygen. In the ED, he was found to have elevated white count of 18, lactic acid 6.8 and a UTI. He was admitted to IMU,
cultures sent, started on Zosyn and Vanco switched to cefepime and started on pressors. Pressors were ultimately not started as patient's blood pressure stabilized. Troponin was noted to be 0.091. EKG was nonischemic and he denied any chest pain.
Troponin were trended until peak. Blood culture and urine culture revealed E. coli and cefepime was downgraded to ceftriaxone.
Sepsis with hypotension versus shock likely secondary to UTI
With associated toxic metabolic encephalopathy and MARGIE
-- WBC 18.0, lactic acid 6.7 on admission, UTI positive, blood cultures E.coli, urine cultures E.coli
-- WBC downtrending 27.8 > 22.5
-- Lactic acidosis resolved
-- zosyn and vanco -> cefepime -> ceftriaxone
-- NS 80cc/hr
-- Repeat cultures sent as it was G (-) bacilli - pending
-- Downgrade to tele as hemodynamically stable
Acute on chronic CKDIIIa exacerbated by sepsis with hypotension vs shock
-- Baseline Cr 1.7, gfr 49.87, on admission cr 2.4, gft 25.96
-- Cr uptrending 2.4 -> 2.5 ->2.2
-- LR -> NS per nephrology
-- Hold bumex, metolazone and K in setting of acute MARGIE
-- Bladder scan 172 - not retaining - has condom catheter present
-- Appreciate nephrology
Chronic hypoxemic and hypercapnic respiratory failure - on 2 to 3 L nasal cannula baseline
AMIE on CPAP
Asthma
-- Weaned to baseline
-- Continue CPAP, albuterol
Non-ischemic troponin elevation
-- 0.091 > 01.27 > 0.117 > 0.086
-- EKG non-ischemic, denies any chest pain
-- Likely septic myocardium
DM2
-- Glargine 18, lispro 2-8 SSI, Jardiance at home
-- Hga1c 8.2
-- BG in the 300s
-- Increase to glargine 24 and aspart 8 AC
HFpEF - not in exacerbation
-- Last echo EF 55%, stage II diastolic dysfunction, mild MR, mild TR, pulmonary artery pressure 45 mmHg
-- BNP 7460, x-ray mild interstitial opacifications suggestive of mild edema, pneumonia less likely
-- Currently on baseline O2 at 2L
-- Bumex, metolazone and Jardiance on hold in setting of acute MARGIE. Hold K supplement as well
-- Follow daily weights, I&Os
Paroxysmal atrial fibrillation
-- Status post cardioversion on last admission
-- Continue Eliquis 2.5 twice daily (for cr and age)
-- Continue rhythm control with amiodarone 200 daily
Fall
Weakness, ambulatory dysfunction due to dehydration/MARGIE/sepsis
-- PT/OT - recommends SNF
-- Fall precautions
CAD
-- Continue Asa, zetia and atorvastatin
HLD
-- Continue zetia and atorvastatin 20
HTN
-- Diuretics on hold in setting of acute MARGIE, not on any other hypertensive medications
-- Monitor BP
Morbid obesity - BMI 43.8
Aortic stenosis s/p bioprosthetic aortic valve replacement
DVT - eliquis 2.5 BID
DNR
Anticipated Discharge: 24 - 48 hours
Subjective/Interval History
-
Date of Service: July 18, 2025
Wore CPAP overnight. Still satting at baseline 3 L. No complaints and feels well.
Objective Data
-
Labs:
Laboratory Results
07/18/25
04:06
WBC 22.5 H
Hgb 11.8 L
Hct 36.0 L
Plt Count 155
Sodium 135
Potassium 5.1
Chloride 101
Carbon Dioxide 29
BUN 52 H
Creatinine 2.2 H
Glucose 288 H
Calcium 8.5
Vital Signs:
Vital Signs
Temp Pulse Resp BP Pulse Ox
97.6 F 54 16 109/55 98
07/18/25 03:15 07/18/25 06:00 07/18/25 06:00 07/18/25 06:00 07/18/25 06:00
I&O
07/17/25 07/18/25 07/19/25
06:59 06:59 06:59
Intake Total 80 / 80 780 / 780
Output Total 450 / 450 700 / 700
Balance -370 / -370 80 / 80
Review of Systems
-
History Source: Patient
Constitutional: Reports No Symptoms
EENT: Reports No Symptoms Reported
Respiratory: Reports No Symptoms
Cardiac: Reports No Symptoms
Abdomen/GI: Reports No Symptoms
Genitourinary: Reports No Symptoms
Musculoskeletal: Reports No Symptoms
Skin: Reports No Symptoms
Neuro: Reports No Symptoms
Physical Exam
-
General: Comfortable
HEENT: Normocephalic
Respiratory: Clear to Auscultation
Cardiac: Regular Rhythm and S1/S2
GI: Soft, Nontender, Nondistended and Normal Bowel Sounds
Musculoskeletal: No Edema
Skin: Warm and Dry
Neuro: AO x 3
[2025-07-18 07:57] LABS: Glucose - Point of Care 285 mg/dl (70-99)
--- NOTE | 2025-07-18 08:00 | PTCARENOTE ---
Assumed care of patient at 0645. Assessment completed and documented in shift assessment. Patient likely to be downgraded to Telemetry service later today.
[2025-07-18] MEDS: MAGNESIUM OXIDE 400 MG PO (09:00)
[2025-07-18] MEDS: ELIQUIS 2.5 MG PO ×2 (09:00→19:39)
[2025-07-18] MEDS: ASPIR LOW (ENTERIC COATED) 81 MG PO (09:00)
[2025-07-18] MEDS: PACERONE 200 MG PO (09:00)
[2025-07-18] MEDS: NOVOLOG FLEXPEN-MODERATE RESISTANCE 5 UNITS SC ×2 (09:01→12:15)
[2025-07-18] MEDS: DESENEX/MITRAZOL/ZEASORB 1 APPLIC TOPICAL ×2 (09:01→19:40)
[2025-07-18] MEDS: TIMOPTIC 0.5% OPHTHALMIC SOLUTION 1 DROP BOTH EYES ×2 (09:02→19:40)
[2025-07-18] MEDS: NOVOLOG FLEXPEN 5 UNITS SC (09:02)
[2025-07-18] MEDS: TRUSOPT 2% OPHTHALMIC SOLUTION 1 DROP BOTH EYES ×2 (09:02→19:40)
--- NOTE | 2025-07-18 10:24 | W.PN.NEPH.PH ---
Today's Communication / Plan
-
IVF
Assessment/Plan
-
IMP:
MARGIE
CKD 3A/B 1.5
Paroxysmal Afib
Diabetes mellitus type 2
Chronic Hypoxic and Hypercapnic Respiratory Failure, chronic O2 at home
AMIE on CPAP
s/p bioprosthetic AVR
Pulm HTN
CAD
E. coli sepsis
Plan:
antibiotics per primary team
Continue IV fluids today
off bumex and K
bladder scan wnl
follow BMP
-
-
Date of Service: July 18, 2025
CC / HPI / ROS
-
Chief Complaint:
MARGIE
History of Present Illness:
MARGIE/Cr down to 2.2
WBC improving
abx for urosepsis/e coli
BP stable
Review of Systems:
no CP/SOB
chronic O2 (at home)
Labs
-
Labs:
WBC 22.5 10^3/uL (4.8-10.8) H 07/18/25 04:06
RBC 3.88 10^6/uL (4.70-6.10) L 07/18/25 04:06
Hgb 11.8 g/dL (13.0-18.0) L 07/18/25 04:06
Hct 36.0 % (39.0-52.0) L 07/18/25 04:06
Plt Count 155 10^3/uL (130-400) 07/18/25 04:06
Sodium 135 mmol/L (135-145) 07/18/25 04:06
Potassium 5.1 mmol/L (3.5-5.1) 07/18/25 04:06
Chloride 101 mmol/L (98-107) 07/18/25 04:06
Carbon Dioxide 29 mmol/L (22-30) 07/18/25 04:06
BUN 52 mg/dl (9-20) H 07/18/25 04:06
Creatinine 2.2 mg/dL (0.7-1.3) H 07/18/25 04:06
eGFR 28.81 07/18/25 04:06
Glucose 288 mg/dl (70-99) H 07/18/25 04:06
Calcium 8.5 mg/dl (8.4-10.2) 07/18/25 04:06
Tcq-L-Pmymbfxklxt Pept 7460 pg/ml 07/16/25 10:03
Albumin 3.4 g/dl (3.5-5.0) L 07/16/25 10:38
Physical Exam
-
Vital Signs:
Vital Signs
Temp Pulse Resp BP Pulse Ox
97.8 F 59 19 120/73 98
07/18/25 07:00 07/18/25 10:00 07/18/25 10:00 07/18/25 10:00 07/18/25 10:00
Cardiovascular:: Regular rate and rhythm
Respiratory:: Bilateral: CTA
Lung Excursion:: Normal
Abdomen:: Nontender and Soft
Bowel Sounds:: Normal
Extremity Edema:: None: Bilateral:
[2025-07-18 11:52] LABS: Glucose - Point of Care 294 mg/dl (70-99)
[2025-07-18] MEDS: NOVOLOG FLEXPEN SC (11:52)
[2025-07-18] MEDS: NOVOLOG FLEXPEN 8 UNITS SC ×2 (12:16→18:07)
[2025-07-18] MEDS: ROCEPHIN 2000 MG IV (14:31)
[2025-07-18] MEDS: STERILE WATER FOR INJECTION 20 ML IV (14:32)
--- NOTE | 2025-07-18 16:38 | CM ---
F/U: Patient will need SNF so spoke to / patient. Both are more amendable to going back to [facility], but still not as happy about it so was agreeable for CM to make more referrals in the area. Referrals made, [facility] would be a option
because they want to stay in [place], but also included [facility], and [facility] Once a place agrees to accept the patient then / patient would be given the option- would need insurance approval. PLAN: SNF when ready.
[2025-07-18 17:54] LABS: Glucose - Point of Care 248 mg/dl (70-99)
[2025-07-18] MEDS: NOVOLOG FLEXPEN-MODERATE RESISTANCE 3 UNITS SC (18:07)
--- NOTE | 2025-07-18 20:12 | PTCARENOTE ---
Pt transferred to .
[2025-07-18 21:39] LABS: Glucose - Point of Care 260 mg/dl (70-99)
[2025-07-18] MEDS: LANTUS 0.24 UNITS SC (21:53)
[2025-07-18] MEDS: ZETIA 10 MG PO (21:55)
[2025-07-18] MEDS: LIPITOR 20 MG PO (21:56)
[2025-07-19] VITALS (10 sets, daily range): BP systolic 139–185; BP diastolic 55–88; PULSE 2–94; O2SAT 97; BMI 45.4
--- NOTE | 2025-07-19 07:40 | WOUNDNOTE ---
WOC RN note: tiger texted Dr. Yana Cordero re: WOC RN consult completed 2 days ago and local care was placed in the instructions under the Miconazole powder order and a picture is in the chart. Dr. Cordero responded plan to cancel the duplicate
consult.
[2025-07-19 07:44] LABS: Hematocrit 36.4 % (39.0-52.0); Hemoglobin 11.5 g/dL (13.0-18.0); Mean Corp Hgb Conc. 31.6 g/dL (33.0-37.0); Mean Corpuscular Volume 94.8 fL (80.0-94.0); Nucleated Red Blood Cells % 0 % (-); Platelet Count 165 10^3/uL (130-400); Red Cell Dist. Width 14.4 % (11.5-14.5)
[2025-07-19 07:46] LABS: Glucose - Point of Care 154 mg/dl (70-99)
[2025-07-19 08:24] LABS: Blood Urea Nitrogen 47 mg/dl (9-20); Calcium 8.3 mg/dl (8.4-10.2); Carbon Dioxide 28 mmol/L (22-30); Chloride 104 mmol/L (98-107); Estimated Creatinine Clearance 48 ml/min; Glucose 152 mg/dl (70-99); Potassium 4.4 mmol/L (3.5-5.1); Sodium 136 mmol/L (135-145); eGFR 45.62
--- NOTE | 2025-07-19 08:30 | W.PN.HOSP.TC ---
Addendum entered and electronically signed by Laly Casper MD 07/19/25 12:04:
Attending�addendum:
I saw and evaluated the patient independently. I reviewed and discussed the resident�s note and agree with findings and plan as documented in the resident�s note.� patient seen and examined at bedside, at bedside denies any chest pain or
shortness of breath, no abdominal pain, no nausea, no vomiting, no diarrhea or constipation.
More awake and oriented
Physical�exam:
GENERAL : Patient is awake, alert, oriented x3
HEENT: Nonicteric sclerae, PERRLA, EOMI. Oropharynx clear. Moist mucous membranes. Conjunctivae appear well perfused.
CHEST: Chest wall is nontender.
HEART: Regular rate and rhythm without murmurs.
LUNGS: Bilateral rales
ABDOMEN: Soft, positive bowel sounds, nontender, no organomegaly.
RECTAL: Deferred.
MUSCLES/EXTREMITIES: Lower extremity edema
NEUROLOGIC: Cranial nerves II-XII intact without motor/sensory deficit.
�
Assessment/plan:
Sepsis with acute organ dysfunction
Positive both urine and blood culture for gram-negative bacilli. E. coli (E. coli bacteremia)
De-escalate to Rocephin
Repeat blood culture negative
Acute on chronic renal failure.
Improved, discontinue fluid, resume diuretic
Appreciate nephrology input
Acute on chronic hypoxemic/hypercapnic respiratory failure.
Back to [facility].
History of diabetes mellitus
Lantus/lispro
Insulin sliding scale
Diabetic diet
Hemoglobin A1c 8.2
Stage 2 sacral pressure injury, POA.
CODE STATUS: Full code
DVT prophylaxis: Lovenox
Diet: Diabetic diet
Family communication: Discussed with at bedside
Disposition: Medically cleared for Dc to SNF
�
Total time spent on today�s encounter was 51 minutes which included time spent in counseling the patient/family regarding diagnosis and treatment plan as listed above, goals of care, and symptom management. Case was discussed with nursing staff,
specialists, and care coordinators/case management. All labs and imaging personally reviewed by me. Remainder the time spent in detailed review of previous records, lab data, imaging, and other medical provider documentation.
Original Note:
Today's Communication/Plan
-
Restart home Bumex and K supplement with signs of volume overload
Continue to hold Jardiance with UTI
d/c fluids
Start d/c planning to SNF
Continue ceftriaxone - switch to PO at discharge
Assessment / Plan
Assessment / Plan
84-year-old male with past medical history of CKD 3a, type 2 diabetes, CAD, HFpEF, chronic hypoxic and hypercapnic respiratory failure on 2 to 3 L of oxygen at baseline, paroxysmal A-fib presents to the ER for increased work of breathing and high
blood sugars. He called EMS last night to assist him after he fell. He was found to be hypoxic and was placed on 6 L of oxygen. In the ED, he was found to have elevated white count of 18, lactic acid 6.8 and a UTI. He was admitted to IMU,
cultures sent, started on Zosyn and Vanco switched to cefepime and started on pressors. Pressors were ultimately not started as patient's blood pressure stabilized. Troponin was noted to be 0.091. EKG was nonischemic and he denied any chest pain.
Troponin were trended until peak. Blood culture and urine culture revealed E. coli and cefepime was downgraded to ceftriaxone. He continued to improve and was downgrade to tele. Cr went back to baseline and home diuretics were restarted. SLGT2
remained on hold due to UTI.
Sepsis with hypotension versus shock likely secondary to UTI
With associated toxic metabolic encephalopathy and MARGIE
-- WBC 18.0, lactic acid 6.7 on admission, UTI positive, blood cultures E.coli, urine cultures E.coli
-- WBC downtrending 27.8 > 22.5 > 13.8
-- Lactic acidosis resolved
-- zosyn and vanco -> cefepime -> ceftriaxone day 4
-- d/co fluids
-- Repeat cultures sent as it was G (-) bacilli - pre-salas repeat cultures negative
-- start discharge planning to SNF
Acute on chronic CKDIIIa exacerbated by sepsis with hypotension vs shock
-- Baseline Cr 1.7, gfr 49.87, on admission cr 2.4, gft 25.96
-- Cr 1.5 back to baseline
-- d/fluids
-- Restart bumetanide 2mg PO BID and K supplements - continue to hold SGLT2 given sepsis secondary to UTI
-- Appreciate nephrology
Chronic hypoxemic and hypercapnic respiratory failure - on 2 to 3 L nasal cannula baseline
AMIE on CPAP
Asthma
-- Weaned to baseline
-- Continue CPAP, albuterol
Non-ischemic troponin elevation
-- 0.091 > 01.27 > 0.117 > 0.086
-- EKG non-ischemic, denies any chest pain
-- Likely septic myocardium
DM2
-- Glargine 18, lispro 2-8 SSI, Jardiance at home
-- Hga1c 8.2
-- BG in the 300s -> now 150s
-- Glargine 24 and aspart 8 AC
HFpEF - not in exacerbation
-- Last echo EF 55%, stage II diastolic dysfunction, mild MR, mild TR, pulmonary artery pressure 45 mmHg
-- BNP 7460, x-ray mild interstitial opacifications suggestive of mild edema, pneumonia less likely
-- Currently on baseline O2 at 2L
-- Appears to be slightly volume overload with 1+ pitting edema and crackles in left lower lung field.
-- Restart home Bumex and K supplement. Continue to hold Jardiance due to UTI.
-- Follow daily weights, I&Os
Paroxysmal atrial fibrillation
-- Status post cardioversion on last admission
-- Continue Eliquis 2.5 twice daily (for cr and age)
-- Continue rhythm control with amiodarone 200 daily
Fall
Weakness, ambulatory dysfunction due to dehydration/MARGIE/sepsis
-- PT/OT - recommends SNF
-- Fall precautions
CAD
-- Continue Asa, zetia and atorvastatin
HLD
-- Continue zetia and atorvastatin 20
HTN
-- Restart home diuretics
-- Monitor BP
Morbid obesity - BMI 43.8
Stage 2 sacral pressure injury, POA
-- appreciate wound care
Fungal rash under right breast
-- miconazole per wound care
Aortic stenosis s/p bioprosthetic aortic valve replacement
DVT - eliquis 2.5 BID
DNR
Anticipated Discharge: Within 24 hours
Subjective/Interval History
-
Date of Service: July 19, 2025
Complains of right sided chest pain with deep breaths and coughing. States the pain is more external. There is evidence of skin breakdown below the right breast. Wound care is seeing.
Objective Data
-
Labs:
Laboratory Results
07/19/25
07:12
WBC 13.8 H
Hgb 11.5 L
Hct 36.4 L
Plt Count 165
Sodium 136
Potassium 4.4
Chloride 104
Carbon Dioxide 28
BUN 47 H
Creatinine 1.5 H
Glucose 152 H
Calcium 8.3 L
Vital Signs:
Vital Signs
Temp Pulse Resp BP Pulse Ox
98.2 F 56 18 145/69 96
07/19/25 03:00 07/19/25 03:00 07/19/25 03:00 07/19/25 03:00 07/19/25 03:00
I&O
07/18/25 07/19/25 07/20/25
06:59 06:59 06:59
Intake Total 780 / 780 900 / 900
Output Total 700 / 700 2150 / 2150
Balance 80 / 80 -1250 / -1250
Review of Systems
-
History Source: Patient
EENT: Reports No Symptoms Reported
Respiratory: Reports No Symptoms
Cardiac: Reports No Symptoms
Abdomen/GI: Reports No Symptoms
Genitourinary: Reports No Symptoms
Skin: Reports Other (Pain on skin right breast area )
Neuro: Reports No Symptoms
Endocrine: Reports No Symptoms
Physical Exam
-
General: Comfortable
HEENT: Normocephalic
Respiratory: Crackles (Slight crackles LLL) and Other (diminished breath sounds with poor inspiratory effort )
Cardiac: Regular Rhythm and S1/S2
GI: Soft, Nontender and Nondistended
Musculoskeletal: Other (+1 edema bilateral lower extremities )
Skin: Warm and Dry
Neuro: AO x 3
Psych: Calm
[2025-07-19] MEDS: NOVOLOG FLEXPEN 8 UNITS SC ×3 (08:38→17:52)
[2025-07-19] MEDS: NOVOLOG FLEXPEN-MODERATE RESISTANCE 1 UNITS SC ×3 (08:39→17:53)
[2025-07-19] MEDS: ELIQUIS 2.5 MG PO ×2 (08:40→21:21)
[2025-07-19] MEDS: MAGNESIUM OXIDE 400 MG PO (08:40)
[2025-07-19] MEDS: ASPIR LOW (ENTERIC COATED) 81 MG PO (08:40)
[2025-07-19] MEDS: PACERONE 200 MG PO (08:40)
[2025-07-19] MEDS: TIMOPTIC 0.5% OPHTHALMIC SOLUTION 1 DROP BOTH EYES ×2 (08:41→21:22)
[2025-07-19] MEDS: TRUSOPT 2% OPHTHALMIC SOLUTION 1 DROP BOTH EYES ×2 (08:41→21:22)
[2025-07-19] MEDS: NSS 1000 IV (10:06)
--- NOTE | 2025-07-19 10:06 | PN.CDI ---
CDI
- -
CDI:
Physician Documentation Request
Admit Date: 07/16/25 15:30
Dear Doctor Consuelo,
Patient admitted with sepsis.
07/17 Nursing skin assessment by ESTUARDO, 'Stage 2 sacral pressure injury, POA.'
Physician documentation of the type and location of wounds is required for compliant documentation. Based on the above clinical findings and your assessment, please provide the following in your progress note:
Type (etiology) of ulcer/wound:
- Pressure (decubitus) ulcer
- Other
- Unable to determine
For a pressure ulcer, please also include the stage* of the ulcer:
- Stage 1 - Skin intact, non-blanchable redness
- Stage 2 - Partial thickness loss of dermis, includes intact or open blister
- Stage 3 - Full thickness tissue not including bone, tendon or muscle
- Stage 4 - Full thickness tissue loss, including exposed bone, tendon or muscle
- Unstageable - Full thickness loss in which the base of the ulcer is covered by slough (yellow, wayne, patel, green or brown) and/or eschar (wayne, brown or black) in the wound bed.
- Unable to determine
Use of terms such as suspected, likely, concern for, or probable (associated with a specific diagnosis that is being evaluated, monitored, or treated as if it exists) are acceptable and can be coded in the inpatient setting, when documented at the
time of discharge.
Thank you,
Roro DOTSON,RN,CCDS
CDI Specialist
Available via [place] text
Please use your independent medical judgment in providing your response.
*Source: National Pressure Ulcer Advisory Panel (NPUAP)
[2025-07-19] MEDS: DESENEX/MITRAZOL/ZEASORB 1 APPLIC TOPICAL ×2 (10:07→21:23)
--- NOTE | 2025-07-19 10:55 | CM ---
Addendum entered by Jimmy De Souza 07/19/25 14:00:
Pt's clinical with OT/PT notes faxed to [facility] at [phone].
Per [facility] operations support representative Soheila, pt is approved for SNF level of care at [facility] for 5 initial days starting tomorrow 07/20/25 till 07/26/25 with LCD 07/26/25 and NRD 07/27/25.
Auth information forwarded to [facility] director speech and she confirmed that pt is accepted for admission tomorrow.
[facility] director speech requested PASRR. [facility] will arrange [facility] transport BLS. [facility] completed and left with [facility] nursing report: [phone] and ask for nursing casino operations supervisor or [phone]
Discharge instructions fax: [phone]
D/C plan: [facility] tomorrow 07/20/25.
Original Note:
VIJAYA following re: discharge planning.
Reviewed pt's chart, met with pt.
According to pt will be ready for discharge tomorrow. Pt is aware, expressed his agreement. IMM reviewed, placed on chart, pt has a copy.
Pt is awre that only [facility] offered a bed and pt expressed his agreement to go to [facility].
CM spoke to [facility] director speech and she confirmed that pt will be accepted for admission to [facility] tomorrow and an auth requested.
VIJAYA faxed PASRR to [facility].
VIJAYA initiated an auth from [facility] for SNF level of carte at [facility] for tomorrow, pending auth number: [id number]. Requested pt's clinical with faxed to [facility] for review after updated PT and OT noted. PT and OT are aware. .
[facility] will arrange ambulance transport BLS. [facility] completed and left with [facility] nursing report: [phone] and ask for nursing casino operations supervisor
Discharge instructions fax: [phone]
D/C plan: [facility] tomorrow 07/20/25. Awaiting for an auth.
--- NOTE | 2025-07-19 11:11 | W.PN.NEPH.PH ---
Today's Communication / Plan
-
Sign off
Restart diuretic
Assessment/Plan
-
IMP:
MARGIE
CKD 3A/B 1.5
Paroxysmal Afib
Diabetes mellitus type 2
Chronic Hypoxic and Hypercapnic Respiratory Failure, chronic O2 at home
AMIE on CPAP
s/p bioprosthetic AVR
Pulm HTN
CAD
E. coli sepsis
Plan:
Creatinine down to baseline 1.5
We will sign off
Can add back diuretics today given rising weights and edema
Would hold off on Jardiance reimplementation given UTI
-
-
Date of Service: July 19, 2025
CC / HPI / ROS
-
Chief Complaint:
MARGIE
History of Present Illness:
MARGIE/Cr down to 1.5
WBC improving
abx for urosepsis/e coli
BP stable
Review of Systems:
no CP/SOB
chronic O2 (at home)
Labs
-
Labs:
WBC 13.8 10^3/uL (4.8-10.8) H 07/19/25 07:12
RBC 3.84 10^6/uL (4.70-6.10) L 07/19/25 07:12
Hgb 11.5 g/dL (13.0-18.0) L 07/19/25 07:12
Hct 36.4 % (39.0-52.0) L 07/19/25 07:12
Plt Count 165 10^3/uL (130-400) 07/19/25 07:12
Sodium 136 mmol/L (135-145) 07/19/25 07:12
Potassium 4.4 mmol/L (3.5-5.1) 07/19/25 07:12
Chloride 104 mmol/L (98-107) 07/19/25 07:12
Carbon Dioxide 28 mmol/L (22-30) 07/19/25 07:12
BUN 47 mg/dl (9-20) H 07/19/25 07:12
Creatinine 1.5 mg/dL (0.7-1.3) H 07/19/25 07:12
eGFR 45.62 07/19/25 07:12
Glucose 152 mg/dl (70-99) H 07/19/25 07:12
Calcium 8.3 mg/dl (8.4-10.2) L 07/19/25 07:12
Dhi-C-Aehjbggxgnn Pept 7460 pg/ml 07/16/25 10:03
Albumin 3.4 g/dl (3.5-5.0) L 07/16/25 10:38
Physical Exam
-
Vital Signs:
Vital Signs
Temp Pulse Resp BP Pulse Ox
97.5 F 56 20 145/69 97
07/19/25 07:00 07/19/25 08:40 07/19/25 07:00 07/19/25 08:40 07/19/25 07:00
Cardiovascular:: Regular rate and rhythm
Respiratory:: Bilateral: CTA
Lung Excursion:: Normal
Abdomen:: Nontender and Soft
Bowel Sounds:: Normal
Extremity Edema:: None: Bilateral:
[2025-07-19 12:11] LABS: Glucose - Point of Care 180 mg/dl (70-99)
[2025-07-19] MEDS: STERILE WATER FOR INJECTION 20 ML IV (13:18)
[2025-07-19] MEDS: ROCEPHIN 2000 MG IV (13:18)
[2025-07-19] MEDS: BUMEX 2 MG PO (16:44)
[2025-07-19 16:56] LABS: Glucose - Point of Care 174 mg/dl (70-99)
[2025-07-19] MEDS: LIPITOR 20 MG PO (21:21)
[2025-07-19] MEDS: ZETIA 10 MG PO (21:22)
[2025-07-19] MEDS: LANTUS 0.24 UNITS SC (22:07)
[2025-07-19 22:19] LABS: Glucose - Point of Care 217 mg/dl (70-99)
[2025-07-20 03:27] VITALS: BP 144/67
[2025-07-20 06:00] VITALS: BMI 44.6
[2025-07-20 06:32] LABS: Hematocrit 35.8 % (39.0-52.0); Hemoglobin 11.3 g/dL (13.0-18.0); Mean Corp Hgb Conc. 31.6 g/dL (33.0-37.0); Mean Corpuscular Volume 95.0 fL (80.0-94.0); Nucleated Red Blood Cells % 0 % (-); Platelet Count 154 10^3/uL (130-400); Red Cell Dist. Width 14.2 % (11.5-14.5)
[2025-07-20 06:59] LABS: Blood Urea Nitrogen 39 mg/dl (9-20); Calcium 8.4 mg/dl (8.4-10.2); Carbon Dioxide 35 mmol/L (22-30); Chloride 103 mmol/L (98-107); Estimated Creatinine Clearance 51 ml/min; Glucose 169 mg/dl (70-99); Potassium 4.4 mmol/L (3.5-5.1); Sodium 138 mmol/L (135-145); eGFR 49.56
[2025-07-20 07:00] VITALS: BP 152/88
[2025-07-20 07:22] LABS: Glucose - Point of Care 163 mg/dl (70-99)
--- NOTE | 2025-07-20 08:07 | W.PN.HOSP.TC ---
Addendum entered and electronically signed by Yana Cordero MD, Resident 07/20/25 13:34:
Decided on cefdinir 300 BID after discharge for better compliance as cephalexin would have been QID rather than BID.
Addendum entered and electronically signed by Laly Casper MD 07/20/25 13:32:
Attending�addendum:
I saw and evaluated the patient independently. I reviewed and discussed the resident�s note and agree with findings and plan as documented in the resident�s note.� patient seen and examined at bedside, at bedside denies any chest pain or
shortness of breath, no abdominal pain, no nausea, no vomiting, no diarrhea or constipation.
More awake and oriented
Physical�exam:
GENERAL : Patient is awake, alert, oriented x3
HEENT: Nonicteric sclerae, PERRLA, EOMI. Oropharynx clear. Moist mucous membranes. Conjunctivae appear well perfused.
CHEST: Chest wall is nontender.
HEART: Regular rate and rhythm without murmurs.
LUNGS: Bilateral rales
ABDOMEN: Soft, positive bowel sounds, nontender, no organomegaly.
RECTAL: Deferred.
MUSCLES/EXTREMITIES: Lower extremity edema
NEUROLOGIC: Cranial nerves II-XII intact without motor/sensory deficit.
�
Assessment/plan:
Sepsis with acute organ dysfunction
Positive both urine and blood culture for gram-negative bacilli. E. coli (E. coli bacteremia)
De-escalate to Rocephin
Repeat blood culture negative
Acute on chronic renal failure.
Improved, discontinue fluid, resume diuretic
Appreciate nephrology input
Acute on chronic hypoxemic/hypercapnic respiratory failure.
Back to [facility].
History of diabetes mellitus
Lantus/lispro
Insulin sliding scale
Diabetic diet
Hemoglobin A1c 8.2
Stage 2 sacral pressure injury, POA.
CODE STATUS: Full code
DVT prophylaxis: Lovenox
Diet: Diabetic diet
Family communication: Discussed with at bedside
Disposition: Medically cleared for Dc to SNF
�
Total time spent on today�s encounter was 51 minutes which included time spent in counseling the patient/family regarding diagnosis and treatment plan as listed above, goals of care, and symptom management. Case was discussed with nursing staff,
specialists, and care coordinators/case management. All labs and imaging personally reviewed by me. Remainder the time spent in detailed review of previous records, lab data, imaging, and other medical provider documentation.
Original Note:
Today's Communication/Plan
-
Discharge to SNF when bed available
Transition to cephalexin 500 BID to complete 14 day course total upon discharge
Continue to hold SGLT-2 until seen by cardiology outpatient
Assessment / Plan
Assessment / Plan
84-year-old male with past medical history of CKD 3a, type 2 diabetes, CAD, HFpEF, chronic hypoxic and hypercapnic respiratory failure on 2 to 3 L of oxygen at baseline, paroxysmal A-fib presents to the ER for increased work of breathing and high
blood sugars. He called EMS last night to assist him after he fell. He was found to be hypoxic and was placed on 6 L of oxygen. In the ED, he was found to have elevated white count of 18, lactic acid 6.8 and a UTI. He was admitted to IMU,
cultures sent, started on Zosyn and Vanco switched to cefepime and started on pressors. Pressors were ultimately not started as patient's blood pressure stabilized. Troponin was noted to be 0.091. EKG was nonischemic and he denied any chest pain.
Troponin were trended until peak. Blood culture and urine culture revealed E. coli and cefepime was downgraded to ceftriaxone. He continued to improve and was downgrade to tele. Cr went back to baseline and home diuretics were restarted. SLGT2
remained on hold due to UTI.
Sepsis with hypotension versus shock likely secondary to UTI
With associated toxic metabolic encephalopathy and MARGIE
-- WBC 18.0, lactic acid 6.7 on admission, UTI positive, blood cultures E.coli, urine cultures E.coli
-- WBC downtrending 27.8 > 22.5 > 13.8
-- Lactic acidosis resolved
-- zosyn and vanco -> cefepime -> ceftriaxone day 5. D/c on cephalexin 500 mg BID for an additional 9 days to complete a 14 day course of antibiotics
-- d/co fluids
-- Repeat cultures sent as it was G (-) bacilli - pre-salas repeat cultures negative
-- d/c to SNF when bed available
Acute on chronic CKDIIIa exacerbated by sepsis with hypotension vs shock
-- Baseline Cr 1.7, gfr 49.87, on admission cr 2.4, gft 25.96
-- Cr 1.4 back to baseline
-- d/fluids
-- Restart bumetanide 2mg PO BID and K supplements - continue to hold SGLT2 given sepsis secondary to UTI until f/u with cardiology- Cr remains good after starting diuretics
-- Appreciate nephrology
Chronic hypoxemic and hypercapnic respiratory failure - on 2 to 3 L nasal cannula baseline
AMIE on CPAP
Asthma
-- Weaned to baseline
-- Continue CPAP, albuterol
Non-ischemic troponin elevation
-- 0.091 > 01.27 > 0.117 > 0.086
-- EKG non-ischemic, denies any chest pain
-- Likely septic myocardium
DM2
-- Glargine 18, lispro 2-8 SSI, Jardiance at home
-- Hga1c 8.2
-- BG in the 300s -> now 150s
-- Glargine 24 and aspart 8 AC
HFpEF - not in exacerbation
-- Last echo 0 EF 55%, stage II diastolic dysfunction, mild MR, mild TR, pulmonary artery pressure 45 mmHg
-- BNP 7460, x-ray mild interstitial opacifications suggestive of mild edema, pneumonia less likely
-- Currently on baseline O2 at 2L
-- Appears to be slightly volume overload with 1+ pitting edema and crackles in left lower lung field.
-- Restarted on home Bumex and K supplement. Continue to hold Jardiance due to UTI until cleared by cardiology.
-- Follow daily weights, I&Os
Paroxysmal atrial fibrillation
-- Status post cardioversion on last admission
-- Continue Eliquis 2.5 twice daily (for cr and age)
-- Continue rhythm control with amiodarone 200 daily
Fall
Weakness, ambulatory dysfunction due to dehydration/MARGIE/sepsis
-- PT/OT - recommends SNF
-- Fall precautions
CAD
-- Continue Asa, zetia and atorvastatin
HLD
-- Continue zetia and atorvastatin 20
HTN
-- Restart home diuretics
-- Monitor BP
Morbid obesity - BMI 43.8
Stage 2 sacral pressure injury, POA
-- appreciate wound care
Fungal rash under right breast
-- miconazole per wound care
Aortic stenosis s/p bioprosthetic aortic valve replacement
DVT - eliquis 2.5 BID
DNR
Anticipated Discharge: Today
Subjective/Interval History
-
Date of Service: July 20, 2025
No complaints overnight. Does note last bowel movement was Thursday. Wants a laxative.
Objective Data
-
Labs:
Laboratory Results
07/20/25
06:02
WBC 9.6
Hgb 11.3 L
Hct 35.8 L
Plt Count 154
Sodium 138
Potassium 4.4
Chloride 103
Carbon Dioxide 35 H
BUN 39 H
Creatinine 1.4 H
Glucose 169 H
Calcium 8.4
Vital Signs:
Vital Signs
Temp Pulse Resp BP Pulse Ox
98.0 F 60 18 144/67 98
07/20/25 03:27 07/20/25 03:27 07/20/25 03:27 07/20/25 03:27 07/20/25 03:27
I&O
07/19/25 07/20/25 07/21/25
06:59 06:59 06:59
Intake Total 900 / 900 1100 / 1100
Output Total 2150 / 2150 3950 / 3950
Balance -1250 / -1250 -2850 / -2850
Review of Systems
-
History Source: Patient
EENT: Reports No Symptoms Reported
Respiratory: Reports No Symptoms
Cardiac: Reports No Symptoms
Abdomen/GI: Reports No Symptoms
Genitourinary: Reports No Symptoms
Neuro: Reports No Symptoms
Hematologic / Lymphatic: Reports No Symptoms
Physical Exam
-
General: No Apparent Distress
HEENT: Normocephalic
Respiratory: Clear to Auscultation
Cardiac: Regular Rhythm and S1/S2
GI: Soft, Nontender, Nondistended and Normal Bowel Sounds
Musculoskeletal: No Edema
Skin: Warm and Dry
Neuro: AO x 3
Psych: Calm
[2025-07-20] MEDS: MIRALAX 17 GRAMS PO (08:36)
[2025-07-20] MEDS: SENOKOT-S 1 TABLET PO (08:36)
[2025-07-20] MEDS: KCL 20 MEQ PO (08:36)
[2025-07-20] MEDS: ELIQUIS 2.5 MG PO (08:36)
[2025-07-20] MEDS: MAGNESIUM OXIDE 400 MG PO (08:36)
[2025-07-20] MEDS: ASPIR LOW (ENTERIC COATED) 81 MG PO (08:36)
[2025-07-20] MEDS: BUMEX 2 MG PO (08:43)
[2025-07-20] MEDS: PACERONE 200 MG PO (08:44)
[2025-07-20] MEDS: NOVOLOG FLEXPEN 8 UNITS SC ×2 (08:44→12:00)
[2025-07-20] MEDS: NOVOLOG FLEXPEN-MODERATE RESISTANCE 1 UNITS SC (08:45)
[2025-07-20] MEDS: TRUSOPT 2% OPHTHALMIC SOLUTION 1 DROP BOTH EYES (08:46)
[2025-07-20] MEDS: TIMOPTIC 0.5% OPHTHALMIC SOLUTION 1 DROP BOTH EYES (08:46)
[2025-07-20] MEDS: DESENEX/MITRAZOL/ZEASORB 1 APPLIC TOPICAL (08:48)
[2025-07-20 11:00] VITALS: BP 160/70
[2025-07-20 11:48] LABS: Glucose - Point of Care 205 mg/dl (70-99)
[2025-07-20] MEDS: NOVOLOG FLEXPEN-MODERATE RESISTANCE 3 UNITS SC (12:01)
--- NOTE | 2025-07-20 13:51 | CM ---
entered order for discharge.
Per YOEL approved for SNF level of care at [facility] for 5 initial days starting tomorrow 07/20/25 till 07/26/25 with LCD 07/26/25 and NRD 07/27/25. [facility] rep aware.Spoke with Nyla at [facility] she accepted patient.
Spoke with Danyelle at [facility] ambulance set up for 3:30 pm Medical nec completed. RN aware.
is in agreement with dc.
[facility]
report [phone]
fax: [phone]
D/C plan: [facility] today
[2025-07-20] MEDS: STERILE WATER FOR INJECTION 20 ML IV (14:18)
[2025-07-20] MEDS: ROCEPHIN 2000 MG IV (14:18)
--- NOTE | 2025-07-20 14:26 | W.DCSUMMARY ---
Addendum entered and electronically signed by Laly Casper MD 07/21/25 07:53:
Attending�addendum:
I saw and evaluated the patient independently. I reviewed and discussed the resident�s note and agree with findings and plan as documented in the resident�s note.� patient seen and examined at bedside, at bedside denies any chest pain or
shortness of breath, no abdominal pain, no nausea, no vomiting, no diarrhea or constipation.
More awake and oriented
Physical�exam:
GENERAL : Patient is awake, alert, oriented x3
HEENT: Nonicteric sclerae, PERRLA, EOMI. Oropharynx clear. Moist mucous membranes. Conjunctivae appear well perfused.
CHEST: Chest wall is nontender.
HEART: Regular rate and rhythm without murmurs.
LUNGS: Bilateral rales
ABDOMEN: Soft, positive bowel sounds, nontender, no organomegaly.
RECTAL: Deferred.
MUSCLES/EXTREMITIES: Lower extremity edema
NEUROLOGIC: Cranial nerves II-XII intact without motor/sensory deficit.
�
Assessment/plan:
Sepsis with acute organ dysfunction
Positive both urine and blood culture for gram-negative bacilli. E. coli (E. coli bacteremia)
De-escalate to Rocephin
Repeat blood culture negative
Acute on chronic renal failure.
Improved, discontinue fluid, resume diuretic
Appreciate nephrology input
Acute on chronic hypoxemic/hypercapnic respiratory failure.
Back to [facility].
History of diabetes mellitus
Lantus/lispro
Insulin sliding scale
Diabetic diet
Hemoglobin A1c 8.2
Stage 2 sacral pressure injury, POA.
CODE STATUS: Full code
DVT prophylaxis: Lovenox
Diet: Diabetic diet
Family communication: Discussed with at bedside
Disposition: Medically cleared for Dc to SNF
�
Total time spent on today�s encounter was 51 minutes which included time spent in counseling the patient/family regarding diagnosis and treatment plan as listed above, goals of care, and symptom management. Case was discussed with nursing staff,
specialists, and care coordinators/case management. All labs and imaging personally reviewed by me. Remainder the time spent in detailed review of previous records, lab data, imaging, and other medical provider documentation.
Original Note:
Documented by User: Yana Cordero MD, Resident 07/20/25 14:32
Discharge Summary
Discharge Data
Date of Admission: 07/16/25
Date of Discharge: 07/20/25
-
Pending Results: No
Hospital Course
Primary Diagnosis:
Sepsis with hypotension versus shock secondary to UTI
Associated with toxic metabolic encephalopathy and MARGIE
Acute on chronic CKD 3A exacerbated by sepsis with hypotension
Chronic hypoxemic and hypercapnic respiratory failure
Nonischemic troponin elevation
Secondary diagnosis:
Type 2 diabetes mellitus
HFpEF
Paroxysmal atrial fibrillation
Fall
CAD
Hyperlipidemia
Hypertension
Morbid obesity
Stage II sacral pressure injury, prior to admission
Fungal rash under right breast
Aortic stenosis status post bioprosthetic aortic valve replacement
Hospital Course:
84-year-old male with past medical history of CKD 3a, type 2 diabetes, CAD, HFpEF, chronic hypoxic and hypercapnic respiratory failure on 2 to 3 L of oxygen at baseline, paroxysmal A-fib presents to the ER for increased work of breathing and high
blood sugars. He called EMS last night to assist him after he fell. He was found to be hypoxic and was placed on 6 L of oxygen. In the ED, he was found to have elevated white count of 18, lactic acid 6.8 and a UTI. He was admitted to IMU,
cultures sent, started on Zosyn and Vanco switched to cefepime and started on pressors. Pressors were ultimately not started as patient's blood pressure stabilized. Troponin was noted to be 0.091. EKG was nonischemic and he denied any chest pain.
Troponin were trended until peak. Blood culture and urine culture revealed E. coli and cefepime was downgraded to ceftriaxone. He continued to improve and was downgrade to tele. Cr went back to baseline and home diuretics were restarted. SLGT2
remained on hold due to UTI. Diabetic insulin was adjusted to compensate for elevated sugars.
Today, patient is clinically stable for discharge. He is being discharged with 9 days of cefdinir 300 twice daily to complete a 14-day antibiotic course. Glargine has been increased to 24 units every evening and aspart to 8 units AC. SGLT2 is to
remain on hold until further evaluation by costume shop manager given UTI.
Imaging:
Chest x-ray 07/06/2025:
Cardiomegaly with mild interstitial opacification suggestive of mild edema. Pneumonia is possible although considered less likely.
07/16/25 10:57 Blood Culture - Preliminary
Blood/Venous No Growth in 4 days- Final report to follow
07/17/25 17:35 Blood Culture - Preliminary
Blood/Venous No Growth in 48 hours- Final report to follow
07/17/25 15:45 Blood Culture - Preliminary
Blood/Venous No Growth in 48 hours- Final report to follow
07/16/25 10:55 Blood Culture - Final
Blood/Venous Escherichia coli
Gram Stain - Final
07/16/25 11:44 Urine Culture - Final
Urine Escherichia coli
07/16/25 17:22 MRSA Screen - Final
Nose No Methicillin Resistant Staphylococcus aureus isolated.
Discharge Plan
-
Patient Disposition: Longterm/SNF
Discharge Diagnosis/Procedures: Sepsis with hypotension secondary to urinary tract infection with associated toxic metabolic encephalopathy and acute kidney injury, acute on chronic chronic kidney disease stage IIIa exacerbated by sepsis with
hypotension, chronic hypoxemic and hypercapnic respiratory failure
Condition: Fair
Diet: Low Cholesterol and Low Sodium
Activity: As tolerated
Driving Restrictions: As prior to admission
Bathing Restrictions: None
Activity Restrictions/Additional Instructions:
Wound Care Instructions
Sacrum-clean with saline, miconazole powder prn yeasty red skin, silicone border foam, change q 3 days and prn loosened dressing.
Miconazole powder to abdominal/groin, R lateral lower chest skin fold bid. Zinc barrier ointment to open skin bid.
Moisture cream to dry skin twice a day.
Air mattress
Turning schedule
Elevate heels off bed with pillow/s
Bariatric pressure redistributing chair cushion (i.e. bariatric air chair cushion, Roho).
Follow up at wound care center if needed, call for an appointment.
Referrals:
Lebron Arce MD [Active, Cardiology] - in one to two weeks
Ruperto Jade DO [Family Provider, Family Practice] - in one week
Additional Discharge Medication Instructions: Please take cefdinir 300 BID for the next 9 days to complete a total 14 day course of antibiotics.
Your Jardiance is on hold until you are cleared to restart it by your costume shop manager as it increases the risk of UTIs.
Your diabetes medications have been adjusted. Your glargine has been increased to 24 units each night and your Aspart to 8 units before each meal. Please monitor your blood sugars and follow up with your PCP or instrumentation and controls technician for further
adjustment.
Prescriptions:
New
cefdinir 300 mg capsule
300 mg PO BID 9 Days Qty: 18 0RF
insulin aspart U-100 100 unit/mL (3 mL) Insulin Pen
8 unit SC AC 30 Days Qty: 7.2 0RF
Insulin Glargine Lantus [Lantus] 24 UNITS
Subcutaneous Insulin Syringe [Syringe-Insulin] 0 UNIT
As Directed mls/hr SC HS
Reason for use: Diabetes
Ordered By: Yana Cordero MD, Resident
Last Taken: 07/19/25 22:07 0.24 mls
Continued
ezetimibe 10 MG tablet
10 mg PO HS
coenzyme Q10 [Co Q-10] 200 MG capsule
200 mg PO DAILY
aspirin 81 MG tablet,delayed release (DR/EC)
81 mg PO DAILY Qty: 0 0RF
Rx Instructions:
Resume after Lovenox/Coumadin Bridge is complete
atorvastatin 20 mg tablet
20 mg PO HS
magnesium 250 mg Tablet
240 mg PO DAILY
dorzolamide-timolol 22.3-6.8 mg/mL Drops
1 drp BOTH EYES BID
miconazole nitrate [Miconazorb AF] 2 % Powder
1 applic topical BID Qty: 100 0RF
Patient Comments:
groin. belly axilla areas
cholecalciferol (vitamin D3) [Vitamin D3] 50 mcg (2,000 unit) Tablet
50 mcg PO DAILY
bumetanide 2 mg Tablet
2 mg PO BID AT 0800,1600 Qty: 60 0RF
potassium chloride 20 mEq Tablet,Er Particles/Crystals
20 meq PO TID Qty: 90 0RF
albuterol sulfate [Ventolin HFA] 90 MCG/PUFF HFA aerosol inhaler
2 puff inhalation R Q4 PRN (Reason: sob/wheezing) Qty: 1 0RF
Patient Comments:
never used
amiodarone 200 mg tablet
200 mg PO DAILY
Eliquis 2.5 mg Tablet
2.5 mg PO BID Qty: 0 0RF
Held
Jardiance 10 mg tablet
10 mg PO HS Qty: 30 0RF
Hold Instructions: Until seen by cardiology
Discontinued
insulin lispro [Humalog KwikPen Insulin] 100 unit/mL insulin pen
2 - 8 sliding scale dose SC MEALS
Patient Comments:
01/08/2024: of 200-249= 2; 250-299= 4; 300-349= 6; 350-400= 8, >400 = Call MD
insulin glargine [Lantus Solostar U-100 Insulin] 100 unit/mL (3 mL) Insulin Pen
18 unit SC HS
Discharge Orders:
Discharge Patient (As Directed); Ordered 07/20/25
Ordered By: Yana Cordero
Discharge Date and Time
Discharge Date/Time: 07/20/25 15:20
Print Language: LAO

Documented by User: Laly Casper MD 07/21/25 07:53
Discharge Summary
Discharge Data
Date of Admission: 07/16/25
Date of Discharge: 07/21/25
Discharge Plan
-
Patient Disposition: Longterm/SNF
Discharge Diagnosis/Procedures: Sepsis with hypotension secondary to urinary tract infection with associated toxic metabolic encephalopathy and acute kidney injury, acute on chronic chronic kidney disease stage IIIa exacerbated by sepsis with
hypotension, chronic hypoxemic and hypercapnic respiratory failure
Condition: Fair
Diet: Low Cholesterol and Low Sodium
Activity: As tolerated
Driving Restrictions: As prior to admission
Bathing Restrictions: None
Activity Restrictions/Additional Instructions:
Wound Care Instructions
Sacrum-clean with saline, miconazole powder prn yeasty red skin, silicone border foam, change q 3 days and prn loosened dressing.
Miconazole powder to abdominal/groin, R lateral lower chest skin fold bid. Zinc barrier ointment to open skin bid.
Moisture cream to dry skin twice a day.
Air mattress
Turning schedule
Elevate heels off bed with pillow/s
Bariatric pressure redistributing chair cushion (i.e. bariatric air chair cushion, Roho).
Follow up at wound care center if needed, call for an appointment.
Referrals:
Lebron Arce MD [Active, Cardiology] - in one to two weeks
Lewcun,Ruperto G., DO [Family Provider, Family Practice] - in one week
Additional Discharge Medication Instructions: Please take cefdinir 300 BID for the next 9 days to complete a total 14 day course of antibiotics.
Your Jardiance is on hold until you are cleared to restart it by your costume shop manager as it increases the risk of UTIs.
Your diabetes medications have been adjusted. Your glargine has been increased to 24 units each night and your Aspart to 8 units before each meal. Please monitor your blood sugars and follow up with your PCP or instrumentation and controls technician for further
adjustment.
Prescriptions:
New
cefdinir 300 mg capsule
300 mg PO BID 9 Days Qty: 18 0RF
insulin aspart U-100 100 unit/mL (3 mL) Insulin Pen
8 unit SC AC 30 Days Qty: 7.2 0RF
Insulin Glargine Lantus [Lantus] 24 UNITS
Subcutaneous Insulin Syringe [Syringe-Insulin] 0 UNIT
As Directed mls/hr SC HS
Reason for use: Diabetes
Ordered By: Yana Cordero MD, Resident
Last Taken: 07/19/25 22:07 0.24 mls
Continued
ezetimibe 10 MG tablet
10 mg PO HS
coenzyme Q10 [Co Q-10] 200 MG capsule
200 mg PO DAILY
aspirin 81 MG tablet,delayed release (DR/EC)
81 mg PO DAILY Qty: 0 0RF
Rx Instructions:
Resume after Lovenox/Coumadin Bridge is complete
atorvastatin 20 mg tablet
20 mg PO HS
magnesium 250 mg Tablet
240 mg PO DAILY
dorzolamide-timolol 22.3-6.8 mg/mL Drops
1 drp BOTH EYES BID
miconazole nitrate [Miconazorb AF] 2 % Powder
1 applic topical BID Qty: 100 0RF
Patient Comments:
groin. belly axilla areas
cholecalciferol (vitamin D3) [Vitamin D3] 50 mcg (2,000 unit) Tablet
50 mcg PO DAILY
bumetanide 2 mg Tablet
2 mg PO BID AT 0800,1600 Qty: 60 0RF
potassium chloride 20 mEq Tablet,Er Particles/Crystals
20 meq PO TID Qty: 90 0RF
albuterol sulfate [Ventolin HFA] 90 MCG/PUFF HFA aerosol inhaler
2 puff inhalation R Q4 PRN (Reason: sob/wheezing) Qty: 1 0RF
Patient Comments:
never used
amiodarone 200 mg tablet
200 mg PO DAILY
Eliquis 2.5 mg Tablet
2.5 mg PO BID Qty: 0 0RF
Held
Jardiance 10 mg tablet
10 mg PO HS Qty: 30 0RF
Hold Instructions: Until seen by cardiology
Discontinued
insulin lispro [Humalog KwikPen Insulin] 100 unit/mL insulin pen
2 - 8 sliding scale dose SC MEALS
Patient Comments:
01/08/2024: of 200-249= 2; 250-299= 4; 300-349= 6; 350-400= 8, >400 = Call MD
insulin glargine [Lantus Solostar U-100 Insulin] 100 unit/mL (3 mL) Insulin Pen
18 unit SC HS
Discharge Orders:
Discharge Patient (As Directed); Ordered 07/20/25
Ordered By: Yana Cordero
Discharge Date and Time
Discharge Date/Time: 07/20/25 15:20
Print Language: LAO
[2025-07-20 15:07] VITALS: BP 138/60
== END 2025-07-20 15:20 | DRG 871 ==
LOC: 2 NORTH 15:30
PROVIDERS: Nurse Practitioner Family; ADMITTING PHYSICIAN Internal Medicine; ATTENDING PHYSICIAN General Practice; EMERGENCY PHYSICIAN Emergency Medicine; FAMILY PHYSICIAN Family Medicine; OTHER PHYSICIAN Specialist
PROC: 5A09357 Assistance with Respiratory Ventilation, Less than 24 Consecutive Hours, Continuous Positive Airway Pressure (ICD-10-PCS; 2025-07-16)
DX: A41.51 Sepsis due to Escherichia coli [E. coli] (principal); G92.8 Other toxic encephalopathy; J96.21 Acute and chronic respiratory failure with hypoxia; J96.22 Acute and chronic respiratory failure with hypercapnia; N17.9 Acute kidney failure, unspecified; N39.0 Urinary tract infection, site not specified; I13.0 Hypertensive heart and chronic kidney disease with heart failure and stage 1 through stage 4 chronic kidney disease, or unspecified chronic kidney disease; I50.32 Chronic diastolic (congestive) heart failure; Z68.41 Body mass index [BMI] 40.0-44.9, adult; R65.20 Severe sepsis without septic shock; N18.31 Chronic kidney disease, stage 3a; L89.152 Pressure ulcer of sacral region, stage 2; I48.0 Paroxysmal atrial fibrillation; E11.22 Type 2 diabetes mellitus with diabetic chronic kidney disease; I25.10 Atherosclerotic heart disease of native coronary artery without angina pectoris; E66.01 Morbid (severe) obesity due to excess calories; B36.9 Superficial mycosis, unspecified; I35.0 Nonrheumatic aortic (valve) stenosis; Z95.3 Presence of xenogenic heart valve; G47.33 Obstructive sleep apnea (adult) (pediatric); Z79.84 Long term (current) use of oral hypoglycemic drugs; Z79.01 Long term (current) use of anticoagulants; Z79.899 Other long term (current) drug therapy; Z79.4 Long term (current) use of insulin; E78.00 Pure hypercholesterolemia, unspecified; E86.0 Dehydration; I27.20 Pulmonary hypertension, unspecified; I95.89 Other hypotension; J44.9 Chronic obstructive pulmonary disease, unspecified; W19.XXXA Unspecified fall, initial encounter; Z66 Do not resuscitate; Z79.82 Long term (current) use of aspirin; Z98.41 Cataract extraction status, right eye; Z98.42 Cataract extraction status, left eye; Z99.81 Dependence on supplemental oxygen
CPT/HCPCS: 36600; 71045; 80048; 80053; 81003; 81015; 82805; 82962; 83036; 83605; 83735; 83880; 84484; 85025; 85027; 87040; 87070; 87077; 87086; 87088; 87154; 87186; 87205; 93005; 94660; 96365; 96366; 96367; 97163; 97167; 97530; 97535; 99291

== ENCOUNTER → 2025-07-24 09:57 | Outpatient (REF) | payer OTHER, SELFPAY ==
[2025-07-24 12:37] LABS: Hematocrit 38.2 % (39.0-52.0); Hemoglobin 11.6 g/dL (13.0-18.0); Mean Corp Hgb Conc. 30.4 g/dL (33.0-37.0); Mean Corpuscular Volume 97.2 fL (80.0-94.0); Nucleated Red Blood Cells % 0 % (-); Platelet Count 216 10^3/uL (130-400); Red Cell Dist. Width 14.0 % (11.5-14.5)
[2025-07-24 12:49] LABS: Blood Urea Nitrogen 23 mg/dl (9-20); Calcium 8.2 mg/dl (8.4-10.2); Chloride 94 mmol/L (98-107); Glucose 142 mg/dl (70-99); Potassium 4.5 mmol/L (3.5-5.1); Sodium 134 mmol/L (135-145); eGFR 49.56
[2025-07-24 14:20] LABS: Carbon Dioxide 36 mmol/L (22-30)
== END ==
LOC: OLABP 09:57
PROVIDERS: ATTENDING PHYSICIAN Family Medicine
DX: A41.9 Sepsis, unspecified organism (principal); E11.9 Type 2 diabetes mellitus without complications; G92.8 Other toxic encephalopathy; E66.01 Morbid (severe) obesity due to excess calories; E78.5 Hyperlipidemia, unspecified; I10 Essential (primary) hypertension; I48.0 Paroxysmal atrial fibrillation; I50.32 Chronic diastolic (congestive) heart failure; J45.50 Severe persistent asthma, uncomplicated; J98.4 Other disorders of lung; N18.30 Chronic kidney disease, stage 3 unspecified
CPT/HCPCS: 36415; 80048; 85025

== ENCOUNTER → 2025-07-28 10:04 | Outpatient (REF) | payer OTHER, SELFPAY ==
[2025-07-28 10:28] LABS: Hematocrit 36.2 % (39.0-52.0); Hemoglobin 10.9 g/dL (13.0-18.0); Mean Corp Hgb Conc. 30.1 g/dL (33.0-37.0); Mean Corpuscular Volume 96.5 fL (80.0-94.0); Platelet Count 243 10^3/uL (130-400); Red Cell Dist. Width 13.9 % (11.5-14.5)
[2025-07-28 11:36] LABS: Blood Urea Nitrogen 18 mg/dl (9-20); Calcium 8.3 mg/dl (8.4-10.2); Chloride 97 mmol/L (98-107); Glucose 125 mg/dl (70-99); Potassium 4.4 mmol/L (3.5-5.1); Sodium 135 mmol/L (135-145); eGFR 49.56
[2025-07-28 13:35] LABS: Carbon Dioxide 34 mmol/L (22-30)
== END ==
LOC: OLABP 10:04
PROVIDERS: ATTENDING PHYSICIAN Family Medicine
DX: G92.8 Other toxic encephalopathy (principal); A41.9 Sepsis, unspecified organism; E11.9 Type 2 diabetes mellitus without complications; E66.01 Morbid (severe) obesity due to excess calories; E78.5 Hyperlipidemia, unspecified; G47.33 Obstructive sleep apnea (adult) (pediatric); I10 Essential (primary) hypertension; I25.10 Atherosclerotic heart disease of native coronary artery without angina pectoris; I27.20 Pulmonary hypertension, unspecified; I48.0 Paroxysmal atrial fibrillation; I50.32 Chronic diastolic (congestive) heart failure; J45.50 Severe persistent asthma, uncomplicated; N18.30 Chronic kidney disease, stage 3 unspecified; N39.0 Urinary tract infection, site not specified; R73.9 Hyperglycemia, unspecified; J96.11 Chronic respiratory failure with hypoxia; J98.4 Other disorders of lung
CPT/HCPCS: 36415; 80048; 85027

== ENCOUNTER → 2025-08-02 09:59 | Outpatient (REF) | payer OTHER, SELFPAY ==
[2025-08-02 10:49] LABS: Blood Urea Nitrogen 26 mg/dl (9-20); Calcium 8.4 mg/dl (8.4-10.2); Chloride 99 mmol/L (98-107); Glucose 138 mg/dl (70-99); Potassium 4.9 mmol/L (3.5-5.1); Sodium 136 mmol/L (135-145); eGFR 45.62
[2025-08-02 12:07] LABS: Carbon Dioxide 37 mmol/L (22-30)
== END ==
LOC: OLABP 09:59
PROVIDERS: ATTENDING PHYSICIAN Family Medicine
DX: E11.9 Type 2 diabetes mellitus without complications (principal); I10 Essential (primary) hypertension; I25.10 Atherosclerotic heart disease of native coronary artery without angina pectoris; I27.20 Pulmonary hypertension, unspecified; I48.0 Paroxysmal atrial fibrillation; I50.32 Chronic diastolic (congestive) heart failure; J45.50 Severe persistent asthma, uncomplicated; J96.11 Chronic respiratory failure with hypoxia; J98.4 Other disorders of lung; N18.30 Chronic kidney disease, stage 3 unspecified; N39.0 Urinary tract infection, site not specified; R73.9 Hyperglycemia, unspecified
CPT/HCPCS: 36415; 80048